=== PATIENT | male | born 1945 | race Caucasian/White ===

== ENCOUNTER 2018-01-17 18:22 | Inpatient (IN) ==
[2018-01-17] MEDS ORDERED: DEXTROSE 50%-WATER ABBOJECT IVP STA (18:57)
--- NOTE | 2018-01-17 19:19 | CT ---
EXAM: CT brain without contrast HISTORY: Mental status change TECHNIQUE: Multi-slice sequential. Coronal and sagittal reformations were performed. COMPARISON: 10/04/2014 FINDINGS: There is no acute intracranial hemorrhage, extraxial fluid collection, mass affect, or midlineshift. There is moderate diffuse sulcal prominence. Ventricular prominence is consistent with the degree of parenchymal volume loss. Periventricular white matter hypodensity is seen. Intracranial atheroscle rosis is present. The basal cisterns are patent. No large vascular territory area of hypodensity is seen within the brain. The calvarium is unremarkable. Visualized paranasal sinuses are clear. Mast oid air cells are clear. IMPRESSION: 1. No acute intracranial findings. 2. Unchanged atrophy and small vessel ischemic disease.
--- NOTE | 2018-01-17 21:11 | ED.PDOC ---
General ED Provider: Dr. KAMINI COPELAND-ER Chief Complaint: Altered Mental Status Stated Complaint: hes not acting right Time Seen by Physician: 21:09 Mode of Arrival: Ambulance Information Source: Patient Exam Limitations: No limitations Primary Care Provider: THOR EASTON Nursing and Triage Documentation Reviewed and Agree: Yes Does patient meet sepsis criteria?: No System Inflammatory Response Syndrome: Not Applicable Sepsis Protocol: For patient's 13 years and over: Temp is 96.8 and below OR 101 and greater Pulse >90 BPM Resp >20/minute Acutely Altered Mental Status Are patient's symptoms suggestive of a new infection, such as: -Pneumonia -Skin, Soft Tissue -Endocarditis -UTI -Bone, Joint Infection -Implantable Device -Acute Abdominal Infection -Wound Infection -Meningitis -Blood Stream Catheter Infection -Unknown Neurological Complaint Exam - Altered Mental Status Complaint/Exam Current Mental Status: Confusion, Agitation Last Known Well: one week Onset: Gradual Symptoms Are: Still present Timing: Constant Initial Severity: Mild Current Severity: Moderate Eye Deviation Present: No Character: Reports: Confusion Aggravating: Reports: None Alleviating: Reports: None Associated Signs and Symptoms: Denies: Dizziness, Weakness, Headache, Fever, Illness, Nuchal rigidity, Seizure, Nausea, Vomiting, Recently depressed, Trauma Cardiac Risk Factors: Reports: None CVA Risk Factors: Reports: None Related Surgical History: Reports: None Carotid Bruit Present: No Nystagmus Present: No Gag Reflex Present: Yes Meningeal Signs Positive: No Focal Weakness: Present: None Focal Sensory Loss: Present: None Gait: Abnormal [id number]: Normal Findings Romberg Test Positive: No Babinski Sign: Negative Right, Negative Left Heel to Toe Normal: Yes Signs of Injury: Present: Normal findings Thrombolytics Considered: No Differential Diagnoses: Metabolic Disorder Review of Systems - Review Of Systems Constitutional: Reports: No symptoms Eyes: Reports: No symptoms Ears, Nose, Mouth, Throat: Reports: No symptoms Respiratory: Reports: No symptoms Cardiac: Reports: No symptoms GI: Reports: No symptoms : Reports: No symptoms Musculoskeletal: Reports: No symptoms Skin: Reports: No symptoms Neurological: Reports: Cognitive dysfunction Endocrine: Reports: No symptoms Hematologic/Lymphatic: Reports: No symptoms All Other Systems: Reviewed and Negative Past Medical History - Past Medical History Previously Healthy: No Endocrine: Reports: Unknown Cardiovascular: Reports: Unknown Respiratory: Reports: Unknown Hematological: Reports: Unknown Gastrointestinal: Reports: Unknown Genitourinary: Reports: Unknown Neuro/Psych: Reports: Dementia Musculoskeletal: Reports: Unknown Cancer: Reports: Unknown - Surgical History General Surgical History: Reports: Unknown - Family History Family History: Reports: Unknown - Social History Smoking Status: Former smoker Hx Substance Use: No Alcohol Screening: None Physical Exam - Physical Exam Appearance: Well-appearing Eyes: INES, EOMI, Conjunctiva clear ENT: Ears normal, Nose normal, Oropharynx normal Neck: Supple Respiratory: Airway patent Cardiovascular: RRR GI/: Soft, Nontender, No masses, Bowel sounds normal, No Organomegaly Musculoskeletal: Normal strength, ROM intact, No edema, No calf tenderness Skin: Warm, Dry, Normal color Neurological: Sensation intact, Motor intact, Reflexes intact, Cranial nerves intact, Alert, Disoriented Psychiatric: Affect appropriate, Mood appropriate Interpretation - Radiology Interpretation Radiology Interpretation By: Radiologist Radiology Results: Negative Exam Interpreted: CT Scan - EKG Interpretation Time of EKG #1: 21:11 Rate: Normal Rhythm: Sinus Ectopy: None [place]: NL ST Segment: Normal Physician Notification - Case Discussed Physician Notified: dr easton Time of Notification: 21:12 Critical Care Note - Critical Care Note Total Time (mins): 0 Course - Course Hematology/Chemistry: 01/17/18 18:40 01/17/18 18:40 Orders, Labs, Meds: Lab Review 01/17/18 01/17/18 01/17/18 18:24 18:40 18:40 WBC 18.49 H RBC 5.32 Hgb 17.3 Hct 51.4 MCV 96.6 H MCH 32.5 H MCHC 33.7 RDW Coeff of Yamilet 13.1 Plt Count 236 Immature Gran % (Auto) 0.4 Neut % (Auto) 81.8 Lymph % (Auto) 11.1 [place] % (Auto) 6.3 Eos % (Auto) 0.2 Baso % (Auto) 0.2 Immature Gran # (Auto) 0.1 Neut # (Auto) 15.1 H Lymph # (Auto) 2.1 [place] # (Auto) 1.2 Eos # (Auto) 0.0 Baso # (Auto) 0.0 Puncture Site Rrad O2 Saturation 98.0 ABG pH 7.529 H* ABG pCO2 31.5 L ABG pO2 90.0 ABG HCO3 26.3 H ABG Total CO2 27 ABG Base Excess 4 H Jimbo Test + FiO2 % 21.0 Sodium 147 H Potassium 3.6 Chloride 111 H Carbon Dioxide 26 Anion Gap 13.6 BUN 17 Creatinine 0.90 Estimated GFR (MDRD) 82.00 BUN/Creatinine Ratio 18.88 Glucose 59 L Calcium 8.9 Total Bilirubin 1.0 AST 33 ALT 41 Alkaline Phosphatase 79 Total Creatine Kinase Troponin I Total Protein 6.8 Albumin 3.2 L Globulin 3.6 Albumin/Globulin Ratio 0.89 Vitamin B12 TSH Urine Color Urine Clarity Urine pH Ur Specific [place] Urine Protein Urine Glucose (UA) Urine Ketones Urine Blood Urine Nitrite Urine Bilirubin Urine Urobilinogen Ur Leukocyte Esterase Urine Microscopic WBC Ur Squamous Epith Cells Amorphous Sediment Urine Bacteria Urine Mucus 01/17/18 01/17/18 01/17/18 18:40 18:40 20:31 WBC RBC Hgb Hct MCV MCH MCHC RDW Coeff of Yamilet Plt Count Immature Gran % (Auto) Neut % (Auto) Lymph % (Auto) [place] % (Auto) Eos % (Auto) Baso % (Auto) Immature Gran # (Auto) Neut # (Auto) Lymph # (Auto) [place] # (Auto) Eos # (Auto) Baso # (Auto) Puncture Site O2 Saturation ABG pH ABG pCO2 ABG pO2 ABG HCO3 ABG Total CO2 ABG Base Excess Jimbo Test FiO2 % Sodium Potassium Chloride Carbon Dioxide Anion Gap BUN Creatinine Estimated GFR (MDRD) BUN/Creatinine Ratio Glucose Calcium Total Bilirubin AST ALT Alkaline Phosphatase Total Creatine Kinase 78 Troponin I < 0.0100 Total Protein Albumin Globulin Albumin/Globulin Ratio Vitamin B12 704 TSH 2.100 Urine Color Yellow Urine Clarity Clear Urine pH 7.0 Ur Specific [place] 1.020 Urine Protein 1+ Urine Glucose (UA) Negative Urine Ketones Negative Urine Blood Negative Urine Nitrite Negative Urine Bilirubin Negative Urine Urobilinogen 1.0 Ur Leukocyte Esterase Negative Urine Microscopic WBC 20-30 Ur Squamous Epith Cells 2-5 Amorphous Sediment 1+ Urine Bacteria Trace Urine Mucus 1+ Orders Category Date Time Status ABG DRAW REQUEST Stat CARDIO 01/17/18 18:24 Completed EKG-(ED ONLY) Stat CARDIO 01/17/18 18:24 Completed REGULAR DIET DIETARY 01/18/18 Breakfast Ordered ACCUCHECK (ED) [ED ACCUCHECK ASSESSMENT] .ONCE EMERGENCY 01/17/18 18:26 Active Hardware Engineering Manager [ED BUILDING MAINTENANCE REPAIRER APPLIED] .ONCE EMERGENCY 01/17/18 18:43 Active ABG Stat LAB 01/17/18 18:24 Completed CBC W/ AUTO DIFF Stat LAB 01/17/18 18:40 Completed COMPREHENSIVE METABOLIC PANEL Stat LAB 01/17/18 18:40 Completed CREATINE KINASE Stat LAB 01/17/18 18:40 Completed RPR [RAPID PLASMA REAGIN] Stat LAB 01/17/18 18:40 Received THYROID STIMULATING HORMONE Stat LAB 01/17/18 18:40 Completed TROPONIN I Stat LAB 01/17/18 18:40 Completed URINALYSIS C & S IF INDICATED Stat LAB 01/17/18 20:31 Completed URINE CULTURE Stat LAB 01/17/18 20:31 Received VITAMIN B12 Stat LAB 01/17/18 18:40 Completed Dextrose 50 % in Water [Dextrose 50%-Water Abboject] MEDS 01/17/18 18:57 Discontinued 50 ml IVP ONCE STA CT HEAD W/O CONTRAST Stat RADS 01/17/18 18:26 Completed Medications Discontinued Medications Generic Name Dose Route Start Last Admin Trade Name Freq PRN Reason Stop Dose Admin Dextrose 50 ml 01/17/18 18:57 01/17/18 19:02 Dextrose 50%-Water Abboject IVP 01/17/18 18:58 50 ml ONCE STA Administration Vital Signs: Temp Pulse Resp BP Pulse Ox 01/17/18 18:24 97.7 F 58 L 20 169/106 H 100 Departure - Departure Time of Disposition: 21:12 Disposition: ADMITTED INPATIENT Discharge Problem: Altered mental status Instructions: Altered Mental Status (ED) Condition: Fair Pt referred to PMD for follow-up: Yes IPMP verified?: No Allergies/Adverse Reactions: Allergies codeine Adverse Reaction (Verified 01/17/18 18:29) Home Medications: Ambulatory Orders Alprazolam [Xanax] 0.5 mg PO BEDTIME 07/16/14 Citalopram Hydrobromide [Celexa] 40 mg PO DAILY 07/16/14 Donepezil HCl [Aricept] 20 mg PO DAILY 07/16/14 Pravastatin Sodium 80 mg PO BEDTIME 07/16/14 Trazodone HCl 100 mg PO BEDTIME 07/16/14 Memantine HCl [Namenda] 10 mg PO BID #60 tablet 10/06/14 Aspirin 81 mg PO DAILY 01/17/18 Ibuprofen 1 - 2 tab PO PRN PRN 08/17/18 Lisinopril/Hydrochlorothiazide [Zestoretic 20-12.5 mg Tablet] 1 each PO DAILY Potassium Chloride [K-Tab ER] 20 meq PO BID 01/17/18 Disposition Discussed With: Patient, Family
[2018-01-17] MEDS ORDERED: IBUPROFEN PO PRN (21:14)
[2018-01-17] MEDS ORDERED: CATAPRES PO PRN (21:15)
[2018-01-18 00:19] VITALS: BMI 20.1
[2018-01-18] MEDS: SODIUM CHLORIDE 1,000 ML IV SCH ×2 (00:48→12:38)
[2018-01-18] MEDS ORDERED: MOTRIN PO PRN (08:07)
[2018-01-18] MEDS ORDERED: POTASSIUM CHLORIDE 20 MEQ PO SCH (09:00)
[2018-01-18] MEDS ORDERED: NON-FORMULARY MEDICATION (Citalopram Hydrobromide [Celexa] 40 MG) PO SCH (09:00)
[2018-01-18] MEDS: ZESTORETIC 20-12.5 MG TAB PO SCH (09:15)
[2018-01-18] MEDS: ROCEPHIN 1 GM in SODIUM CHLORIDE 50 ML IV SCH (09:15)
[2018-01-18] MEDS: K-DUR PO SCH ×2 (09:16→17:20)
[2018-01-18] MEDS: NAMENDA PO SCH ×2 (09:16→21:02)
[2018-01-18] MEDS: ARICEPT PO SCH (09:16)
[2018-01-18] MEDS: CELEXA PO SCH (09:16)
[2018-01-18] MEDS ORDERED: MESALAMINE 1.2 GM PO SCH (21:00)
[2018-01-18] MEDS ORDERED: NON-FORMULARY MEDICATION (Pravastatin Sodium [Pravastatin Sodium] 80 MG) PO SCH (21:00)
[2018-01-18] MEDS ORDERED: NON-FORMULARY MEDICATION (Trazodone Hcl [Trazodone Hcl] 100 MG) PO SCH (21:00)
[2018-01-18] MEDS: DESYREL PO SCH (21:02)
[2018-01-18] MEDS: PRAVACHOL PO SCH (21:02)
[2018-01-18] MEDS: BETAPACE PO SCH (22:29)
[2018-01-18] MEDS: XANAX PO SCH (22:30)
[2018-01-19] MEDS: MESALAMINE 1.2 GM PO SCH ×2 (02:35→08:39)
[2018-01-19] MEDS: SODIUM CHLORIDE 1,000 ML IV SCH ×2 (03:39→16:57)
[2018-01-19] MEDS: ZESTORETIC 20-12.5 MG TAB PO SCH (08:37)
[2018-01-19] MEDS: K-DUR PO SCH ×2 (08:38→16:55)
[2018-01-19] MEDS: BETAPACE PO SCH ×2 (08:38→20:53)
[2018-01-19] MEDS: CELEXA PO SCH (08:38)
[2018-01-19] MEDS: ASPIRIN CHEWABLE PO SCH (08:38)
[2018-01-19] MEDS: NAMENDA PO SCH ×2 (08:38→20:54)
[2018-01-19] MEDS: ARICEPT PO SCH (08:38)
[2018-01-19] MEDS: ROCEPHIN 1 GM in SODIUM CHLORIDE 50 ML IV SCH (08:39)
[2018-01-19] MEDS: DESYREL PO SCH (20:53)
[2018-01-19] MEDS: PRAVACHOL PO SCH (20:53)
[2018-01-19] MEDS: XANAX PO SCH (20:54)
[2018-01-20] MEDS: SODIUM CHLORIDE 1,000 ML IV SCH ×2 (06:28→10:50)
--- NOTE | 2018-01-20 08:11 | PN ---
DATE OF SERVICE: 01/18/18 Admitting Note SUBJECTIVE: The patient was seen and examined after hospitalization. The patient has mental status change no particular complaint. The brought him to the emergency room and the patient was seen and examined and was noted to have low glucose level except for that mild dehydration was noted. The patient was put on Rocephin for possibility of infection, UTI versus infection. The patient's condition is stable. His mental status was confused on admission. TIME SPENT: More than 30 minutes. Plan and coordination of the patient's care discussed in the presence of nurse. VLADISLAV
[2018-01-20] MEDS: MESALAMINE 1.2 GM PO SCH ×2 (08:40→20:27)
[2018-01-20] MEDS: CELEXA PO SCH (08:44)
[2018-01-20] MEDS: NAMENDA PO SCH ×2 (08:44→20:26)
[2018-01-20] MEDS: BETAPACE PO SCH ×2 (08:44→20:26)
[2018-01-20] MEDS: ASPIRIN CHEWABLE PO SCH (08:44)
[2018-01-20] MEDS: ZESTORETIC 20-12.5 MG TAB PO SCH (08:44)
[2018-01-20] MEDS: K-DUR PO SCH ×2 (08:45→17:06)
[2018-01-20] MEDS: ARICEPT PO SCH (08:45)
[2018-01-20] MEDS: ROCEPHIN 1 GM in SODIUM CHLORIDE 50 ML IV SCH (08:47)
--- NOTE | 2018-01-20 10:39 | PCM.PROG ---
Attending Provider: ATTENDING PROVIDER: Dr. THOR STEIN This patient is seen with Renetta Lopez, Nurse Practitioner. DATE OF SERVICE: 01/20/18 SUBJECTIVE: This 73 year old WHITE/ M was hospitalized 01/17/18. The patient is lying in bed, alert and oriented, resting comfortably. Blood pressure has been somewhat elevated. He is eating well. REVIEW OF SYSTEMS: CONSTITUTIONAL: Weakness. No night sweats. No malaise, lethargy. No fever or chills. HEENT: Eyes: No visual changes. No eye pain. No eye discharge. ENT: No runny nose. No epistaxis. No sinus pain. No odynophagia. No congestion. RESPIRATORY: No cough, no congestion. No hemoptysis. No shortness of breath. CARDIOVASCULAR: No angina symptoms. No CHF symptoms. No atypical chest pain for CAD. No palpitations. No orthopnea.. GASTROINTESTINAL: No abdominal pain. No nausea or vomiting. No diarrhea or constipation. No hematemesis. No hematochezia. GENITOURINARY: No urgency. No frequency. No dysuria. No hematuria. No obstructive symptoms. No discharge. No pain. No significant abnormal bleeding. MUSCULOSKELETAL: No musculoskeletal pain; no joint swelling. NEUROLOGICAL: Confusion. No headache. No neck pain. No syncope. No seizures. No dizziness. PSYCHIATRIC: Not anxious. No depression. No suicidal thoughts. No homicidal thoughts. SKIN: No rash. No lesions. No wounds. ENDOCRINE: No unexplained weight loss. No weight gain. HEMATOLOGIC/LYMPHATIC: No anemia. No purpura. No petechiae. No prolonged or excessive bleeding. No palpable lymph nodes. PHYSICAL EXAMINATION: GENERAL: The patient is awake, alert, oriented to person only lying in bed in no distress. VITAL SIGNS: Temperature 97.8 F, Pulse 52, Respiratory Rate 16, BP 159/82, Pulse Ox 100% HEENT: Head normocephalic, atraumatic. Eyes: Extraocular muscles are intact. Pupils are equal, round and reactive to light and accommodation. Ears: No lesions. Nose appeared normal. Throat: No exudate or erythema. NECK: Supple. No JVD, no carotid bruit. No lymphadenopathy or thyromegaly. LUNGS: Diminished breath sounds. Clear to auscultation. Percussion note normal. Chest symmetrical. HEART: S1, S2, no S3. No murmurs. No cyanosis or clubbing. No ascites. Pulses: Dorsalis pedis and posterior tibial pulses +1 to +2 both sides. ABDOMEN: Soft. Non-tender. Bowel sounds active. No CVA tenderness. No mass felt. EXTREMITIES: No edema. Full range of motion of all extremities, equal. NEUROLOGIC: No focal deficit. Cranial nerves II through XII are grossly intact. No headache, no double vision or headache. SKIN: Not dry. Intact. Turgor-normal. LYMPHATIC: No palpable lymph nodes/no lymphedema. MUSCULOSKELETAL: Normal joints with no swelling. Muscle tone is normal. LAB REVIEW: 01/19/18 04:30 01/19/18 04:30 ASSESSMENT: 1. Acute mental status change 2. Dementia 3. Hypertension PLAN: 1. Lisinopril 40 mg 2. D/C IV fluids to 50 cc/hr 3. Chest x-ray Plan and coordination of the patient's care discussed in the presence of Bead Builder and nurse. CONDITION: Stable SCRIBED BY: Melania TRAN scribed while in presence of service performed by Dr. Stein/Renetta Lopez APRN on 01/20/18 ([id number])
[2018-01-20] MEDS: HYDROCHLOROTHIAZIDE PO SCH (10:50)
[2018-01-20] MEDS: ZESTRIL PO SCH (10:50)
--- NOTE | 2018-01-20 11:22 | DI ---
EXAM: Two views of the chest. History: Cough. Comparison: Chest radiograph 10/04/2014, chest CT 06/13/2015 Findings: Heart size is within normal limits. No focal consolidation. No appreciable pleural fluid and no pneumothorax. Tortuous thoracic aorta. No acute osseous abnormalities. Impression: No acute cardiopulmonary process. Tortuous thoracic aorta
--- NOTE | 2018-01-20 14:42 | RS.PTINEVL ---
Subjective - Patient information Date of Evaluation: 01/20/18 Date of Arrival on Unit: 01/17/18 Admitted From:: Home Diagnosis: altered mental status, h/o falls at home Usual Living Arrangement: With Spouse Living Arrangement Comments: lives with spouse, daughter and adopting four great -grandchildren ages 6-13 Home Environment: House, Stairs (many) (pt's bedroom is upstairs.) Medical History: Hypertension, Dementia Surgical History: Cervical Spine, Cholecystectomy Surgical History Comments:: hernia repair, r hand sx, appey Medications: see chart Subjective Information/ Patient Comments:: pt's states pt has been hateful with her for the past 2 days. appears overwhelmed and emotional. pt states he would like to walk. - Level of function Prior to this admission, the patient could do the following:: Independent Ambulation Current Level of Function: Partially Dependent Current Equipment Used at Home: none Interventions - Objective Patient Orientation: Person Current Interventions: IV's, Telemetry Range of Motion - ROM Right Upper Extremity AROM: WFL's Left Upper Extremity AROM: WFL's Right Lower Extremity AROM: WFL's Left Lower Extremity AROM: WFL's Muscle Strength - Muscle Strength Right Upper Extremity Strength: Mild Weakness (grossly 4-/5) Left Upper Extremity Strength: Mild Weakness (grossly 4-/5) Right Lower Extremity Strength: Mild Weakness (hip flex 4-/5, knee flex/ext 4/5 , ankle Df/PF 4/5) Left Lower Extremity Strength: Mild Weakness (hip flex 4-/5, knee flex/ext 4/5, ankle Df/PF 4/5) Sensation - Sensation Right Upper Extremity Sensation: Intact/Normal Left Upper Extremity Sensation: Intact/Normal Right Lower Extremity Sensation: Intact/Normal Left Lower Extremity Sensation: Intact/Normal Palpation Palpation Findings: None/Normal Balance - Sitting Balance and Reactions Static Sitting Balance: Fair Dynamic Sitting Balance: Fair - Standing Balance and Reactions Static Standing Balance: Poor Dynamic Standing Balance: Poor Standing Equilibrium Reactions: Delayed Left, Delayed Right Standing Protective Reactions: Delayed Left, Delayed Right - Comments Balance Assessment Comments: While amb pt leans backward, and requires min assist to maintain balance. Functional Mobility - Bed Mobility Rolling R/L: CGA Scooting: CGA Supine to Sit: Min Assist Sit to Supine: Min Assist - Transfers Sit to Stand: Min Assist Stand to Sit: Min Assist - Safety Awareness Safety Awareness: Poor DON INDEX SCORE: n/a Ambulation - Ambulation Orthotic/Prosthetic Device: No Distance: 150ft Assistance needed with Ambulation: Min Assist, 1 person assist Quality of Ambulation: pt amb 130ft with SOLE CEMENTER with gait belt for min x 1, pt then amb 20ft with rwx with improved posture and balance. Feel pt would benefit from rwx at home to improve safety and balance. Gait Deviations: Forward posture, Short stride Factors Affecting Ambulation: Decreased Balance, Weakness, Decreased Safety, Cognitive Status, Limited Endurance Treatment time - Time with patient Length of Evaluation: 26 Total treatment time: 26 Patient Education - Education Patient Education: Activity Modification, Education of Plan of Care Teaching Recipient: Patient, Family Teaching Methods: Discussion Comments: discussion regarding safety with transfers, gait as well as safety in the home. Assessment - Assessment Problem List:: Decreased level of function, Requires training/education, Decreased safety/Risk of falls, Weakness, Cognitive status limits abilities Rehab Potential: Fair Further Therapy Indicated?: Yes Candidate for Swing Bed for Therapy Services?: Feel pt may not be a candidate for swing bed due to cognitive issues limiting ability to retain instruction. Evaluation Complexity: HISTORY: Medium (htn, falls at home, dementia, ), EXAM OF BODY SYSTEMS: Medium (balance, gait, transfers, strength), CLINICAL PRESENTATION: Medium (evolving), CLINICAL DECISION MAKING: Medium Short Term Goals GOAL #1: pt demonstrate independence with rolling and scooting up in bed Goal to be met by: 01/23/18 GOAL #2: pt transfer sup to/from sit to/from stand CGA Goal to be met by: 01/23/18 GOAL #3: pt amb with rwx 150ft with CGA with improved posture, no LOB Goal to be met by: 01/23/18 Long-Term Goals GOAL #1: pt transfer sup to/from sit to/from stand SBA Goal to be met by: 01/25/18 GOAL #2: pt amb with rwx functional household distances with SBA Goal to be met by: 01/25/18 GOAL #3: pt with improved dyn stand balance with no LOB with gait Goal to be met by: 01/25/18 Plan Plan of Care: Therapeutic EX, Therapeutic Activity Other:: gait training Frequency of Treatment: 1-2 X day, as tolerated Duration of Treatment: 5 days Anticipated Discharge Destination: Home Treatment Diagnosis (ICD 10 Codes): R29.6 falls. M62.81 general weakness. R 26.2 difficulty walking Has the Physician been added for Co-signature?: Yes
--- NOTE | 2018-01-20 14:51 | RS.OTINEVL ---
Subjective - Patient information Date of Evaluation: 01/20/18 Date of Arrival on Unit: 01/17/18 Admitted From:: Home Usual Living Arrangement: With Spouse Living Arrangement Comments: lives with spouse, daughter and adopting four great -grandchildren ages 6-13 Home Environment: House, Stairs (many) (pt's bedroom is upstairs.) Medical History: Hypertension, Dementia Medical History Comments:: Pt has dementia, TLINGIT & HAIDA, disoriented, confused, high fall risk, HTN, Hypercholesterolemia, mental status change, unsteady gait, hernia repair, colonoscopy, R hand tendon surgery., neck fusion, cholecystectomy , glasses Surgical History: Cervical Spine, Cholecystectomy Surgical History Comments:: hernia repair, r hand sx, appey Medications: see chart Subjective Information/ Patient Comments:: pt not very talkative at this time. - Level of function Prior to this admission, the patient could do the following:: Independent Ambulation Abilities prior to this admission: Pt sat EOB independently. Pt requires a RW at this time due to unsteady gait. Pt's is telling OT that her is not bathing. She reports that he does not take a shower or a bath, or a sponge bath. Current Level of Function: Partially Dependent Current Equipment Used at Home: none Pain Assessment - Pain Pain Score: 0 Interventions - Objective Patient Orientation: Person Current Interventions: IV's, Oxygen Observation: Pt is confused. Pt did participate in the OT evaluation. Pt sat EOB independently. Pt stood with RW CGA. Interventions - ROM Right Upper Extremity AROM: WFL's Left Upper Extremity AROM: WFL's - Strength Right Upper Extremity Strength: Mild Weakness Left Upper Extremity Strength: Mild Weakness - Sensation Right Upper Extremity Sensation: Intact/Normal Left Upper Extremity Sensation: Intact/Normal Balance - Sitting Balance Static Sitting Balance: Fair Dynamic Sitting Balance: Fair - Standing Balance Static Standing Balance: Fair Dynamic Standing Balance: Fair ADL Skills - Self Feeding Self Feeding: Independent - Grooming Grooming: Min Assist - Bathing Bathing UE: Min Assist Bathing LE: Min Assist - Dressing Dressing UE: Min Assist Dressing LE: Min Assist - Toilet Management Toileting Management: Min Assist Functional Mobility DON INDEX SCORE: . Additional Treatment Performed - Time with patient Length of Evaluation: 25 Total treatment time: 25 Activities Patient Interests:: Watching Television, Visiting/Socializing Patient Education Patient Education: Education of diagnosis, Home Exercise Program, Home Safety, Education of Plan of Care Teaching Recipient: Patient, Significant Other Teaching Methods: Discussion Short Term Goals - Goals GOAL 1: Pt to complete sink level ADLs with RW CGA. Goal to be met by: 01/24/18 GOAL 2: Pt to complete BUE strengthening to have 4+/5 in MMT. Goal to be met by: 01/24/18 GOAL 3: Pt to tolerate activity tolerance to 15 minutes with RW. Goal to be met by: 01/24/18 Goal to be met by: 01/24/18 Mcfp Goals GOAL 1: Pt to complete sink level ADLs with RW Mod-I. Goal to be met by: 01/31/18 GOAL 2: Pt to complete BUE strengthening to have 5/5 in MMT. Goal to be met by: 01/31/18 GOAL 3: Pt to tolerate activity tolerance to 20 minutes with RW. Goal to be met by: 01/31/18 Plan Plan of Care: Therapeutic EX, Neuromuscular Re-Educ, Therapeutic Activity, Self- Care/Home Management Frequency of Treatment: 1-2 X day, as tolerated Duration of Treatment: 2 Weeks Anticipated Discharge Destination: Home Treatment Diagnosis (ICD 10 Codes): M62.81 Muscle weakness, Z74.0 Reduced mobility. Has the Physician been added for Co-signature?: Yes
[2018-01-20] MEDS: PRAVACHOL PO SCH (20:25)
[2018-01-20] MEDS: XANAX PO SCH (20:26)
[2018-01-20] MEDS: DESYREL PO SCH (20:26)
[2018-01-21] MEDS: SODIUM CHLORIDE 1,000 ML IV SCH (02:04)
[2018-01-21 05:54] VITALS: BP 117/79; TEMP 97.4
[2018-01-21] MEDS ORDERED: K-DUR PO STA (07:59)
[2018-01-21] MEDS: ROCEPHIN 1 GM in SODIUM CHLORIDE 50 ML IV SCH (08:40)
--- NOTE | 2018-01-21 08:41 | PCM.PROG ---
Attending Provider: ATTENDING PROVIDER: Dr. THOR STEIN DATE OF SERVICE: 01/21/18 SUBJECTIVE: This 73 year old WHITE/ M was hospitalized 01/17/18 with change in mental status. The patient was treated for UTI. Condition has improved but and family decided against alf. The patient is almost total care. REVIEW OF SYSTEMS: CONSTITUTIONAL: No night sweats. No fatigue, malaise, lethargy. No fever or chills. HEENT: Eyes: No visual changes. No eye pain. No eye discharge. ENT: No runny nose. No epistaxis. No sinus pain. No odynophagia. No congestion. RESPIRATORY: No cough, no congestion. No hemoptysis. No shortness of breath. CARDIOVASCULAR: No angina symptoms. No CHF symptoms. No atypical chest pain for CAD. No palpitations. No orthopnea.. GASTROINTESTINAL: No abdominal pain. No nausea or vomiting. No diarrhea or constipation. No hematemesis. No hematochezia. GENITOURINARY: No urgency. No frequency. No dysuria. No hematuria. No obstructive symptoms. No discharge. No pain. No significant abnormal bleeding. MUSCULOSKELETAL: No musculoskeletal pain; no joint swelling. NEUROLOGICAL: Confused mental status at times. No headache. No neck pain. No syncope. No seizures. No dizziness. PSYCHIATRIC: Not anxious. No depression. No suicidal thoughts. No homicidal thoughts. SKIN: No rash. No lesions. No wounds. ENDOCRINE: No unexplained weight loss. No weight gain. HEMATOLOGIC/LYMPHATIC: No anemia. No purpura. No petechiae. No prolonged or excessive bleeding. No palpable lymph nodes. PHYSICAL EXAMINATION: GENERAL: The patient is awake, alert lying in bed in no distress. VITAL SIGNS: Temperature 97.4 F, Pulse 54, Respiratory Rate 16, BP 117/79, Pulse Ox 98% HEENT: Head normocephalic, atraumatic. Eyes: Extraocular muscles are intact. Pupils are equal, round and reactive to light and accommodation. Ears: No lesions. Nose appeared normal. Throat: No exudate or erythema. NECK: Supple. No JVD, no carotid bruit. No lymphadenopathy or thyromegaly. LUNGS: Clear to auscultation. Percussion note normal. Chest symmetrical. HEART: S1, S2, no S3. No murmurs. No cyanosis or clubbing. No ascites. Pulses: Dorsalis pedis and posterior tibial pulses +1 to +2 both sides. ABDOMEN: Soft. Non-tender. Bowel sounds active. No CVA tenderness. No mass felt. EXTREMITIES: No edema. Full range of motion of all extremities, equal. NEUROLOGIC: No focal deficit. Cranial nerves II through XII are grossly intact. No headache, no double vision or headache. SKIN: Warm and dry. Intact. Turgor-normal. LYMPHATIC: No palpable lymph nodes/no lymphedema. MUSCULOSKELETAL: Normal joints with no swelling. Muscle tone is normal. LAB REVIEW: 01/21/18 05:15 01/21/18 05:15 01/21/18 05:15: Sodium 142, Potassium 3.0 L, Chloride 111 H, Carbon Dioxide 24, Anion Gap 10.0, BUN 21 H, Creatinine 0.84, Estimated GFR (MDRD) 89.00, BUN/ Creatinine Ratio 25.00, Glucose 115, Calcium 8.2, Total Bilirubin 0.3, AST 27, ALT 28, Alkaline Phosphatase 58, Total Protein 5.0 L, Albumin 2.3 L, Globulin 2.7, Albumin/Globulin Ratio 0.85 01/21/18 05:15: WBC 8.98, RBC 4.19 L, Hgb 13.5 L, Hct 40.6 L, MCV 96.9 H, MCH 32.2 H, MCHC 33.3, RDW Coeff of Yamilet 13.0, Plt Count 167, Immature Gran % (Auto) 0.4, Neut % (Auto) 45.4, Lymph % (Auto) 43.4, [place] % (Auto) 8.1, Eos % (Auto) 2.3, Baso % (Auto) 0.4, Immature Gran # (Auto) 0.0, Neut # (Auto) 4.1, Lymph # ( Auto) 3.9 H, [place] # (Auto) 0.7, Eos # (Auto) 0.2, Baso # (Auto) 0.0 ASSESSMENT: 1. Mental status, Alzheimer's dementia 2. Hypertension 3. Dyslipidemia 4. Depression PLAN: 1. Keflex 500 mg b.i.d. times five days 2. Continue all medications 3. Potassium supplements 4. Will see in three to four days in followup 5, Discharge home Plan and coordination of the patient's care discussed in the presence of Second Grade Teacher and nurse. CONDITION: Stable SCRIBED BY: CLARITZA HUGGINS Performance Consultant scribed while in presence of service performed by Dr. THOR STEIN on 01/21/18 ([id number])
[2018-01-21] MEDS: ASPIRIN CHEWABLE PO SCH (08:43)
[2018-01-21] MEDS: HYDROCHLOROTHIAZIDE PO SCH (08:43)
[2018-01-21] MEDS: BETAPACE PO SCH (08:44)
[2018-01-21] MEDS: K-DUR PO SCH (08:45)
[2018-01-21] MEDS: CELEXA PO SCH (08:46)
[2018-01-21] MEDS: NAMENDA PO SCH (08:46)
[2018-01-21] MEDS: ZESTRIL PO SCH (08:46)
[2018-01-21] MEDS: ARICEPT PO SCH (08:46)
[2018-01-21] MEDS: MESALAMINE 1.2 GM PO SCH (08:47)
--- NOTE | 2018-01-21 14:14 | CM.DICTOOL ---
ADMISSION: 01/17/18 21:21 DISCHARGE: 01/21/18 DATE OF SERVICE: 01/21/18 FINAL DIAGNOSIS MENTAL STATUS CHANGES ALZHEIMER'S TYPE DEMENTIA HYPOKALEMIA, TREATED HYPERTENSION ULCERATIVE COLITIS BY HISTORY ELECTROCUTION, APPROX 12 YEARS AGO SLEEP APNEA (C-PAP, NONCOMPLIANT) HERNIA REPAIR CHOLECYSTECTOMY APPENDECTOMY CERVICAL SURGERY TONSILLECTOMY FORMER SMOKER LAST VITALS Temp Pulse Resp BP Pulse Ox 97.4 F L 54 L 16 117/79 98 01/21/18 05:53 01/21/18 05:53 01/21/18 05:53 01/21/18 05:53 01/21/18 05:53 TAKE THESE MEDICATIONS AT HOME Alprazolam (Xanax) 0.5 mg PO BEDTIME [facility] Last Admin: 01/20/18 20:26 Dose: 0.5 mg Aspirin (Aspirin Chewable) 81 mg PO DAILYWM [facility] Last Admin: 01/21/18 08:43 Dose: 81 mg Citalopram Hydrobromide (Celexa) 40 mg PO DAILY [facility] Last Admin: 01/21/18 08:46 Dose: 40 mg Donepezil HCl (Aricept) 20 mg PO DAILY [facility] Last Admin: 01/21/18 08:46 Dose: 20 mg Hydrochlorothiazide (Hydrochlorothiazide) 12.5 mg PO DAILY [facility] (WITH LISINOPRIL ) Last Admin: 01/21/18 08:43 Dose: 12.5 mg Ibuprofen (Motrin) 200 - 400 mg PO Q4-6H PRN PRN Reason: Pain Keflex 500 mg PO BID X5 DAYS Lisinopril (Zestril) 40 mg PO DAILY [facility] (WITH HCTZ) Last Admin: 01/21/18 08:46 Dose: 40 mg Memantine (Namenda) 10 mg PO BID [facility] Last Admin: 01/21/18 08:46 Dose: 10 mg Non-Formulary Medication (Mesalamine [Mesalamine]) 1.2 gm PO BID [facility] Last Admin: 01/21/18 08:47 Dose: Not Given Potassium Chloride (K-Dur) 40 meq PO BIDWM [facility] Last Admin: 01/21/18 08:45 Dose: 20 meq Pravastatin Sodium (Pravachol) 80 mg PO BEDTIME [facility] Last Admin: 01/20/18 20:25 Dose: 80 mg Sotalol HCl (Betapace) 40 mg PO BID [facility] Last Admin: 01/21/18 08:44 Dose: 40 mg Trazodone HCl (Desyrel) 100 mg PO BEDTIME [facility] Last Admin: 01/20/18 20:26 Dose: 100 mg ALLERGIES codeine Adverse Reaction (Verified 01/17/18 18:29) NEW PRESCRIPTIONS: NEW PRESCRIPTIONS Cephalexin [Keflex] 500 mg PO BID #10 capsule 01/21/18 Hydrochlorothiazide 12.5 mg PO DAILY #30 tablet 01/21/18 Lisinopril [Zestril] 40 mg PO DAILY #30 tablet 01/21/18 SMOKING: FORMER SMOKER NONE NOW DISEASE SPECIFIC EDUCATION: DEMENTIA HYPOKALEMIA HYPERTENSION HOME MEDICATIONS AND CHANGES NEW PRESCRIPTIONS FOLLOW UP SKILLED NURSING PLACEMENT ASSISTED LIVING HOME HEALTH LAB REVIEW: 01/21/18 05:15 01/21/18 05:15 01/21/18 05:15: Sodium 142, Potassium 3.0 L, Chloride 111 H, Carbon Dioxide 24, Anion Gap 10.0, BUN 21 H, Creatinine 0.84, Estimated GFR (MDRD) 89.00, BUN/ Creatinine Ratio 25.00, Glucose 115, Calcium 8.2, Total Bilirubin 0.3, AST 27, ALT 28, Alkaline Phosphatase 58, Total Protein 5.0 L, Albumin 2.3 L, Globulin 2.7, Albumin/Globulin Ratio 0.85 01/21/18 05:15: WBC 8.98, RBC 4.19 L, Hgb 13.5 L, Hct 40.6 L, MCV 96.9 H, MCH 32.2 H, MCHC 33.3, RDW Coeff of [place]ile[place] 13.0, Plt Count 167, Immature Gran % (Auto) 0.4, Neut % (Auto) 45.4, Lymph % (Auto) 43.4, [place] % (Auto) 8.1, Eos % (Auto) 2.3, Baso % (Auto) 0.4, Immature Gran # (Auto) 0.0, Neut # (Auto) 4.1, Lymph # ( Auto) 3.9 H, [place] # (Auto) 0.7, Eos # (Auto) 0.2, Baso # (Auto) 0.0 PLAN: DISCHARGE HOME TODAY, 01/21/[address] STEIN IN HIS OFFICE ON 01/24/18 AT 10:15 A.M. RESUME YOUR HOME MEDICATIONS PER LIST PROVIDED BY THE NURSING STAFF DO NOT TAKE YOUR ZESTORETIC (LISINOPRIL/HYDROCHLOROTHIAZIDE) NEW PRESCRIPTIONS KEFLEX 500 MG, TAKE ONE CAPSULE BY MOUTH TWICE DAILY FOR 5 DAYS ONLY LISINOPRIL (ZESTRIL) 40 MG, TAKE ONE TABLET BY MOUTH WITH YOUR HCTZ DAILY HYDROCHLOROTHIAZIDE (HCTZ) 12.5 MG, TAKE ONE TABLET BY MOUTH WITH YOUR LISINOPRIL DAILY ACTIVITY GET PLENTY OF REST AT HOME. GRADUALLY INCREASE YOUR ACTIVITY LEVEL ACCORDING TO YOUR TOLERATION DIET TOLERATED SUMMARY THE PATIENT IS ALERT AND ORIENTED X3 DURING THE DAY AND HAS EPISODES OF CONFUSION DURING THE NIGHT. HE CURRENTLY RESIDES AT HOME WITH HIS SPOUSE AND DESIRES TO RETURN THERE AT DISCHARGE. OFFER HAS BEEN MADE TO ASSIST WITH ALTERNATIVE DISCHARGE PLANS SUCH SKILLED NURSING PLACEMENT, ASSISTED LIVING, HOME HEALTH AND MENTAL HEALTH REFERRAL. THE HAS HELD DISCUSSION WITH THEIR CHILDREN. THEY HAVE OPTED FOR THE PATIENT TO RETURN HOME. MR. DUDLEY HAS A C-PAP AT HOME BUT DOES NOT USE IT AT THIS TIME. THE SKIN TURGOR REMAINS INTACT AND WITHOUT DECUBITUS ULCERS. HYDRATION AND NUTRITIONAL STATUS ARE EXCELLENT. THE PATIENT IS AWARE AND AGREEABLE FOR TODAY' S DISCHARGE HOME. WE WILL FOLLOW HIM THROUGH THE OFFICE IN 3-4 DAYS. CURRENT CODE STATUS FULL CODE THOR STEIN M.D.
--- NOTE | 2018-01-22 09:08 | RS.OTQKDC ---
OT Discharge Date of Discharge: 01/21/18 Reason for Discharge: Pt discharged from hospital.
--- NOTE | 2018-01-22 10:17 | PN ---
DATE OF SERVICE: 01/19/18 SUBJECTIVE: The is in the room. He was hospitalized with change in mental status. The patient's mental status is stable, oriented to time, place and person. He at times is obnoxious with his according to the . REVIEW OF SYSTEMS: CONSTITUTIONAL: No night sweats. No fatigue, malaise, lethargy. No fever or chills. HEENT: Eyes: No visual changes. No eye pain. No eye discharge. ENT: No runny nose. No epistaxis. No sinus pain. No sore throat. No odynophagia. No congestion. RESPIRATORY: No cough, no congestion. No hemoptysis. No shortness of breath. CARDIOVASCULAR: No angina symptoms. No CHF symptoms. No atypical chest pain for CAD. No palpitations. No orthopnea. GASTROINTESTINAL: No abdominal pain. No nausea or vomiting. No diarrhea or constipation. No hematemesis. No hematochezia. GENITOURINARY: No urgency. No frequency. No dysuria. No hematuria. No obstructive symptoms. No discharge. No pain. No significant abnormal bleeding. MUSCULOSKELETAL: No musculoskeletal pain; no joint swelling. NEUROLOGICAL: No headache. No neck pain. No syncope. No seizures. No dizziness. PSYCHIATRIC: Not anxious. No depression. No suicidal thoughts. No homicidal thoughts. SKIN: No rash. No lesions. No wounds. ENDOCRINE: No unexplained weight loss. No weight gain. HEMATOLOGIC/LYMPHATIC: No anemia. No purpura. No petechiae. No prolonged or excessive bleeding. No palpable lymph nodes. PHYSICAL EXAMINATION: GENERAL: The patient is oriented to time, place and person at the present time. VITAL SIGNS: Temperature 97.5, pulse 50, respiratory rate 18, BP 130/80, pulse ox 100%. HEENT: Head normocephalic, atraumatic. Eyes: Extraocular muscles are intact. Pupils are equal, round and reactive to light and accommodation. Ears: No lesions. Nose appeared normal. Throat: No exudate or erythema. NECK: Supple. No JVD, no carotid bruit. No lymphadenopathy or thyromegaly. LUNGS: Decreased breath sounds. Clear to auscultation. Percussion note normal. Chest symmetrical. HEART: S1, S2, no S3. No murmurs. No cyanosis or clubbing. No ascites. Pulses: Dorsalis pedis and posterior tibial pulses +1 to +2 both sides. ABDOMEN: Soft. Nontender. Bowel sounds active. No CVA tenderness. No mass felt. EXTREMITIES: No edema. Full range of motion of all extremities, equal. NEUROLOGIC: No focal deficit. Cranial nerves II through XII are grossly intact. No headache, no double vision or headache. SKIN: Not dry. Intact. Turgor - normal. LYMPHATIC: No palpable lymph nodes/no lymphedema. MUSCULOSKELETAL: Normal joints with no swelling. Muscle tone is normal. ASSESSMENT: 1. DEMENTIA SEEMS TO BE WORSENING 2. CHRONIC LUNG DISEASE PLAN: 1. Continue all of the medications, IV antibiotics. 2. The patient's overall mental status had deteriorated because of UTI. TIME SPENT: More than 30 minutes. Plan and coordination of the patient's care discussed in the presence of nurse. VLADISLAV
--- NOTE | 2018-01-22 10:21 | PN ---
DATE OF SERVICE: 01/20/18 SUBJECTIVE: The patient was seen and examined with the nurse practitioner. He is a 73-year- old white male hospitalized with mental status change. The patient's electrolytes are stable. Creatinine and BUN shows mild dehydration. Increased the Lisinopril to 40. IV fluids to be decreased to 50 cc. Chest x-ray to be done. is in the room. She is fed up with taking care of him. He is uncooperative. She has been taking care of him for many years. She is thinking about putting him in the [facility]. TIME SPENT: More than 30 minutes. Plan and coordination of the patient's care discussed in the presence of nurse. VLADISLAV
--- NOTE | 2018-01-22 10:59 | DS ---
DATE OF SERVICE: 01/21/18 FINAL DIAGNOSIS: 1. MENTAL STATUS CHANGES 2. ALZHEIMER'S DEMENTIA 3. HYPOKALEMIA, TREATED 4. HYPERTENSION 5. ULCERATIVE COLITIS BY HISTORY 6. ELECTROCUTION, APPROXIMATELY 12 YEARS AGO 7. SLEEP APNEA (CPAP, NONCOMPLIANT) 8. HERNIA REPAIR 9. CHOLECYSTECTOMY 10. APPENDECTOMY 11. CERVICAL SURGERY 12. TONSILLECTOMY 13. FORMER SMOKER DISCHARGE INSTRUCTIONS: Followup appointment: Return to see Dr. Ledesma in his office on 01/24/18 at 10: 15 a.m. Do not take your Zestoretic (Lisinopril/Hydrochlorothiazide) MEDICATIONS AT DISCHARGE: Xanax 0.5 mg p.o. bedtime [facility] Aspirin 81 mg p.o. daily with meal [facility] Celexa 40 mg p.o. daily [facility] Aricept 20 mg p.o. daily [facility] Hydrochlorothiazide 12.5 mg p.o. daily [facility] (with Lisinopril) Ibuprofen 200-400 mg p.o. q.4-6h p.r.n. Keflex 500 mg p.o. b.i.d. times 5 days Lisinopril (Zestril) 40 mg p.o daily [facility] (with HCTZ) Namenda 10 mg p.o. b.i.d. [facility] Mesalamine 1.2 gm p.o. b.i.d. [facility] K-Dur 40 mEq p.o. b.i.d. with meal [facility] Pravachol 80 mg p.o. bedtime [facility] Betapace 40 mg p.o. b.i.d. [facility] Desyrel 100 mg p.o. bedtme [facility] NEW PRESCRIPTIONS: Keflex 500 mg take one capsule by mouth twice daily for 5 days only Lisinopril (Zestril) 40 mg take one tablet by mouth with your HCTZ daily Hydrochlorothiazide (HCTZ) 12.5 mg take one tablet by mouth with your Lisinopril daily DIET INSTRUCTIONS: As tolerated. ACTIVITY: Get plenty of rest at home. Gradually increase your activity level according to your toleration. SMOKING: Former smoker - none now DISEASE SPECIFIC EDUCATION: Dementia Hypokalemia Hypertension Home medication and changes New prescriptions Followup Long Term placement Assisted living Home Health HOSPITAL COURSE: 73-year-old white male hospitalized with dehydration, change in mental status with possibility of urinary tract infection. The patient was treated with IV fluids. Also was given Rocephin for possibility of UTI. Mental status improved. The patient's main problem seems to be his Alzheimer's which seems to be advancing. The patient also has family problems at home and conflicts. In further discussion, the family including decided not to send this patient to the detention. The patient's condition at time of discharge is stable. He will be discharged on Keflex to be taken 500 mg b.i.d. for 5 days, potassium supplements given before discharge, total of 80 mg on day of discharge and he will be taking 40 mEq of potassium on a daily basis. CONDITION AT TIME OF DISCHARGE: Stable. TIME SPENT: More than 60 minutes. MTDD
--- NOTE | 2018-01-22 11:01 | PN ---
BILLING 01/17/18 LEVEL 5 01/18/18 INTERMEDIATE 01/19/18 INTERMEDIATE 01/20/18 INTERMEDIATE 01/21/18 DISCHARGE MTDD
== END 2018-01-21 10:10 | disposition home or self-care (01) | DRG 641 ==
LOC: ED 18:22 → MEDSURG B 21:21
PROVIDERS: ADMIT Internal Medicine; ATTEND Internal Medicine
DX: E86.0 Dehydration (principal); N39.0 Urinary tract infection, site not specified; F02.81 Dementia in other diseases classified elsewhere, unspecified severity, with behavioral disturbance; E78.5 Hyperlipidemia, unspecified; E87.6 Hypokalemia; G30.9 Alzheimer's disease, unspecified; G47.30 Sleep apnea, unspecified; I10 Essential (primary) hypertension
CPT/HCPCS: 36415; 80053; 81001; 82550; 82607; 82803; 82962; 84443; 84484; 85025; 86592; 87086; 93005; 93010; 96374; 99284

== ENCOUNTER 2018-02-09 11:39 | Emergency (ER) | payer OTHER ==
[2018-02-09 11:43] VITALS: BP 162/110; TEMP 97.9; BMI 22.4
--- NOTE | 2018-02-09 12:25 | CT ---
EXAM: CT head without contrast HISTORY: Confusion COMPARISON: CT head 01/17/2018 and multiple priors TECHNIQUE: Serial axial images of the brain were obtained from the skull base to the vertex without IV contrast. FINDINGS: The ventricles, cisterns and sulci demonstrate moderate generalized volume loss. The lim -white matter junction is maintained. There is scattered low attenuation throughout the periventricu lar white matter.No midline shift or mass is identified. There is no abnormal intra or extra-axial f luid collection. The paranasal sinuses demonstrate mucosal thickening. The mastoid air cells are cl ear. The osseous calvarium is intact. IMPRESSION: 1. No acute intracranial abnormality or hemorrhage. 2. Moderate generalized volume loss and scattered microangiopathy. 3. Mild paranasal sinus mucosal thickening.
--- NOTE | 2018-02-09 13:08 | ED.PDOC ---
General ED Provider: Dr. KAMINI COPELAND-ER Chief Complaint: Hypoglycemia Stated Complaint: his bs is low--found to be just over 30 with decreased responsiveness Time Seen by Physician: 11:45 Mode of Arrival: Ambulance Information Source: Patient, EMT Exam Limitations: No limitations Primary Care Provider: THOR EASTON Nursing and Triage Documentation Reviewed and Agree: Yes Does patient meet sepsis criteria?: No System Inflammatory Response Syndrome: Not Applicable Sepsis Protocol: For patient's 13 years and over: Temp is 96.8 and below OR 101 and greater Pulse >90 BPM Resp >20/minute Acutely Altered Mental Status Are patient's symptoms suggestive of a new infection, such as: -Pneumonia -Skin, Soft Tissue -Endocarditis -UTI -Bone, Joint Infection -Implantable Device -Acute Abdominal Infection -Wound Infection -Meningitis -Blood Stream Catheter Infection -Unknown Endocrine Complaint Exam - Diabetic Complication Complaint/Exam Onset/Duration: this am Symptoms Are: Still present Timing: Constant Initial Severity: Mild Current Severity: Mild Character: Confused, Lethargic, Unresponsive Alleviating: Reports: None Associated Signs and Symptoms: Reports: Decreased LOC Related History: Reports: DM 2 Cardiac Risk Factors: Reports: DM CVA Risk Factors: Reports: DM Serious Bacterial Infection Risk Factors: Reports: None Related Surgical History: Reports: None Acetone on Breath: No Dry Mucous Membranes: No Kussmaul Respirations: No Meningeal Signs: No Focal Weakness: None Focal Sensory Loss: None Gait: Normal Nystagmus Present: No Gag Reflex Present: Yes Finger to Nose: Normal Babinski Sign: Positive Right, Positive Left Heel to Toe Normal: Yes Differential Diagnoses: Hypoglycemia Quality Indicator For Non-Traumatic Chest Pain/Syncope: EKG Performed Review of Systems - Review Of Systems Constitutional: Reports: No symptoms Eyes: Reports: No symptoms Ears, Nose, Mouth, Throat: Reports: No symptoms Respiratory: Reports: No symptoms Cardiac: Reports: No symptoms GI: Reports: No symptoms : Reports: No symptoms Musculoskeletal: Reports: No symptoms Skin: Reports: No symptoms Neurological: Reports: Cognitive dysfunction Endocrine: Reports: No symptoms Hematologic/Lymphatic: Reports: No symptoms All Other Systems: Reviewed and Negative Past Medical History - Past Medical History Previously Healthy: No Endocrine: Reports: Unknown Cardiovascular: Reports: Unknown Respiratory: Reports: Unknown Hematological: Reports: Unknown Gastrointestinal: Reports: Unknown Genitourinary: Reports: Unknown Neuro/Psych: Reports: Dementia Musculoskeletal: Reports: Unknown Cancer: Reports: Unknown - Surgical History General Surgical History: Reports: Unknown - Family History Family History: Reports: Unknown - Social History Smoking Status: Former smoker Hx Substance Use: No Alcohol Screening: None Physical Exam - Physical Exam Appearance: Well-appearing, No pain distress, Well-nourished Eyes: INES, EOMI, Conjunctiva clear ENT: Ears normal, Nose normal, Oropharynx normal Neck: Supple Respiratory: Airway patent, Breath sounds clear, Breath sounds equal, Respirations nonlabored Cardiovascular: RRR, Pulses normal, No rub, No murmur GI/: Soft, Nontender, No masses, Bowel sounds normal, No Organomegaly Musculoskeletal: Normal strength, ROM intact, No edema, No calf tenderness Skin: Warm, Dry, Normal color Neurological: Sensation intact, Motor intact, Reflexes intact, Cranial nerves intact, Alert Psychiatric: Affect appropriate, Mood appropriate Interpretation - Radiology Interpretation Radiology Interpretation By: Radiologist Radiology Results: Negative Exam Interpreted: CT Scan - EKG Interpretation Time of EKG #1: 13:09 Rate: Song Rhythm: Sinus Ectopy: None [place]: NL ST Segment: Normal Interpretation: sinus song Re-Evaluation - Re-Evaluation Time of Re-Evaluation: 13:09 Status: Improved (alert and eating a meal-- here) Vital Signs Stable: Yes Pain Level: 0 Appearance: NAD Lungs: Clear Skin: Warm and Dry Neuro: Alert and Oriented X3 CV: RRR Critical Care Note - Critical Care Note Total Time (mins): 0 Course - Course Hematology/Chemistry: 02/09/18 12:05 02/09/18 12:05 Orders, Labs, Meds: Lab Review 02/09/18 02/09/18 02/09/18 11:45 12:05 12:05 WBC 13.63 H RBC 4.69 L Hgb 15.2 Hct 45.3 MCV 96.6 H MCH 32.4 H MCHC 33.6 RDW Coeff of Yamilet 13.4 Plt Count 239 Immature Gran % (Auto) 0.4 Neut % (Auto) 71.2 Lymph % (Auto) 20.2 [place] % (Auto) 7.0 Eos % (Auto) 1.0 Baso % (Auto) 0.2 Immature Gran # (Auto) 0.1 Neut # (Auto) 9.7 H Lymph # (Auto) 2.8 [place] # (Auto) 1.0 Eos # (Auto) 0.1 Baso # (Auto) 0.0 Puncture Site Rr O2 Saturation 99.0 ABG pH 7.456 H ABG pCO2 32.7 L ABG pO2 121.0 H ABG HCO3 23.0 ABG Total CO2 24 ABG Base Excess -1 Jimbo Test + FiO2 % 21.0 Sodium 142 Potassium 3.6 Chloride 112 H Carbon Dioxide 24 Anion Gap 9.6 BUN 24 H Creatinine 0.86 Estimated GFR (MDRD) 87.00 BUN/Creatinine Ratio 27.90 Glucose 104 Calcium 8.6 Total Bilirubin 0.8 AST 37 ALT 27 Alkaline Phosphatase 67 Total Creatine Kinase 41 L Troponin I < 0.012 Total Protein 6.6 Albumin 3.4 L Globulin 3.2 Albumin/Globulin Ratio 1.06 Urine Color Urine Clarity Urine pH Ur Specific [place] Urine Protein Urine Glucose (UA) Urine Ketones Urine Blood Urine Nitrite Urine Bilirubin Urine Urobilinogen Ur Leukocyte Esterase Urine Microscopic RBC Urine Microscopic WBC Ur Squamous Epith Cells Urine Bacteria Hyaline Casts 02/09/18 12:20 WBC RBC Hgb Hct MCV MCH MCHC RDW Coeff of Yamilet Plt Count Immature Gran % (Auto) Neut % (Auto) Lymph % (Auto) [place] % (Auto) Eos % (Auto) Baso % (Auto) Immature Gran # (Auto) Neut # (Auto) Lymph # (Auto) [place] # (Auto) Eos # (Auto) Baso # (Auto) Puncture Site O2 Saturation ABG pH ABG pCO2 ABG pO2 ABG HCO3 ABG Total CO2 ABG Base Excess Jimbo Test FiO2 % Sodium Potassium Chloride Carbon Dioxide Anion Gap BUN Creatinine Estimated GFR (MDRD) BUN/Creatinine Ratio Glucose Calcium Total Bilirubin AST ALT Alkaline Phosphatase Total Creatine Kinase Troponin I Total Protein Albumin Globulin Albumin/Globulin Ratio Urine Color Yellow Urine Clarity Clear Urine pH 7.0 Ur Specific [place] 1.020 Urine Protein Negative Urine Glucose (UA) Trace Urine Ketones Negative Urine Blood Trace-intact Urine Nitrite Negative Urine Bilirubin Negative Urine Urobilinogen 0.2 Ur Leukocyte Esterase Negative Urine Microscopic RBC 10-20 Urine Microscopic WBC 2-5 Ur Squamous Epith Cells 0-2 Urine Bacteria Trace Hyaline Casts 0-2 Orders Category Date Time Status ABG DRAW REQUEST Stat CARDIO 02/09/18 11:45 Completed EKG-(ED ONLY) Stat CARDIO 02/09/18 11:45 Completed ABG Stat LAB 02/09/18 11:45 Completed CBC W/ AUTO DIFF Stat LAB 02/09/18 12:05 Completed COMPREHENSIVE METABOLIC PANEL Stat LAB 02/09/18 12:05 Completed CREATINE KINASE Stat LAB 02/09/18 12:05 Completed TROPONIN I Stat LAB 02/09/18 12:05 Completed URINALYSIS C & S IF INDICATED Stat LAB 02/09/18 12:[address] HEAD W/O CONTRAST Stat RADS 02/09/18 11:46 Completed Vital Signs: Temp Pulse Resp BP Pulse Ox 02/09/18 11:39 97.9 F 63 18 162/110 H 97 Departure - Departure Time of Disposition: 13:10 Disposition: HOME SELF-CARE Discharge Problem: Hypoglycemia Instructions: Non-diabetic Hypoglycemia (ED) Condition: Good Pt referred to PMD for follow-up: Yes IPMP verified?: No Additional Instructions: eat 4-5 days per days-=f/u with dr easton about the blood in the urine Allergies/Adverse Reactions: Allergies codeine Adverse Reaction (Verified 02/09/18 11:44) Home Medications: Ambulatory Orders Alprazolam [Xanax] 0.5 mg PO BID PRN 07/16/14 Citalopram Hydrobromide [Celexa] 40 mg PO DAILY 07/16/14 Donepezil HCl [Aricept] 20 mg PO DAILY 07/16/14 Pravastatin Sodium 80 mg PO BEDTIME 07/16/14 Trazodone HCl 100 mg PO BEDTIME 07/16/14 Memantine HCl [Namenda] 10 mg PO BID #60 tablet 10/06/14 Aspirin 81 mg PO DAILY 01/17/18 Ibuprofen 1 - 2 tab PO PRN PRN 01/17/18 Potassium Chloride [K-Tab ER] 40 meq PO BID 01/17/18 Mesalamine 2.4 gm PO DAILY 01/18/18 Sotalol HCl [Sotalol] 40 mg PO BID 01/18/18 Hydrochlorothiazide 12.5 mg PO DAILY #30 tablet 01/21/18 Lisinopril [Zestril] 40 mg PO DAILY #30 tablet 01/21/18 Disposition Discussed With: Patient, Family
== END 2018-02-09 13:13 | disposition home or self-care (01) ==
LOC: ED 11:39
DX: E16.2 Hypoglycemia, unspecified (principal); Z79.899 Other long term (current) drug therapy
CPT/HCPCS: 36415; 80053; 81001; 82550; 82803; 84484; 85025; 93005; 93010; 99283

== ENCOUNTER 2018-02-12 16:44 | Inpatient (IN) ==
[2018-02-12] MEDS ORDERED: ATROPINE SULFATE PFS IVP PRN (17:42)
[2018-02-12] MEDS ORDERED: VISTARIL INJ IM PRN (17:42)
[2018-02-12] MEDS ORDERED: MORPHINE 4 MG/ML VIAL IVP PRN (17:42)
[2018-02-12] MEDS ORDERED: TYLENOL PO PRN (17:42)
[2018-02-12] MEDS ORDERED: NITROSTAT SL PRN (17:42)
[2018-02-12 17:47] VITALS: BMI 24.4
[2018-02-12] MEDS ORDERED: DECADRON 4 MG/ML SDV IM STA (17:47)
[2018-02-12] MEDS ORDERED: ROCEPHIN 1 GM in SODIUM CHLORIDE 50 ML IV SCH (18:00)
[2018-02-12] MEDS ORDERED: NORCO 7.5-325 PO PRN (18:12)
[2018-02-12] MEDS ORDERED: K-DUR ONE (20:22)
[2018-02-12] MEDS ORDERED: PRAVACHOL ONE (20:22)
[2018-02-12] MEDS ORDERED: DESYREL ONE (20:23)
[2018-02-12] MEDS ORDERED: ROCEPHIN ONE (20:50)
[2018-02-12] MEDS: DEXTROSE 5%-1/2NS IV SOLUTION 1,000 ML IV SCH (20:56)
[2018-02-12] MEDS ORDERED: NON-FORMULARY MEDICATION (Pravastatin Sodium [Pravastatin Sodium] 80 MG) PO SCH (21:00)
[2018-02-12] MEDS ORDERED: NON-FORMULARY MEDICATION (Trazodone Hcl [Trazodone Hcl] 100 MG) PO SCH (21:00)
[2018-02-12] MEDS ORDERED: POTASSIUM CHLORIDE 40 MEQ PO SCH (21:00)
[2018-02-12] MEDS: BETAPACE PO SCH (21:15)
[2018-02-12] MEDS: CLEOCIN PO SCH (21:15)
[2018-02-12] MEDS: NAMENDA PO SCH (21:15)
[2018-02-12] MEDS: XANAX PO PRN (21:15)
[2018-02-13] MEDS: CLEOCIN PO SCH (04:51)
--- NOTE | 2018-02-13 07:42 | DI ---
EXAM: CHEST FRONTAL AND LATERAL VIEWS HISTORY: Cough. COMPARISON: 01/20/2018 FINDINGS: Heart size remains within normal limits. There is ectasia of the aorta. No acute infiltra rosa are seen. No vascular congestion. There is no consolidation, visible pleural fluid or pneumotho rax. Bones reveal no acute fracture. IMPRESSION: No acute cardiopulmonary process.
[2018-02-13] MEDS ORDERED: MOTRIN PO PRN (08:30)
[2018-02-13] MEDS ORDERED: NON-FORMULARY MEDICATION (Citalopram Hydrobromide [Celexa] 40 MG) PO SCH (09:00)
[2018-02-13] MEDS ORDERED: NON-FORMULARY MEDICATION (Hydrochlorothiazide [Hydrochlorothiazide] 12.5 MG) PO SCH (09:00)
[2018-02-13] MEDS ORDERED: ZESTRIL PO SCH (09:00)
[2018-02-13] MEDS: CELEXA PO SCH (09:34)
[2018-02-13] MEDS: COZAAR PO SCH (09:34)
[2018-02-13] MEDS: HYDROCHLOROTHIAZIDE PO SCH (09:35)
[2018-02-13] MEDS: K-DUR PO SCH ×2 (09:35→18:21)
[2018-02-13] MEDS: ASPIRIN EC PO SCH (09:36)
[2018-02-13] MEDS: ARICEPT PO SCH (09:36)
[2018-02-13] MEDS: NAMENDA PO SCH ×2 (09:36→20:57)
[2018-02-13] MEDS: BETAPACE PO SCH ×2 (09:36→20:56)
[2018-02-13] MEDS: MESALAMINE 2.4 GM PO SCH (09:37)
--- NOTE | 2018-02-13 10:31 | PCM.PROG ---
Attending Provider: ATTENDING PROVIDER: Dr. THOR STEIN This patient is seen with Renetta Lopez, Nurse Practitioner. DATE OF SERVICE: 02/13/18 SUBJECTIVE: This 73 year old WHITE/ M was hospitalized 02/12/18. The patient is lying in bed, resting comfortably. No fever this a.m. Normal behavior through the night. REVIEW OF SYSTEMS: CONSTITUTIONAL: No night sweats. No fatigue, malaise, lethargy. No fever or chills. HEENT: Eyes: No visual changes. No eye pain. No eye discharge. ENT: No runny nose. No epistaxis. No sinus pain. No odynophagia. No congestion. RESPIRATORY: No cough, no congestion. No hemoptysis. No shortness of breath. CARDIOVASCULAR: No angina symptoms. No CHF symptoms. No atypical chest pain for CAD. No palpitations. No orthopnea.. GASTROINTESTINAL: No abdominal pain. No nausea or vomiting. No diarrhea or constipation. No hematemesis. No hematochezia. GENITOURINARY: No urgency. No frequency. No dysuria. No hematuria. No obstructive symptoms. No discharge. No pain. No significant abnormal bleeding. MUSCULOSKELETAL: Right arm swelling and redness. NEUROLOGICAL: Awake, confusion. No headache. No neck pain. No syncope. No seizures. No dizziness. PSYCHIATRIC: Not anxious. No depression. No suicidal thoughts. No homicidal thoughts. SKIN: No rash. No lesions. No wounds. ENDOCRINE: No unexplained weight loss. No weight gain. HEMATOLOGIC/LYMPHATIC: No anemia. No purpura. No petechiae. No prolonged or excessive bleeding. No palpable lymph nodes. PHYSICAL EXAMINATION: GENERAL: The patient is awake, alert and oriented to person only, lying in bed in no distress. VITAL SIGNS: Temperature 98.1 F, Pulse 65, Respiratory Rate 16, BP 141/91, Pulse Ox 97% HEENT: Head normocephalic, atraumatic. Eyes: Extraocular muscles are intact. Pupils are equal, round and reactive to light and accommodation. Ears: No lesions. Nose appeared normal. Throat: No exudate or erythema. NECK: Supple. No JVD, no carotid bruit. No lymphadenopathy or thyromegaly. LUNGS: Clear to auscultation. Percussion note normal. Chest symmetrical. HEART: S1, S2, no S3. No murmurs. No cyanosis or clubbing. No ascites. Pulses: Dorsalis pedis and posterior tibial pulses +1 to +2 both sides. ABDOMEN: Soft. Non-tender. Bowel sounds active. No CVA tenderness. No mass felt. EXTREMITIES: Right arm with generalized edema and erythema extending from wrist to bicep, mild tenderness. No edema. Full range of motion of all extremities, equal. NEUROLOGIC: No focal deficit. Cranial nerves II through XII are grossly intact. No headache, no double vision or headache. SKIN: Not dry. Intact. Turgor-normal. LYMPHATIC: No palpable lymph nodes/no lymphedema. MUSCULOSKELETAL: Normal joints with no swelling. Muscle tone is normal. LAB REVIEW: 02/13/18 04:10 02/13/18 04:10 02/13/18 04:10: Sodium 136.8 L, Potassium 4.30, Chloride 106.6, Carbon Dioxide 27.7, Anion Gap 6.80, BUN 35.6 H, Creatinine 1.11 H, Estimated GFR (MDRD) 65.00 , BUN/Creatinine Ratio 32.07, Glucose 150.1 H, Calcium 8.28 L, Total Bilirubin 0.62, AST 36.0, ALT 20.2, Alkaline Phosphatase 59.4, Total Protein 5.88 L, Albumin 2.99 L, Globulin 2.89, Albumin/Globulin Ratio 1.03 02/13/18 04:10: WBC 8.11, RBC 3.97 L, Hgb 12.8 L, Hct 38.5 L, MCV 97.0 H, MCH 32.2 H, MCHC 33.2, RDW Coeff of Yamilet 13.1, Plt Count 169, Immature Gran % (Auto) 0.5, Neut % (Auto) 78.4, Lymph % (Auto) 18.2, [place] % (Auto) 2.7, Eos % (Auto) 0.1, Baso % (Auto) 0.1, Immature Gran # (Auto) 0.0, Neut # (Auto) 6.4, Lymph # ( Auto) 1.5, [place] # (Auto) 0.2 L, Eos # (Auto) 0.0, Baso # (Auto) 0.0 02/13/18 03:23: Urine Color Yellow, Urine Clarity Clear, Urine pH 7.0, Ur Specific [place] 1.015, Urine Protein Negative, Urine Glucose (UA) Negative, Urine Ketones Negative, Urine Blood Trace-intact, Urine Nitrite Negative, Urine Bilirubin Negative, Urine Urobilinogen 0.2, Ur Leukocyte Esterase 1+, Urine Microscopic RBC 2-5, Urine Microscopic WBC 10-20, Ur Squamous Epith Cells 2-5 02/12/18 19:56: Hemoglobin A1c 4.79 02/12/18 19:56: Sodium 136.9 L, Potassium 4.34, Chloride 103.9, Carbon Dioxide 29.1, Anion Gap 8.24, BUN 35.5 H, Creatinine 1.58 H, Estimated GFR (MDRD) 43.00 , BUN/Creatinine Ratio 22.46, Glucose 171.3 H, Calcium 8.03 L, Total Bilirubin 0.51, AST 22.2, ALT 19.6, Alkaline Phosphatase 52.8 L, Total Protein 5.88 L, Albumin 3.06 L, Globulin 2.82, Albumin/Globulin Ratio 1.08 02/12/18 19:56: WBC 10.29 H, RBC 3.96 L, Hgb 13.1 L, Hct 39.4 L, MCV 99.5 H, MCH 33.1 H, MCHC 33.2, RDW Coeff of Yamilet 13.2, Plt Count 174, Immature Gran % ( Auto) 0.6, Neut % (Auto) 53.3, Lymph % (Auto) 33.5, [place] % (Auto) 10.1 H, Eos % (Auto) 2.1, Baso % (Auto) 0.4, Immature Gran # (Auto) 0.1, Neut # (Auto) 5.5, Lymph # (Auto) 3.5 H, [place] # (Auto) 1.0, Eos # (Auto) 0.2, Baso # (Auto) 0.0 ASSESSMENT: 1. Right arm cellulitis 2. Episodes of hypoglycemia controlled while on D5 1/2 NS 3. Dementia with behavioral disturbances 4. Hypertension PLAN: 1. Elevate right arm 2. No blood pressure or sticks in the right arm 3. D/C p.o. Clindamycin 4. Start Clindamycin 300 mg IV q.8hr 5. Continue IV fluids 6. D/C Lisinopril 7. Losartan 100 mg daily 8. Discussed with pickling tank operator small frequent meals. 9. At this time blood sugar controlled due to IV fluids however tomorrow if kidney function improved will d/c fluids. 10. Continue Accu-cheks/ 11. Monitor blood sugar with diet Plan and coordination of the patient's care discussed in the presence of Pcb Designer and nurse. CONDITION: Stable SCRIBED BY: CLARITZA HUGGINS Remarketing Rep scribed while in presence of service performed by Dr. Stein/Renetta Lopez APRN on 02/13/18 ([id number])
--- NOTE | 2018-02-13 13:22 | PN ---
DATE OF SERVICE: 02/13/18 SUBJECTIVE: The patient was hospitalized with right sided cellulitis of right upper extremity and treated with IV antibiotics. Condition has improved. The patient was seen and examined with Nurse Practitioner. TIME SPENT: More than 30 minutes. Plan and coordination of the patient's care discussed in the presence of nurse. VLADISLAV
[2018-02-13] MEDS: CLEOCIN 300 MG in SODIUM CHLORIDE 50 ML IV SCH ×2 (14:56→21:51)
[2018-02-13] MEDS: ROCEPHIN 1 GM in SODIUM CHLORIDE 50 ML IV SCH (20:56)
[2018-02-13] MEDS: PRAVACHOL PO SCH (20:57)
[2018-02-13] MEDS: DESYREL PO SCH (20:58)
[2018-02-13] MEDS: XANAX PO PRN (21:00)
[2018-02-13] MEDS: DEXTROSE 5%-1/2NS IV SOLUTION 1,000 ML IV SCH (21:42)
[2018-02-14] MEDS: DEXTROSE 5%-1/2NS IV SOLUTION 1,000 ML IV SCH (02:33)
[2018-02-14] MEDS: CLEOCIN 300 MG in SODIUM CHLORIDE 50 ML IV SCH ×2 (05:46→13:27)
[2018-02-14] MEDS: ARICEPT PO SCH (10:10)
[2018-02-14] MEDS: BETAPACE PO SCH ×2 (10:11→21:35)
[2018-02-14] MEDS: ASPIRIN EC PO SCH (10:11)
[2018-02-14] MEDS: COZAAR PO SCH (10:12)
[2018-02-14] MEDS: CELEXA PO SCH (10:12)
[2018-02-14] MEDS: HYDROCHLOROTHIAZIDE PO SCH (10:13)
[2018-02-14] MEDS: K-DUR PO SCH ×2 (10:14→16:51)
[2018-02-14] MEDS: NAMENDA PO SCH ×2 (10:15→21:35)
[2018-02-14] MEDS: MESALAMINE 2.4 GM PO SCH (10:15)
--- NOTE | 2018-02-14 10:46 | HP ---
DATE OF SERVICE: 02/12/18 REASON FOR HOSPITALIZATION/HISTORY OF PRESENT ILLNESS: ER followup. Gained 9 pounds. Last Saturday would not wake up. Urinary incontinence and clammy. Wouldn't walk or hold up his head. Glucose 34 at home by EMT. Right arm swollen red- same arm had IV fever. PAST MEDICAL HISTORY: Atrial fibrillation Ataxia Hypertension Depression Sleep apnea Ulcerative colitis DJD spine Forgetfulness Dementia PAST SURGICAL HISTORY: C-Spine Colonoscopy 10- REVIEW OF SYSTEMS: CONSTITUTIONAL: Fever, Fatigue. HEENT: No sinus drainage, no sore throat. RESPIRATORY: Cough, no congestion. CARDIOVASCULAR: No atypical chest pain for coronary artery disease. No angina , CHF symptoms, palpitations or shortness of breath. GASTROINTESTINAL: No melena or abdominal pain. No GERD. GENITOURINARY: No hematuria, no prostatism, no polyuria. ACTOR UNDERSTUDY: No blackout, no dizziness, no headache, no double vision. GAIT: Shuffling MUSCULOSKELETAL: Osteoarthritis pain, no joint swelling. ENDOCRINE: No weight loss, Weight gain 9 pounds. SKIN: Not dry, no rash. PSYCHIATRIC: Not anxious, no depression, no suicidal thoughts, no homicidal thoughts. SOCIAL HISTORY: Marital Status: . Alcohol Usage: No. Tobacco Usage: No. FAMILY HISTORY: Father Mother Brother 5 Sister 5 MEDICATIONS: Sotalol 80mg tablet tablet daily Aricept 10mg take two tablets one times per day Celexa 40mg PO daily Namenda 10mg PO two times per day Pravachol 80mg PO daily Xanax 0.5mg one tablet two times per day PRN Hydrocodone-acetaminophen 7.5-325 one tablet two times per day PRN Lisinopril-Hydrochlorothiazide 20-12.5 take one tablet PO daily Potassium Chloride 20meq two tablet PO two times per day Trazodone 100mg one tablet PO one time per day after meals PRN Ibuprofen 200mg Q 8 hours. PRN ALLERGIES: Codeine Demerol Aspirin NSAIDS Nalbuphine PHYSICAL EXAMINATION: V/S: Pulse 52, blood pressure 118/76, temperature 99, Oxygen saturation 96%, height 5'8, BMI 24 and weight 159.4. GENERAL APPEARANCE: Oriented times three. HEENT: Normal. NECK: No JVP, no bruits. RESPIRATORY: Decreased breath sounds. CARDIOVASCULAR: S1, S2, no S3, no murmurs. No cyanosis, clubbing. No ascites. GI/ABDOMEN: No tenderness. Bowel sounds are active. EXTREMITIES: edema, pulses +1, equal. Right arm red, swollen and tender extending wrist to elbow. ACTOR UNDERSTUDY: Deep tendon reflexes, sensory, motor and gait all normal. RECTAL: 10-15 Dr. Sunshine/PROSTATE: 3-18 (0.4). ASSESSMENT: 1. Right arm cellulitis/Thrombophlebitis 2. Hypoglycemia 3. Dementia 4. Atrial fibrillation paroxysmal 5. Ataxia 6. Hypertension 7. Depression 8. Sleep apnea O2 @ HS 9. C-Spine surgery 10. Diverticulosis 11. 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 Admit 2. ER records reviewed and discussed 3. Routine telemetry- No cardiac markers 4. CBC and CMP now and daily 5. A1c today 6. Start D5 1/2 normal saline at 75cc an hour 7. 3 meals with snack-regular diet 8. Chest x-ray 9. 1cc Decadron today 10.Rocephin 1 gram IV daily 11.Clindamycin 150mg PO three times a day 12.No sticks right arm 13.Continue home medications. TIME SPENT: More than 70 minutes. MTDD
--- NOTE | 2018-02-14 10:57 | PCM.PROG ---
Attending Provider: ATTENDING PROVIDER: Dr. THOR STEIN This patient is seen with Renetta Lopez, Nurse Practitioner. DATE OF SERVICE: 02/14/18 SUBJECTIVE: This 73 year old WHITE/ M was hospitalized 02/12/18. The patient is sitting in the chair, alert. Right arm swelling has improved. No fever. Kidney function is improved. REVIEW OF SYSTEMS: CONSTITUTIONAL: No night sweats. No fatigue, malaise, lethargy. No fever or chills. HEENT: Eyes: No visual changes. No eye pain. No eye discharge. ENT: No runny nose. No epistaxis. No sinus pain. No odynophagia. No congestion. RESPIRATORY: No cough, no congestion. No hemoptysis. No shortness of breath. CARDIOVASCULAR: No angina symptoms. No CHF symptoms. No atypical chest pain for CAD. No palpitations. No orthopnea.. GASTROINTESTINAL: No abdominal pain. No nausea or vomiting. No diarrhea or constipation. No hematemesis. No hematochezia. GENITOURINARY: No urgency. No frequency. No dysuria. No hematuria. No obstructive symptoms. No discharge. No pain. No significant abnormal bleeding. MUSCULOSKELETAL: No musculoskeletal pain; no joint swelling. NEUROLOGICAL: Positive for confusion. No headache. No neck pain. No syncope. No seizures. No dizziness. PSYCHIATRIC: Not anxious. No depression. No suicidal thoughts. No homicidal thoughts. SKIN: Improving right arm redness and swelling. ENDOCRINE: No unexplained weight loss. No weight gain. HEMATOLOGIC/LYMPHATIC: No anemia. No purpura. No petechiae. No prolonged or excessive bleeding. No palpable lymph nodes. PHYSICAL EXAMINATION: GENERAL: The patient is awake, confused, oriented to person only sitting in chair in no distress. VITAL SIGNS: Temperature 97.6 F, Pulse 51, Respiratory Rate 16, BP 144/82, Pulse Ox 95% HEENT: Head normocephalic, atraumatic. Eyes: Extraocular muscles are intact. Pupils are equal, round and reactive to light and accommodation. Ears: No lesions. Nose appeared normal. Throat: No exudate or erythema. NECK: Supple. No JVD, no carotid bruit. No lymphadenopathy or thyromegaly. LUNGS: Clear to auscultation. Percussion note normal. Chest symmetrical. HEART: S1, S2, no S3. No murmurs. No cyanosis or clubbing. No ascites. Pulses: Dorsalis pedis and posterior tibial pulses +1 to +2 both sides. ABDOMEN: Soft. Non-tender. Bowel sounds active. No CVA tenderness. No mass felt. EXTREMITIES: No edema. Full range of motion of all extremities, equal. NEUROLOGIC: No focal deficit. Cranial nerves II through XII are grossly intact. No headache, no double vision or headache. SKIN: Not dry. Intact. Turgor-normal. LYMPHATIC: No palpable lymph nodes/no lymphedema. MUSCULOSKELETAL: Normal joints with no swelling. Muscle tone is normal. LAB REVIEW: 02/14/18 04:10 02/14/18 04:10 02/14/18 04:10: Sodium 138.7, Potassium 3.71, Chloride 108.4 H, Carbon Dioxide 26.3, Anion Gap 7.71, BUN 32.6 H, Creatinine 1.06, Estimated GFR (MDRD) 68.00, BUN/Creatinine Ratio 30.75, Glucose 94.1 D, Calcium 8.02 L, Total Bilirubin 0.36, AST 35.3, ALT 23.0, Alkaline Phosphatase 49.7 L, Total Protein 5.29 L, Albumin 2.61 L, Globulin 2.68, Albumin/Globulin Ratio 0.97 02/14/18 04:10: WBC 11.83 H, RBC 3.84 L, Hgb 12.2 L, Hct 37.2 L, MCV 96.9 H, MCH 31.8 H, MCHC 32.8, RDW Coeff of Yamilet 13.2, Plt Count 172, Immature Gran % ( Auto) 0.8, Neut % (Auto) 51.7, Lymph % (Auto) 35.3, [place] % (Auto) 9.8, Eos % ( Auto) 2.1, Baso % (Auto) 0.3, Immature Gran # (Auto) 0.1, Neut # (Auto) 6.1, Lymph # (Auto) 4.2 H, [place] # (Auto) 1.2, Eos # (Auto) 0.3, Baso # (Auto) 0.0 ASSESSMENT: 1. Right arm cellulitis 2. Episodes of hypoglycemia controlled while on D5 1/2 NS 3. Dementia with behavioral disturbances 4. Hypertension PLAN: 1. D/C telemetry 2. D/C IV fluids 3. Three meals with three snacks 4. Monitor blood sugar Plan and coordination of the patient's care discussed in the presence of Seamer Operator and nurse. CONDITION: Stable SCRIBED BY: Sheila TRANist scribed while in presence of service performed by Dr. Stein/Renetta Lopez APRN on 02/14/18 ([id number])
[2018-02-14] MEDS: DESYREL PO SCH (21:35)
[2018-02-14] MEDS: PRAVACHOL PO SCH (21:35)
[2018-02-14] MEDS: ROCEPHIN 1 GM in SODIUM CHLORIDE 50 ML IV SCH (21:35)
[2018-02-15] MEDS: CLEOCIN 300 MG in SODIUM CHLORIDE 50 ML IV SCH ×4 (01:05→22:17)
[2018-02-15] MEDS: ARICEPT PO SCH (08:06)
[2018-02-15] MEDS: NAMENDA PO SCH ×2 (08:06→20:13)
[2018-02-15] MEDS: ASPIRIN EC PO SCH (08:06)
[2018-02-15] MEDS: CELEXA PO SCH (08:06)
[2018-02-15] MEDS: K-DUR PO SCH ×2 (08:06→16:32)
[2018-02-15] MEDS: COZAAR PO SCH (08:07)
[2018-02-15] MEDS: BETAPACE PO SCH ×2 (08:07→20:12)
[2018-02-15] MEDS: HYDROCHLOROTHIAZIDE PO SCH (08:07)
[2018-02-15] MEDS: MESALAMINE 2.4 GM PO SCH (08:08)
[2018-02-15] MEDS: ROCEPHIN 1 GM in SODIUM CHLORIDE 50 ML IV SCH (20:12)
[2018-02-15] MEDS: PRAVACHOL PO SCH (20:13)
[2018-02-15] MEDS: DESYREL PO SCH (20:13)
[2018-02-15] MEDS: XANAX PO PRN (20:13)
[2018-02-16] MEDS: CLEOCIN 300 MG in SODIUM CHLORIDE 50 ML IV SCH ×3 (04:59→20:57)
[2018-02-16] MEDS: NAMENDA PO SCH ×2 (08:20→20:58)
[2018-02-16] MEDS: HYDROCHLOROTHIAZIDE PO SCH (08:20)
[2018-02-16] MEDS: CELEXA PO SCH (08:20)
[2018-02-16] MEDS: ASPIRIN EC PO SCH (08:21)
[2018-02-16] MEDS: ARICEPT PO SCH (08:21)
[2018-02-16] MEDS: K-DUR PO SCH ×2 (08:21→17:46)
[2018-02-16] MEDS: COZAAR PO SCH (08:21)
[2018-02-16] MEDS: MESALAMINE 2.4 GM PO SCH (08:22)
[2018-02-16] MEDS: BETAPACE PO SCH ×2 (08:22→20:58)
[2018-02-16] MEDS: DESYREL PO SCH (20:58)
[2018-02-16] MEDS: XANAX PO PRN (20:58)
[2018-02-16] MEDS: PRAVACHOL PO SCH (20:59)
[2018-02-17] MEDS: CLEOCIN 300 MG in SODIUM CHLORIDE 50 ML IV SCH ×2 (04:49→05:05)
[2018-02-17] MEDS: KEFLEX PO SCH ×2 (04:49→12:49)
[2018-02-17] MEDS: ASPIRIN EC PO SCH (09:47)
[2018-02-17] MEDS: CELEXA PO SCH (09:47)
[2018-02-17] MEDS: HYDROCHLOROTHIAZIDE PO SCH (09:47)
[2018-02-17] MEDS: K-DUR PO SCH (09:47)
[2018-02-17] MEDS: CLEOCIN PO SCH ×2 (09:48→12:48)
[2018-02-17] MEDS: COZAAR PO SCH (09:48)
[2018-02-17] MEDS: ARICEPT PO SCH (09:48)
[2018-02-17] MEDS: BETAPACE PO SCH (09:49)
[2018-02-17] MEDS: NAMENDA PO SCH (09:49)
[2018-02-17] MEDS: MESALAMINE 2.4 GM PO SCH (09:58)
[2018-02-17 10:36] VITALS: BP 132/87; TEMP 97.1
--- NOTE | 2018-02-17 11:40 | US ---
EXAM: Right upper extremity venous Doppler History: Right upper extremity pain and swelling. Technique: Multiple sonographic images through the right upper extremity were obtained. Color duple x Doppler was used to interrogate vascular flow. Findings: No flow with no compression involving the right ulnar vein. Partial flow with no compress ion involving the right basilic vein. The rest of the visualized veins within the right upper extrem ity demonstrate spontaneous flow with normal compression and normal augmentation. Impression: 1. Deep venous thrombosis involving the right ulnar vein. 2. Superficial thrombophlebitis of the right basilic vein. Results communicated to the floor by the technologist.
--- NOTE | 2018-02-17 11:40 | PN ---
DATE OF SERVICE: 02/14/18 SUBJECTIVE: 73-year-old white male hospitalized with right arm cellulitis doing much better. The patient was seen and examined with the nurse practitioner. PLAN: 1. Will continue antibiotics. TIME SPENT: More than 30 minutes. Plan and coordination of the patient's care discussed in the presence of nurse. VLADISLAV
[2018-02-17] MEDS ORDERED: K-DUR PO ONE (12:00)
[2018-02-17] MEDS ORDERED: XARELTO PO SCH (12:30)
--- NOTE | 2018-02-17 14:13 | PN ---
DATE OF SERVICE: 02/15/18 SUBJECTIVE: 73-year-old white male hospitalized with acute cellulitis of the right arm. The patient's condition has improved. He is still confused. Oriented to person and place. The is in the room. REVIEW OF SYSTEMS: CONSTITUTIONAL: No night sweats. No fatigue, malaise, lethargy. No fever or chills. HEENT: Eyes: No visual changes. No eye pain. No eye discharge. ENT: No runny nose. No epistaxis. No sinus pain. No sore throat. No odynophagia. No congestion. RESPIRATORY: No cough, no congestion. No hemoptysis. No shortness of breath. CARDIOVASCULAR: No angina symptoms. No CHF symptoms. No atypical chest pain for CAD. No palpitations. No orthopnea. GASTROINTESTINAL: No abdominal pain. No nausea or vomiting. No diarrhea or constipation. No hematemesis. No hematochezia. GENITOURINARY: No urgency. No frequency. No dysuria. No hematuria. No obstructive symptoms. No discharge. No pain. No significant abnormal bleeding. MUSCULOSKELETAL: No musculoskeletal pain; no joint swelling. NEUROLOGICAL: No headache. No neck pain. No syncope. No seizures. No dizziness. PSYCHIATRIC: Not anxious. No depression. No suicidal thoughts. No homicidal thoughts. SKIN: No rash. No lesions. No wounds. ENDOCRINE: No unexplained weight loss. No weight gain. HEMATOLOGIC/LYMPHATIC: No anemia. No purpura. No petechiae. No prolonged or excessive bleeding. No palpable lymph nodes. PHYSICAL EXAMINATION: VITAL SIGNS: Temperature 97.6, pulse 92, respiratory rate 16, BP 140/90, pulse ox 96%. HEENT: Head normocephalic, atraumatic. Eyes: Extraocular muscles are intact. Pupils are equal, round and reactive to light and accommodation. Ears: No lesions. Nose appeared normal. Throat: No exudate or erythema. NECK: Supple. No JVD, no carotid bruit. No lymphadenopathy or thyromegaly. LUNGS: Decreased breath sounds but clear to auscultation. Percussion note normal. Chest symmetrical. HEART: S1, S2, no S3. No murmurs. No cyanosis or clubbing. No ascites. Pulses: Dorsalis pedis and posterior tibial pulses +1 to +2 both sides. ABDOMEN: Soft. Nontender. Bowel sounds active. No CVA tenderness. No mass felt. EXTREMITIES: Right upper extremity seems to be mildly faint redness, much improved. The edema is less than before. Full range of motion of all extremities , equal. NEUROLOGIC: No focal deficit. Cranial nerves II through XII are grossly intact. No headache, no double vision or headache. SKIN: Not dry. Intact. Turgor - normal. LYMPHATIC: No palpable lymph nodes/no lymphedema. MUSCULOSKELETAL: Normal joints with no swelling. Muscle tone is normal. ASSESSMENT: 1. CELLULITIS, RIGHT UPPER EXTREMITY RESOLVING 2. DEMENTIA PLAN: 1. Continue Clindamycin and Rocephin TIME SPENT: More than 30 minutes. Plan and coordination of the patient's care discussed in the presence of nurse. VLADISLAV
--- NOTE | 2018-02-17 14:23 | PN ---
DATE OF SERVICE: 02/16/18 SUBJECTIVE: The patient was hospitalized with right arm cellulitis. It has improved remarkably. He is doing better, he is afebrile. The patient is on IV antibiotics. REVIEW OF SYSTEMS: CONSTITUTIONAL: No night sweats. No fatigue, malaise, lethargy. No fever or chills. HEENT: Eyes: No visual changes. No eye pain. No eye discharge. ENT: No runny nose. No epistaxis. No sinus pain. No sore throat. No odynophagia. No congestion. RESPIRATORY: No cough, no congestion. No hemoptysis. No shortness of breath. CARDIOVASCULAR: No angina symptoms. No CHF symptoms. No atypical chest pain for CAD. No palpitations. No orthopnea. GASTROINTESTINAL: No abdominal pain. No nausea or vomiting. No diarrhea or constipation. No hematemesis. No hematochezia. GENITOURINARY: No urgency. No frequency. No dysuria. No hematuria. No obstructive symptoms. No discharge. No pain. No significant abnormal bleeding. MUSCULOSKELETAL: No musculoskeletal pain; no joint swelling. NEUROLOGICAL: Confusion of mental status but is alert, oriented to person. No headache. No neck pain. No syncope. No seizures. No dizziness. PSYCHIATRIC: Not anxious. No depression. No suicidal thoughts. No homicidal thoughts. SKIN: No rash. No lesions. No wounds. ENDOCRINE: No unexplained weight loss. No weight gain. HEMATOLOGIC/LYMPHATIC: No anemia. No purpura. No petechiae. No prolonged or excessive bleeding. No palpable lymph nodes. PHYSICAL EXAMINATION: HEENT: Head normocephalic, atraumatic. Eyes: Extraocular muscles are intact. Pupils are equal, round and reactive to light and accommodation. Ears: No lesions. Nose appeared normal. Throat: No exudate or erythema. NECK: Supple. No JVD, no carotid bruit. No lymphadenopathy or thyromegaly. LUNGS: Clear to auscultation. Percussion note normal. Chest symmetrical. HEART: S1, S2, no S3. No murmurs. No cyanosis or clubbing. No ascites. Pulses: Dorsalis pedis and posterior tibial pulses +1 to +2 both sides. ABDOMEN: Soft. Nontender. Bowel sounds active. No CVA tenderness. No mass felt. EXTREMITIES: Right arm cellulitis, resolving. Right forearm is a lot better. Right arm still has some redness left. No edema. Full range of motion of all extremities, equal. NEUROLOGIC: No focal deficit. Cranial nerves II through XII are grossly intact. No headache, no double vision or headache. SKIN: Not dry. Intact. Turgor - normal. LYMPHATIC: No palpable lymph nodes/no lymphedema. MUSCULOSKELETAL: Normal joints with no swelling. Muscle tone is normal. ASSESSMENT: 1. CELLULITIS OF THE RIGHT ARM SEEMS TO BE RESOLVING. PLAN: 1. Continue antibiotics with Clindamycin and Rocephin. TIME SPENT: More than 30 minutes. Plan and coordination of the patient's care discussed in the presence of nurse. VLADISLAV
--- NOTE | 2018-02-17 14:29 | PN ---
DATE OF SERVICE: 02/17/18 SUBJECTIVE: The patient is doing well. The redness has practically subsided but the swelling and edema is still there. The is in the room. REVIEW OF SYSTEMS: CONSTITUTIONAL: No night sweats. No fatigue, malaise, lethargy. No fever or chills. HEENT: Eyes: No visual changes. No eye pain. No eye discharge. ENT: No runny nose. No epistaxis. No sinus pain. No sore throat. No odynophagia. No congestion. RESPIRATORY: No cough, no congestion. No hemoptysis. No shortness of breath. CARDIOVASCULAR: No angina symptoms. No CHF symptoms. No atypical chest pain for CAD. No palpitations. No orthopnea. GASTROINTESTINAL: No abdominal pain. No nausea or vomiting. No diarrhea or constipation. No hematemesis. No hematochezia. GENITOURINARY: No urgency. No frequency. No dysuria. No hematuria. No obstructive symptoms. No discharge. No pain. No significant abnormal bleeding. MUSCULOSKELETAL: No musculoskeletal pain; no joint swelling. NEUROLOGICAL: Confusion. No headache. No neck pain. No syncope. No seizures. No dizziness. PSYCHIATRIC: Not anxious. No depression. No suicidal thoughts. No homicidal thoughts. SKIN: No rash. No lesions. No wounds. ENDOCRINE: No unexplained weight loss. No weight gain. HEMATOLOGIC/LYMPHATIC: No anemia. No purpura. No petechiae. No prolonged or excessive bleeding. No palpable lymph nodes. PHYSICAL EXAMINATION: HEENT: Head normocephalic, atraumatic. Eyes: Extraocular muscles are intact. Pupils are equal, round and reactive to light and accommodation. Ears: No lesions. Nose appeared normal. Throat: No exudate or erythema. NECK: Supple. No JVD, no carotid bruit. No lymphadenopathy or thyromegaly. LUNGS: Clear to auscultation. Percussion note normal. Chest symmetrical. HEART: S1, S2, no S3. No murmurs. No cyanosis or clubbing. No ascites. Pulses: Dorsalis pedis and posterior tibial pulses +1 to +2 both sides. ABDOMEN: Soft. Nontender. Bowel sounds active. No CVA tenderness. No mass felt. EXTREMITIES: No edema. Full range of motion of all extremities, equal. NEUROLOGIC: No focal deficit. Cranial nerves II through XII are grossly intact. No headache, no double vision or headache. SKIN: Not dry. Intact. Turgor - normal. LYMPHATIC: No palpable lymph nodes/no lymphedema. MUSCULOSKELETAL: Normal joints with no swelling. Muscle tone is normal. PLAN: 1. Continue antibiotics. 2. Will do venous scan of the right upper extremity. CONDITION: Stable TIME SPENT: More than 30 minutes. Plan and coordination of the patient's care discussed in the presence of nurse. VLADISLAV
--- NOTE | 2018-02-17 14:30 | ED.PDOC ---
Procedures - IV/Art Line Insertion Location: lt wrist Type of Line: Peripheral IV Invasive Line/IV Catheter Gauge: 22 Number of Attempts: 1 Blood Return Positive: Yes Invasive Line/IV Flushes Without Difficulty: Yes Conscious Sedation - Pre-op Assessment Weight: 160 lb 7 oz Surgical History: HERNIA, GALLBLADDER, APPENDIX, NECK VERTEBRAE, TONSILS - Medical History Past Medical History: Hypertension, Other Other History: ALZHEIMERS, ULCERATIVE COLITIS,HYPOGLYCEMIA
--- NOTE | 2018-02-23 11:16 | DS ---
DATE OF SERVICE (ACUTE CARE): 02/16/18 FINAL DIAGNOSIS: 1. DVT RIGHT UPPER EXTREMITY, ULNAR VEIN 2. SUPERFICIAL THROMBOPHLEBITIS RIGHT BASILIC VEIN 3. CELLULITIS RIGHT UPPER EXTREMITY 4. HYPOKALEMIA 5. HYPERTENSION 6. DYSLIPIDEMIA 7. SLEEP APNEA 8. DEMENTIA 9. ATAXIA 10 DEGENERATIVE JOINT DISEASE 11.ANXIETY 12.DEPRESSION DISCHARGE INSTRUCTIONS: Admit to swing bed. HOSPITAL COURSE: This is a 73 year old white male who initially presented to our office for an ER follow up. He had been in the emergency room approximately five days before after a hypoglycemic episode with a blood sugar into the 30's. He is not diabetic. He takes no medication that would cause him to become hypoglycemic. His found him sweaty, decreased responsiveness. She called the ambulance and the EMT's found him and did a glucose and it was 34, I believe. He was brought to the emergency room and further work up was normal. By the time he was in the ER his glucose was up to 105. He did, however, receive an IV stick in the right arm and she mentioned during their visit for this that the right arm was swollen. It was found to be, in fact, very swollen and red and very tender swollen from the wrist extending to the elbow with red streaks and he had a low grade fever of 99.5 in our office. So he was subsequently admitted for cellulitis of the right upper extremity likely due to previous IV stick through the EMT. He was started on Rocephin 1 gram IV daily along with Clindamycin 300 mg PO Q 8 hours. He was placed on, due to the hypoglycemic episodes, D5W at 70 cc/hr and then a dietary consult was given. Of course, while he was on IV fluids his glucose remained within normal limits. However, after two days his kidney function improved as he had been slightly dehydrated with an elevated BUN. Once this became normal, we D/C'd the IV fluids and placed him on accu cheks before meals. He had a dietary consult with three meals a day with three snacks a day with his last snack being before bedtime. Some education was done with the and his blood sugar remained within normal limits with no hypoglycemic episodes here in the hospital. Over the course of the first 24 hours, there wasn't really significant improvement in the redness and swelling of the arm, so I changed the Clindamycin from PO to IV and he started receiving Clindamycin 300 mg IV Q 8 hours. The redness started to improve after this and the swelling began to improve somewhat. Then the improvement seemed to stop. The tenderness had improved but the area of swelling was still present with no erythema but remained very firm. A venous scan was done on the right upper extremity which revealed a DVT of the right upper ulnar vein as well as superficial thrombophlebitis of the right basilic vein. Due to this, we think he is a candidate to be placed in swing bed where he will continue IV antibiotics and then be placed on Xarelto for DVT. This way we can carefully monitor his blood levels and make sure he has no complications such as bleeding. TIME SPENT: More than 60 minutes. MTDD
== END 2018-02-17 14:30 | disposition swing bed (61) | DRG 300 ==
LOC: MEDSURG B 16:44
PROVIDERS: ADMIT Internal Medicine; ATTEND Internal Medicine
DX: I80.9 Phlebitis and thrombophlebitis of unspecified site (principal); L03.113 Cellulitis of right upper limb; E87.6 Hypokalemia; E16.2 Hypoglycemia, unspecified; E78.5 Hyperlipidemia, unspecified; I48.0 Paroxysmal atrial fibrillation; I10 Essential (primary) hypertension; R27.0 Ataxia, unspecified; G47.30 Sleep apnea, unspecified; K57.90 Diverticulosis of intestine, part unspecified, without perforation or abscess without bleeding; M19.90 Unspecified osteoarthritis, unspecified site; F03.90 Unspecified dementia, unspecified severity, without behavioral disturbance, psychotic disturbance, mood disturbance, and anxiety; F41.8 Other specified anxiety disorders
CPT/HCPCS: 36415; 80053; 81001; 82962; 83036; 85025; 87081; 87086; 93005; 93010; 97802

== ENCOUNTER 2018-02-17 14:30 | Inpatient (IN) ==
[2018-02-17] MEDS ORDERED: NORCO 7.5-325 PO PRN (15:22)
[2018-02-17] MEDS: K-DUR PO SCH (17:06)
[2018-02-17] MEDS ORDERED: POTASSIUM CHLORIDE 40 MEQ PO SCH (21:00)
[2018-02-17] MEDS ORDERED: NON-FORMULARY MEDICATION (Trazodone Hcl [Trazodone Hcl] 100 MG) PO SCH (21:00)
[2018-02-17] MEDS ORDERED: NON-FORMULARY MEDICATION (Pravastatin Sodium [Pravastatin Sodium] 80 MG) PO SCH (21:00)
[2018-02-17] MEDS: XANAX PO PRN (21:04)
[2018-02-17] MEDS: PRAVACHOL PO SCH (21:05)
[2018-02-17] MEDS: XARELTO PO SCH (21:06)
[2018-02-17] MEDS: CLEOCIN 300 MG in SODIUM CHLORIDE 50 ML IV SCH (21:07)
[2018-02-17] MEDS: BETAPACE PO SCH (21:07)
[2018-02-17] MEDS: DESYREL PO SCH (21:08)
[2018-02-17] MEDS: NAMENDA PO SCH (21:14)
[2018-02-18] MEDS: CLEOCIN 300 MG in SODIUM CHLORIDE 50 ML IV SCH ×3 (05:32→21:09)
[2018-02-18] MEDS ORDERED: NON-FORMULARY MEDICATION (Hydrochlorothiazide [Hydrochlorothiazide] 12.5 MG) PO SCH (09:00)
[2018-02-18] MEDS ORDERED: NON-FORMULARY MEDICATION (Citalopram Hydrobromide [Celexa] 40 MG) PO SCH (09:00)
[2018-02-18] MEDS: COZAAR PO SCH (09:45)
[2018-02-18] MEDS: ARICEPT PO SCH (09:45)
[2018-02-18] MEDS: K-DUR PO SCH ×2 (09:45→16:58)
[2018-02-18] MEDS: HYDROCHLOROTHIAZIDE PO SCH (09:45)
[2018-02-18] MEDS: BETAPACE PO SCH ×2 (09:46→21:09)
[2018-02-18] MEDS: CELEXA PO SCH (09:46)
[2018-02-18] MEDS: NAMENDA PO SCH ×2 (09:46→21:09)
[2018-02-18] MEDS: ROCEPHIN 1 GM in SODIUM CHLORIDE 50 ML IV SCH (09:47)
[2018-02-18] MEDS: XARELTO PO SCH ×2 (09:47→16:59)
[2018-02-18] MEDS: MESALAMINE 2.4 GM PO SCH (09:52)
--- NOTE | 2018-02-18 14:19 | RS.PTINEVL ---
Subjective - Patient information Date of Evaluation: 02/18/18 Date of Arrival on Unit: 02/17/18 Admitted From:: Home Diagnosis: RUE DVT with cellulitis, hypoglycemia Usual Living Arrangement: With Spouse Living Arrangement Comments: lives with spouse, daughter and adopting four great -grandchildren ages 6-13 Home Environment: House, Stairs (few), Rail Medical History: Hypertension, Dementia Medical History Comments:: ataxia, afib, ataxia, depresion , DJD spine LATEX ALLERGY?: No Surgical History: Cholecystectomy Surgical History Comments:: R hand sx, Medications: see chart Subjective Information/ Patient Comments:: pt states "I am at home" - Level of function Prior to this admission, the patient could do the following:: Independent Ambulation Current Level of Function: Partially Dependent Interventions - Objective Patient Orientation: Person Current Interventions: IV's, Oxygen, Telemetry Range of Motion - ROM Right Upper Extremity AROM: WFL's Left Upper Extremity AROM: WFL's Right Lower Extremity AROM: WFL's Left Lower Extremity AROM: WFL's Muscle Strength - Muscle Strength Right Upper Extremity Strength: Mild Weakness (not tested due to DVT) Left Upper Extremity Strength: Mild Weakness (shld flex 4-/5, elbow flex/ext 4/5 ,) Right Lower Extremity Strength: Mild Weakness (hip flex 4-/5, knee flex/ext 4/5 , ankle Df/PF 4/5) Left Lower Extremity Strength: Mild Weakness (hip flex 4-/5, knee flex/ext 4/5, ankle Df/PF 4/5) Sensation - Sensation Right Upper Extremity Sensation: Intact/Normal Left Upper Extremity Sensation: Intact/Normal Right Lower Extremity Sensation: Intact/Normal Left Lower Extremity Sensation: Intact/Normal Palpation Palpation Findings: Tenderness Comments:: RUE Balance - Sitting Balance and Reactions Static Sitting Balance: Good Dynamic Sitting Balance: Good - Standing Balance and Reactions Static Standing Balance: Fair Dynamic Standing Balance: Fair Standing Equilibrium Reactions: Delayed Left, Delayed Right Standing Protective Reactions: Delayed Left, Delayed Right Functional Mobility - Transfers Sit to Stand: Supervision Stand to Sit: Supervision - Safety Awareness Safety Awareness: Fair DON INDEX SCORE: 53 Ambulation - Ambulation Assistive Device Used: Gait belt Orthotic/Prosthetic Device: No Distance: 280ft Assistance needed with Ambulation: Supervision Gait Deviations: Narrow Based gait, Forward posture, Short stride Ambulation Comments: pt amb with decreased step length, flexed posture, Treatment time - Time with patient Length of Evaluation: 24 Total treatment time: 28 Patient Education - Education Patient Education: Activity Modification Teaching Recipient: Patient Teaching Methods: Discussion Comments: discussioin with patient regarding no need for skilled PT due to pt cognitive issues limit ability to recall instructions. Assessment - Assessment Problem List:: Decreased level of function, Decreased safety/Risk of falls, Cognitive status limits abilities Rehab Potential: Fair Further Therapy Indicated?: No Candidate for Swing Bed for Therapy Services?: pt not a candidate for swing bed for therapy services due to cognitive status. Comments: Feel pt does not require skilled PT at this time due to pt cognitive status.Feel pt would benefit from amb with nursing staff 2x a day. Evaluation Complexity: HISTORY: Low, EXAM OF BODY SYSTEMS: Medium, CLINICAL PRESENTATION: Low, CLINICAL DECISION MAKING: Low Plan Frequency of Treatment: One time treatment Duration of Treatment: One Time Treatment Anticipated Discharge Destination: Home Treatment Diagnosis (ICD 10 Codes): R26.2 Has the Physician been added for Co-signature?: Yes
[2018-02-18] MEDS: DESYREL PO SCH (21:09)
[2018-02-18] MEDS: PRAVACHOL PO SCH (21:09)
[2018-02-19] MEDS: CLEOCIN 300 MG in SODIUM CHLORIDE 50 ML IV SCH ×3 (05:51→20:29)
--- NOTE | 2018-02-19 08:59 | PCM.PROG ---
Attending Provider: ATTENDING PROVIDER: Dr. THOR STEIN This patient is seen with Renetta Lopez, Nurse Practitioner. DATE OF SERVICE: 02/19/18 SUBJECTIVE: This 73 year old WHITE/ M was hospitalized 02/17/18. The patient is resting comfortably, oriented to person only. As usual right arm is swollen and red consistent with DVT in right ulnar vein. No hemoglobin has been stable despite the addition of Xarelto. Potassium is low today. REVIEW OF SYSTEMS: CONSTITUTIONAL: No night sweats. No fatigue, malaise, lethargy. No fever or chills. HEENT: Eyes: No visual changes. No eye pain. No eye discharge. ENT: No runny nose. No epistaxis. No sinus pain. No odynophagia. No congestion. RESPIRATORY: No cough, no congestion. No hemoptysis. No shortness of breath. CARDIOVASCULAR: No angina symptoms. No CHF symptoms. No atypical chest pain for CAD. No palpitations. No orthopnea.. GASTROINTESTINAL: No abdominal pain. No nausea or vomiting. No diarrhea or constipation. No hematemesis. No hematochezia. GENITOURINARY: No urgency. No frequency. No dysuria. No hematuria. No obstructive symptoms. No discharge. No pain. No significant abnormal bleeding. MUSCULOSKELETAL: No musculoskeletal pain; no joint swelling. NEUROLOGICAL: Confusion. No headache. No neck pain. No syncope. No seizures. No dizziness. PSYCHIATRIC: Not anxious. No depression. No suicidal thoughts. No homicidal thoughts. SKIN: No rash. No lesions. No wounds. Right arm swelling and redness. ENDOCRINE: No unexplained weight loss. No weight gain. HEMATOLOGIC/LYMPHATIC: No anemia. No purpura. No petechiae. No prolonged or excessive bleeding. No palpable lymph nodes. PHYSICAL EXAMINATION: GENERAL: The patient is awake, alert and oriented to person only, lying in bed in no distress. VITAL SIGNS: Temperature 98.2 F, Pulse 57, Respiratory Rate 14, BP 139/89, Pulse Ox 97% HEENT: Head normocephalic, atraumatic. Eyes: Extraocular muscles are intact. Pupils are equal, round and reactive to light and accommodation. Ears: No lesions. Nose appeared normal. Throat: No exudate or erythema. NECK: Supple. No JVD, no carotid bruit. No lymphadenopathy or thyromegaly. LUNGS: Clear to auscultation. Percussion note normal. Chest symmetrical. HEART: S1, S2, no S3. No murmurs. No cyanosis or clubbing. No ascites. Pulses: Dorsalis pedis and posterior tibial pulses +1 to +2 both sides. ABDOMEN: Soft. Non-tender. Bowel sounds active. No CVA tenderness. No mass felt. EXTREMITIES: Right arm edematous, firm, warm and red, no drainage. Full range of motion of all extremities, equal. NEUROLOGIC: No focal deficit. Cranial nerves II through XII are grossly intact. No headache, no double vision or headache. SKIN: Warm and dry. Intact. Turgor-normal. LYMPHATIC: No palpable lymph nodes/no lymphedema. MUSCULOSKELETAL: Normal joints with no swelling. Muscle tone is normal. LAB REVIEW: 02/19/18 04:15 02/19/18 04:15 02/19/18 04:15: Sodium 139.6, Potassium 3.29 L, Chloride 110.7 H, Carbon Dioxide 26.8, Anion Gap 5.39, BUN 25.4 H, Creatinine 0.98, Estimated GFR (MDRD) 75.00, BUN/Creatinine Ratio 25.91, Glucose 88.0, Calcium 8.10 L, Total Bilirubin 0.43, AST 28.8, ALT 23.1, Alkaline Phosphatase 57.4, Total Protein 5.56 L, Albumin 2.72 L, Globulin 2.84, Albumin/Globulin Ratio 0.95 02/19/18 04:15: WBC 9.58, RBC 3.87 L, Hgb 12.5 L, Hct 37.8 L, MCV 97.7 H, MCH 32.3 H, MCHC 33.1, RDW Coeff of Yamilet 13.4, Plt Count 215, Immature Gran % (Auto) 0.8, Neut % (Auto) 51.8, Lymph % (Auto) 36.5, [place] % (Auto) 7.8, Eos % (Auto) 2.6, Baso % (Auto) 0.5, Immature Gran # (Auto) 0.1, Neut # (Auto) 5.0, Lymph # ( Auto) 3.5 H, [place] # (Auto) 0.8, Eos # (Auto) 0.3, Baso # (Auto) 0.1 ASSESSMENT: 1. Right arm cellulitis 2. DVT right ulnar vein 3. Hypokalemia 4. Dementia with behavioral disturbances 5. Hypertension PLAN: 1. Potassium 40 mEq t.i.d times two days Plan and coordination of the patient's care discussed in the presence of Turf Sales Person and nurse. CONDITION: Stable SCRIBED BY: CLARITZA HUGGINS Inspector Glass Or Mirror scribed while in presence of service performed by Dr. Stein/Renetta Lopez APRN on 02/19/18 ([id number])
[2018-02-19] MEDS: K-DUR PO SCH ×4 (09:37→17:26)
[2018-02-19] MEDS: ARICEPT PO SCH (09:38)
[2018-02-19] MEDS: CELEXA PO SCH (09:38)
[2018-02-19] MEDS: HYDROCHLOROTHIAZIDE PO SCH (09:39)
[2018-02-19] MEDS: COZAAR PO SCH (09:40)
[2018-02-19] MEDS: NAMENDA PO SCH ×2 (09:40→20:30)
[2018-02-19] MEDS: XARELTO PO SCH ×2 (09:40→17:28)
[2018-02-19] MEDS: BETAPACE PO SCH ×2 (09:40→20:29)
[2018-02-19] MEDS: MESALAMINE 2.4 GM PO SCH (11:20)
[2018-02-19] MEDS: ROCEPHIN 1 GM in SODIUM CHLORIDE 50 ML IV SCH (13:21)
[2018-02-19] MEDS: PRAVACHOL PO SCH (20:29)
[2018-02-19] MEDS: XANAX PO PRN (20:30)
[2018-02-19] MEDS: DESYREL PO SCH (20:30)
[2018-02-20] MEDS: CLEOCIN 300 MG in SODIUM CHLORIDE 50 ML IV SCH ×3 (05:28→20:17)
[2018-02-20] MEDS: K-DUR PO SCH ×3 (09:02→17:14)
[2018-02-20] MEDS: ROCEPHIN 1 GM in SODIUM CHLORIDE 50 ML IV SCH (09:02)
[2018-02-20] MEDS: BETAPACE PO SCH ×2 (09:02→20:18)
[2018-02-20] MEDS: NAMENDA PO SCH ×2 (09:03→20:17)
[2018-02-20] MEDS: XARELTO PO SCH ×2 (09:03→17:14)
[2018-02-20] MEDS: CELEXA PO SCH (09:03)
[2018-02-20] MEDS: HYDROCHLOROTHIAZIDE PO SCH (09:04)
[2018-02-20] MEDS: COZAAR PO SCH (09:04)
[2018-02-20] MEDS: ARICEPT PO SCH (09:04)
[2018-02-20] MEDS: MESALAMINE 2.4 GM PO SCH (09:09)
--- NOTE | 2018-02-20 09:59 | PN ---
DATE OF SERVICE: 02/17/18 Jeremy Ortiz had positive skin for ulnar vein thrombosis with superficial basilic vein thrombophlebitis. The patient has been put on Xarelto. There is no evidence of GI bleed. He has no evidence of any bleeding problems. Side effects of Xarelto discussed with the patient and the that is intracranial bleed and GI bleed. The need for Xarelto was discussed and they agreed. The patient would be started on Xarelto starter pack for DVT. The patient's condition is stable. The patient was seen with the Nurse Practitioner. Time spent greater than 30 minutes. XOCHILTD
--- NOTE | 2018-02-20 10:05 | PN ---
DATE OF SERVICE: 02/19/18 SUBJECTIVE: Jeremy Ortiz was seen and examined with the Nurse Practitioner. The patient is being treated with Xarelto for DVT of the right upper extremity. Side effects of Xarelto were discussed with the and the patient, which is GI bleed and intracranial bleed. No NSAIDS with it discussed. TIME SPENT: More than 30 minutes. Plan and coordination of the patient's care discussed in the presence of nurse. VLADISLAV
[2018-02-20] MEDS: PRAVACHOL PO SCH (20:17)
[2018-02-20] MEDS: DESYREL PO SCH (20:17)
[2018-02-21] MEDS: CLEOCIN 300 MG in SODIUM CHLORIDE 50 ML IV SCH (05:16)
[2018-02-21 06:02] VITALS: BP 111/76; TEMP 98
[2018-02-21] MEDS ORDERED: K-DUR PO SCH (08:00)
[2018-02-21] MEDS: ROCEPHIN 1 GM in SODIUM CHLORIDE 50 ML IV SCH (08:16)
[2018-02-21] MEDS: BETAPACE PO SCH (08:18)
[2018-02-21] MEDS: NAMENDA PO SCH (08:19)
[2018-02-21] MEDS: ARICEPT PO SCH (08:19)
[2018-02-21] MEDS: HYDROCHLOROTHIAZIDE PO SCH (08:19)
[2018-02-21] MEDS: CELEXA PO SCH (08:19)
[2018-02-21] MEDS: COZAAR PO SCH (08:20)
[2018-02-21] MEDS: XARELTO PO SCH (08:20)
[2018-02-21] MEDS: MESALAMINE 2.4 GM PO SCH (08:22)
--- NOTE | 2018-02-21 10:09 | PCM.PROG ---
Attending Provider: ATTENDING PROVIDER: Dr. THOR STEIN This patient is seen with Renetta Lopez, Nurse Practitioner. DATE OF SERVICE: 02/21/18 SUBJECTIVE: This 73 year old WHITE/ M was hospitalized 02/17/18. The patient is resting comfortably. Right arm with improved swelling, no erythema. He has tolerated new addition of Xarelto. REVIEW OF SYSTEMS: CONSTITUTIONAL: No night sweats. No fatigue, malaise, lethargy. No fever or chills. HEENT: Eyes: No visual changes. No eye pain. No eye discharge. ENT: No runny nose. No epistaxis. No sinus pain. No odynophagia. No congestion. RESPIRATORY: No cough, no congestion. No hemoptysis. No shortness of breath. CARDIOVASCULAR: No angina symptoms. No CHF symptoms. No atypical chest pain for CAD. No palpitations. No orthopnea.. GASTROINTESTINAL: No abdominal pain. No nausea or vomiting. No diarrhea or constipation. No hematemesis. No hematochezia. GENITOURINARY: No urgency. No frequency. No dysuria. No hematuria. No obstructive symptoms. No discharge. No pain. No significant abnormal bleeding. MUSCULOSKELETAL: No musculoskeletal pain; no joint swelling. NEUROLOGICAL: Awake, confusion. No headache. No neck pain. No syncope. No seizures. No dizziness. PSYCHIATRIC: Not anxious. No depression. No suicidal thoughts. No homicidal thoughts. SKIN: Improved right arm swelling and redness. ENDOCRINE: No unexplained weight loss. No weight gain. HEMATOLOGIC/LYMPHATIC: No anemia. No purpura. No petechiae. No prolonged or excessive bleeding. No palpable lymph nodes. PHYSICAL EXAMINATION: GENERAL: The patient is awake, alert and oriented to person only lying in bed in no distress. VITAL SIGNS: Temperature 98.0 F, Pulse 53, Respiratory Rate 20, BP 111/76, Pulse Ox 96% HEENT: Head normocephalic, atraumatic. Eyes: Extraocular muscles are intact. Pupils are equal, round and reactive to light and accommodation. Ears: No lesions. Nose appeared normal. Throat: No exudate or erythema. NECK: Supple. No JVD, no carotid bruit. No lymphadenopathy or thyromegaly. LUNGS: Clear to auscultation. Percussion note normal. Chest symmetrical. HEART: S1, S2, no S3. No murmurs. No cyanosis or clubbing. No ascites. Pulses: Dorsalis pedis and posterior tibial pulses +1 to +2 both sides. ABDOMEN: Soft. Non-tender. Bowel sounds active. No CVA tenderness. No mass felt. EXTREMITIES: Improved swelling of right arm, no redness. Slight firmness. No edema. Full range of motion of all extremities, equal. NEUROLOGIC: No focal deficit. Cranial nerves II through XII are grossly intact. No headache, no double vision or headache. SKIN: Not dry. Intact. Turgor-normal. LYMPHATIC: No palpable lymph nodes/no lymphedema. MUSCULOSKELETAL: Normal joints with no swelling. Muscle tone is normal. LAB REVIEW: 02/21/18 05:30 02/21/18 05:30 02/21/18 05:30: Sodium 139.2, Potassium 3.50, Chloride 109.5 H, Carbon Dioxide 27.4, Anion Gap 5.80, BUN 18.9, Creatinine 0.99, Estimated GFR (MDRD) 74.00, BUN /Creatinine Ratio 19.09, Glucose 78.7, Calcium 8.17 L, Total Bilirubin 0.27, AST 25.8, ALT 22.5, Alkaline Phosphatase 55.9 L, Total Protein 5.49 L, Albumin 2.69 L, Globulin 2.80, Albumin/Globulin Ratio 0.96 02/21/18 05:30: WBC 9.23, RBC 3.75 L, Hgb 12.1 L, Hct 36.6 L D, MCV 97.6 H D, MCH 32.3 H, MCHC 33.1, RDW Coeff of [place]ilet 13.2, Plt Count 216, Immature Gran % ( Auto) 0.8, Neut % (Auto) 54.3, Lymph % (Auto) 33.8, [place] % (Auto) 7.2, Eos % ( Auto) 3.5, Baso % (Auto) 0.4, Immature Gran # (Auto) 0.1, Neut # (Auto) 5.0, Lymph # (Auto) 3.1, [place] # (Auto) 0.7, Eos # (Auto) 0.3, Baso # (Auto) 0.0 ASSESSMENT: 1. Right arm cellulitis, resolved 2. DVT right ulnar vein, improving 3. Hypokalemia, resolved 4. Dementia with behavioral disturbances 5. Hypertension PLAN: 1. Anticipate possible d/c today; will discuss with Dr. Stein. 2. Will go home on Clindamycin for 5 days and Xarelto for which he will stay on for at least 3 to 6 months due to DVT. He has shown no signs of bleeding. 3. Risk of bleeding discussed with he and his family. Plan and coordination of the patient's care discussed in the presence of Technical Support Technician and nurse. CONDITION: Stable SCRIBED BY: CLARITZA HUGGINS Scientific Associate scribed while in presence of service performed by Dr. Stein/Renetta Lopez APRN on 02/21/18 ([id number])
--- NOTE | 2018-02-21 10:47 | CM.DICTOOL ---
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 DEMENTIA ATAXIA DJD SPINE ANXIETY/DEPRESSION RIGHT EYE SURGERY TO REMOVE METAL POLYPECTOMY RIGHT HAND TENDON SURGERY CERVICAL FUSION HERNIA REPAIR CHOLECYSTECTOMY APPENDECTOMY TONSILLECTOMY FORMER SMOKER LAST VITALS Temp Pulse Resp BP Pulse Ox 98.0 F 53 L 20 111/76 96 02/21/18 05:00 02/21/18 05:00 02/21/18 05:00 02/21/18 05:00 02/21/18 05:00 TAKE THESE MEDICATIONS AT HOME Alprazolam (Xanax) 0.5 mg PO BID PRN PRN Reason: Anxiety Last Admin: 02/19/18 20:30 Dose: 0.5 mg Citalopram Hydrobromide (Celexa) 40 mg PO DAILY [facility] Last Admin: 02/21/18 08:19 Dose: 40 mg Donepezil HCl (Aricept) 20 mg PO DAILY [facility] Last Admin: 02/21/18 08:19 Dose: 20 mg Hydrochlorothiazide (Hydrochlorothiazide) 12.5 mg PO DAILY [facility] Last Admin: 02/21/18 08:19 Dose: 12.5 mg Hydrocodone Bitart/Acetaminophen ([place] 7.5-325) 1 tab PO BID PRN PRN Reason: Pain Clindamycin Phosphate 300 mg PO TID x 5 DAYS [facility] Last Admin: 02/21/18 05:16 Dose: 50 mls/hr Losartan Potassium (Cozaar) 100 mg PO DAILY [facility] Last Admin: 02/21/18 08:20 Dose: 100 mg Memantine (Namenda) 10 mg PO BID [facility] Last Admin: 02/21/18 08:19 Dose: 10 mg Mesalamine [Mesalamine] 2.4 gm PO DAILY [facility] Last Admin: 02/21/18 08:22 Dose: Not Given Potassium Chloride (K-Dur) 40 meq PO BIDWM [facility] Last Admin: 02/21/18 08:18 Dose: 40 meq Pravastatin Sodium (Pravachol) 80 mg PO BEDTIME [facility] Last Admin: 02/20/18 20:17 Dose: 80 mg Rivaroxaban (Xarelto) 15 mg PO BIDWM [facility] Stop: 03/10/18 20:59 Last Admin: 02/21/18 08:20 Dose: 15 mg Sotalol HCl (Betapace) 40 mg PO BID [facility] Last Admin: 02/21/18 08:18 Dose: 40 mg Trazodone HCl (Desyrel) 100 mg PO BEDTIME [facility] Last Admin: 02/20/18 20:17 Dose: 100 mg ALLERGIES codeine Adverse Reaction (Verified 02/09/18 11:44) meperidine [From Demerol] Adverse Reaction (Verified 02/12/18 17:50) nalbuphine [From Nubain] Adverse Reaction (Verified 02/12/18 17:50) NEW PRESCRIPTIONS: Clindamycin HCl [Cleocin HCl] 300 mg PO TID #15 capsule 02/21/18 Losartan Potassium 100 mg PO DAILY #30 tablet 02/21/18 Rivaroxaban [Xarelto] 15 mg PO BID #30 tablet 02/21/18 SMOKING: FORMER SMOKER DISEASE SPECIFIC EDUCATION: THROMBOPHLEBITIS DVT ELIQUIS BENEFITS AND RISKS HOME MEDICATIONS NEW MEDICATIONS FOLLOW UP LAB REVIEW: 02/21/18 05:30 02/21/18 05:30 02/21/18 05:30: Sodium 139.2, Potassium 3.50, Chloride 109.5 H, Carbon Dioxide 27.4, Anion Gap 5.80, BUN 18.9, Creatinine 0.99, Estimated GFR (MDRD) 74.00, BUN /Creatinine Ratio 19.09, Glucose 78.7, Calcium 8.17 L, Total Bilirubin 0.27, AST 25.8, ALT 22.5, Alkaline Phosphatase 55.9 L, Total Protein 5.49 L, Albumin 2.69 L, Globulin 2.80, Albumin/Globulin Ratio 0.96 02/21/18 05:30: WBC 9.23, RBC 3.75 L, Hgb 12.1 L, Hct 36.6 L D, MCV 97.6 H D, MCH 32.3 H, MCHC 33.1, RDW Coeff of Yamilet 13.2, Plt Count 216, Immature Gran % ( Auto) 0.8, Neut % (Auto) 54.3, Lymph % (Auto) 33.8, [place] % (Auto) 7.2, Eos % ( Auto) 3.5, Baso % (Auto) 0.4, Immature Gran # (Auto) 0.1, Neut # (Auto) 5.0, Lymph # (Auto) 3.1, [place] # (Auto) 0.7, Eos # (Auto) 0.3, Baso # (Auto) 0.0 PLAN: DISCHARGE HOME TODAY, 02/21/[address] STEIN ON 02/26/18 AT 11 A.M. RESUME YOUR HOME MEDICATIONS PER LIST PROVIDED BY THE NURSING STAFF DO NOT TAKE THE ASPIRIN DO NOT TAKE THE IBUPROFEN DO NOT TAKE THE LISINOPRIL (ZESTRIL) NEW PRESCRIPTIONS LOSARTAN POTASSIUM (COZAAR) 100 MG, TAKE ONE TABLET BY MOUTH DAILY XARELTO 15 MG, TAKE ONE TABLET BY MOUTH TWICE DAILY (OFFICE SUPPLY PROVIDED) CLINDAMYCIN 300 MG, TAKE ONE CAPSULE BY MOUTH THREE TIMES DAILY FOR 5 DAYS ONLY ACTIVITY GET PLENTY OF REST AT HOME. GRADUALLY INCREASE YOUR ACTIVITY LEVEL ACCORDING TO YOUR TOLERATION DIET HEALTHY HEART SUMMARY THE PATIENT IS ALERT AND ORIENTED TO PERSON. HE IS CALM AND COOPERATIVE FOR CARE. CURRENTLY HE RESIDES AT HOME WITH HIS SPOUSE. HIS ADULT CHILDREN ARE SUPPORTIVE OF HIS NEEDS WHEN NECESSARY. RECENTLY DUE TO THE ADVANCING OF HIS DEMENTIA, THE PATIENT HAS BECOME MORE DEPENDENT ON OTHERS FOR ADL'S. AT HOME HE HAS NO HOME HEALTH, HOMEMAKING SERVICES OR DME. HE DESIRES TO RETURN HOME AT DISCHARGE. THE RIGHT FOREARM SWELLING AND REDNESS HAS RESOLVED LEAVING ONLY A SLIGHT FIRMNESS. THERE IS NO EXCESSIVE HEAT. HE TELLS US THE PAIN HAS RESOLVED COMPLETELY. HE HAS GOOD RANGE OF MOTION AT THE SHOULDER, ELBOW WRIST AND FINGERS OF THE RIGHT UPPER EXTREMITY. RADIAL PULSES ARE STRONG AND EQUAL. CURRENT CODE STATUS FULL CODE SUZY DE JESUS, ISSAC THOR STEIN M.D.
--- NOTE | 2018-02-23 10:15 | DS ---
DATE OF SERVICE: 02/21/18 FINAL DIAGNOSIS: 1. DVT, RIGHT UPPER EXTREMITY (ULNAR VEIN) 2. SUPERFICIAL THROMBOPHLEBITIS, RIGHT BASILIC VEIN 3. CELLULITIS, RIGHT UPPER EXTREMITY 4. HYPOKALEMIA, TREATED 5. HYPERTENSION, IMPROVED 6. ATRIAL FIBRILLATION 7. SLEEP APNEA, HAS C-PAP 8. IRRITABLE BOWEL SYNDROME, PER SPOUSE 9. DEMENTIA 10. ATAXIA 11. DEGENERATIVE JOINT DISEASE, SPINE 12. ANXIETY/DEPRESSION 13. RIGHT EYE SURGERY TO REMOVE METAL 14. POLYPECTOMY 15. RIGHT HAND TENDON SURGERY 16. CERVICAL FUSION 17. HERNIA REPAIR 18. CHOLECYSTECTOMY 19. APPENDECTOMY 20. TONSILLECTOMY 21. FORMER SMOKER DISCHARGE INSTRUCTIONS: 1. Followup appointment to see Dr. Ledesma 02/26/18 at 11:00 a.m. 2. Resume home medications as per list provided by nursing staff 3. Do not take Aspirin, Ibuprofen, Zestril 4. New prescriptions - Cozaar 100 mg one tablet daily, Xarelto 15 mg one table twice daily and Clindamycin 300 mg one table three times a day for five days 5. Get plenty of rest at home 6. Gradually increase activity level according to toleration MEDICATIONS AT DISCHARGE: Xanax 0.5 mg PO BID PRN Celexa 40 mg PO daily Aricept 20 mg PO daily Hydrochlorothiazide 12.5 mg PO daily [place] 7.5/325 one tablet PO BID PRN Clindamycin 300 mg PO TID x5 days Cozaar 100 mg PO daily Namenda 10 mg PO BID Mesalamine 2.4 mg PO daily K-Dur 40 meq PO BID Pravachol 80 mg PO bedtime Xarelto 15 mg PO BID Betapace 40 mg PO BID Desyrel 100mg PO bedtime *Do not take Aspirin, Ibuprofen, Zestril DIET INSTRUCTIONS: Healthy Heart SMOKING: Former smoker DISEASE SPECIFIC EDUCATION: Thrombophlebitis DVT Eliquis benefits and risks Home medications New medications Follow up HOSPITAL COURSE: This is a 73 year old white male with moderate dementia who was initially admitted from our office with cellulitis of the right upper extremity. He was placed on Rocephin 1 gram IV daily initially along with Clindamycin PO. He did not have significant enough improvement, so we changed his Clindamycin to IV which showed some improvement in the erythema of his right upper extremity, however, it still remained pretty swollen. After not significantly improving with the edema, we did a venous scan of the right upper extremity which showed a DVT in the ulnar vein and superficial thrombophlebitis in the right basilic vein so he was placed in swing bed. Due to his dementia and the need to be on blood thinner for the next three to six months we wanted to make sure that he would tolerate this well and continue IV antibiotics. We started him on Xarelto for DVT treatment, initially the treatment was 15 mg PO BID for the first 21 days and then he will go to 20 mg PO daily. We continued Rocephin IV as well as Clindamycin IV 300 mg Q eight hours and with continuing IV antibiotics elevation of his upper extremity and the Xarelto, the redness has completely resolved. There is still some mild swelling and firmness in the right upper extremity but it is no longer tender. He did temporarily have some hypokalemia which was initially thought to be due to dilution from IV fluids as he was initially dehydrated on admission as well. So we will send him home in stable condition. He is to continue on the Xarelto, the risks of bleeding, intracranial and GI have been discussed in detail with his as she is of sound mind and demonstrates understanding of the risks of bleeding versus the complications of the DVT and not taking Xarelto. He will continue on Clindamycin 300 mg PO TID for the next five days. He is to continue to keep his arm elevated. We will see him in the office next week. TIME SPENT: More than 60 minutes. MTDD
--- NOTE | 2018-02-23 10:56 | HP ---
DATE OF SERVICE (SWING BED): 02/17/18 REASON FOR HOSPITALIZATION: This is a 73 year old white male who was initially admitted from our office for cellulitis of the right upper extremity. He had a previous ER visit with hypoglycemia and had an IV stick in the right arm which we believe is the source of the cellulitis. He was placed on IV antibiotics and the cellulitis redness was improving, however, the area remained pretty swollen and firm. Venous scan revealed a DVT in the right upper extremity ulnar vein so he needed to be continued on IV antibiotics as well as placed on a blood thinner. We wanted to make sure that he could tolerate this and monitor his blood levels with no significant anemia or blood loss of starting Xarelto so he is being admitted to swing bed for continuing IV antibiotics and the beginning of Xarelto. PAST MEDICAL HISTORY: Atrial fibrillation Dyslipidemia Ataxia Hypertension, improved Depression Sleep apnea Ulcerative colitis DJD spine Forgetfulness Dementia Anxiety Cellulitis right upper extremity with previous IV stick two weeks before Superficial thrombophlebitis right basilic vein DVT right upper extremity ulnar vein Hypokalemia, treated PAST SURGICAL HISTORY: C-spine Colonoscopy 03/17 REVIEW OF SYSTEMS: CONSTITUTIONAL: No fever, no fatigue. HEENT: No sinus drainage, no sore throat. RESPIRATORY: No cough, no congestion. CARDIOVASCULAR: No atypical chest pain for coronary artery disease. No angina , CHF symptoms, palpitations or shortness of breath. GASTROINTESTINAL: No melena or abdominal pain. No GERD. GENITOURINARY: No hematuria, no polyuria. CONTROLS PROJECT ENGINEER: No blackout, no dizziness, no headache, no double vision. MUSCULOSKELETAL: No osteoarthritis pain, no joint swelling. ENDOCRINE: No weight loss, no weight gain. SKIN: Right upper extremity swelling and redness. PSYCHIATRIC: Confusion. SOCIAL HISTORY: Marital Status: , lives with his and grandchildren which they care for. Alcohol Usage: No. Tobacco Usage: No. ALLERGIES: Codeine Demerol Aspirin NSAIDS Nalbuphine PHYSICAL EXAMINATION: GENERAL APPEARANCE: He is alert and oriented to person only. HEENT: Normal. NECK: No JVP, no bruits. RESPIRATORY: Lungs are clear. CARDIOVASCULAR: Regular heart rate. GI/ABDOMEN: No tenderness. Bowel sounds are active. EXTREMITIES: Mild swelling right upper extremity with improving erythema, mild tenderness. CONTROLS PROJECT ENGINEER: Deep tendon reflexes, sensory, motor and gait all normal. ASSESSMENT: 1. DVT RIGHT UPPER EXTREMITY ULNAR VEIN 2. SUPERFICIAL THROMBOPHLEBITIS RIGHT BASILIC VEIN 3. CELLULITIS RIGHT UPPER EXTREMITY 4. HYPERTENSION PLAN: 1. Will admit to swing bed 2. Continue IV Rocephin daily 1 gram 3. Continue Clindamycin IV 300 mg Q eight hours 4. Begin Xarelto for DVT treatment which is 15 mg PO BID for first 21 days and then will transition to 20 mg daily He will need to be on this treatment for the next 3-6 months. 5. Discussed with the family the need for treatment with anticoagulants and they demonstrated understanding 6. He will continue with daily CBC, CMP to monitor his hemoglobin and kidney function 7. Will follow closely 8. Can DC telemetry TIME SPENT: More than 70 minutes. VLADISLAV
--- NOTE | 2018-02-23 12:13 | PN ---
DATE OF SERVICE: 02/21/18 SUBJECTIVE: The patient was seen and examined with the nurse practitioner. The patient's right upper extremity cellulitis has resolved with DVT. No more complications. TIME SPENT: More than 30 minutes. Plan and coordination of the patient's care discussed in the presence of nurse. VLADISLAV
== END 2018-02-21 12:50 | disposition home or self-care (01) | DRG 300 ==
LOC: MEDSURG B 14:30
PROVIDERS: ADMIT Internal Medicine; ATTEND Internal Medicine
DX: I80.9 Phlebitis and thrombophlebitis of unspecified site (principal); L03.113 Cellulitis of right upper limb; E87.6 Hypokalemia; E16.2 Hypoglycemia, unspecified; E78.5 Hyperlipidemia, unspecified; I48.0 Paroxysmal atrial fibrillation; I10 Essential (primary) hypertension; R27.0 Ataxia, unspecified; G47.30 Sleep apnea, unspecified; K57.90 Diverticulosis of intestine, part unspecified, without perforation or abscess without bleeding; M19.90 Unspecified osteoarthritis, unspecified site; F03.90 Unspecified dementia, unspecified severity, without behavioral disturbance, psychotic disturbance, mood disturbance, and anxiety; F41.8 Other specified anxiety disorders
CPT/HCPCS: 36415; 80053; 82962; 85025; 97802

== ENCOUNTER 2018-02-25 12:05 | Inpatient (IN) | payer OTHER ==
[2018-02-25] MEDS ORDERED: DEXTROSE 50%-WATER ABBOJECT IVP STA ×2 (12:20→15:10)
[2018-02-25 12:30] VITALS: BMI 24.3
--- NOTE | 2018-02-25 12:47 | ED.PDOC ---
General ED Provider: Dr. KAMINI MATHUR Chief Complaint: Hypoglycemia Stated Complaint: Reduced LOC/Trouble breathing. Glucose level 50 at home. stated attempted to give him sugar at home but jaws clenched so headed to ER/ Stated had to give him Amelia juice earlier today, Time Seen by Physician: 12:10 Mode of Arrival: Wheelchair Information Source: Patient Exam Limitations: Clinical condition, Altered mental status Primary Care Provider: THOR STEIN Nursing and Triage Documentation Reviewed and Agree: Yes System Inflammatory Response Syndrome: Not Applicable Sepsis Protocol: For patient's 13 years and over: Temp is 96.8 and below OR 101 and greater Pulse >90 BPM Resp >20/minute Acutely Altered Mental Status Are patient's symptoms suggestive of a new infection, such as: -Pneumonia -Skin, Soft Tissue -Endocarditis -UTI -Bone, Joint Infection -Implantable Device -Acute Abdominal Infection -Wound Infection -Meningitis -Blood Stream Catheter Infection -Unknown Respiratory Complaint Exam - Shortness of Air Complaint/Exam Symptoms Are: Still present (with reduced LOC) Initial Severity: Moderate Current Severity: Severe Character: Reports: Dyspnea at rest Aggravating: Reports: None Alleviating: Reports: None Associated Signs and Symptoms: Reports: Diaphoresis Related History: Reports: Similar episode History of Healthcare-Acquired Pneumonia: No Pulmonary Embolism Risk Factors: Reports: DVT (had blood clot RtUE due to IV) Cardiac Risk Factors: Reports: None Pseudomonas Risk Factors: Reports: None Tuberculosis Risk Factors: Reports: None Home Oxygen Use: Yes Recent Stress Test: No Recent Echo/LV Function: No Respiratory Distress: None Stridor Present: No Tracheal Deviation: No Subcutaneous Emphysema: No Accessory Muscle Use: No Retractions: Not Present Diminished Breath Sounds: Yes Unable to Speak Full Sentences: Yes Fatigue: Yes Leg Swelling: No Dejan's Sign Present: No Grunting Respirations: No Kussmaul Respirations: No Differential Diagnoses: Other (COPD, Hypoglycemia) Review of Systems - Review Of Systems Constitutional: Reports: No symptoms Eyes: Reports: No symptoms Ears, Nose, Mouth, Throat: Reports: No symptoms Respiratory: Reports: No symptoms Cardiac: Reports: No symptoms GI: Reports: No symptoms : Reports: No symptoms Musculoskeletal: Reports: No symptoms Skin: Reports: Other (diaphoresis/pale) Neurological: Reports: No symptoms Endocrine: Reports: No symptoms Hematologic/Lymphatic: Reports: No symptoms All Other Systems: Reviewed and Negative Past Medical History - Past Medical History Previously Healthy: No Endocrine: Reports: Unknown Cardiovascular: Reports: Unknown Respiratory: Reports: Unknown Hematological: Reports: Unknown Gastrointestinal: Reports: Unknown Genitourinary: Reports: Unknown Neuro/Psych: Reports: Dementia Musculoskeletal: Reports: Unknown Cancer: Reports: Unknown - Surgical History General Surgical History: Reports: Unknown - Family History Family History: Reports: Unknown - Social History Smoking Status: Former smoker Hx Substance Use: No Alcohol Screening: None Physical Exam - Physical Exam Appearance: Ill-appearing Ill-appearing: Severe Eyes: INES, EOMI, Conjunctiva clear ENT: Ears normal, Nose normal, Oropharynx normal Neck: Supple Respiratory: Airway patent, Breath sounds diminished Cardiovascular: RRR, Pulses normal, No rub, No murmur GI/: Soft, Nontender, No masses, Bowel sounds normal, No Organomegaly Musculoskeletal: Normal strength, ROM intact, No edema, No calf tenderness Skin: Warm, Dry, Normal color Neurological: Sensation intact, Motor intact, Reflexes intact, Cranial nerves intact, Alert, Oriented Psychiatric: Anxious Course - Course Orders, Labs, Meds: Orders Category Date Time Status Dextrose 50 % in Water [Dextrose 50%-Water Abboject] MEDS 02/25/18 12:20 Discontinued 50 ml IVP ONCE STA Medications Discontinued Medications Generic Name Dose Route Start Last Admin Trade Name Freq PRN Reason Stop Dose Admin Dextrose 50 ml 02/25/18 12:20 02/25/18 12:20 Dextrose 50%-Water Abboject IVP 02/25/18 12:21 50 ml ONCE STA Administration Vital Signs: Temp Pulse Resp BP Pulse Ox 02/25/18 12:05 96.0 F L 50 L 20 175/85 H 99 Departure - Departure Allergies/Adverse Reactions: Allergies codeine Adverse Reaction (Verified 02/25/18 12:31) meperidine [From Demerol] Adverse Reaction (Verified 02/25/18 12:31) nalbuphine [From Nubain] Adverse Reaction (Verified 02/25/18 12:31) Home Medications: Ambulatory Orders Alprazolam [Xanax] 0.5 mg PO BID PRN 07/16/14 Citalopram Hydrobromide [Celexa] 40 mg PO DAILY 07/16/14 Donepezil HCl [Aricept] 20 mg PO DAILY 07/16/14 Pravastatin Sodium 80 mg PO BEDTIME 07/16/14 Trazodone HCl 100 mg PO BEDTIME 07/16/14 Memantine HCl [Namenda] 10 mg PO BID #60 tablet 10/06/14 Potassium Chloride [K-Tab ER] 40 meq PO BID 01/17/18 Mesalamine 2.4 gm PO DAILY 01/18/18 Sotalol HCl [Sotalol] 40 mg PO BID 01/18/18 Hydrochlorothiazide 12.5 mg PO DAILY #30 tablet 01/21/18 Hydrocodone Bit/Acetaminophen [[place] 7.5-325] 1 each PO BID PRN 02/12/18 Clindamycin HCl [Cleocin HCl] 300 mg PO TID #15 capsule 02/21/18 Losartan Potassium 100 mg PO DAILY #30 tablet 02/21/18 Rivaroxaban [Xarelto] 15 mg PO BID #30 tablet 02/21/18
[2018-02-25] MEDS ORDERED: SODIUM CHLORIDE 1,000 ML IV STA (12:56)
--- NOTE | 2018-02-25 13:59 | DI ---
EXAM: Single AP view of the chest HISTORY: Congestion. COMPARISON: Chest x-ray 02/12/2018 and priors FINDINGS: Cardiomediastinal silhouette is normal. There is no pneumothorax or pleural effusion. The re is no consolidation, nodule or mass. The osseous structures are unremarkable. IMPRESSION: No acute cardiopulmonary process.
[2018-02-25] MEDS ORDERED: CATAPRES PO STA (14:47)
[2018-02-25] MEDS: DEXTROSE 5%-WATER IV SOLN 500 ML IV SCH (16:55)
--- NOTE | 2018-02-25 17:17 | CT ---
EXAM: CT scan of the abdomen and pelvis without contrast HISTORY: Recurrent hypoglycemia TECHNIQUE: Helical imaging of the abdomen pelvis was performed without contrast. 3 mm thin axial im ages and coronal and sagittal reconstructions were provided for interpretation. Comparison 03/08/2015 CT scan of the abdomen pelvis. FINDINGS: The patient has had previous cholecystectomy. The pancreas, adrenal glands and kidneys ap pear normal. The proximal ureters are normal size. The small and large bowel loops are normal calib er. There is no free air. The helical images obtained through the pelvis demonstrate a normal appearance of the rectum, urinary bladder. There is no free fluid seen within the pelvis. There is diverticular disease of the desce nding colon and sigmoid colon without acute inflammation. Lung bases are clear. No lytic or blastic lesions are seen within the osseous structures. IMPRESSION: There is no bowel obstruction or acute inflammatory change seen within the abdomen and p ottoniel. There is no ureteral obstruction. Previous cholecystectomy. 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
[2018-02-25] MEDS ORDERED: NORCO 7.5-325 PO PRN (18:14)
[2018-02-25] MEDS ORDERED: XANAX PO PRN (18:14)
[2018-02-25] MEDS ORDERED: CLINDAMYCIN HCL 300 MG PO SCH (21:00)
[2018-02-25] MEDS ORDERED: NON-FORMULARY MEDICATION (Pravastatin Sodium [Pravastatin Sodium] 80 MG) PO SCH (21:00)
[2018-02-25] MEDS ORDERED: NON-FORMULARY MEDICATION (Rivaroxaban [Xarelto] 15 MG) PO SCH (21:00)
[2018-02-25] MEDS ORDERED: NON-FORMULARY MEDICATION (Trazodone Hcl [Trazodone Hcl] 100 MG) PO SCH (21:00)
[2018-02-25] MEDS ORDERED: POTASSIUM CHLORIDE 40 MEQ PO SCH (21:00)
[2018-02-25] MEDS ORDERED: CLEOCIN ONE (21:37)
[2018-02-25] MEDS ORDERED: K-DUR ONE (21:37)
[2018-02-25] MEDS ORDERED: XARELTO ONE (21:38)
[2018-02-25] MEDS ORDERED: PRAVACHOL ONE (21:38)
[2018-02-25] MEDS ORDERED: DESYREL ONE (21:38)
[2018-02-25] MEDS: BETAPACE PO SCH (21:54)
[2018-02-25] MEDS: NAMENDA PO SCH (21:56)
[2018-02-25] MEDS: TYLENOL PO PRN (22:31)
[2018-02-26] MEDS: DEXTROSE 5%-WATER IV SOLN 1,000 ML IV SCH ×3 (03:49→15:59)
[2018-02-26] MEDS: DEXTROSE 5%-WATER IV SOLN 500 ML IV SCH (06:00)
[2018-02-26] MEDS ORDERED: K-DUR PO STA (08:01)
[2018-02-26] MEDS: BETAPACE PO SCH ×2 (08:35→20:08)
[2018-02-26] MEDS: CELEXA PO SCH (08:39)
[2018-02-26] MEDS: COZAAR PO SCH (08:39)
[2018-02-26] MEDS: ARICEPT PO SCH (08:40)
[2018-02-26] MEDS: NAMENDA PO SCH ×2 (08:41→20:12)
[2018-02-26] MEDS: HYDROCHLOROTHIAZIDE PO SCH (08:42)
[2018-02-26] MEDS: CLEOCIN PO SCH ×3 (08:43→20:11)
[2018-02-26] MEDS: XARELTO PO SCH ×2 (08:44→20:08)
[2018-02-26] MEDS: MESALAMINE 2.4 GM PO SCH (08:47)
[2018-02-26] MEDS ORDERED: NON-FORMULARY MEDICATION (Citalopram Hydrobromide [Celexa] 40 MG) PO SCH (09:00)
[2018-02-26] MEDS ORDERED: NON-FORMULARY MEDICATION (Hydrochlorothiazide [Hydrochlorothiazide] 12.5 MG) PO SCH (09:00)
[2018-02-26] MEDS: K-DUR PO SCH ×2 (11:02→20:12)
--- NOTE | 2018-02-26 11:09 | PCM.PROG ---
Attending Provider: ATTENDING PROVIDER: Dr. THOR STEIN This patient is seen with Renetta Lopez, Nurse Practitioner. DATE OF SERVICE: 02/26/18 SUBJECTIVE: This 73 year old WHITE/ M was hospitalized 02/25/18. The patient is lying in bed resting comfortably. Sugars ranged from 80 to 100 last night with IV fluids, eating frequently. REVIEW OF SYSTEMS: CONSTITUTIONAL: No night sweats. No fatigue, malaise, lethargy. No fever or chills. HEENT: Eyes: No visual changes. No eye pain. No eye discharge. ENT: No runny nose. No epistaxis. No sinus pain. No odynophagia. No congestion. RESPIRATORY: No cough, no congestion. No hemoptysis. No shortness of breath. CARDIOVASCULAR: No angina symptoms. No CHF symptoms. No atypical chest pain for CAD. No palpitations. No orthopnea.. GASTROINTESTINAL: No abdominal pain. No nausea or vomiting. No diarrhea or constipation. No hematemesis. No hematochezia. GENITOURINARY: No urgency. No frequency. No dysuria. No hematuria. No obstructive symptoms. No discharge. No pain. No significant abnormal bleeding. MUSCULOSKELETAL: No musculoskeletal pain; no joint swelling. NEUROLOGICAL: Awake, confused. No headache. No neck pain. No syncope. No seizures. No dizziness. PSYCHIATRIC: Not anxious. No depression. No suicidal thoughts. No homicidal thoughts. SKIN: No rash. No lesions. No wounds. ENDOCRINE: No unexplained weight loss. No weight gain. HEMATOLOGIC/LYMPHATIC: No anemia. No purpura. No petechiae. No prolonged or excessive bleeding. No palpable lymph nodes. PHYSICAL EXAMINATION: GENERAL: The patient is awake, oriented to person only, lying in bed in no distress. VITAL SIGNS: Temperature 98.5 F, Pulse 52, Respiratory Rate 15, BP 130/73, Pulse Ox 97% HEENT: Head normocephalic, atraumatic. Eyes: Extraocular muscles are intact. Pupils are equal, round and reactive to light and accommodation. Ears: No lesions. Nose appeared normal. Throat: No exudate or erythema. NECK: Supple. No JVD, no carotid bruit. No lymphadenopathy or thyromegaly. LUNGS: Clear to auscultation. Percussion note normal. Chest symmetrical. HEART: S1, S2, no S3. No murmurs. No cyanosis or clubbing. No ascites. Pulses: Dorsalis pedis and posterior tibial pulses +1 to +2 both sides. ABDOMEN: Soft. Non-tender. Bowel sounds active. No CVA tenderness. No mass felt. EXTREMITIES: No edema. Full range of motion of all extremities, equal. NEUROLOGIC: No focal deficit. Cranial nerves II through XII are grossly intact. No headache, no double vision or headache. SKIN: Not dry. Intact. Turgor-normal. LYMPHATIC: No palpable lymph nodes/no lymphedema. MUSCULOSKELETAL: Normal joints with no swelling. Muscle tone is normal. LAB REVIEW: 02/25/18 13:40 02/25/18 13:40 02/25/18 20:30: Urine Color Yellow, Urine Clarity Clear, Urine pH 5.5, Ur Specific Moffat >=1.030, Urine Protein Negative, Urine Glucose (UA) Trace, Urine Ketones Negative, Urine Blood Negative, Urine Nitrite Negative, Urine Bilirubin Negative, Urine Urobilinogen 0.2, Ur Leukocyte Esterase Negative 02/25/18 13:40: Lactic Acid 1.00 02/25/18 13:40: Procalcitonin < 0.05 02/25/18 13:40: Sodium 143.0, Potassium 3.37 L, Chloride 108.6 H, Carbon Dioxide 31.8 H, Anion Gap 5.97, BUN 17.4, Creatinine 0.95, Estimated GFR (MDRD) 77.00, BUN/Creatinine Ratio 18.31, Glucose 68.4 L, Calcium 8.68, Total Bilirubin 0.45, AST 34.0, ALT 22.1, Alkaline Phosphatase 73.2, Troponin I < 0.012, Total Protein 6.75, Albumin 3.63, Globulin 3.12, Albumin/Globulin Ratio 1.16 02/25/18 13:40: WBC 11.61 H, RBC 4.36 L, Hgb 14.4, Hct 43.4, MCV 99.5 H, MCH 33.0 H, MCHC 33.2, RDW Coeff of Yamilet 13.8, Plt Count 247, Immature Gran % (Auto) 0.6, Neut % (Auto) 75.3, Lymph % (Auto) 16.1, Smith % (Auto) 5.9, Eos % (Auto) 1.8, Baso % (Auto) 0.3, Immature Gran # (Auto) 0.1, Neut # (Auto) 8.7 H, Lymph # (Auto) 1.9, Smith # (Auto) 0.7, Eos # (Auto) 0.2, Baso # (Auto) 0.0 02/25/18 13:00: Puncture Site L rad, O2 Saturation 97.0, ABG pH 7.396, ABG pCO2 40.3, ABG pO2 88.0, ABG HCO3 24.7, ABG Total CO2 26, ABG Base Excess 0, Jimbo Test +, FiO2 % 21.0 ASSESSMENT: 1. Hypoglycemia 2. Dementia 3. Recent DVT in right upper extremity on Xarelto 4. Hypokalemia PLAN: 1. Continue IV fluids 2. TSH 3. T4 4. Extra potassoium 40 mEq today Plan and coordination of the patient's care discussed in the presence of Truck Mechanic Apprentice and nurse. CONDITION: Stable SCRIBED BY: CLARITZA HUGGINS Short Order Fry Cook scribed while in presence of service performed by Dr. Stein/Renetta Lopez APRN on 02/26/18 ([id number])
[2018-02-26] MEDS: TYLENOL PO PRN (20:15)
[2018-02-26] MEDS ORDERED: PRAVACHOL PO SCH (21:00)
[2018-02-26] MEDS ORDERED: DESYREL PO SCH (21:00)
[2018-02-27 06:05] VITALS: BP 153/83; TEMP 97.7
[2018-02-27] MEDS: DEXTROSE 5%-WATER IV SOLN 1,000 ML IV SCH (07:52)
[2018-02-27] MEDS: ARICEPT PO SCH (08:23)
[2018-02-27] MEDS: COZAAR PO SCH (08:24)
[2018-02-27] MEDS: CELEXA PO SCH (08:24)
[2018-02-27] MEDS: K-DUR PO SCH (08:24)
[2018-02-27] MEDS: NAMENDA PO SCH (08:24)
[2018-02-27] MEDS: BETAPACE PO SCH (08:24)
[2018-02-27] MEDS: CLEOCIN PO SCH (08:25)
[2018-02-27] MEDS: MESALAMINE 2.4 GM PO SCH (08:25)
[2018-02-27] MEDS: HYDROCHLOROTHIAZIDE PO SCH (08:25)
[2018-02-27] MEDS: XARELTO PO SCH (08:27)
--- NOTE | 2018-02-27 09:55 | CM.DICTOOL ---
ADMISSION: 02/25/18 16:08 DISCHARGE: 02/27/18 DATE OF SERVICE: 02/27/18 FINAL DIAGNOSIS HYPOGLYCEMIA, REACTIVE (BLOOD SUGARS IN THE 30'S) CONFUSION DVT, RIGHT UPPER EXTREMITY (ULNAR VEIN) (XARELTO) SUPERFICIAL THROMBOPHLEBITIS, RIGHT BASILIC VEIN CELLULITIS, RIGHT UPPER EXTREMITY HYPERTENSION HYPERLIPIDEMIA ATRIAL FIBRILLATION ULCERATIVE COLITIS DEMENTIA, PROGRESSIVE DJD SPINE DEPRESSION LAST VITALS Temp Pulse Resp BP Pulse Ox 97.7 F 52 L 18 153/83 H 100 02/27/18 06:00 02/27/18 06:00 02/27/18 06:00 02/27/18 06:00 02/27/18 06:00 TAKE THESE MEDICATIONS AT HOME Acetaminophen (Tylenol) 650 mg PO Q6H PRN PRN Reason: Pain Last Admin: 02/26/18 20:15 Dose: 650 mg Alprazolam (Xanax) 0.5 mg PO BID PRN PRN Reason: Anxiety Last Admin: 02/26/18 20:12 Dose: 0.5 mg Citalopram Hydrobromide (Celexa) 40 mg PO DAILY [facility] Last Admin: 02/27/18 08:24 Dose: 40 mg Donepezil HCl (Aricept) 20 mg PO DAILY [facility] Last Admin: 02/27/18 08:23 Dose: 20 mg Hydrochlorothiazide (Hydrochlorothiazide) 12.5 mg PO DAILY [facility] Last Admin: 02/27/18 08:25 Dose: 12.5 mg Hydrocodone Bitart/Acetaminophen ([place] 7.5-325) 1 tab PO BID PRN PRN Reason: Pain Losartan Potassium (Cozaar) 100 mg PO DAILY [facility] Last Admin: 02/27/18 08:24 Dose: 100 mg Memantine (Namenda) 10 mg PO BID [facility] Last Admin: 02/27/18 08:24 Dose: 10 mg Mesalamine [Mesalamine] 2.4 gm PO DAILY [facility] Last Admin: 02/27/18 08:25 Dose: Not Given Potassium Chloride (K-Dur) 40 meq PO BID [facility] Last Admin: 02/27/18 08:24 Dose: 40 meq Pravastatin Sodium (Pravachol) 80 mg PO BEDTIME [facility] Last Admin: 02/26/18 20:10 Dose: 80 mg Rivaroxaban (Xarelto) 15 mg PO BID [facility] Last Admin: 02/27/18 08:27 Dose: 15 mg Sotalol HCl (Betapace) 40 mg PO BID [facility] Last Admin: 02/27/18 08:24 Dose: 40 mg Trazodone HCl (Desyrel) 100 mg PO BEDTIME [facility] Last Admin: 02/26/18 20:11 Dose: 100 mg ALLERGIES codeine Adverse Reaction (Verified 02/25/18 12:31) meperidine [From Demerol] Adverse Reaction (Verified 02/25/18 12:31) nalbuphine [From Nubain] Adverse Reaction (Verified 02/25/18 12:31) NEW PRESCRIPTIONS: NO NEW PRESCRIPTIONS SMOKING: FORMER SMOKER DISEASE SPECIFIC EDUCATION: HYPOGLYCEMIA DIET FOLLOW UP HOME MEDICATIONS LAB REVIEW: 02/27/18 04:30 02/27/18 04:30 02/27/18 04:30: Sodium 138.0, Potassium 3.52, Chloride 107.1 H, Carbon Dioxide 30.0, Anion Gap 4.42, BUN 20.1 H, Creatinine 1.03, Estimated GFR (MDRD) 71.00, BUN/Creatinine Ratio 19.51, Glucose 101.4, Calcium 8.07 L, Total Bilirubin 0.44 , AST 25.6, ALT 16.8, Alkaline Phosphatase 55.5 L, Total Protein 5.33 L, Albumin 2.76 L, Globulin 2.57, Albumin/Globulin Ratio 1.07 02/27/18 04:30: WBC 8.92, RBC 3.91 L, Hgb 12.7 L, Hct 38.3 L, MCV 98.0 H, MCH 32.5 H, MCHC 33.2, RDW Coeff of Yamilet 14.0, Plt Count 210, Immature Gran % (Auto) 0.6, Neut % (Auto) 46.7, Lymph % (Auto) 37.4, [place] % (Auto) 9.0, Eos % (Auto) 5.6, Baso % (Auto) 0.7, Immature Gran # (Auto) 0.1, Neut # (Auto) 4.2, Lymph # ( Auto) 3.3, [place] # (Auto) 0.8, Eos # (Auto) 0.5, Baso # (Auto) 0.1 02/26/18 08:15: Potassium 3.82 02/26/18 08:15: TSH 3.160 02/26/18 08:15: Free T4 1.01 PLAN: DISCHARGE HOME TODAY, 02/27/[address] STEIN IN HIS OFFICE ON 03/05/18 AT 10:30 A.M. RESUME YOUR HOME MEDICATIONS PER LIST PROVIDED BY THE NURSING STAFF DO NOT TAKE THE CLINDAMYCIN HCL (CLEOCIN). YOU HAVE COMPLETED THIS ANTIBIOTIC COURSE NO NEW MEDICATIONS ACTIVITY TOLERATED MONITOR YOUR BLOOD SUGARS TWICE DAILY, IN THE MORNING FASTING AND AT BEDTIME KEEP A LOG OF THE VALUES AND BRING THIS IN TO YOUR FOLLOW UP VISIT FOR REVIEW DIET CONSISTENT CARBS AND HIGH PROTEIN SUMMARY THE PATIENT IS ALERT AND ORIENTED TO PERSON. HE CURRENTLY RESIDES AT HOME WITH HIS SPOUSE AND GREAT-GRANDCHILDREN. HE REQUIRES ASSISTANCE FOR ALL ADL'S DUE TO THE EXTENT OF HIS DEMENTIA. THE SPOUSE DESIRES DISCHARGE HOME. SHE HAS DECLINED REFERRAL FOR [employer] OR HOMEMAKING SERVICES. THE SKIN IS WARM AND DRY. THERE IS A SMALL AMOUNT OF SWELLING RESIDUAL FROM THE RECENT DVT OF THE RIGHT ULNAR VEIN AND THROMBOPHLEBITIS OF THE BASILIC VEINS. MR. DUDLEY HAS MULTIPLE AREAS OF BRUISING TO BOTH ARMS IN VARIOUS STAGES OF HEALING. HE HAS NO DECUBITUS ULCERS AT DISCHARGE. MS. DUDLEY HAS RECEIVED EXTENSIVE TEACHING REGARDING HYPOGLYCEMIA SIGNS AND SYMPTOMS, APPROPRIATE DIET AND TREATMENT FOR HYPOGLYCEMIA. SHE ALSO HAS RECEIVED TEACHING REGARDING BLOOD SUGAR MONITORING. SHE IS AWARE AND AGREEABLE FOR DISCHARGE HOME TODAY. CURRENT CODE STATUS FULL CODE THOR STEIN M.D.
--- NOTE | 2018-02-27 11:38 | HP ---
DATE OF SERVICE: 02/26/18 (ADMIT 02/25/18) HISTORY OF PRESENT ILLNESS: This is a 73-year-old white male with significant dementia. He was hospitalized within the past week for right upper extremity cellulitis and DVT. He is currently on a new regimen of Xarelto 15 mg b.i.d. Yesterday his stated he had an episode of hypoglycemia with sugar in the 30s. He was unresponsive and then she called the ambulance. She stated this had happened previously however when he was in the hospital last week, dietary was consulted and he was given three meals a day with three snacks, the last being at bedtime. His sugar remained normal, with normal limits his entire hospital stay. PAST MEDICAL HISTORY: Recent DVT right upper extremity Recent cellulitis right upper extremity Alzheimer's dementia Hypertension History of hypoglycemia Atrial fibrillation Dyslipidemia Ataxia Depression Sleep apnea Ulcerative colitis DJD spine Dementia Anxiety Forgetfulness Hypokalemia PAST SURGICAL HISTORY: C-spine Colonoscopy 03/17 REVIEW OF SYSTEMS: CONSTITUTIONAL: No night sweats. No fatigue, malaise, lethargy. No fever or chills. HEENT: Eyes: No visual changes. No eye pain. No eye discharge. ENT: No runny nose. No epistaxis. No sinus pain. No sore throat. No odynophagia. No ear pain. No congestion. RESPIRATORY: No cough, no congestion. No hemoptysis. No shortness of breath. CARDIOVASCULAR: No angina symptoms. No CHF symptoms. No atypical chest pain for CAD. No palpitations. No PND. No orthopnea. GASTROINTESTINAL: No abdominal pain. No nausea or vomiting. No diarrhea or constipation. No hematemesis. No hematochezia. GENITOURINARY: No urgency. No frequency. No dysuria. No hematuria. No obstructive symptoms. No discharge. No pain. No significant abnormal bleeding. MUSCULOSKELETAL: No musculoskeletal pain. No joint swelling. No arthritis. NEUROLOGICAL: Confusion. No distress. No headache. No neck pain. No syncope. No seizures. No dizziness. PSYCHIATRIC: Not anxious. No depression. No suicidal thoughts. No homicidal thoughts. SKIN: No rash. No lesions. No wounds. ENDOCRINE: No unexplained weight loss. No weight gain. HEMATOLOGIC/LYMPHATIC: No anemia. No purpura. No petechiae. No prolonged or excessive bleeding. No palpable lymph nodes. PERSONAL/FAMILY/SOCIAL HISTORY: He lives at home with his , four great grandchildren that she fosters. He quit smoking approximately 20 years ago. No alcohol or ilicit drug use. MEDICATIONS: (HOME) Celexa 40 mg p.o. daily Pravastatin 80 mg p.o. bedtime Donepezil 20 mg p.o. daily Trazodone 100 mg p.o. bedtime Xanax 0.5 mg p.o. b.i.d. p.r.n. Namenda 10 mg p.o. b.i.d. K-Tab ER 40 mEq p.o. b.i.d. Mesalamine 1.2 gm 2.4 gm p.o. daily Sotalol 40 mg p.o. b.i.d. Hydrochlorothiazide 2.5 mg p.o. daily Hydrocodone/Acetaminophen one each p.o. b.i.d. p.r.n. Clindamycin 300 mg p.o. t.i.d. Losartan Potassium 100 mg p.o. daily Xarelto 15 mg p.o. b.i.d. ALLERGIES: CODEINE, MEPERIDINE, NALBUPHINE PHYSICAL EXAMINATION: VITAL SIGNS: 02/26/18 temperature 97.7, pulse 52, BP 153/83, respiratory rate 18 , 02 sat 100 on room air. HEENT: Head normocephalic, atraumatic. Eyes: Extraocular muscles are intact. Pupils are equal, round and reactive to light and accommodation. Ears: No lesions. Nose appeared normal. Throat: No exudate or erythema. NECK: Supple. No JVD, no carotid bruit. No lymphadenopathy or thyromegaly. LUNGS: Diminished breath sounds bilaterally. Clear to auscultation. Percussion note normal. Chest symmetrical. HEART: S1, S2, no S3. No murmurs. No cyanosis or clubbing. No ascites. Pulses: Dorsalis pedis and posterior tibial pulses +1 to +2 bilaterally. ABDOMEN: Soft. Nontender. Bowel sounds active. No CVA tenderness. No mass felt. EXTREMITIES: No edema. Full range of motion of all extremities, equal. NEUROLOGIC: Alert, oriented to person only. No focal deficit. Cranial nerves II through XII are grossly intact. No headache, no double vision or headache. SKIN: Not dry. Intact. Turgor - normal. LYMPHATIC: No palpable lymph nodes/no lymphedema. MUSCULOSKELETAL: Normal joints with no swelling. Muscle tone is normal. Chest x-ray shows no acute cardiopulmonary process. Labs in the Emergency Room: Sodium 143, potassium 3.3, BUN 17, creatinine 0.94, glucose 68, lactic acid 1. White count 11.6, hemoglobin 14.4, hematocrit 43.4, platelets 247. ABGS on room air pH 7.3, pc02 40.3, p02 88, base excess of 0, bicarb 24.7, TC02 26, 02 sat 97. ASSESSMENT: 1. HYPOGLYCEMIA 2. DEMENTIA 3. IMPROVING RIGHT UPPER EXTREMITY DVT AND CELLULITIS PLAN: 1. We will admit. 2. Place on D5 1/2 NS at 100 cc/hr. 3. Accu-Cheks before meals. Will put him on three carb consistent meals a day with three snacks. He eats well. 4. CBC, CMP daily. 5. He will get an extra 40 mEq of potassium already to the 40 that he takes twice daily. 6. T4, TSH. 7. He will be on telemetry. 8. Sadly enough, I believe this may be more of a social situation, which he is not eating like he should at home. He is having episodes of hypoglycemia, sleeping too long due to the gradual worsening of dementia. There are a lot of social issues going on at home, stress with his , who is taking care of four foster children. She denies that there is any possibility that he could get into her medication as she is diabetic so we will monitor his sugar, continue his IV fluids, check his hormones and follow closely. TIME SPENT: More than 70 minutes. VLADISLAV
--- NOTE | 2018-02-27 13:40 | PCM.PROG ---
Attending Provider: ATTENDING PROVIDER: Dr. THOR STEIN DATE OF SERVICE: 02/27/18 SUBJECTIVE: This 73 year old WHITE/ M was hospitalized 02/25/18 with hypoglycemia. The patient's hypoglycemia has resolved. He is up and about. His appetite is good. The likely cause of hypoglycemia after thorough investigation is he may be taking his 's Glipizide. He is forgetful and has dementia. The patient's CT scan of the abdomen was unremarkable for pancreas. REVIEW OF SYSTEMS: CONSTITUTIONAL: No night sweats. No fatigue, malaise, lethargy. No fever or chills. HEENT: Eyes: No visual changes. No eye pain. No eye discharge. ENT: No runny nose. No epistaxis. No sinus pain. No odynophagia. No congestion. RESPIRATORY: No cough, no congestion. No hemoptysis. No shortness of breath. CARDIOVASCULAR: No angina symptoms. No CHF symptoms. No atypical chest pain for CAD. No palpitations. No orthopnea.. GASTROINTESTINAL: No abdominal pain. No nausea or vomiting. No diarrhea or constipation. No hematemesis. No hematochezia. GENITOURINARY: No urgency. No frequency. No dysuria. No hematuria. No obstructive symptoms. No discharge. No pain. No significant abnormal bleeding. MUSCULOSKELETAL: No musculoskeletal pain; no joint swelling. NEUROLOGICAL: Confused but alert. No headache. No neck pain. No syncope. No seizures. No dizziness. PSYCHIATRIC: Not anxious. No depression. No suicidal thoughts. No homicidal thoughts. SKIN: No rash. No lesions. No wounds. ENDOCRINE: No unexplained weight loss. No weight gain. HEMATOLOGIC/LYMPHATIC: No anemia. No purpura. No petechiae. No prolonged or excessive bleeding. No palpable lymph nodes. PHYSICAL EXAMINATION: GENERAL: The patient is awake, alert and oriented to person and place sitting in chair in no distress. VITAL SIGNS: Temperature 97.7 F, Pulse 52, Respiratory Rate 18, BP 153/83, Pulse Ox 100% HEENT: Head normocephalic, atraumatic. Eyes: Extraocular muscles are intact. Pupils are equal, round and reactive to light and accommodation. Ears: No lesions. Nose appeared normal. Throat: No exudate or erythema. NECK: Supple. No JVD, no carotid bruit. No lymphadenopathy or thyromegaly. LUNGS: Clear to auscultation. Percussion note normal. Chest symmetrical. HEART: S1, S2, no S3. No murmurs. No cyanosis or clubbing. No ascites. Pulses: Dorsalis pedis and posterior tibial pulses +1 to +2 both sides. ABDOMEN: Soft. Non-tender. Bowel sounds active. No CVA tenderness. No mass felt. EXTREMITIES: No edema. Full range of motion of all extremities, equal. NEUROLOGIC: No focal deficit. Cranial nerves II through XII are grossly intact. No headache, no double vision or headache. SKIN: Warm and dry. Intact. Turgor-normal. LYMPHATIC: No palpable lymph nodes/no lymphedema. MUSCULOSKELETAL: Normal joints with no swelling. Muscle tone is normal. LAB REVIEW: 02/27/18 04:30 02/27/18 04:30 02/27/18 04:30: Sodium 138.0, Potassium 3.52, Chloride 107.1 H, Carbon Dioxide 30.0, Anion Gap 4.42, BUN 20.1 H, Creatinine 1.03, Estimated GFR (MDRD) 71.00, BUN/Creatinine Ratio 19.51, Glucose 101.4, Calcium 8.07 L, Total Bilirubin 0.44 , AST 25.6, ALT 16.8, Alkaline Phosphatase 55.5 L, Total Protein 5.33 L, Albumin 2.76 L, Globulin 2.57, Albumin/Globulin Ratio 1.07 02/27/18 04:30: WBC 8.92, RBC 3.91 L, Hgb 12.7 L, Hct 38.3 L, MCV 98.0 H, MCH 32.5 H, MCHC 33.2, RDW Coeff of Yamilet 14.0, Plt Count 210, Immature Gran % (Auto) 0.6, Neut % (Auto) 46.7, Lymph % (Auto) 37.4, [place] % (Auto) 9.0, Eos % (Auto) 5.6, Baso % (Auto) 0.7, Immature Gran # (Auto) 0.1, Neut # (Auto) 4.2, Lymph # ( Auto) 3.3, [place] # (Auto) 0.8, Eos # (Auto) 0.5, Baso # (Auto) 0.1 02/26/18 08:15: Potassium 3.82 02/26/18 08:15: TSH 3.160 02/26/18 08:15: Free T4 1.01 ASSESSMENT: 1. Hypoglycemia could be reactive but blood sugar of 30 on admission suggests that it is very likely from taking his 's medication. The patient is instructed not to take any medication at all but has dementia, living conditions are fair and has family problems on a continuous basis. PLAN: 1. D/C home 2. The patient will be given Accu-Check and glucometer and is to keep checking blood sugar at least twice a day. 3. To have 6 small meals a day, high protein. Plan and coordination of the patient's care discussed in the presence of Dice Spotter and nurse. CONDITION: Stable at discharge. SCRIBED BY: CLARITZA HUGGINS Continuous Towel Roller scribed while in presence of service performed by Dr. THOR STEIN on 02/27/18 ([id number])
--- NOTE | 2018-02-27 14:06 | DS ---
DATE OF SERVICE: 02/27/18 FINAL DIAGNOSIS: 1. HYPOGLYCEMIA, REACTIVE (BLOOD SUGARS IN THE 30'S) 2. CONFUSION 3. DVT, RIGHT UPPER EXTREMITY (ULNAR VEIN) (XARELTO) 4. SUPERFICIAL THROMBOPHLEBITIS, RIGHT BASILIC VEIN 5. CELLULITIS, RIGHT UPPER EXTREMITY 6. HYPERTENSION 7. HYPERLIPIDEMIA 8. ATRIAL FIBRILLATION 9. ULCERATIVE COLITIS 10. DEMENTIA, PROGRESSIVE 11. DJD SPINE 12. DEPRESSION DISCHARGE INSTRUCTIONS: RETURN TO SEE DR. STEIN IN HIS OFFICE ON 03/05/18 AT 10:30 A.M. MONITOR BLOOD SUGARS TWICE DAILY, IN THE MORNING FASTING AND AT BEDTIME. KEEP A LOG OF THE VALUES AND BRING THIS IN TO YOUR FOLLOWUP VISIT FOR REVIEW. MEDICATIONS AT DISCHARGE: Acetaminophen (Tylenol) 650 mg PO Q6H PRN PRN Reason: Pain Last Admin: 02/26/18 20:15 Dose: 650 mg Alprazolam (Xanax) 0.5 mg PO BID PRN PRN Reason: Anxiety Last Admin: 02/26/18 20:12 Dose: 0.5 mg Citalopram Hydrobromide (Celexa) 40 mg PO DAILY [facility] Last Admin: 02/27/18 08:24 Dose: 40 mg Donepezil HCl (Aricept) 20 mg PO DAILY [facility] Last Admin: 02/27/18 08:23 Dose: 20 mg Hydrochlorothiazide (Hydrochlorothiazide) 12.5 mg PO DAILY [facility] Last Admin: 02/27/18 08:25 Dose: 12.5 mg Hydrocodone Bitart/Acetaminophen ([place] 7.5-325) 1 tab PO BID PRN PRN Reason: Pain Losartan Potassium (Cozaar) 100 mg PO DAILY [facility] Last Admin: 02/27/18 08:24 Dose: 100 mg Memantine (Namenda) 10 mg PO BID [facility] Last Admin: 02/27/18 08:24 Dose: 10 mg Mesalamine 2.4 gm PO DAILY [facility] Last Admin: 02/27/18 08:25 Dose: Not Given Potassium Chloride (K-Dur) 40 meq PO BID [facility] Last Admin: 02/27/18 08:24 Dose: 40 meq Pravastatin Sodium (Pravachol) 80 mg PO BEDTIME [facility] Last Admin: 02/26/18 20:10 Dose: 80 mg Rivaroxaban (Xarelto) 15 mg PO BID [facility] Last Admin: 02/27/18 08:27 Dose: 15 mg Sotalol HCl (Betapace) 40 mg PO BID [facility] Last Admin: 02/27/18 08:24 Dose: 40 mg Trazodone HCl (Desyrel) 100 mg PO BEDTIME [facility] Last Admin: 02/26/18 20:11 Dose: 100 mg NEW PRESCRIPTIONS: NONE DIET INSTRUCTIONS: Consistent carbs and high protein. ACTIVITY: TOLERATED. SMOKING: N/A DISEASE SPECIFIC EDUCATION: HYPOGLYCEMIA DIET FOLLOW UP HOME MEDICATIONS HOSPITAL COURSE: This is a 73-year-old White/ male who had episode of unconsciousness. The patient had hypoglycemia with blood sugar of 30, had mild seizure type activity noted from hypoglycemia. He had no real confusion noted. The patient came around as soon as IV glucose was given. He did not have any seizure activity during hospitalization. Neurochecks were normal. He is oriented to person. Hypoglycemia in the past is likely from taking 's medication. Hypoglycemia in the 30's is reactive. The patient and family advised diet with multiple meals (6) with high protein diet. Glucometer is given. The patient is on Clindamycin for right arm cellulitis and right arm thrombophlebitis and is also on Xarelto for recent DVT right upper extremity. The side effects of of Xarelto discussed to include intracranial bleed or gastrointestinal bleed. TIME SPENT: More than 60 minutes. MTDD
--- NOTE | 2018-02-27 14:07 | PN ---
CODING FOR BILLING 02/25/18 LEVEL 5 02/26/18 INTERMEDIATE 02/27/18 DISCHARGE MTDD
== END 2018-02-27 11:08 | disposition home or self-care (01) | DRG 204 ==
LOC: ED 12:20 → MEDSURG B 16:08
PROVIDERS: ADMIT Internal Medicine; ATTEND Internal Medicine
DX: R06.00 Dyspnea, unspecified (principal); L03.113 Cellulitis of right upper limb; K51.90 Ulcerative colitis, unspecified, without complications; I82.621 Acute embolism and thrombosis of deep veins of right upper extremity; I80.9 Phlebitis and thrombophlebitis of unspecified site; I10 Essential (primary) hypertension; I48.91 Unspecified atrial fibrillation; E87.6 Hypokalemia; E78.5 Hyperlipidemia, unspecified; M47.9 Spondylosis, unspecified; F03.90 Unspecified dementia, unspecified severity, without behavioral disturbance, psychotic disturbance, mood disturbance, and anxiety; F32.9 Major depressive disorder, single episode, unspecified; Z79.01 Long term (current) use of anticoagulants
CPT/HCPCS: 36415; 80053; 81001; 82803; 82962; 83605; 84132; 84145; 84439; 84443; 84484; 85025; 87040; 87081; 93005; 93010; 96374; 96376; 99285

== ENCOUNTER 2020-01-07 12:24 | Observation (INO) ==
[2020-01-07 13:19] VITALS: BMI 23.8
[2020-01-07] MEDS ORDERED: ATROPINE SULFATE PFS IVP PRN (13:41)
[2020-01-07] MEDS ORDERED: TYLENOL PO PRN (13:41)
[2020-01-07] MEDS ORDERED: VISTARIL INJ IM PRN (13:41)
[2020-01-07] MEDS ORDERED: NITROSTAT SL PRN (13:41)
[2020-01-07] MEDS ORDERED: LASIX IVP STA (13:47)
[2020-01-07] MEDS ORDERED: ARICEPT PO SCH (14:00)
[2020-01-07] MEDS ORDERED: MICRO-K CAP PO SCH (14:00)
[2020-01-07] MEDS ORDERED: XARELTO PO SCH (14:00)
[2020-01-07 14:25] LABS: BASOPHILS % (AUTO) 0.3 % (0.0-3.0); EOSINOPHILS # (AUTO) 0.2 K/ul (0.0-0.7); HEMATOCRIT 43.7 % (42.0-52.0); IMMATURE GRANULOCYTE % (AUTO) 0.4 % (0.0-5.0); LYMPHOCYTES # (AUTO) 3.5 K/uL (0.60-3.4); LYMPHOCYTES % (AUTO) 33.4 (10.0-50.0); MEAN CORPUSCULAR HEMOGLOBIN 32.1 pg (27.0-31.0); MEAN CORPUSCULAR VOLUME 100.2 fl (80.0-94.0); MONOCYTES # (AUTO) 0.9 K/uL (0.4-2.0); MONOCYTES % (AUTO) 8.7 (0-10); NEUTROPHILS # (AUTO) 5.8 K/ul (2.0-6.9); NEUTROPHILS % (AUTO) 55.2 % (42.2-75.2); PLATELET COUNT 283 10^3/uL (140-440); RED BLOOD COUNT 4.36 10^6/ul (4.70-6.10); WHITE BLOOD COUNT 10.46 K/ul (4.2-10.2)
[2020-01-07 14:40] LABS: ALANINE AMINOTRANSFERASE 9.7 U/L (0-50); ALBUMIN 3.37 g/dL (3.5-5.0); ALKALINE PHOSPHATASE 138.9 U/L (56-119); ASPARTATE AMINO TRANSFERASE 27.4 U/L (17-59); BILIRUBIN,TOTAL 0.48 mg/dL (0.2-1.3); BLOOD UREA NITROGEN 20.8 mg/dL (9-20); CALCIUM 8.9 mg/dL (8.4-10.2); CARBON DIOXIDE 27.9 mmol/L (22-30.0); CHLORIDE 111.4 mmol/L (98-107); CREATININE 1.03 mg/dL (0.60-1.10); GLUCOSE 102.9 mg/dL (74-106); POTASSIUM 3.76 mmol/L (3.5-5.1); SODIUM 143.2 mmol/L (134.5-145); TOTAL PROTEIN 6.74 g/dL (6.3-8.2)
[2020-01-07 15:00] LABS: BILIRUBIN,URINE Negative (NEGATIVE); CLARITY,URINE Clear (CLEAR); COLOR,URINE Yellow (YELLOW); GLUCOSE, URINE (UA) Negative (NEGATIVE); KETONES,URINE Negative (NEGATIVE); LEUKOCYTE ESTERASE ,URINE Negative (NEGATIVE); NITRITE,URINE Negative (NEGATIVE); PH,URINE 5.5 (5-9); PROTEIN,URINE Negative (NEGATIVE); URINE, BLOOD Negative (NEGATIVE); UROBILINOGEN,URINE 0.2 (0.2)
[2020-01-07] MEDS: COZAAR PO SCH (15:00)
[2020-01-07] MEDS: BETAPACE PO SCH ×2 (15:00→21:12)
[2020-01-07 15:10] LABS: THYROID STIMULATING HORMONE 2.58 uIU/L (0.465-4.68)
[2020-01-07] MEDS: CELEXA PO SCH (15:29)
--- NOTE | 2020-01-07 16:54 | DI ---
EXAM: Single portable AP view of the chest 01/07/2020 HISTORY: Shortness of breath. COMPARISON: 01/25/2018. FINDINGS: The trachea is midline. The cardiomediastinal silhouette is within the normal limits. The lungs are clear. The osseous structures are degenerative. IMPRESSIONS: No focal consolidation, large pleural effusion, or discernible pneumothorax.
[2020-01-07] MEDS: K-DUR PO SCH (17:40)
[2020-01-07] MEDS: XARELTO PO SCH (17:40)
[2020-01-07] MEDS: NAMENDA PO SCH (21:13)
[2020-01-07] MEDS: ARICEPT PO SCH (21:15)
[2020-01-07] MEDS: DESYREL PO SCH (21:16)
[2020-01-07] MEDS: PRAVACHOL PO SCH (21:16)
[2020-01-07] MEDS ORDERED: VASOTEC IV IVP PRN (21:46)
[2020-01-07] MEDS ORDERED: CATAPRES PO STA (21:47)
[2020-01-07] MEDS ORDERED: CATAPRES PO PRN (21:50)
[2020-01-08 05:41] LABS: BASOPHILS % (AUTO) 0.4 % (0.0-3.0); EOSINOPHILS # (AUTO) 0.2 K/ul (0.0-0.7); EOSINOPHILS % (AUTO) 1.9 % (0.0-7.0); HEMATOCRIT 40.3 % (42.0-52.0); HEMOGLOBIN 13.1 g/dl (14.0-18.0); IMMATURE GRANULOCYTE % (AUTO) 0.2 % (0.0-5.0); LYMPHOCYTES # (AUTO) 3.9 K/uL (0.60-3.4); LYMPHOCYTES % (AUTO) 45.3 (10.0-50.0); MEAN CORPUSCULAR HEMOGLOBIN 31.8 pg (27.0-31.0); MEAN CORPUSCULAR HGB CONC 32.5 (31.8-35.4); MEAN CORPUSCULAR VOLUME 97.8 fl (80.0-94.0); MONOCYTES # (AUTO) 0.7 K/uL (0.4-2.0); MONOCYTES % (AUTO) 7.7 (0-10); NEUTROPHILS # (AUTO) 3.8 K/ul (2.0-6.9); NEUTROPHILS % (AUTO) 44.5 % (42.2-75.2); PLATELET COUNT 278 10^3/uL (140-440); RDW COEFFICIENT OF VARIATION 13.1 % (11.6-14.8); RED BLOOD COUNT 4.12 10^6/ul (4.70-6.10); WHITE BLOOD COUNT 8.57 K/ul (4.2-10.2)
[2020-01-08 05:54] LABS: ALANINE AMINOTRANSFERASE 13.4 U/L (0-50); ALBUMIN 2.88 g/dL (3.5-5.0); ALKALINE PHOSPHATASE 128.2 U/L (56-119); ASPARTATE AMINO TRANSFERASE 33.2 U/L (17-59); BILIRUBIN,TOTAL 0.54 mg/dL (0.2-1.3); BLOOD UREA NITROGEN 20.2 mg/dL (9-20); CALCIUM 8.52 mg/dL (8.4-10.2); CARBON DIOXIDE 27.2 mmol/L (22-30.0); CHLORIDE 111.5 mmol/L (98-107); CREATININE 1.12 mg/dL (0.60-1.10); GLUCOSE 102.4 mg/dL (74-106); POTASSIUM 3.61 mmol/L (3.5-5.1); SODIUM 140.9 mmol/L (134.5-145); TOTAL PROTEIN 5.84 g/dL (6.3-8.2)
[2020-01-08] MEDS: K-DUR PO SCH ×2 (09:42→17:22)
[2020-01-08] MEDS: CELEXA PO SCH (09:42)
[2020-01-08] MEDS: COZAAR PO SCH (09:42)
[2020-01-08] MEDS: NAMENDA PO SCH ×2 (09:42→20:35)
[2020-01-08] MEDS: ASPIRIN EC PO SCH (09:42)
[2020-01-08] MEDS: BETAPACE PO SCH ×2 (09:42→20:34)
--- NOTE | 2020-01-08 10:31 | CT ---
EXAM: CT Head HISTORY: Weakness COMPARISON: 02/09/2018, MRI dated 10/05/2014 and 03/16/2013 TECHNIQUE: CT head performed Without and with IV contrast FINDINGS: There is no mass effect, midline shift, or intracranial hemmorhage. No enhancing mass or abnormal cranial enhancement. Schultz white differentiation is preserved. There is no extra-axial lila ection. Stable chronic small vessel ischemic changes. Increased moderate generalized atrophy since 02/09/2018 exam The ventricles and sulci are otherwise unremarkable. The basal cisterns are patent. There is no depressed calvarial fracture. The mastoid air cells are clear. The visualized paranasal sinuses are clear. Partially visualized, partially calcified rim for mass at the anterior margin of the right parotid gl and (axial image 1) which measures 1.7 x 1.2 cm.. IMPRESSION: 1. No acute intracranial abnormality or abnormal intracranial enhancement. 2. Chronic small vessel ischemic changes with mildly increased generalized atrophy. 3. Partially visualized, partially calcified right periparotid mass is indeterminate but appears st able in size since 2012 MRI. Findings suggest a benign process; although other etiologies are diffic ult to entirely exclude. Recommend ENT follow-up.
--- NOTE | 2020-01-08 10:53 | PCM.PROG ---
Attending Provider: ATTENDING PROVIDER: Dr. THOR STEIN DATE OF SERVICE: 01/08/20 SUBJECTIVE: This 75 year old /WHITE M was hospitalized 01/07/20 with change in mental status, weakness and leg edema. The patient has long history of Alzheimer's disease with dementia. His mental status has deteriorated. Yesterday in addendum I mentioned the patient had large pleural effusion and pneumothorax possibility was because of the way the chest x-ray report was given to us but on further review no pleural effusion and pneumothorax. REVIEW OF SYSTEMS: CONSTITUTIONAL: No night sweats. Sleepy. No fever or chills. No distress. HEENT: Eyes: No visual changes. No eye pain. No eye discharge. ENT: No runny nose. No epistaxis. No sinus pain. No odynophagia. No congestion. RESPIRATORY: No cough, no congestion. No hemoptysis. No shortness of breath. CARDIOVASCULAR: No angina symptoms. No CHF symptoms. No atypical chest pain for CAD. No palpitations. No orthopnea.. GASTROINTESTINAL: No abdominal pain. No nausea or vomiting. No diarrhea or constipation. No hematemesis. No hematochezia. GENITOURINARY: No urgency. No frequency. No dysuria. No hematuria. No obstructive symptoms. No discharge. No pain. No significant abnormal bleeding. MUSCULOSKELETAL: No musculoskeletal pain; no joint swelling. NEUROLOGICAL: Awake, alert, oriented to time, place and person. No headache. No neck pain. No syncope. No seizures. No dizziness. PSYCHIATRIC: Not anxious. No depression. No suicidal thoughts. No homicidal thoughts. SKIN: No rash. No lesions. No wounds. ENDOCRINE: No unexplained weight loss. No weight gain. HEMATOLOGIC/LYMPHATIC: No anemia. No purpura. No petechiae. No prolonged or excessive bleeding. No palpable lymph nodes. PHYSICAL EXAMINATION: GENERAL: The patient is awake, alert and oriented, lying in bed in no distress. VITAL SIGNS: Temperature 97.8 F, Pulse 90, Respiratory Rate 16, BP 102/69, Pulse Ox 96% HEENT: Head normocephalic, atraumatic. Eyes: Extraocular muscles are intact. Pupils are equal, round and reactive to light and accommodation. Ears: No lesions. Nose appeared normal. Throat: No exudate or erythema. NECK: Supple. No JVD, no carotid bruit. No lymphadenopathy or thyromegaly. LUNGS: Decreased breath sounds on right side but good air entry both lungs. Oxygen saturation more than 90%. Clear to auscultation. Percussion note normal. Chest symmetrical. HEART: S1, S2, no S3. No murmurs. No cyanosis or clubbing. No ascites. Pulses: Dorsalis pedis and posterior tibial pulses +1 to +2 both sides. ABDOMEN: Soft. Non-tender. Bowel sounds active. No CVA tenderness. No mass felt. EXTREMITIES: Trace edema. Full range of motion of all extremities, equal. NEUROLOGIC: No focal deficit. Cranial nerves II through XII are grossly intact. No headache, no double vision or headache. SKIN: Warm and dry. Intact. Turgor-normal. LYMPHATIC: No palpable lymph nodes/no lymphedema. MUSCULOSKELETAL: Normal joints with no swelling. Muscle tone is normal. LAB REVIEW: 01/08/20 05:27 01/08/20 05:27 01/08/20 05:27: Sodium 140.9, Potassium 3.61, Chloride 111.5 H, Carbon Dioxide 27.2, Anion Gap 5.81, BUN 20.2 H, Creatinine 1.12 H, Estimated GFR (MDRD) 64.00, BUN/Creatinine Ratio 18.03, Glucose 102.4, Calcium 8.52, Total Bilirubin 0.54, AST 33.2, ALT 13.4, Alkaline Phosphatase 128.2 H, Total Protein 5.84 L, Albumin 2.88 L, Globulin 2.96, Albumin/Globulin Ratio 0.97 01/08/20 05:27: WBC 8.57, RBC 4.12 L, Hgb 13.1 L, Hct 40.3 L, MCV 97.8 H, MCH 31.8 H, MCHC 32.5, RDW Coeff of [place]ilet 13.1, Plt Count 278, Immature Gran % (Auto) 0.2, Neut % (Auto) 44.5, Lymph % (Auto) 45.3, [place] % (Auto) 7.7, Eos % (Auto) 1.9, Baso % (Auto) 0.4, Neut # (Auto) 3.8, Lymph # (Auto) 3.9 H, [place] # (Auto) 0.7, Eos # (Auto) 0.2, Baso # (Auto) 0.0, Immature Gran # (Auto) 0.0 01/07/20 14:20: Sodium 143.2, Potassium 3.76, Chloride 111.4 H, Carbon Dioxide 27.9, Anion Gap 7.66, BUN 20.8 H, Creatinine 1.03, Estimated GFR (MDRD) 70.00, BUN/Creatinine Ratio 20.19, Glucose 102.9, Calcium 8.90, Total Bilirubin 0.48, AST 27.4, ALT 9.7, Alkaline Phosphatase 138.9 H, Total Protein 6.74, Albumin 3.37 L, Globulin 3.37, Albumin/Globulin Ratio 1.00, TSH 2.580 01/07/20 14:20: WBC 10.46 H, RBC 4.36 L, Hgb 14.0, Hct 43.7, MCV 100.2 H, MCH 32.1 H, MCHC 32.0, RDW Coeff of [place] 13.0, Plt Count 283, Immature Gran % (Auto) 0.4, Neut % (Auto) 55.2, Lymph % (Auto) 33.4, [place] % (Auto) 8.7, Eos % (Auto) 2.0, Baso % (Auto) 0.3, Neut # (Auto) 5.8, Lymph # (Auto) 3.5 H, [place] # (Auto) 0.9, Eos # (Auto) 0.2, Baso # (Auto) 0.0, Immature Gran # (Auto) 0.0 01/07/20 14:20: Free T4 1.32 01/07/20 14:20: Hemoglobin A1c 5.45 01/07/20 14:05: Urine Color Yellow, Urine Clarity Clear, Urine pH 5.5, Ur Specific [place] >=1.030, Urine Protein Negative, Urine Glucose (UA) Negative, Urine Ketones Negative, Urine Blood Negative, Urine Nitrite Negative, Urine Bilirubin Negative, Urine Urobilinogen 0.2, Ur Leukocyte Esterase Negative ASSESSMENT: Please see below. 1. Dementia with deterioration of mental status 2. Generalized weakness likely from same 3. Leg edema from hypoproteinemia 4. Hypertension probably last nighth which was controlled with Clonidine 0.1mg t wice a day as needed for blood pressure over 150 also on Vasotec 1.25mg IV Q 6 hours PLAN: 1. The patient is to under go CT scan of the head with contrast. 2. We may end up doing echo if not done in last 6 months 3. B12 level Plan and coordination of the patient's care discussed in the presence of Tank Builder and nurse. SCRIBED BY: Melania HENDRIX scribed while in presence of service performed by Dr. THOR STEIN on 01/08/20 ([id number])
--- NOTE | 2020-01-08 13:26 | HP ---
DATE OF SERVICE: 01/07/2020 REASON FOR HOSPITALIZATION/HISTORY OF PRESENT ILLNESS: concerned dementia is worsening-Move confused and move agitated. Has been out of Xarelto per for approximately one week due to pharmacy. Falling more recently. Unable to assess weight. No signs or symptoms of CHF/CAD. 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 HEENT: No sinus drainage, no sore throat. RESPIRATORY: No cough, no congestion. CARDIOVASCULAR: No atypical chest pain for coronary artery disease. No angina, CHF symptoms, palpitations or shortness of breath. GASTROINTESTINAL: No melena or abdominal pain. No GERD. GENITOURINARY: No hematuria, no prostatism, no polyuria. ROLL CHANGER: No blackout, no dizziness, no headache, no double vision. MUSCULOSKELETAL: Osteoarthritis pain, no joint swelling. ENDOCRINE: No weight loss, no weight gain. SKIN: Not dry, no rash. PSYCHIATRIC: Not anxious, no depression, no suicidal thoughts, no homicidal thoughts. SOCIAL HISTORY: Marital Status: . Alcohol Usage: No. Tobacco Usage: No. MEDICATIONS: Celexa 40mg PO daily Aricept 10mg two at HS Losartan 100mg daily Namenda 10mg BID Potassium 20meq PO daily Pravastatin 80mg PO daily Sotalol 80mg half BID Xarelto 20mg PO daily Trazodone 100mg PO QHS Xanax 0.5mg PO BID PRN ALLERGIES: Demerol Codeine PHYSICAL EXAMINATION: V/S: Pulse 54, blood pressure 142/820, temperature 98%, Oxygen saturation 97%, Height 5'8. GENERAL APPEARANCE: Oriented to person only HEENT: Normal. NECK: No JVP, no bruits. RESPIRATORY: Decreased breath sounds CARDIOVASCULAR: S1, S2, no S3, no murmur, Regular. No cyanosis, clubbing. No ascites. GI/ABDOMEN: No tenderness. Bowel sounds are active. EXTREMITIES: Trace edema, pulses +1, equal. ROLL CHANGER: Deep tendon reflexes, sensory, motor and gait all normal. RECTAL: 03/17 Dr. Sunshine/PROSTATE: 04/21 (0.5) . LABS: Hemoglobin A1C 5.45, sodium 143, potassium 3.76, BUN 20.8, creatinine 1.03, total bili 0.48, AST 27, ALT 9.7, total protein 6.7, albumin 3.37, alkaline phosphatase 138, white count 10.46, hemoglobin 14, hematocrit 43.7, MCV 100, MCH 32.1, platelets 283. ASSESSMENT: 1. Leg Edema 2. Change in mental status 3. Falls 4. Generalized weakness 5. Worsening dementia 6. A1c 5.3 04/22/19 7. Bronchitis 8. Dementia with behavioral disturbances 9. CKD 2/3 10.Right arm DVT- thrombophlebitis 11.Episode of Hypoglycemia 12.Paroxysmal atrial fibrillation-Xarelto 13.Ataxia 14.Hypertension 15.Depression-controlled 16.Cervical radiculopathy 17.DJD L-Spine 18.Ulcerative colitis 19.Sleep apnea O2 @ HS 20.C-spine surgery 21.Diverticulosis 22. Noncompliant with medications, diet and lifestyle and followup. caregiver is noncompliant as well. PLAN: 1. Admit 2. Routine telemetry orders-no cardiac markers 3. CBC , CMP now and daily 4. Continue home medications- restart Xarelto 5. Fall precautions 6. U/A now 7. Elevate the legs 8. Chest x-ray now 9. Lasix 20mg IV times one 10.Measure output 11.T4 TSH, HGb A1c now 12.O2 at 1-2 liters per NC PRN 13.Regular diet 14.CT of the brain with and without Case discussed. TIME SPENT: More than 70 minutes. [facility]
[2020-01-08] MEDS: XARELTO PO SCH (17:22)
[2020-01-08] MEDS: ARICEPT PO SCH (20:34)
[2020-01-08] MEDS: PRAVACHOL PO SCH (20:34)
[2020-01-08] MEDS: DESYREL PO SCH (20:34)
[2020-01-09 04:44] LABS: BASOPHILS % (AUTO) 0.3 % (0.0-3.0); EOSINOPHILS # (AUTO) 0.2 K/ul (0.0-0.7); HEMATOCRIT 38.7 % (42.0-52.0); HEMOGLOBIN 12.3 g/dl (14.0-18.0); IMMATURE GRANULOCYTE % (AUTO) 0.3 % (0.0-5.0); LYMPHOCYTES # (AUTO) 4.8 K/uL (0.60-3.4); LYMPHOCYTES % (AUTO) 46.3 (10.0-50.0); MEAN CORPUSCULAR HEMOGLOBIN 31.9 pg (27.0-31.0); MEAN CORPUSCULAR HGB CONC 31.8 (31.8-35.4); MEAN CORPUSCULAR VOLUME 100.3 fl (80.0-94.0); MONOCYTES # (AUTO) 0.8 K/uL (0.4-2.0); MONOCYTES % (AUTO) 7.9 (0-10); NEUTROPHILS # (AUTO) 4.5 K/ul (2.0-6.9); NEUTROPHILS % (AUTO) 43.2 % (42.2-75.2); PLATELET COUNT 286 10^3/uL (140-440); RDW COEFFICIENT OF VARIATION 13.5 % (11.6-14.8); RED BLOOD COUNT 3.86 10^6/ul (4.70-6.10); WHITE BLOOD COUNT 10.45 K/ul (4.2-10.2)
[2020-01-09 05:02] LABS: ALANINE AMINOTRANSFERASE 11.3 U/L (0-50); ALBUMIN 2.73 g/dL (3.5-5.0); ASPARTATE AMINO TRANSFERASE 29.2 U/L (17-59); BILIRUBIN,TOTAL 0.28 mg/dL (0.2-1.3); BLOOD UREA NITROGEN 33.7 mg/dL (9-20); CALCIUM 8.61 mg/dL (8.4-10.2); CARBON DIOXIDE 28.2 mmol/L (22-30.0); CHLORIDE 112.9 mmol/L (98-107); CREATININE 1.46 mg/dL (0.60-1.10); GLUCOSE 109.8 mg/dL (74-106); POTASSIUM 4.21 mmol/L (3.5-5.1); SODIUM 143.1 mmol/L (134.5-145); TOTAL PROTEIN 5.69 g/dL (6.3-8.2)
[2020-01-09] MEDS: K-DUR PO SCH ×2 (09:07→17:15)
[2020-01-09] MEDS: ASPIRIN EC PO SCH (09:07)
[2020-01-09] MEDS: CELEXA PO SCH (09:08)
[2020-01-09] MEDS: COZAAR PO SCH (09:08)
[2020-01-09] MEDS: BETAPACE PO SCH ×2 (09:08→20:31)
[2020-01-09] MEDS: NAMENDA PO SCH ×2 (09:08→20:30)
[2020-01-09] MEDS: XARELTO PO SCH (17:15)
[2020-01-09] MEDS: PRAVACHOL PO SCH (20:30)
[2020-01-09] MEDS: DESYREL PO SCH (20:31)
[2020-01-09] MEDS: ARICEPT PO SCH (20:31)
[2020-01-10] MEDS: XANAX PO PRN ×2 (01:20→20:11)
[2020-01-10 04:33] LABS: BASOPHILS % (AUTO) 0.4 % (0.0-3.0); EOSINOPHILS # (AUTO) 0.3 K/ul (0.0-0.7); EOSINOPHILS % (AUTO) 3.1 % (0.0-7.0); HEMATOCRIT 38.9 % (42.0-52.0); HEMOGLOBIN 12.6 g/dl (14.0-18.0); IMMATURE GRANULOCYTE % (AUTO) 0.3 % (0.0-5.0); LYMPHOCYTES # (AUTO) 4.1 K/uL (0.60-3.4); LYMPHOCYTES % (AUTO) 38.1 (10.0-50.0); MEAN CORPUSCULAR HEMOGLOBIN 32.1 pg (27.0-31.0); MEAN CORPUSCULAR HGB CONC 32.4 (31.8-35.4); MONOCYTES # (AUTO) 0.7 K/uL (0.4-2.0); MONOCYTES % (AUTO) 6.6 (0-10); NEUTROPHILS # (AUTO) 5.6 K/ul (2.0-6.9); NEUTROPHILS % (AUTO) 51.5 % (42.2-75.2); PLATELET COUNT 277 10^3/uL (140-440); RDW COEFFICIENT OF VARIATION 13.2 % (11.6-14.8); RED BLOOD COUNT 3.93 10^6/ul (4.70-6.10); WHITE BLOOD COUNT 10.76 K/ul (4.2-10.2)
[2020-01-10 04:45] LABS: ALANINE AMINOTRANSFERASE 10.4 U/L (0-50); ALBUMIN 2.85 g/dL (3.5-5.0); ALKALINE PHOSPHATASE 111.6 U/L (56-119); ASPARTATE AMINO TRANSFERASE 30.9 U/L (17-59); BILIRUBIN,TOTAL 0.55 mg/dL (0.2-1.3); BLOOD UREA NITROGEN 31.5 mg/dL (9-20); CALCIUM 8.37 mg/dL (8.4-10.2); CHLORIDE 113.6 mmol/L (98-107); CREATININE 1.18 mg/dL (0.60-1.10); GLUCOSE 93.6 mg/dL (74-106); POTASSIUM 3.69 mmol/L (3.5-5.1); SODIUM 141.5 mmol/L (134.5-145); TOTAL PROTEIN 5.88 g/dL (6.3-8.2)
[2020-01-10] MEDS: CELEXA PO SCH (09:01)
[2020-01-10] MEDS: COZAAR PO SCH ×2 (09:01→20:12)
[2020-01-10] MEDS: K-DUR PO SCH ×2 (09:01→17:48)
[2020-01-10] MEDS: BETAPACE PO SCH ×2 (09:01→20:12)
[2020-01-10] MEDS: ASPIRIN EC PO SCH (09:02)
[2020-01-10] MEDS: NAMENDA PO SCH ×2 (09:02→20:11)
[2020-01-10] MEDS: XARELTO PO SCH (17:48)
[2020-01-10] MEDS: DESYREL PO SCH (20:11)
[2020-01-10] MEDS: ARICEPT PO SCH (20:12)
[2020-01-10] MEDS: PRAVACHOL PO SCH (20:12)
[2020-01-11 05:11] LABS: BASOPHILS % (AUTO) 0.3 % (0.0-3.0); EOSINOPHILS # (AUTO) 0.3 K/ul (0.0-0.7); EOSINOPHILS % (AUTO) 2.8 % (0.0-7.0); HEMATOCRIT 42.4 % (42.0-52.0); HEMOGLOBIN 13.6 g/dl (14.0-18.0); IMMATURE GRANULOCYTE % (AUTO) 0.3 % (0.0-5.0); LYMPHOCYTES # (AUTO) 4.4 K/uL (0.60-3.4); LYMPHOCYTES % (AUTO) 36.9 (10.0-50.0); MEAN CORPUSCULAR HEMOGLOBIN 31.8 pg (27.0-31.0); MEAN CORPUSCULAR HGB CONC 32.1 (31.8-35.4); MEAN CORPUSCULAR VOLUME 99.1 fl (80.0-94.0); MONOCYTES # (AUTO) 0.8 K/uL (0.4-2.0); MONOCYTES % (AUTO) 6.7 (0-10); NEUTROPHILS # (AUTO) 6.3 K/ul (2.0-6.9); PLATELET COUNT 297 10^3/uL (140-440); RDW COEFFICIENT OF VARIATION 13.1 % (11.6-14.8); RED BLOOD COUNT 4.28 10^6/ul (4.70-6.10); WHITE BLOOD COUNT 11.86 K/ul (4.2-10.2)
[2020-01-11 05:21] LABS: ALANINE AMINOTRANSFERASE 11.9 U/L (0-50); ALBUMIN 3.29 g/dL (3.5-5.0); ALKALINE PHOSPHATASE 130.1 U/L (56-119); ASPARTATE AMINO TRANSFERASE 26.7 U/L (17-59); BILIRUBIN,TOTAL 0.63 mg/dL (0.2-1.3); BLOOD UREA NITROGEN 22.6 mg/dL (9-20); CALCIUM 8.55 mg/dL (8.4-10.2); CARBON DIOXIDE 27.7 mmol/L (22-30.0); CHLORIDE 106.2 mmol/L (98-107); CREATININE 1.07 mg/dL (0.60-1.10); GLUCOSE 85.3 mg/dL (74-106); POTASSIUM 3.62 mmol/L (3.5-5.1); SODIUM 137.3 mmol/L (134.5-145); TOTAL PROTEIN 6.79 g/dL (6.3-8.2)
--- NOTE | 2020-01-11 07:51 | PN ---
DATE OF SERVICE: 01/07/20 SUBJECTIVE: The patient was seen and examined in the office along with nurse practitioner. The patient was hospitalized with worsening of dementia, dehydration, leg edema. The patient is going to be seen by psychiatrist for behavioral disorder. Addendum: The patient his hospitalized with dementia which seems to be worsening with interval, in-between lucid. He has some leg edema. The patient's chest x-ray was reported as pleural effusion, right-sided, or discernible pneumothorax cannot be ruled out. PHYSICAL EXAMINATION: The patient on physical exam is not at all in distress. His oxygen saturation is more than 90%. Respiratory rate is 15/min with pulse of 80/min. Blood pressure systolic elevated reported as 170 with diastolic of 100. HEENT: Head normocephalic, atraumatic. Eyes: Extraocular muscles are intact. Pupils are equal, round and reactive to light and accommodation. Ears: No lesions. Nose appeared normal. Throat: No exudate or erythema. NECK: Supple. No JVD, no carotid bruit. No lymphadenopathy or thyromegaly. LUNGS: Clear to auscultation. Percussion note normal. Chest symmetrical. HEART: S1, S2, no S3. No murmurs. No cyanosis or clubbing. No ascites. Pulses: Dorsalis pedis and posterior tibial pulses +1 to +2 bilaterally. ABDOMEN: Soft. Nontender. Bowel sounds active. No CVA tenderness. No mass felt. EXTREMITIES: No edema. Full range of motion of all extremities, equal. NEUROLOGIC: No focal deficit. Cranial nerves II through XII are grossly intact. No headache, no double vision or headache. SKIN: Not dry. Intact. Turgor - normal. LYMPHATIC: No palpable lymph nodes/no lymphedema. MUSCULOSKELETAL: Normal joints with no swelling. Muscle tone is normal. PLAN: 1. Give the patient Vasotec 1.25 mg IV q.6 for BP of 150. Also Clonidine 0.1 mg b.i.d. for blood pressure of 150. The patient is not in any distress. 2. Will treat the patient conservatively and will get CT scan of the lung done in the morning with contrast. 3. Will hydrate him. His kidney functions are acceptable with creatinine of 1, BUN of 18. TIME SPENT: More than 30 minutes. Plan and coordination of the patient's care discussed in the presence of nurse. VLADISLAV
[2020-01-11] MEDS: ASPIRIN EC PO SCH (08:41)
[2020-01-11] MEDS: CELEXA PO SCH (08:41)
[2020-01-11] MEDS: BETAPACE PO SCH ×2 (08:41→20:29)
[2020-01-11] MEDS: COZAAR PO SCH ×2 (08:41→20:28)
[2020-01-11] MEDS: K-DUR PO SCH ×2 (08:41→17:33)
[2020-01-11] MEDS: NAMENDA PO SCH ×2 (08:41→20:28)
--- NOTE | 2020-01-11 09:02 | PCM.PROG ---
Attending Provider: ATTENDING PROVIDER: Dr. THOR STEIN This patient is seen with Mecca Harris, Nurse Practitioner. DATE OF SERVICE: 01/11/20 SUBJECTIVE: This 75 year old /WHITE M was hospitalized 01/07/20. The patient is resting comfortably in chair. He has had very busy night, barely slept. Has been irritable at times. Family is still discussing care home placement versus patient returning home. They are having a meeting this morning. REVIEW OF SYSTEMS: CONSTITUTIONAL: No night sweats. No fatigue, malaise, lethargy. No fever or chills. Weakness. HEENT: Eyes: No visual changes. No eye pain. No eye discharge. ENT: No runny nose. No epistaxis. No sinus pain. No odynophagia. No congestion. RESPIRATORY: No cough, no congestion. No hemoptysis. No shortness of breath. CARDIOVASCULAR: No angina symptoms. No CHF symptoms. No atypical chest pain for CAD. No palpitations. No orthopnea.. GASTROINTESTINAL: No abdominal pain. No nausea or vomiting. No diarrhea or constipation. No hematemesis. No hematochezia. GENITOURINARY: No urgency. No frequency. No dysuria. No hematuria. No obstructive symptoms. No discharge. No pain. No significant abnormal bleeding. MUSCULOSKELETAL: No musculoskeletal pain; no joint swelling. NEUROLOGICAL: Awake, alert, oriented to time, place and person. No headache. No neck pain. No syncope. No seizures. No dizziness. PSYCHIATRIC: Not anxious. No depression. No suicidal thoughts. No homicidal thoughts. SKIN: No rash. No lesions. No wounds. ENDOCRINE: No unexplained weight loss. No weight gain. HEMATOLOGIC/LYMPHATIC: No anemia. No purpura. No petechiae. No prolonged or excessive bleeding. No palpable lymph nodes. PHYSICAL EXAMINATION: GENERAL: The patient is awake, alert and confused as usual, sitting in the chair in no distress. VITAL SIGNS: Temperature 97.8 F, Pulse 49, Respiratory Rate 16, BP 156/94, Pulse Ox 97% HEENT: Head normocephalic, atraumatic. Eyes: Extraocular muscles are intact. Pupils are equal, round and reactive to light and accommodation. Ears: No lesions. Nose appeared normal. Throat: No exudate or erythema. NECK: Supple. No JVD, no carotid bruit. No lymphadenopathy or thyromegaly. LUNGS: Diminished breath sounds. Clear to auscultation. Percussion note normal. Chest symmetrical. HEART: S1, S2, no S3. No murmurs. No cyanosis or clubbing. No ascites. Pulses: Dorsalis pedis and posterior tibial pulses +1 to +2 both sides. ABDOMEN: Soft. Non-tender. Bowel sounds active. No CVA tenderness. No mass felt. EXTREMITIES: No edema. Full range of motion of all extremities, equal. NEUROLOGIC: No focal deficit. Cranial nerves II through XII are grossly intact. No headache, no double vision or headache. SKIN: Not dry. Intact. Turgor-normal. LYMPHATIC: No palpable lymph nodes/no lymphedema. MUSCULOSKELETAL: Normal joints with no swelling. Muscle tone is normal. LAB REVIEW: 01/11/20 05:03 01/11/20 05:03 01/11/20 05:03: Sodium 137.3, Potassium 3.62, Chloride 106.2, Carbon Dioxide 27.7, Anion Gap 7.02, BUN 22.6 H, Creatinine 1.07, Estimated GFR (MDRD) 67.00, BUN/Creatinine Ratio 21.12, Glucose 85.3, Calcium 8.55, Total Bilirubin 0.63, AST 26.7, ALT 11.9, Alkaline Phosphatase 130.1 H, Total Protein 6.79, Albumin 3.29 L, Globulin 3.50, Albumin/Globulin Ratio 0.94 01/11/20 05:03: WBC 11.86 H, RBC 4.28 L, Hgb 13.6 L, Hct 42.4, MCV 99.1 H, MCH 31.8 H, MCHC 32.1, RDW Coeff of Yamilet 13.1, Plt Count 297, Immature Gran % (Auto) 0.3, Neut % (Auto) 53.0, Lymph % (Auto) 36.9, [place] % (Auto) 6.7, Eos % (Auto) 2.8, Baso % (Auto) 0.3, Neut # (Auto) 6.3, Lymph # (Auto) 4.4 H, [place] # (Auto) 0.8, Eos # (Auto) 0.3, Baso # (Auto) 0.0, Immature Gran # (Auto) 0.0 ASSESSMENT: Please see below. 1. Dementia with deterioration of mental status 2. Generalized weakness likely from same 3. Leg edema from hypoproteinemia 4. Hypertension probably last night which was controlled with Clonidine 0.1mg twice a day as needed for blood pressure over 150 also on Vasotec 1.25mg IV Q 6 hours 5. Bradycardia PLAN: 1. Encourage family to continue to come up with plan 2. Fall precautions Plan and coordination of the patient's care discussed in the presence of Manufacturers Service Representative and nurse. SCRIBED BY: Melania HENDRIX scribed while in presence of service performed by Dr. Stein/Mecca Harris APRN on 01/11/20 ([id number])
--- NOTE | 2020-01-11 10:34 | PN ---
DATE OF SERVICE: 01/10/2020 SUBJECTIVE: 75 year old white male hospitalized with leg edema and change in the mental status and frequent falls. The patient's condition is stable. He is mostly sleepy but his appetite is improving. REVIEW OF SYSTEMS: CONSTITUTIONAL: No night sweats. No fatigue, malaise, lethargy. No fever or chills. Confusion but doesn't seem to have chest pain. HEENT: Eyes: No visual changes. No eye pain. No eye discharge. ENT: No runny nose. No epistaxis. No sinus pain. No sore throat. No odynophagia. No congestion. RESPIRATORY: No cough, no congestion. No hemoptysis. No shortness of breath. CARDIOVASCULAR: No angina symptoms. No CHF symptoms. No atypical chest pain for CAD. No palpitations. No PND. No orthopnea. GASTROINTESTINAL: No abdominal pain. No nausea or vomiting. No diarrhea or constipation. No hematemesis. No hematochezia. GENITOURINARY: No urgency. No frequency. No dysuria. No hematuria. No obstructive symptoms. No discharge. No pain. No significant abnormal bleeding. MUSCULOSKELETAL: No musculoskeletal pain; no joint swelling. NEUROLOGICAL: No headache. No neck pain. No syncope. No seizures. No dizziness. PSYCHIATRIC: Not anxious. No depression. No suicidal thoughts. No homicidal thoughts. SKIN: No rash. No lesions. No wounds. ENDOCRINE: No unexplained weight loss. No weight gain. HEMATOLOGIC/LYMPHATIC: No anemia. No purpura. No petechiae. No prolonged or excessive bleeding. No palpable lymph nodes. PHYSICAL EXAMINATION: VITAL SIGNS: Temperature 98.1, pulse 50, respiratory rate 16, blood pressure 137/88 and pulse ox 98%. HEENT: Head normocephalic, atraumatic. Eyes: Extraocular muscles are intact. Pupils are equal, round and reactive to light and accommodation. Ears: No lesions. Nose appeared normal. Throat: No exudate or erythema. NECK: Supple. No JVD, no carotid bruit. No lymphadenopathy or thyromegaly. LUNGS: Decreased breath sounds but clear to auscultation. Percussion note normal. Chest symmetrical. HEART: S1, S2, no S3. No murmurs. No cyanosis or clubbing. No ascites. Pulses: Dorsalis pedis and posterior tibial pulses +1 to +2 bilaterally. ABDOMEN: Soft. Nontender. Bowel sounds active. No CVA tenderness. No mass felt. EXTREMITIES: No edema. Full range of motion of all extremities, equal. NEUROLOGIC: No focal deficit. Cranial nerves II through XII are grossly intact. No headache, no double vision or headache. SKIN: Not dry. Intact. Turgor - normal. LYMPHATIC: No palpable lymph nodes/no lymphedema. MUSCULOSKELETAL: Normal joints with no swelling. Muscle tone is normal. LABS: Hgb 12.3, hct 38, WBC 10,000 normal differential, creatinine 1.4, BUN 33, potassium 4.2. TSH normal ASSESSMENT: 1. Dementia seems to be worsening with behavioral disorder 2. Leg edema 3. Hypoproteinemia 4. Hypoalbuminemia 5. Frequent falls likely from weakness and dementia. ADDENDUM: The patient has atrial fibrillation on one EKG. The second EKG is sinus rhythm cuco arrhythmias with PVC. We do Holter Monitors. Explained to the that the patient is already on Xarelto and we will continue that but doesn't want to the patient to be referred to sales engineer account manager or obstetrics and gynecology professor. The patient's condition is stable. The patient's chronic kidney disease which is stable. 4 external large hematoma. TIME SPENT: More than 30 minutes. Plan and coordination of the patient's care discussed in the presence of nurse. VLADISLAV
--- NOTE | 2020-01-11 11:42 | RS.PTINEVL ---
Subjective - Patient information Date of Evaluation: 01/11/20 Date of Arrival on Unit: 01/07/20 Admitted From:: Home Diagnosis: Alzheimer's dementia w deterioration fo mental status, balance impaired. Usual Living Arrangement: With Spouse Home Environment: House, Stairs (few), Rail Medical History: Hypertension, Dementia, Arthritis Medical History Comments:: DJD of spine, depression, ulcerative colitis, AFib, DVT, h/o multiple falls. 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 reports he has had multiple falls at home getting up by himself. Son reports pt stood and took a few steps around the gabino m this am. - Level of function Prior to this admission, the patient could do the following:: Partially Dependent Ambulation Current Level of Function: Dependent Current Equipment Used at Home: rollator, oxygen, but needs sent back Interventions - Objective Current Interventions: Telemetry Observation: pt looks at PT when his name is called, however will not answer questions or follow commands. Only when PT attempted to help patient stand did he say "I don't want to" Range of Motion - ROM Right Upper Extremity AROM: WFL's Left Upper Extremity AROM: WFL's Right Lower Extremity AROM: WFL's Left Lower Extremity AROM: WFL's Muscle Strength - Muscle Strength Comments:: unable to MMT due to patient unable to follow commands. Atleast 3/5 as noted by activity Sensation - Sensation Comments: Difficult to assess due to pt not responding, only looking at PT. Palpation Palpation Findings: None/Normal Balance - Sitting Balance and Reactions Static Sitting Balance: Fair Dynamic Sitting Balance: Poor Sitting Equilibrium Reactions: Delayed Left, Delayed Right Sitting Protective Reactions: Delayed Left, Delayed Right - Standing Balance and Reactions Static Standing Balance: Poor Dynamic Standing Balance: Poor Standing Equilibrium Reactions: Absent Left, Absent Right Standing Protective Reactions: Absent Left, Absent Right Functional Mobility - Bed Mobility Comments:: pt seen sitting in recliner. - Transfers Sit to Stand: Mod Assist, 2 person assist Stand to Sit: Min Assist, 2 person assist Comments:: pt stood x 2 with mod x 2 however pt sat back down each time and states "I don't want to" - Safety Awareness Safety Awareness: Poor DON INDEX SCORE: n/a Treatment time - Time with patient Length of Evaluation: 22 Total treatment time: 24 Patient Education - Education Patient Education: Education of Plan of Care Teaching Recipient: Family Teaching Methods: Discussion Comments: discussion with family regarding POC as well as risk of falls. Assessment - Assessment Problem List:: Decreased level of function, Requires training/education, Decreased safety/Risk of falls, Weakness, Cognitive status limits abilities Rehab Potential: Poor Candidate for Swing Bed for Therapy Services?: Feel pt is not a candidate for swing bed due to cognitive deficits, feel pt will require LTC. Comments: Feel pt may benefit from skilled PT at LT to focus on transfers in new setting. Feel pt is not appropriate for PT in [facility] due to cognitive deficits unable to follow commands. Feel pt would benefit from SN transferring to chair to promote improved pulmonary status. Evaluation Complexity: HISTORY: Medium, EXAM OF BODY SYSTEMS: Medium, CLINICAL PRESENTATION: Medium, CLINICAL DECISION MAKING: Medium Patient's Goal(s): pt unable to express. Short Term Goals GOAL #1: . GOAL #2: . GOAL #3: . Dispatch Officer Goals GOAL #1: . GOAL #2: . GOAL #3: . Plan Plan of Care: Therapeutic EX, Therapeutic Activity Frequency of Treatment: One time treatment Duration of Treatment: One Time Treatment Anticipated Discharge Destination: Dispatch [facility] Facility Treatment Diagnosis (ICD 10 Codes): impaired balance R 26.81. difficulty walking R 26,2. alzheimer's dementia Has the Physician been added for Co-signature?: Yes
--- NOTE | 2020-01-11 13:53 | PCM.CONS ---
History of Present Illness: Patient is a 75 y/o CM with PMHX of dementia that was admitted on 01/06/20 for Allergies Allergy/AdvReac Type Severity Reaction Status Date / Time codeine AdvReac Verified 02/25/18 12:31 meperidine [From Demerol] AdvReac Verified 02/25/18 12:31 nalbuphine [From Nubain] AdvReac Verified 02/25/18 12:31 Medications: Medications Generic Name Dose Route Start Last Admin Trade Name Freq PRN Reason Stop Dose Admin Acetaminophen 650 mg 01/07/20 13:41 Tylenol PO Q4H PRN Headache Alprazolam 0.5 mg 01/07/20 13:52 Xanax PO BID PRN Agitation Aspirin 81 mg 01/08/20 08:30 Aspirin Ec PO DAILYWM [facility] Atropine Sulfate 0.5 mg 01/07/20 13:41 Atropine Sulfate Pfs IVP ONCE PRN Symptomatic Bradycardia Citalopram Hydrobromide 40 mg 01/07/20 14:00 Celexa PO DAILY [facility] Donepezil HCl 20 mg 01/07/20 21:00 Aricept PO BEDTIME [facility] Hydroxyzine HCl 25 mg 01/07/20 13:41 Vistaril Inj IM Q4H PRN Nausea/Vomiting/Restlessness Losartan Potassium 50 mg 01/07/20 14:00 Cozaar PO DAILY [facility] Memantine 10 mg 01/07/20 21:00 Namenda PO BID [facility] Nitroglycerin 0.4 mg 01/07/20 13:41 Nitrostat SL Q5MIN X 3 DOSES PRN Chest Pain Potassium Chloride 40 meq 01/07/20 17:00 K-Dur PO BIDWM [facility] Pravastatin Sodium 80 mg 01/07/20 21:00 Pravachol PO BEDTIME [facility] Rivaroxaban 20 mg 01/07/20 17:00 Xarelto PO 1700 [facility] Sodium Chloride 1 syr 01/07/20 21:00 Saline Flush IVF Q8HR [facility] Sotalol HCl 40 mg 01/07/20 14:00 Betapace PO BID [facility] Trazodone HCl 100 mg 01/07/20 21:00 Desyrel PO BEDTIME [facility] Physical Examination: Vitals: Temperature 98.2 F, Pulse 54, Respirations 18, Blood Pressure , SPO2 98 Body Measurements: Height 5 ft 8 in, Weight 156 lb 15.506 oz, BMI 23.8-Normal ASSESSMENT: Please see below.
[2020-01-11] MEDS: XARELTO PO SCH (17:34)
[2020-01-11] MEDS: PRAVACHOL PO SCH (20:28)
[2020-01-11] MEDS: ARICEPT PO SCH (20:28)
[2020-01-11] MEDS: DESYREL PO SCH (20:28)
[2020-01-11] MEDS: XANAX PO PRN (23:14)
[2020-01-12 05:36] LABS: BASOPHILS % (AUTO) 0.5 % (0.0-3.0); EOSINOPHILS # (AUTO) 0.1 K/ul (0.0-0.7); EOSINOPHILS % (AUTO) 1.5 % (0.0-7.0); HEMATOCRIT 41.7 % (42.0-52.0); HEMOGLOBIN 13.9 g/dl (14.0-18.0); IMMATURE GRANULOCYTE % (AUTO) 0.5 % (0.0-5.0); LYMPHOCYTES # (AUTO) 1.5 K/uL (0.60-3.4); MEAN CORPUSCULAR HGB CONC 33.3 (31.8-35.4); MEAN CORPUSCULAR VOLUME 96.1 fl (80.0-94.0); MONOCYTES # (AUTO) 0.4 K/uL (0.4-2.0); MONOCYTES % (AUTO) 7.1 (0-10); NEUTROPHILS % (AUTO) 65.4 % (42.2-75.2); PLATELET COUNT 247 10^3/uL (140-440); RDW COEFFICIENT OF VARIATION 12.7 % (11.6-14.8); RED BLOOD COUNT 4.34 10^6/ul (4.70-6.10); WHITE BLOOD COUNT 6.05 K/ul (4.2-10.2)
[2020-01-12 05:48] VITALS: TEMP 98.6
[2020-01-12 05:49] LABS: ALANINE AMINOTRANSFERASE 11.4 U/L (0-50); ALBUMIN 3.03 g/dL (3.5-5.0); ALKALINE PHOSPHATASE 125.5 U/L (56-119); BILIRUBIN,TOTAL 0.83 mg/dL (0.2-1.3); CALCIUM 8.52 mg/dL (8.4-10.2); CARBON DIOXIDE 25.9 mmol/L (22-30.0); CHLORIDE 106.2 mmol/L (98-107); CREATININE 0.95 mg/dL (0.60-1.10); GLUCOSE 79.8 mg/dL (74-106); POTASSIUM 3.49 mmol/L (3.5-5.1); SODIUM 135.5 mmol/L (134.5-145); TOTAL PROTEIN 6.23 g/dL (6.3-8.2)
[2020-01-12] MEDS ORDERED: K-DUR PO STA (08:29)
[2020-01-12 08:47] VITALS: BP 144/98
[2020-01-12] MEDS: BETAPACE PO SCH (08:59)
[2020-01-12] MEDS: K-DUR PO SCH (09:00)
[2020-01-12] MEDS: COZAAR PO SCH (09:00)
[2020-01-12] MEDS: CELEXA PO SCH (09:00)
[2020-01-12] MEDS: NAMENDA PO SCH (09:01)
[2020-01-12] MEDS: ASPIRIN EC PO SCH (09:01)
--- NOTE | 2020-01-12 09:14 | PCM.PROG ---
Attending Provider: ATTENDING PROVIDER: Dr. THOR STEIN This patient is seen with Mecca Harris, Nurse Practitioner. DATE OF SERVICE: 01/12/20 SUBJECTIVE: This 75 year old /WHITE M was hospitalized 01/07/20. The patient is in the bed resting comfortably. He is confused as usual. Was up and down throughout the night. Leg edema has improved. Family has decided on long term placement at [facility]. we will work to discharge. REVIEW OF SYSTEMS: CONSTITUTIONAL: No night sweats. No fatigue, malaise, lethargy. No fever or chills. Weakness. HEENT: Eyes: No visual changes. No eye pain. No eye discharge. ENT: No runny nose. No epistaxis. No sinus pain. No odynophagia. No congestion. RESPIRATORY: No cough, no congestion. No hemoptysis. No shortness of breath. CARDIOVASCULAR: No angina symptoms. No CHF symptoms. No atypical chest pain for CAD. No palpitations. No orthopnea.. GASTROINTESTINAL: No abdominal pain. No nausea or vomiting. No diarrhea or constipation. No hematemesis. No hematochezia. GENITOURINARY: No urgency. No frequency. No dysuria. No hematuria. No obstructive symptoms. No discharge. No pain. No significant abnormal bleeding. MUSCULOSKELETAL: No musculoskeletal pain; no joint swelling. NEUROLOGICAL: Awake, alert, oriented to time, place and person. No headache. No neck pain. No syncope. No seizures. No dizziness. PSYCHIATRIC: Not anxious. No depression. No suicidal thoughts. No homicidal thoughts. SKIN: No rash. No lesions. No wounds. ENDOCRINE: No unexplained weight loss. No weight gain. HEMATOLOGIC/LYMPHATIC: No anemia. No purpura. No petechiae. No prolonged or excessive bleeding. No palpable lymph nodes. PHYSICAL EXAMINATION: GENERAL: The patient is awake, alert and oriented to person only, lying in bed in no distress. VITAL SIGNS: Temperature 98.6 F, Pulse 53, Respiratory Rate 16, BP 175/96, Pulse Ox 95% HEENT: Head normocephalic, atraumatic. Eyes: Extraocular muscles are intact. Pupils are equal, round and reactive to light and accommodation. Ears: No lesions. Nose appeared normal. Throat: No exudate or erythema. NECK: Supple. No JVD, no carotid bruit. No lymphadenopathy or thyromegaly. LUNGS: Diminished breath sounds. Clear to auscultation. Percussion note normal. Chest symmetrical. HEART: S1, S2, no S3. No murmurs. No cyanosis or clubbing. No ascites. Pulses: Dorsalis pedis and posterior tibial pulses +1 to +2 both sides. ABDOMEN: Soft. Non-tender. Bowel sounds active. No CVA tenderness. No mass felt. EXTREMITIES:Leg edema, improved. Full range of motion of all extremities, equal. NEUROLOGIC: No focal deficit. Cranial nerves II through XII are grossly intact. No headache, no double vision or headache. SKIN: Not dry. Intact. Turgor-normal. LYMPHATIC: No palpable lymph nodes/no lymphedema. MUSCULOSKELETAL: Normal joints with no swelling. Muscle tone is normal. LAB REVIEW: 01/12/20 05:15 01/12/20 05:15 01/12/20 05:15: Sodium 135.5, Potassium 3.49 L, Chloride 106.2, Carbon Dioxide 25.9, Anion Gap 6.89, BUN 17.0, Creatinine 0.95, Estimated GFR (MDRD) 77.00, BUN/Creatinine Ratio 17.89, Glucose 79.8, Calcium 8.52, Total Bilirubin 0.83, AST 25.0, ALT 11.4, Alkaline Phosphatase 125.5 H, Total Protein 6.23 L, Albumin 3.03 L, Globulin 3.20, Albumin/Globulin Ratio 0.94 01/12/20 05:15: WBC 6.05 D, RBC 4.34 L, Hgb 13.9 L, Hct 41.7 L, MCV 96.1 H, MCH 32.0 H, MCHC 33.3, RDW Coeff of Yamilet 12.7, Plt Count 247, Immature Gran % (Auto) 0.5, Neut % (Auto) 65.4, Lymph % (Auto) 25.0, [place] % (Auto) 7.1, Eos % (Auto) 1.5, Baso % (Auto) 0.5, Neut # (Auto) 4.0, Lymph # (Auto) 1.5, [place] # (Auto) 0.4, Eos # (Auto) 0.1, Baso # (Auto) 0.0, Immature Gran # (Auto) 0.0 ASSESSMENT: Please see below. 1. Dementia with deterioration of mental status 2. Generalized weakness likely from same 3. Leg edema from hypoproteinemia 4. Hypertension probably last night which was controlled with Clonidine 0.1mg twice a day as needed for blood pressure over 150 also on Vasotec 1.25mg IV Q 6 hours 5. Bradycardia PLAN: 1. 20meq Potassium before discharge 2. The patient is stable to go to long term 3. Fall precautions 4. Continue Clonidine PRN 5. Will follow at the long term. Plan and coordination of the patient's care discussed in the presence of Industrial Truck Driver and nurse. SCRIBED BY: LISA LOCO Veterinary Virus Serum Inspector scribed while in presence of service performed by Dr. Stein/Mecca Harris APRN on 01/12/20 ([id number])
--- NOTE | 2020-01-12 10:51 | CM.DICTOOL ---
ADMISSION: 01/07/20 12:24 DISCHARGE: JANUARY 12, 2020 DATE OF SERVICE: 01/12/20 FINAL DIAGNOSIS DEMENTIA WITH DETERIORATION OF MENTAL STATUS GENERALIZED WEAKNESS LIKELY FROM SAME LEG EDEMA FROM HYPOPROTEINEMIA HYPERTENSION- IMPROVED WITH CLONIDINE PRN BRADYCARDIA- ASYMPTOMATIC HX: DVT, RIGHT UPPER EXTREMITY (ULNAR VEIN) (XARELTO) SUPERFICIAL THROMBOPHLEBITIS, RIGHT BASILIC VEIN CELLULITIS, RIGHT UPPER EXTREMITY HYPERTENSION HYPERLIPIDEMIA ATRIAL FIBRILLATION- ON XARELTO ULCERATIVE COLITIS DEMENTIA, PROGRESSIVE DJD SPINE DEPRESSION LAST VITALS Temp Pulse Resp BP Pulse Ox 98.6 F 53 L 16 144/98 H 95 01/12/20 05:45 01/12/20 05:45 01/12/20 05:45 01/12/20 06:30 01/12/20 05:45 TAKE THESE MEDICATIONS AT HOME Alprazolam (Xanax) 0.5 mg PO BID PRN PRN Reason: Agitation Last Admin: 01/11/20 23:14 Dose: 0.5 mg Documented by: Citalopram Hydrobromide (Celexa) 40 mg PO DAILY [facility] Last Admin: 01/12/20 09:00 Dose: 40 mg Documented by: Clonidine (Catapres) 0.1 mg PO BID PRN -- -- ( NEW ) PRN Reason: Hypertensive Emergency Last Admin: 01/12/20 05:51 Dose: 0.1 mg Documented by: Donepezil HCl (Aricept) 20 mg PO BEDTIME [facility] Last Admin: 01/11/20 20:28 Dose: 20 mg Documented by: Losartan Potassium (Cozaar) 50 mg PO BID [facility] ---- ( CHANGED ) Last Admin: 01/12/20 09:00 Dose: 50 mg Documented by: Memantine (Namenda) 10 mg PO BID [facility] Last Admin: 01/12/20 09:01 Dose: 10 mg Documented by: Potassium Chloride (K-Dur) 40 meq PO BIDWM [facility] Last Admin: 01/12/20 09:00 Dose: 40 meq Documented by: Pravastatin Sodium (Pravachol) 80 mg PO BEDTIME [facility] Last Admin: 01/11/20 20:28 Dose: 80 mg Documented by: Rivaroxaban (Xarelto) 20 mg PO 1700 [facility] Last Admin: 01/11/20 17:34 Dose: 20 mg Documented by: Sotalol HCl (Betapace) 40 mg PO BID [facility] Last Admin: 01/12/20 08:59 Dose: 40 mg Documented by: Trazodone HCl (Desyrel) 100 mg PO BEDTIME [facility] Last Admin: 01/11/20 20:28 Dose: 100 mg Documented by: ALLERGIES codeine Adverse Reaction (Verified 02/25/18 12:31) meperidine [From Demerol] Adverse Reaction (Verified 02/25/18 12:31) nalbuphine [From Nubain] Adverse Reaction (Verified 02/25/18 12:31) DISCONTINUED MEDICATIONS NONE NEW PRESCRIPTIONS: 1). Clonidine (Catapres) 0.1 mg PO BID PRN 2). COZAAR ( INCREASED ) 50 MG PO BID SMOKING: NON- APPLICABLE DISEASE SPECIFIC EDUCATION: DEMENTIA FALL PRECAUTIONS LOW PROTEIN HYPERTENSION WEAKNESS BRADYCARDIA COVID LAB REVIEW: 01/12/20 05:15 01/12/20 05:15 01/12/20 05:15: Sodium 135.5, Potassium 3.49 L, Chloride 106.2, Carbon Dioxide 25.9, Anion Gap 6.89, BUN 17.0, Creatinine 0.95, Estimated GFR (MDRD) 77.00, B UN/Creatinine Ratio 17.89, Glucose 79.8, Calcium 8.52, Total Bilirubin 0.83, AST 25.0, ALT 11.4, Alkaline Phosphatase 125.5 H, Total Protein 6.23 L, Albumin 3.03 L, Globulin 3.20, Albumin/Globulin Ratio 0.94 01/12/20 05:15: WBC 6.05 D, RBC 4.34 L, Hgb 13.9 L, Hct 41.7 L, MCV 96.1 H, MCH 32.0 H, MCHC 33.3, RDW Coeff of Yamilet 12.7, Plt Count 247, Immature Gran % (Auto) 0.5, Neut % (Auto) 65.4, Lymph % (Auto) 25.0, [place] % (Auto) 7.1, Eos % (Auto) 1.5, Baso % (Auto) 0.5, Neut # (Auto) 4.0, Lymph # (Auto) 1.5, [place] # (Auto) 0.4, Eos # (Auto) 0.1, Baso # (Auto) 0.0, Immature Gran # (Auto) 0.0 PLAN: DISCHARGE: TO [facility] TODAY, JANUARY 12, 2020 ACTIVITY: UP WITH ASSIST. UNABLE TO UTILIZE ASSISTIVE DEVICE DUE TO CONFUSION WALK DAILY AND PRN. FALL RISK PRECAUTIONS DIET: REGULAR WITH SUPPLEMENTS PER ASSAYER CONSULT MISC : CBC AND CMP Saturday01/18/2020 THEN EVERY 3 MONTHS LIPIDS, A1C, TSH, FREE T4 EVERY 6 MONTHS ALL LABS TO BE TAKEN TO [facility]. LAB V/S EVERY 8 HOURS FOR 3 DAYS, THEN DAILY FOR A WEEK , THEN PULSE AND B/P 2 TIMES WEEKLY, RANDOM, ALL OTHER V/S PER [facility] PROTOCOL PLEASE USE CLONIDINE 0.1 MG PO BID PRN FOR SYSTOLIC >150 FOLLOW UP: DR. STEIN / SUZY DE JESUS APRN / ZANDRA SERRANO APRN WILL SEE ON ROUNDS CODE STATUS: DO NOT RESUSCITATE MR. DUDLEY IS NOT ALWAYS ALERT. IS CONFUSED TO ALL ASPECTS EXCEPT SELF AND AT TIMES OTHER DETAILS. DOES STAND AT TIMES ON HIS OWN AND CAN WALK, HOWEVER UNSTEADY AND HX OF FREQUENT FALLS. IS DEPENDENT OF ADLS AND IADLS. SKIN WARM, DRY AND INTACT WITH SCATTERED CRUSTED AREAS FROM FALLS. NO RESPIRATORY CHANGES. EVEN AND UNLABORED RESPIRATIONS. DOES REST WITH NOTABLE SHALLOW RESPIRATIONS AT TIMES. FEEDS SELF WITH SET UP AND ENCOURAGEMENT, HOWEVER, POOR TO FAIR NUTRI TIONAL AND FLUID INTAKE. HAS BEEN UNCOOPERATIVE WITH SPOUSE AT TIMES AT HOME. HE TENDS TO RESPOND TO EVERYONE ELSE WELL. INCONTINENT OF BOWEL AND BLADDER AT TIMES AND WILL ATTEMPT TO TAKE SELF TO BATHROOM AT TIMES. WEARS AN INCONTINENT BRIEF AT ALL TIMES. LAST BM 01/10/2020. SPOUSE AND SON AGREEABLE AND DESIRES TO HAVE PLACED AT [facility]. [facility] HAS ACCEPTED HIM AND 01/12/2020 DISCHARGE. MD SUZY VO APRN ALYCE HANNAN, APRN
--- NOTE | 2020-01-12 14:29 | PN ---
DATE OF SERVICE: 01/11/2020 SUBJECTIVE: The patient was seen and examined with Nurse Practitioner. The patient's condition is stable. He is less restless and alert but still confused at time. Hydration status seems to have improved. CARDIOVASCULAR STATUS: Stable. TIME SPENT: More than 30 minutes. Plan and coordination of the patient's care discussed in the presence of nurse. VLADISLAV
--- NOTE | 2020-01-13 10:04 | DS ---
DATE OF SERVICE: 01/12/20 FINAL DIAGNOSIS: 1. DEMENTIA WITH DETERIORATION OF MENTAL STATUS 2. GENERALIZED WEAKNESS LIKELY FROM SAME 3. LEG EDEMA FROM HYPOPROTEINEMIA 4. HYPERTENSION- IMPROVED WITH CLONIDINE PRN 5. BRADYCARDIA- ASYMPTOMATIC HX: 6. DVT, RIGHT UPPER EXTREMITY (ULNAR VEIN) (XARELTO) 7. SUPERFICIAL THROMBOPHLEBITIS, RIGHT BASILIC VEIN 8. CELLULITIS, RIGHT UPPER EXTREMITY 9. HYPERTENSION 10. HYPERLIPIDEMIA 11. ATRIAL FIBRILLATION- ON XARELTO 12. ULCERATIVE COLITIS 13. DEMENTIA, PROGRESSIVE 14. DJD SPINE 15. DEPRESSION LAST VITALS Temp Pulse Resp BP Pulse Ox 98.6 F 53 L 16 144/98 H 95 01/12/20 05:45 01/12/20 05:45 01/12/20 05:45 01/12/20 06:30 01/12/20 05:45 DISCHARGE INSTRUCTIONS: 1. DISCHARGE TO [facility] TODAY, JANUARY 12, 2020 2. MISC: CBC AND CMP Saturday01/18/2020 THEN EVERY 3 MONTHS LIPIDS, A1C, TSH, FREE T4 EVERY 6 MONTHS ALL LABS TO BE TAKEN TO [facility]. LAB V/S EVERY 8 HOURS FOR 3 DAYS, THEN DAILY FOR A WEEK , THEN PULSE AND B/P 2 TIMES WEEKLY, RANDOM, ALL OTHER V/S PER [facility] PROTOCOL PLEASE USE CLONIDINE 0.1 MG PO BID PRN FOR SYSTOLIC >150 3. MD FOLLOW UP: DR. STEIN/SUZY DE JESUS APRN / ZANDRA SERRANO APRN WILL SEE ON ROUNDS. 4. CODE STATUS: DO NOT RESUSCITATE MEDICATIONS AT DISCHARGE: Alprazolam (Xanax) 0.5 mg PO BID PRN PRN Reason: Agitation Last Admin: 01/11/20 23:14 Dose: 0.5 mg Documented by: Citalopram Hydrobromide (Celexa) 40 mg PO DAILY [facility] Last Admin: 01/12/20 09:00 Dose: 40 mg Documented by: Clonidine (Catapres) 0.1 mg PO BID PRN -- -- ( NEW ) PRN Reason: Hypertensive Emergency Last Admin: 01/12/20 05:51 Dose: 0.1 mg Documented by: Donepezil HCl (Aricept) 20 mg PO BEDTIME [facility] Last Admin: 01/11/20 20:28 Dose: 20 mg Documented by: Losartan Potassium (Cozaar) 50 mg PO BID [facility] ---- ( CHANGED ) Last Admin: 01/12/20 09:00 Dose: 50 mg Documented by: Memantine (Namenda) 10 mg PO BID [facility] Last Admin: 01/12/20 09:01 Dose: 10 mg Documented by: Potassium Chloride (K-Dur) 40 meq PO BIDWM [facility] Last Admin: 01/12/20 09:00 Dose: 40 meq Documented by: Pravastatin Sodium (Pravachol) 80 mg PO BEDTIME [facility] Last Admin: 01/11/20 20:28 Dose: 80 mg Documented by: Rivaroxaban (Xarelto) 20 mg PO 1700 [facility] Last Admin: 01/11/20 17:34 Dose: 20 mg Documented by: Sotalol HCl (Betapace) 40 mg PO BID [facility] Last Admin: 01/12/20 08:59 Dose: 40 mg Documented by: Trazodone HCl (Desyrel) 100 mg PO BEDTIME [facility] Last Admin: 01/11/20 20:28 Dose: 100 mg Documented by: NEW PRESCRIPTIONS: Clonidine (Catapres) 0.1 mg PO BID PRN COZAAR (INCREASED) 50 MG PO BID DISCONTINUED MEDICATIONS: NONE DIET INSTRUCTIONS: REGULAR WITH SUPPLEMENTS PER CUSTOMER PRICING MANAGER CONSULT ACTIVITY: UP WITH ASSIST. UNABLE TO UTILIZE ASSISTIVE DEVICE DUE TO CONFUSION. WALK DAILY AND PRN. FALL RISK PRECAUTIONS SMOKING: NON- APPLICABLE DISEASE SPECIFIC EDUCATION: DEMENTIA FALL PRECAUTIONS LOW PROTEIN HYPERTENSION WEAKNESS BRADYCARDIA COVID HOSPITAL COURSE: After being seen in the office with leg edema, change in mental status, more recurrent falls, he was given Lasix initially, has lost several pounds since being in the hospital. had reported he lost 4 lbs since being in the hospital. had reported that he had been having some aggressive and combative episodes. When he was admitted blood pressure was initially elevated. We did make some medication changes. We added Clonidine 0.1 mg b.i.d. p.r.n. for systolic greater than 150 as well as Vasotec IV for systolic greater than 160. I do not think he had been taking his medications regularly at home. After being here for the past couple of days, his behavior has settled down. He has gotten Clonidine a couple of times p.r.n. however he has not required any Vasotec. His behavior has settled down initially. He did have some hypokalemia which has improved. Potassium 3.49 today. He was having some significant bradycardia into the 40s at night. Dr. Stein placed a holter monitor which showed no significant pauses. He was asymptomatic and was recurring while he was at rest. At this time, the family is unable to care for him any longer at home so we are going to place him in [facility]. He will go there today. All of his medications will remain the same. He is on fall precautions. We will follow him at the halfway. Chest x-ray was normal. UA was normal. Again, other than potassium and bradycardia once being regularly administered his medications, he has been okay. Will continue the p.r.n. Clonidine as I do believe his hypertension is labile. He will be discharged in stable condition and will followup with him at the halfway. LAB REVIEW: 01/12/20 05:15: Sodium 135.5, Potassium 3.49 L, Chloride 106.2, Carbon Dioxide 25.9, Anion Gap 6.89, BUN 17.0, Creatinine 0.95, Estimated GFR (MDRD) 77.00, BUN/Creatinine Ratio 17.89, Glucose 79.8, Calcium 8.52, Total Bilirubin 0.83, AST 25.0, ALT 11.4, Alkaline Phosphatase 125.5 H, Total Protein 6.23 L, Albumin 3.03 L, Globulin 3.20, Albumin/Globulin Ratio 0.94 01/12/20 05:15: WBC 6.05 D, RBC 4.34 L, Hgb 13.9 L, Hct 41.7 L, MCV 96.1 H, MCH 32.0 H, MCHC 33.3, RDW Coeff of Yamilet 12.7, Plt Count 247, Immature Gran % (Auto) 0.5, Neut % (Auto) 65.4, Lymph % (Auto) 25.0, [place] % (Auto) 7.1, Eos % (Auto) 1.5, Baso % (Auto) 0.5, Neut # (Auto) 4.0, Lymph # (Auto) 1.5, [place] # (Auto) 0.4, Eos # (Auto) 0.1, Baso # (Auto) 0.0, Immature Gran # (Auto) 0.0 TIME SPENT: More than 60 minutes. MTDD
--- NOTE | 2020-01-13 13:51 | HOLTER ---
PATIENT INFORMATION AND COMMENTS Attending Physician: DR. THOR STEIN Indications: IRREGULAR HEART BEAT __ Patient Medications: XANAX, ASA, ATROPINE, CELEXA, CATAPRES, ARICEPT, VASOTEC, COZAAR, NAMENDA, NITROSTAT, K-DUR, PRAVACHOL, XARELTO, TRAZODONE __ Pre-procedure Summary: Protocol: Standard Heart Rate Started: 01/10/2020 1403 Minimum: 37 BPM Weight: 147 LBS Ended: 01/11/2020 1258 Maximum: 79 BPM Height: 68" Duration: 22 HR 54 MIN Average: 47 BPM _ INTERPRETATIONS/OBSERVATIONS: 1. BASIC RHYTHM: SINUS, RATE 38 BPM TO 80 BPM, AVERAGE 47 BPM 2. INFREQUENT, ISOLATED PVC'S/ RARE PAC'S 3. NO ST- T WAVE CHANGES FROM BASELINE 4. ACTIVITY LOG NOT MAINTAINED MTDD
--- NOTE | 2020-01-13 13:56 | ECHO2D ---
Date of Exam: 01/12/2020 Ordering Physician: DR. THOR STEIN Room #: [id number] Reason for Echo: HYPERTENSION, SYNCOPE M-Mode Normal Adult Results LV Dimensions Normal Adult Results AoV Opening excursions >1.6 >1.6 LVEDD-base- 3.5-5.8 4.7 Ao root dimensions 2.0-3.7 3.5 LVESD-base- 3.1-4.6 L. Atrium dimensions 1.9-3.8 3.9 Post. Wall thickness 0.8-1.1 1.2 IV septum (thickness) 0.7-1.2 1.2 Post. Wall excursion 0.72-1.3 NORMAL Septal motion NORMAL Systolic motion R. Ventricular cavity 1.5-2.0 NORMAL LVEF 60% 74% Paradoxical septal wall motion NORMAL 2-D : 2-D M Mode Echocardiogram was performed using apical four chamber and left parasternal long and short axis views. Mitral, tricuspid and aortic valves appear to be normal. Contractility of the left ventricle seems to be normal, so is the cavity size. Left atrial cavity size and aortic root appear to be normal. There is no pericardial effusion. There is no thrombus noted in the left ventricle or left atrial cavity. No mitral valve prolapse noted. M-MODE: MV: NORMAL AV: NORMAL TV: NORMAL PV: CHAMBER SIZE: NORMAL WALL MOTION: NORMAL PERICARDIUM: NORMAL INTERPRETATION: 1. BORDERLINE LEFT VENTRICULAR HYPERTROPHY AND BORDERLINE LEFT ATRIAL CAVITY 2. NORMAL LEFT VENTRICLE CAVITY MTDD
--- NOTE | 2020-01-14 13:16 | PN ---
DATE OF SERVICE: 01/12/20 SUBJECTIVE: The patient was seen and examined with the nurse practitioner. The patient's condition is stable. His dementia is stable. The [facility]. The family, especially , is unable to take care of him at home. The patient will undergo echocardiogram before discharge to the prison. Prognosis is poor considering his multiple medical problems and ability to ambulate. Deterioration of mental status with dementia. TIME SPENT: More than 30 minutes. Plan and coordination of the patient's care discussed in the presence of nurse. VLADISLAV
--- NOTE | 2020-01-14 13:23 | PN ---
BILLING 01/07/20 ADMISSION DAY LEVEL 5 01/08/20 INTERMEDIATE 01/09/20 INTERMEDIATE 01/10/20 INTERMEDIATE 01/11/20 INTERMEDIATE 01/12/20 DISCHARGE MTDD
--- NOTE | 2020-01-15 12:45 | PN ---
DATE OF SERVICE: 01/12/20 SUBJECTIVE: The patient is seen and examined with the nurse practitioner. The patient's condition is stable. He has dementia which seems to be stable. He is less restless. His appetite is poor. His prognosis is poor. The patient has been discharged to the [facility] [facility]. The is unable to take care of him at home. That has been the problem for the past several years. Eventually the has gave in. The patient is DNR. TIME SPENT: More than 30 minutes. Plan and coordination of the patient's care discussed in the presence of nurse. VLADISLAV
--- NOTE | 2020-01-15 12:49 | PN ---
BILLING 01/07/20 ADMISSION DAY LEVEL 5 01/08/20 INTERMEDIATE 01/09/20 INTERMEDIATE 01/10/20 INTERMEDIATE 01/11/20 INTERMEDIATE 01/12/20 DISCHARGE MTDD
--- NOTE | 2020-01-28 13:11 | PN ---
DATE OF SERVICE: 01/09/2020 SUBJECTIVE: The patient's condition is stabilizing. Still confused. No neurological deficit noted. REVIEW OF SYSTEMS: CONSTITUTIONAL: No night sweats. No fatigue, malaise, lethargy. No fever or chills. HEENT: Eyes: No visual changes. No eye pain. No eye discharge. ENT: No runny nose. No epistaxis. No sinus pain. No sore throat. No odynophagia. No congestion. RESPIRATORY: No cough, no congestion. No hemoptysis. No shortness of breath. CARDIOVASCULAR: No angina symptoms. No CHF symptoms. No atypical chest pain for CAD. No palpitations. No PND. No orthopnea. GASTROINTESTINAL: No abdominal pain. No nausea or vomiting. No diarrhea or constipation. No hematemesis. No hematochezia. GENITOURINARY: No urgency. No frequency. No dysuria. No hematuria. No obstructive symptoms. No discharge. No pain. No significant abnormal bleeding. MUSCULOSKELETAL: No musculoskeletal pain; no joint swelling. NEUROLOGICAL: No headache. No neck pain. No syncope. No seizures. No dizziness. PSYCHIATRIC: Not anxious. No depression. No suicidal thoughts. No homicidal thoughts. SKIN: No rash. No lesions. No wounds. ENDOCRINE: No unexplained weight loss. No weight gain. HEMATOLOGIC/LYMPHATIC: No anemia. No purpura. No petechiae. No prolonged or excessive bleeding. No palpable lymph nodes. PHYSICAL EXAMINATION: GENERAL: The patient is confused but alert. HEENT: Head normocephalic, atraumatic. Eyes: Extraocular muscles are intact. Pupils are equal, round and reactive to light and accommodation. Ears: No lesions. Nose appeared normal. Throat: No exudate or erythema. NECK: Supple. No JVD, no carotid bruit. No lymphadenopathy or thyromegaly. LUNGS: Decreased breath sounds but clear to auscultation. Percussion note normal. Chest symmetrical. HEART: S1, S2, no S3. No murmurs. No cyanosis or clubbing. No ascites. Pulses: Dorsalis pedis and posterior tibial pulses +1 to +2 bilaterally. ABDOMEN: Soft. Nontender. Bowel sounds active. No CVA tenderness. No mass felt. EXTREMITIES: No edema. Full range of motion of all extremities, equal. NEUROLOGIC: No focal deficit. Cranial nerves II through XII are grossly intact. No headache, no double vision or headache. SKIN: Not dry. Intact. Turgor - normal. LYMPHATIC: No palpable lymph nodes/no lymphedema. MUSCULOSKELETAL: Normal joints with no swelling. Muscle tone is normal. The called and explained about the findings and the patient Alzheimer's disease which seems to be deteriorating. She says that she is not able to take care of him at home. She would like to move him to the jail. PROGNOSIS: Poor ASSESSMENT: 1. Confusion, deterioration of dementia with unchanged neurological status otherwise. PLAN: 1. Decubitus prevention care discussed. 2. Patient for placement CONDITION: Stable TIME SPENT: More than 30 minutes. Plan and coordination of the patient's care discussed in the presence of nurse. VLADISLAV
== END 2020-01-12 11:45 ==
LOC: MEDSURG B 12:24 → INTOOBSV 12:24
PROVIDERS: ADMIT Internal Medicine; ATTEND Internal Medicine

== ENCOUNTER 2020-01-28 15:41 | Observation (INO) ==
[2020-01-28 16:34] LABS: BASOPHILS % (AUTO) 0.4 % (0.0-3.0); EOSINOPHILS # (AUTO) 0.5 K/ul (0.0-0.7); EOSINOPHILS % (AUTO) 6.4 % (0.0-7.0); HEMATOCRIT 38.3 % (42.0-52.0); HEMOGLOBIN 12.3 g/dl (14.0-18.0); IMMATURE GRANULOCYTE % (AUTO) 0.2 % (0.0-5.0); MEAN CORPUSCULAR HGB CONC 32.1 (31.8-35.4); MEAN CORPUSCULAR VOLUME 99.7 fl (80.0-94.0); MONOCYTES # (AUTO) 0.7 K/uL (0.4-2.0); MONOCYTES % (AUTO) 8.2 (0-10); NEUTROPHILS # (AUTO) 3.1 K/ul (2.0-6.9); NEUTROPHILS % (AUTO) 36.8 % (42.2-75.2); PLATELET COUNT 177 10^3/uL (140-440); RDW COEFFICIENT OF VARIATION 14.6 % (11.6-14.8); RED BLOOD COUNT 3.84 10^6/ul (4.70-6.10); WHITE BLOOD COUNT 8.32 K/ul (4.2-10.2)
[2020-01-28] MEDS ORDERED: LASIX IVP STA (16:41)
--- NOTE | 2020-01-28 16:44 | US ---
EXAM: Bilateral lower extremity venous doppler. HISTORY: Bilateral lower extremity swelling. COMPARISON: None. TECHNIQUE: A duplex Doppler study was performed consisting of integrated two dimensional (2D) real-t lul imaging color flow Doppler and Doppler spectral analysis utilizing linear array probes. FINDINGS: There is normal flow, venous waveforms, compressibility and augmentation of flow within th e left common femoral, greater saphenous, profunda, femoral, popliteal, posterior tibial, anterior ti bial and peroneal veins. There is partial compressibility and color flow in the right popliteal vein. There is lack of color flow and compressibility in the right peroneal vein. There is color flow and compressibility in the r ight common femoral, greater saphenous, profunda, superficial femoral, and posterior tibial vein. Th e right anterior tibial vein was not identified. Avascular complex fluid collection in the posterior soft tissues at the level of the knee on the righ t measures approximately 9 x 2 x 4 cm. Subcutaneous edema present in the right calf. IMPRESSION: 1. Right lower extremity deep vein thrombosis involving the popliteal and peroneal veins. 2. No evidence for left lower extremity deep vein thrombosis at the levels examined. 3. 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
[2020-01-28 16:48] LABS: ALANINE AMINOTRANSFERASE 18.8 U/L (0-50); ALBUMIN 2.72 g/dL (3.5-5.0); ASPARTATE AMINO TRANSFERASE 30.3 U/L (17-59); BILIRUBIN,TOTAL 0.43 mg/dL (0.2-1.3); CARBON DIOXIDE 29.9 mmol/L (22-30.0); CHLORIDE 112.7 mmol/L (98-107); CREATININE 1.12 mg/dL (0.60-1.10); GLUCOSE 79.7 mg/dL (74-106); POTASSIUM 3.95 mmol/L (3.5-5.1); SODIUM 143.8 mmol/L (134.5-145); TOTAL PROTEIN 5.55 g/dL (6.3-8.2)
--- NOTE | 2020-01-28 16:59 | DI ---
EXAM: CHEST FRONTAL VIEW HISTORY: Leg swelling. Clinical concern for congestive heart failure. COMPARISON: 01/07/2020 FINDINGS: Upper limit normal heart size is stable. There is ectasia of the aorta. No acute infiltr ates are seen. No vascular congestion. There is no consolidation, visible pleural fluid or pneumoth orax. Bones reveal no acute fracture. IMPRESSION: No evidence of active congestive heart failure or fluid overload. No vascular congesti on. Lungs are clear.
[2020-01-28 17:03] LABS: TROPONIN I < 0.012 ng/ml (0.0000-0.120)
--- NOTE | 2020-01-28 17:42 | ED.PDOC ---
General ED Provider: Dr. CECI AGUILAR MD Chief Complaint: Extremity Pain/Injury Stated Complaint: leg swelling x today Time Seen by Physician: 15:47 Mode of Arrival: Ambulance Information Source: Patient Exam Limitations: Dementia Primary Care Provider: THOR STEIN Nursing and Triage Documentation Reviewed and Agree: Yes Does patient meet sepsis criteria?: No System Inflammatory Response Syndrome: Not Applicable Sepsis Protocol: For patient's 13 years and over: Temp is 96.8 and below OR 101 and greater Pulse >90 BPM Resp >20/minute Acutely Altered Mental Status Are patient's symptoms suggestive of a new infection, such as: -Pneumonia -Skin, Soft Tissue -Endocarditis -UTI -Bone, Joint Infection -Implantable Device -Acute Abdominal Infection -Wound Infection -Meningitis -Blood Stream Catheter Infection -Unknown Cardiovascular Complaint Exam Palpitations Complaint/Exam Onset/Duration: leg swelling Symptoms Are: Still present Timing: Constant Initial Severity: Mild Current Severity: Mild Character: Reports Irregular Aggravating: Reports None Alleviating: Reports None Associated Signs and Symptoms: Denies Lightheadedness, Dizziness, Syncope, Chest pain, Shortness of breath, Diaphoresis, Nausea and Vomiting Cardiac Risk Factors: Reports None (known atrial fibrillation) Pulmonary Embolism Risk Factors: Reports DVT Review of Systems Review Of Systems Constitutional: Reports No symptoms All Other Systems: Other (Pt has the dementia and was unable to answer the ROS questions.) [facility] Medical History Ataxia Bronchitis CKD (chronic kidney disease) Deep vein thrombosis of right upper extremity Dementia Depression Diverticulosis DJD (degenerative joint disease) Falls HTN (hypertension) Hypoglycemia Non-compliant behavior Paroxysmal A-fib Sleep apnea Ulcerative colitis Family History (Updated 01/07/20 @ 13:40 by FAVIOLA BARCENAS RN) Other No known health problems Social History History of recent travel: No Physical Exam Physical Exam Appearance: Reports Well-appearing Pain Distress: None Eyes: Reports INES, EOMI and Conjunctiva clear ENT: Reports Ears normal, Nose normal and Oropharynx normal Neck: Supple Respiratory: Reports Airway patent, Breath sounds clear, Respirations nonlabored and Other (minimal posterior crackles. no acute rhonchi or wheezes.) Cardiovascular: Reports Pulses normal and Irregular rhythm GI/: Reports Soft, Nontender, No masses and Bowel sounds normal Musculoskeletal: Reports Normal strength, ROM intact, No calf tenderness and Other (minimal edema bilateral feet) Skin: Reports Warm, Dry and Normal color Neurological: Reports Sensation intact, Motor intact, Reflexes intact, Cranial nerves intact, Alert and Other (pt has the dementia.) Psychiatric: Reports Depressed Interpretation Radiology Interpretation Radiology Interpretation By: Radiologist Radiology Results: Positive (DVT of left leg. CXR: no acute abnormality) Re-Evaluation Re-Evaluation Time of Re-Evaluation: 17:25 Status: Unchanged Vital Signs Stable: Yes Appearance: NAD Lungs: Other (minimal posterior crackles.) Skin: Warm and Dry Neuro: Other (pt has the dementia.) CV: Other (irregularly irregular pulse.) Critical Care Note Critical Care Note Total Time (mins): 12 Course Course Hematology/Chemistry: 01/28/20 16:30 01/28/20 16:30 Orders, Labs, Meds: Lab Review 01/28/20 01/28/20 01/28/20 16:30 16:30 16:30 WBC 8.32 RBC 3.84 L Hgb 12.3 L Hct 38.3 L MCV 99.7 H MCH 32.0 H MCHC 32.1 RDW Coeff of Yamilet 14.6 Plt Count 177 Immature Gran % (Auto) 0.2 Neut % (Auto) 36.8 L Lymph % (Auto) 48.0 Rich % (Auto) 8.2 Eos % (Auto) 6.4 Baso % (Auto) 0.4 Neut # (Auto) 3.1 Lymph # (Auto) 4.0 H Rich # (Auto) 0.7 Eos # (Auto) 0.5 Baso # (Auto) 0.0 Immature Gran # (Auto) 0.0 Sodium 143.8 Potassium 3.95 Chloride 112.7 H Carbon Dioxide 29.9 Anion Gap 5.15 BUN 25.0 H Creatinine 1.12 H Estimated GFR (MDRD) 64.00 BUN/Creatinine Ratio 22.32 Glucose 79.7 Calcium 8.40 Total Bilirubin 0.43 AST 30.3 ALT 18.8 Alkaline Phosphatase 81.0 Troponin I < 0.012 NT-Pro-B Natriuret Pep 3920.000 H Total Protein 5.55 L Albumin 2.72 L Globulin 2.83 Albumin/Globulin Ratio 0.96 Orders Category Date Time Status EKG-(ED ONLY) Stat CARDIO 01/28/20 15:48 Completed CBC W/ AUTO DIFF Stat LAB 01/28/20 16:30 Completed COMPREHENSIVE METABOLIC PANEL Stat LAB 01/28/20 16:30 Completed NT-PROBNP Stat LAB 01/28/20 16:30 Completed TROPONIN I Stat LAB 01/28/20 16:30 Completed URINALYSIS C & S IF INDICATED Stat LAB 01/28/20 16:41 Uncollected Furosemide [Lasix] MEDS 01/28/20 16:41 Discontinued 80 mg IVP ONCE STA CHEST, 1V AP ONLY Stat RADS 01/28/20 16:41 Completed U/S VENOUS SCAN MATT LEGS Stat RADS 01/28/20 15:53 Completed Medications Discontinued Medications Generic Name Dose Route Start Last Admin Trade Name Freq PRN Reason Stop Dose Admin Furosemide 80 mg 01/28/20 16:41 01/28/20 16:59 Lasix IVP 01/28/20 16:42 80 mg ONCE STA Administration Vital Signs: Temp Pulse Resp BP Pulse Ox 01/28/20 15:50 97.4 F L 68 20 115/87 100 JASON Risk Score JASON Risk Score: Risk Score Odds of by 30D 0 0.1 (0.1-0.2) 1 0.3 (0.2-0.3) 2 0.4 (0.3-0.5) 3 0.7 (0.6-0.9) 4 1.2 (1.0-1.5) 5 2.2 (1.9-2.6) 6 3.0 (2.5-3.6) 7 4.8 (3.8-6.1) Discharge Plan Discharge Patient Disposition: ADMITTED INPATIENT Discharge Problem: CHF (congestive heart failure) Qualifiers: Heart failure type: diastolic Heart failure chronicity: chronic Qualified Code(s): I50.32 - Chronic diastolic (congestive) heart failure DVT (deep venous thrombosis) Qualifiers: DVT location: lower extremity Affected thrombotic vein of extremity: popliteal Chronicity: acute Laterality: left Qualified Code(s): I82.432 - Acute embolism and thrombosis of left popliteal vein ED Provider: CECI AGUILAR Condition: Fair
[2020-01-28] MEDS ORDERED: CATAPRES PO PRN (19:09)
--- NOTE | 2020-01-28 19:52 | DI ---
EXAM: Single view of the chest. History: Congestive heart failure. Comparison: Chest radiograph 01/28/2020 Findings: Heart size is upper limits of normal. No focal consolidation. No appreciable pleural flu id and no pneumothorax. No acute osseous abnormalities. Impression: No acute cardiopulmonary process
[2020-01-28 21:55] VITALS: BMI 22.6
[2020-01-28] MEDS: COZAAR PO SCH (22:07)
[2020-01-28] MEDS: TYLENOL PO SCH (22:07)
[2020-01-28] MEDS: PRAVACHOL PO SCH (22:08)
[2020-01-28] MEDS: DESYREL PO SCH (22:08)
[2020-01-28] MEDS: MICRO-K CAP PO SCH (22:08)
[2020-01-28] MEDS: BETAPACE PO SCH (22:08)
[2020-01-28] MEDS: NAMENDA PO SCH (22:09)
[2020-01-28] MEDS: XANAX PO PRN (22:54)
[2020-01-29] MEDS ORDERED: LASIX IVP SCH (05:00)
[2020-01-29 05:17] LABS: BASOPHILS % (AUTO) 0.5 % (0.0-3.0); EOSINOPHILS # (AUTO) 0.5 K/ul (0.0-0.7); EOSINOPHILS % (AUTO) 6.1 % (0.0-7.0); HEMATOCRIT 36.1 % (42.0-52.0); HEMOGLOBIN 11.9 g/dl (14.0-18.0); IMMATURE GRANULOCYTE % (AUTO) 0.2 % (0.0-5.0); LYMPHOCYTES # (AUTO) 4.1 K/uL (0.60-3.4); LYMPHOCYTES % (AUTO) 48.7 (10.0-50.0); MEAN CORPUSCULAR HEMOGLOBIN 32.1 pg (27.0-31.0); MEAN CORPUSCULAR VOLUME 97.3 fl (80.0-94.0); MONOCYTES # (AUTO) 0.7 K/uL (0.4-2.0); MONOCYTES % (AUTO) 7.8 (0-10); NEUTROPHILS # (AUTO) 3.1 K/ul (2.0-6.9); NEUTROPHILS % (AUTO) 36.7 % (42.2-75.2); PLATELET COUNT 172 10^3/uL (140-440); RDW COEFFICIENT OF VARIATION 14.4 % (11.6-14.8); RED BLOOD COUNT 3.71 10^6/ul (4.70-6.10); WHITE BLOOD COUNT 8.46 K/ul (4.2-10.2)
[2020-01-29 05:31] LABS: PARTIAL THROMBOPLASTIN TIME 34.8 SEC (23.9-40.0); PROTHROMBIN TIME 12.1 SEC (9.3-11.0)
[2020-01-29 05:32] LABS: ALANINE AMINOTRANSFERASE 19.4 U/L (0-50); ALBUMIN 2.58 g/dL (3.5-5.0); ALKALINE PHOSPHATASE 89.7 U/L (56-119); ASPARTATE AMINO TRANSFERASE 31.7 U/L (17-59); BILIRUBIN,TOTAL 0.5 mg/dL (0.2-1.3); BLOOD UREA NITROGEN 25.3 mg/dL (9-20); CALCIUM 8.11 mg/dL (8.4-10.2); CARBON DIOXIDE 30.7 mmol/L (22-30.0); CHLORIDE 109.5 mmol/L (98-107); CREATININE 1.16 mg/dL (0.60-1.10); GLUCOSE 81.5 mg/dL (74-106); POTASSIUM 3.64 mmol/L (3.5-5.1); SODIUM 139.8 mmol/L (134.5-145); TOTAL PROTEIN 5.32 g/dL (6.3-8.2)
[2020-01-29] MEDS: TYLENOL PO SCH ×4 (07:37→20:01)
--- NOTE | 2020-01-29 08:29 | PCM.PROG ---
Attending Provider: ATTENDING PROVIDER: Dr. THOR STEIN This patient is seen with Mecca Harris, Nurse Practitioner. DATE OF SERVICE: 01/29/20 SUBJECTIVE: This 75 year old /WHITE M was hospitalized 01/28/20. The patient is resting comfortably in the bed. Alert to person only as usual. He has trace edema noted on bilateral extremities. REVIEW OF SYSTEMS: CONSTITUTIONAL: No night sweats. No fatigue, malaise, lethargy. No fever or chills. Weakness. HEENT: Eyes: No visual changes. No eye pain. No eye discharge. ENT: No runny nose. No epistaxis. No sinus pain. No odynophagia. No congestion. RESPIRATORY: No cough, no congestion. No hemoptysis. No shortness of breath. CARDIOVASCULAR: No angina symptoms. No CHF symptoms. No atypical chest pain for CAD. No palpitations. No orthopnea.. GASTROINTESTINAL: No abdominal pain. No nausea or vomiting. No diarrhea or const ipation. No hematemesis. No hematochezia. GENITOURINARY: No urgency. No frequency. No dysuria. No hematuria. No obstructive symptoms. No discharge. No pain. No significant abnormal bleeding. MUSCULOSKELETAL: No musculoskeletal pain; no joint swelling. NEUROLOGICAL: Awake, alert, confused as usual. No headache. No neck pain. No syncope. No seizures. No dizziness. PSYCHIATRIC: Not anxious. No depression. No suicidal thoughts. No homicidal thoughts. SKIN: No rash. No lesions. No wounds. ENDOCRINE: No unexplained weight loss. No weight gain. HEMATOLOGIC/LYMPHATIC: No anemia. No purpura. No petechiae. No prolonged or excessive bleeding. No palpable lymph nodes. PHYSICAL EXAMINATION: GENERAL: The patient is awake, alert and oriented to person only, lying in bed in no distress. VITAL SIGNS: Temperature 97.3 F, Pulse 51, Respiratory Rate 16, BP 111/78, Pulse Ox 99% HEENT: Head normocephalic, atraumatic. Eyes: Extraocular muscles are intact. Pupils are equal, round and reactive to light and accommodation. Ears: No lesions. Nose appeared normal. Throat: No exudate or erythema. NECK: Supple. No JVD, no carotid bruit. No lymphadenopathy or thyromegaly. LUNGS: Diminished breath sounds. Clear to auscultation. Percussion note normal. Chest symmetrical. HEART: S1, S2, no S3. No murmurs. No cyanosis or clubbing. No ascites. Pulses: Dorsalis pedis and posterior tibial pulses +1 to +2 both sides. ABDOMEN: Soft. Non-tender. Bowel sounds active. No CVA tenderness. No mass felt. EXTREMITIES: Trace edema bilateral lower extremities. Full range of motion of all extremities, equal. NEUROLOGIC: No focal deficit. Cranial nerves II through XII are grossly intact. No headache, no double vision or headache. SKIN: Not dry. Intact. Turgor-normal. LYMPHATIC: No palpable lymph nodes/no lymphedema. MUSCULOSKELETAL: Normal joints with no swelling. Muscle tone is normal. LAB REVIEW: 01/29/20 05:00 01/29/20 05:00 01/29/20 05:00: Sodium 139.8, Potassium 3.64, Chloride 109.5 H, Carbon Dioxide 30.7 H, Anion Gap 3.24, BUN 25.3 H, Creatinine 1.16 H, Estimated GFR (MDRD) 61.00, BUN/Creatinine Ratio 21.81, Glucose 81.5, Calcium 8.11 L, Total Bilirubin 0.50, AST 31.7, ALT 19.4, Alkaline Phosphatase 89.7, Total Protein 5.32 L, Albumin 2.58 L, Globulin 2.74, Albumin/Globulin Ratio 0.94 01/29/20 05:00: PT 12.1 H, INR 1.25, APTT 34.8 01/29/20 05:00: WBC 8.46, RBC 3.71 L, Hgb 11.9 L, Hct 36.1 L, MCV 97.3 H, MCH 32.1 H, MCHC 33.0, RDW Coeff of Yamilet 14.4, Plt Count 172, Immature Gran % (Auto) 0.2, Neut % (Auto) 36.7 L, Lymph % (Auto) 48.7, [place] % (Auto) 7.8, Eos % (Auto) 6.1, Baso % (Auto) 0.5, Neut # (Auto) 3.1, Lymph # (Auto) 4.1 H, [place] # (Auto) 0.7, Eos # (Auto) 0.5, Baso # (Auto) 0.0, Immature Gran # (Auto) 0.0 08/27/20 16:30: NT-Pro-B Natriuret Pep 3920.000 H 01/28/20 16:30: Sodium 143.8, Potassium 3.95, Chloride 112.7 H, Carbon Dioxide 29.9, Anion Gap 5.15, BUN 25.0 H, Creatinine 1.12 H, Estimated GFR (MDRD) 64.00, BUN/Creatinine Ratio 22.32, Glucose 79.7, Calcium 8.40, Total Bilirubin 0.43, AST 30.3, ALT 18.8, Alkaline Phosphatase 81.0, Troponin I < 0.012, Total Protein 5.55 L, Albumin 2.72 L, Globulin 2.83, Albumin/Globulin Ratio 0.96 01/28/20 16:30: WBC 8.32, RBC 3.84 L, Hgb 12.3 L, Hct 38.3 L, MCV 99.7 H, MCH 32.0 H, MCHC 32.1, RDW Coeff of Yamilet 14.6, Plt Count 177, Immature Gran % (Auto) 0.2, Neut % (Auto) 36.8 L, Lymph % (Auto) 48.0, [place] % (Auto) 8.2, Eos % (Auto) 6.4, Baso % (Auto) 0.4, Neut # (Auto) 3.1, Lymph # (Auto) 4.0 H, [place] # (Auto) 0.7, Eos # (Auto) 0.5, Baso # (Auto) 0.0, Immature Gran # (Auto) 0.0 ASSESSMENT: Please see below. 1. DVT, right lower extremity 2. History of DVT on Xarelto 3. Atrial fibrillation 4. Chronic kidney disease 5. Dementia PLAN: 1. Will discuss anticoagulation with Dr. Stein 2. Decrease Lasix 20mg IV daily 3. Fall precaution s 4. Elevate legs. Plan and coordination of the patient's care discussed in the presence of Cooling Tower Technician and nurse. SCRIBED BY: Melania HENDRIX scribed while in presence of service performed by Dr. Stein/Mecca Harris APRN on 01/29/20 ([id number])
[2020-01-29] MEDS: ARICEPT PO SCH (08:34)
[2020-01-29] MEDS: NAMENDA PO SCH ×2 (08:34→20:00)
[2020-01-29] MEDS: CELEXA PO SCH (08:34)
[2020-01-29] MEDS: COZAAR PO SCH ×2 (08:34→20:01)
[2020-01-29] MEDS: BETAPACE PO SCH ×2 (08:34→20:00)
[2020-01-29] MEDS: MICRO-K CAP PO SCH ×2 (08:34→19:59)
[2020-01-29] MEDS: LOVENOX SUBCUT SCH ×2 (08:39→20:01)
[2020-01-29] MEDS: LASIX IVP SCH (08:54)
[2020-01-29] MEDS ORDERED: XARELTO PO SCH (09:00)
--- NOTE | 2020-01-29 11:53 | PN ---
DATE OF SERVICE: 01/28/20 SUBJECTIVE: This 75-year-old male came to the emergency room after the [facility] called our office and was instructed to go because of leg edema. PHYSICAL EXAMINATION: HEENT: Head normocephalic, atraumatic. Eyes: Extraocular muscles are intact. Pupils are equal, round and reactive to light and accommodation. Ears: No lesions. Nose appeared normal. Throat: No exudate or erythema. NECK: Supple. No JVD, no carotid bruit. No lymphadenopathy or thyromegaly. LUNGS: Clear to auscultation. Percussion note normal. Chest symmetrical. HEART: S1, S2, no S3. No murmurs. No cyanosis or clubbing. No ascites. Pulses: Dorsalis pedis and posterior tibial pulses +1 to +2 bilaterally. ABDOMEN: Soft. Nontender. Bowel sounds active. No CVA tenderness. No mass felt. EXTREMITIES: Dependent leg edema. Full range of motion of all extremities, equal. NEUROLOGIC: No focal deficit. Cranial nerves II through XII are grossly intact. No headache, no double vision or headache. SKIN: Not dry. Intact. Turgor - normal. LYMPHATIC: No palpable lymph nodes/no lymphedema. MUSCULOSKELETAL: Normal joints with no swelling. Muscle tone is normal. ASSESSMENT: 1. The patient's leg edema seems to be dependent edema but Pro-BNP is elevated which could be for many reasons. 2. He has no obvious symptoms of congestive heart failure. He had an echocardiogram done. Normal LV contractility. It was done nearly one month ago. 3. The patient is demented, alert. Dementia is fairly advanced. He has a hard time understanding even simple matter. The had taken care of him for a number of years. He is followed by neurologist. PLAN: 1. The patient is going to be treated with Lasix, leg elevation. The patient is otherwise stable. Prognosis is guarded. TIME SPENT: More than 30 minutes. Plan and coordination of the patient's care discussed in the presence of nurse. VLADISLAV
--- NOTE | 2020-01-29 13:41 | PN ---
DATE OF SERVICE: 01/29/20 SUBJECTIVE: The patient was seen and examined this morning. The patient is laying flat in the bed but confused, not answering the questions. He is moving all his extremities. REVIEW OF SYSTEMS: CONSTITUTIONAL: No night sweats. No fatigue, malaise, lethargy. No fever or chills. HEENT: Eyes: No visual changes. No eye pain. No eye discharge. ENT: No runny nose. No epistaxis. No sinus pain. No sore throat. No odynophagia. No congestion. RESPIRATORY: No cough, no congestion. No hemoptysis. No shortness of breath. CARDIOVASCULAR: No angina symptoms. No CHF symptoms. No atypical chest pain for CAD. No palpitations. No PND. No orthopnea. GASTROINTESTINAL: No abdominal pain. No nausea or vomiting. No diarrhea or constipation. No hematemesis. No hematochezia. GENITOURINARY: No urgency. No frequency. No dysuria. No hematuria. No obstructive symptoms. No discharge. No pain. No significant abnormal bleeding. MUSCULOSKELETAL: No musculoskeletal pain; no joint swelling. NEUROLOGICAL: Confusion. No headache. No neck pain. No syncope. No seizures. No dizziness. PSYCHIATRIC: Not anxious. No depression. No suicidal thoughts. No homicidal thoughts. SKIN: No rash. No lesions. No wounds. ENDOCRINE: No unexplained weight loss. No weight gain. HEMATOLOGIC/LYMPHATIC: No anemia. No purpura. No petechiae. No prolonged or excessive bleeding. No palpable lymph nodes. PHYSICAL EXAMINATION: GENERAL: The patient is lying flat in bed in no distress. HEENT: Head normocephalic, atraumatic. Eyes: Extraocular muscles are intact. Pupils are equal, round and reactive to light and accommodation. Ears: No lesions. Nose appeared normal. Throat: No exudate or erythema. NECK: Supple. No JVD, no carotid bruit. No lymphadenopathy or thyromegaly. LUNGS: Clear to auscultation. Percussion note normal. Chest symmetrical. HEART: S1, S2, no S3. No murmurs. No cyanosis or clubbing. No ascites. Pulses: Dorsalis pedis and posterior tibial pulses +1 to +2 bilaterally. ABDOMEN: Soft. Nontender. Bowel sounds active. No CVA tenderness. No mass felt. EXTREMITIES: Trace pedal edema. Full range of motion of all extremities, equal. NEUROLOGIC: No focal deficit. Cranial nerves II through XII are grossly intact. No headache, no double vision or headache. SKIN: Not dry. Intact. Turgor - normal. LYMPHATIC: No palpable lymph nodes/no lymphedema. MUSCULOSKELETAL: Normal joints with no swelling. Muscle tone is normal. ASSESSMENT: 1. Leg edema with high BNP, very unlikely though CHF considering the patient's normal LV contractility on the echo done two weeks ago. PLAN: 1. Elevate the legs which he should be doing at the half-way. 2. Cut down on salt intake. CONDITION: Otherwise stable with no obvious evidence of CHF. He may have a DVT in one of the extremities, that is left. Will start Lovenox. He is on Xarelto. Will stop Xarelto for now. TIME SPENT: More than 30 minutes. Plan and coordination of the patient's care discussed in the presence of nurse. VLADISLAV
[2020-01-29] MEDS: PRAVACHOL PO SCH (19:59)
[2020-01-29] MEDS: DESYREL PO SCH (20:01)
[2020-01-29] MEDS: XANAX PO PRN (22:39)
[2020-01-30] MEDS: TYLENOL PO SCH ×4 (01:50→19:30)
[2020-01-30 04:46] LABS: BASOPHILS % (AUTO) 0.4 % (0.0-3.0); EOSINOPHILS # (AUTO) 0.5 K/ul (0.0-0.7); HEMATOCRIT 36.6 % (42.0-52.0); HEMOGLOBIN 12.1 g/dl (14.0-18.0); IMMATURE GRANULOCYTE % (AUTO) 0.3 % (0.0-5.0); LYMPHOCYTES # (AUTO) 4.1 K/uL (0.60-3.4); LYMPHOCYTES % (AUTO) 53.4 (10.0-50.0); MEAN CORPUSCULAR HEMOGLOBIN 32.2 pg (27.0-31.0); MEAN CORPUSCULAR HGB CONC 33.1 (31.8-35.4); MEAN CORPUSCULAR VOLUME 97.3 fl (80.0-94.0); MONOCYTES # (AUTO) 0.5 K/uL (0.4-2.0); MONOCYTES % (AUTO) 6.9 (0-10); NEUTROPHILS # (AUTO) 2.5 K/ul (2.0-6.9); PLATELET COUNT 167 10^3/uL (140-440); RDW COEFFICIENT OF VARIATION 14.6 % (11.6-14.8); RED BLOOD COUNT 3.76 10^6/ul (4.70-6.10); WHITE BLOOD COUNT 7.64 K/ul (4.2-10.2)
[2020-01-30 04:59] LABS: ALANINE AMINOTRANSFERASE 30.4 U/L (0-50); ALBUMIN 2.92 g/dL (3.5-5.0); ASPARTATE AMINO TRANSFERASE 42.4 U/L (17-59); BILIRUBIN,TOTAL 0.51 mg/dL (0.2-1.3); BLOOD UREA NITROGEN 34.4 mg/dL (9-20); CALCIUM 8.56 mg/dL (8.4-10.2); CARBON DIOXIDE 27.1 mmol/L (22-30.0); CHLORIDE 110.9 mmol/L (98-107); CREATININE 1.27 mg/dL (0.60-1.10); GLUCOSE 82.6 mg/dL (74-106); POTASSIUM 3.81 mmol/L (3.5-5.1); SODIUM 140.8 mmol/L (134.5-145); TOTAL PROTEIN 5.83 g/dL (6.3-8.2)
[2020-01-30 05:14] LABS: PARTIAL THROMBOPLASTIN TIME 33.2 SEC (23.9-40.0); PROTHROMBIN TIME 10.6 SEC (9.3-11.0)
[2020-01-30] MEDS: LASIX IVP SCH (05:31)
[2020-01-30] MEDS: XANAX PO PRN ×2 (08:08→20:43)
[2020-01-30] MEDS: CELEXA PO SCH (08:10)
[2020-01-30] MEDS: ARICEPT PO SCH (08:10)
[2020-01-30] MEDS: BETAPACE PO SCH ×2 (08:10→20:43)
[2020-01-30] MEDS: MICRO-K CAP PO SCH ×2 (08:10→20:42)
[2020-01-30] MEDS: COZAAR PO SCH ×2 (08:10→20:42)
[2020-01-30] MEDS: NAMENDA PO SCH ×2 (08:11→20:42)
[2020-01-30] MEDS: LOVENOX SUBCUT SCH ×2 (08:12→20:40)
[2020-01-30] MEDS: DESYREL PO SCH (20:42)
[2020-01-30] MEDS: PRAVACHOL PO SCH (20:43)
[2020-01-31] MEDS: TYLENOL PO SCH ×4 (02:01→19:31)
[2020-01-31] MEDS: LASIX TAB PO SCH (05:48)
[2020-01-31 06:10] LABS: BASOPHILS % (AUTO) 0.4 % (0.0-3.0); EOSINOPHILS # (AUTO) 0.4 K/ul (0.0-0.7); HEMATOCRIT 35.5 % (42.0-52.0); HEMOGLOBIN 11.7 g/dl (14.0-18.0); IMMATURE GRANULOCYTE % (AUTO) 0.1 % (0.0-5.0); LYMPHOCYTES # (AUTO) 3.7 K/uL (0.60-3.4); LYMPHOCYTES % (AUTO) 53.3 (10.0-50.0); MEAN CORPUSCULAR HEMOGLOBIN 32.4 pg (27.0-31.0); MEAN CORPUSCULAR VOLUME 98.3 fl (80.0-94.0); MONOCYTES # (AUTO) 0.5 K/uL (0.4-2.0); MONOCYTES % (AUTO) 7.1 (0-10); NEUTROPHILS # (AUTO) 2.4 K/ul (2.0-6.9); NEUTROPHILS % (AUTO) 34.1 % (42.2-75.2); PLATELET COUNT 157 10^3/uL (140-440); RDW COEFFICIENT OF VARIATION 14.8 % (11.6-14.8); RED BLOOD COUNT 3.61 10^6/ul (4.70-6.10)
[2020-01-31 06:23] LABS: ALANINE AMINOTRANSFERASE 32.6 U/L (0-50); ALBUMIN 2.78 g/dL (3.5-5.0); ASPARTATE AMINO TRANSFERASE 39.9 U/L (17-59); BILIRUBIN,TOTAL 0.42 mg/dL (0.2-1.3); BLOOD UREA NITROGEN 29.7 mg/dL (9-20); CALCIUM 8.18 mg/dL (8.4-10.2); CARBON DIOXIDE 26.2 mmol/L (22-30.0); CHLORIDE 112.8 mmol/L (98-107); CREATININE 1.14 mg/dL (0.60-1.10); GLUCOSE 82.3 mg/dL (74-106); POTASSIUM 3.94 mmol/L (3.5-5.1); SODIUM 140.9 mmol/L (134.5-145); TOTAL PROTEIN 5.72 g/dL (6.3-8.2)
[2020-01-31] MEDS: NAMENDA PO SCH ×2 (08:20→20:36)
[2020-01-31] MEDS: CELEXA PO SCH (08:20)
[2020-01-31] MEDS: ARICEPT PO SCH (08:20)
[2020-01-31] MEDS: MICRO-K CAP PO SCH ×2 (08:20→20:37)
[2020-01-31] MEDS: BETAPACE PO SCH ×2 (08:21→20:37)
[2020-01-31] MEDS: COZAAR PO SCH ×2 (08:21→20:36)
[2020-01-31] MEDS: LOVENOX SUBCUT SCH ×2 (08:22→20:33)
[2020-01-31] MEDS: XANAX PO PRN (16:48)
[2020-01-31] MEDS: DESYREL PO SCH (20:37)
[2020-01-31] MEDS: PRAVACHOL PO SCH (20:37)
[2020-02-01] MEDS: TYLENOL PO SCH ×4 (02:02→19:35)
[2020-02-01 04:52] LABS: BASOPHILS % (AUTO) 0.4 % (0.0-3.0); EOSINOPHILS # (AUTO) 0.4 K/ul (0.0-0.7); EOSINOPHILS % (AUTO) 5.8 % (0.0-7.0); HEMATOCRIT 34.9 % (42.0-52.0); HEMOGLOBIN 11.4 g/dl (14.0-18.0); IMMATURE GRANULOCYTE % (AUTO) 0.3 % (0.0-5.0); LYMPHOCYTES # (AUTO) 3.5 K/uL (0.60-3.4); LYMPHOCYTES % (AUTO) 51.7 (10.0-50.0); MEAN CORPUSCULAR HEMOGLOBIN 32.1 pg (27.0-31.0); MEAN CORPUSCULAR HGB CONC 32.7 (31.8-35.4); MEAN CORPUSCULAR VOLUME 98.3 fl (80.0-94.0); MONOCYTES # (AUTO) 0.5 K/uL (0.4-2.0); MONOCYTES % (AUTO) 7.3 (0-10); NEUTROPHILS # (AUTO) 2.3 K/ul (2.0-6.9); NEUTROPHILS % (AUTO) 34.5 % (42.2-75.2); PLATELET COUNT 153 10^3/uL (140-440); RDW COEFFICIENT OF VARIATION 14.5 % (11.6-14.8); RED BLOOD COUNT 3.55 10^6/ul (4.70-6.10); WHITE BLOOD COUNT 6.75 K/ul (4.2-10.2)
[2020-02-01 05:05] LABS: ALANINE AMINOTRANSFERASE 49.4 U/L (0-50); ALBUMIN 2.66 g/dL (3.5-5.0); ALKALINE PHOSPHATASE 85.7 U/L (56-119); BILIRUBIN,TOTAL 0.36 mg/dL (0.2-1.3); BLOOD UREA NITROGEN 26.3 mg/dL (9-20); CALCIUM 7.98 mg/dL (8.4-10.2); CHLORIDE 111.1 mmol/L (98-107); CREATININE 0.96 mg/dL (0.60-1.10); GLUCOSE 80.2 mg/dL (74-106); POTASSIUM 3.73 mmol/L (3.5-5.1); SODIUM 138.6 mmol/L (134.5-145); TOTAL PROTEIN 5.52 g/dL (6.3-8.2)
[2020-02-01 05:07] LABS: PROTHROMBIN TIME 10.4 SEC (9.3-11.0)
[2020-02-01] MEDS: LASIX TAB PO SCH (06:03)
[2020-02-01] MEDS: MICRO-K CAP PO SCH ×2 (08:39→20:27)
[2020-02-01] MEDS: ARICEPT PO SCH (08:39)
[2020-02-01] MEDS: COZAAR PO SCH ×2 (08:39→20:28)
[2020-02-01] MEDS: LOVENOX SUBCUT SCH ×2 (08:40→20:29)
[2020-02-01] MEDS: NAMENDA PO SCH ×2 (08:40→20:28)
[2020-02-01] MEDS: BETAPACE PO SCH ×2 (08:40→20:28)
[2020-02-01] MEDS: CELEXA PO SCH (08:40)
--- NOTE | 2020-02-01 08:54 | HP ---
DATE OF SERVICE: 01/28/20 REASON FOR HOSPITALIZATION/HISTORY OF PRESENT ILLNESS: The patient is a current resident of [facility]. It was found at the care home on assessment that there was bilateral leg swelling with lower extremity discoloration. He was brought to the ER for further evaluation and management. 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 No night sweats. No fatigue, malaise, lethargy. No fever or chills. HEENT: Eyes: No visual changes. No eye pain. No eye discharge. ENT: No runny nose. No epistaxis. No sinus pain. No sore throat. No odynophagia. No ear pain. No congestion. RESPIRATORY: No cough, no congestion. No hemoptysis. No shortness of breath. CARDIOVASCULAR: No angina symptoms. No CHF symptoms. No atypical chest pain for CAD. No palpitations. No PND. No orthopnea. GASTROINTESTINAL: No abdominal pain. No nausea or vomiting. No diarrhea or constipation. No hematemesis. No hematochezia. GENITOURINARY: No urgency. No frequency. No dysuria. No hematuria. No obstructive symptoms. No discharge. No pain. No significant abnormal bleeding. MUSCULOSKELETAL: No musculoskeletal pain. No joint swelling. No arthritis. NEUROLOGICAL: No headache. No neck pain. No syncope. No seizures. No dizziness. PSYCHIATRIC: Not anxious. No depression. No suicidal thoughts. No homicidal thoughts. SKIN: No rash. No lesions. No wounds. ENDOCRINE: No unexplained weight loss. No weight gain. HEMATOLOGIC/LYMPHATIC: No anemia. No purpura. No petechiae. No prolonged or excessive bleeding. No palpable lymph nodes. PERSONAL/FAMILY/SOCIAL HISTORY: He is . He is a resident [facility]. He does not smoke. He does not use any alcohol or illegal drugs. MEDICATIONS: (HOME) Citalopram (Celexa) 40 mg p.o. daily Pravastatin 80 mg p.o. bedtime Donepezil 20 mg p.o. daily Trazodone 100 mg p.o. bedtime Alprazolam (Xanax) 0.5 mg p.o. q.8h p.r.n. Memantine (Namenda) 10 mg p.o. b.i.d. Potassium Chloride (K-Tab) 40 mEq p.o. b.i.d. Sotalol 40 mg p.o. b.i.d. Rivaroxaban (Xarelto) 20 mg p.o. daily Losartan (Cozaar) 50 mg p.o. b.i.d. Clonidine 0.1 mg p.o. b.i.d. p.r.n. Acetaminophen 650 mg p.o. q4h p.r.n. ALLERGIES: CODEINE, MEPERIDINE, NALBUPHINE PHYSICAL EXAMINATION: GENERAL: The patient is oriented to person only as usual. VITAL SIGNS: Temperature 97.4, pulse 68, respirations 20, BP 115/87, pulse ox 100%. HEENT: Head normocephalic, atraumatic. Eyes: Extraocular muscles are intact. Pupils are equal, round and reactive to light and accommodation. Ears: No lesions. Nose appeared normal. Throat: No exudate or erythema. NECK: Supple. No JVD, no carotid bruit. No lymphadenopathy or thyromegaly. LUNGS: Diminished breath sounds. Clear to auscultation. Percussion note normal. Chest symmetrical. HEART: S1, S2, no S3. No murmur. No cyanosis or clubbing. No ascites. Pulses: Dorsalis pedis and posterior tibial pulses +1 to +2 bilaterally. ABDOMEN: Soft. Nontender. Bowel sounds active. No CVA tenderness. No mass felt. EXTREMITIES: Trace bilateral lower extremity edema. Full range of motion of all extremities, equal. NEUROLOGIC: No focal deficit. Cranial nerves II through XII are grossly intact. No headache, no double vision or headache. SKIN: Not dry. Intact. Turgor - normal. LYMPHATIC: No palpable lymph nodes/no lymphedema. MUSCULOSKELETAL: Normal joints with no swelling. Muscle tone is normal. LABS: White blood count 8.32, hemoglobin 12.3, hematocrit 38.3, platelets 177. Sodium 143.8, potassium 3.95, BUN 25, creatinine 1.12, AST 30.3, ALT 18.8. Chest x-ray no acute cardiopulmonary process. Frontal chest - no evidence of active congestive heart failure, fluid overload. No vascular congestion. Lungs are clear. Bilateral lower extremity venous doppler, right lower extremity DVT involving the popliteal and peroneal veins. No evidence of left lower extremity DVT at the levels examined. 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 ASSESSMENT: 1. RIGHT LOWER EXTREMITY DVT INVOLVING THE POPLITEAL AND PERONEAL VEINS. 2. HISTORY OF RIGHT ARM DVT. 3. ATRIAL FIBRILLATION ON XARELTO. 4. DEMENTIA WITH BEHAVIORAL DISTURBANCES. 5. CHRONIC KIDNEY DISEASE, STAGE 2 TO 3. PLAN: 1. The patient will be admitted with routine telemetry. 2. CBC, CMP daily. 3. Continue home medications. 4. Low sodium diet. 5. 02 at 1 to 2L/NC p.r.n. 6. Fall precautions. 7. The patient is DNR. The patient was seen and examined with Dr. Ledesma. Plan was discussed. TIME SPENT: More than 70 minutes. MTDD
--- NOTE | 2020-02-01 08:56 | PCM.PROG ---
Attending Provider: ATTENDING PROVIDER: Dr. THOR STEIN This patient is seen with Mecca Harris, Nurse Practitioner. DATE OF SERVICE: 02/01/20 SUBJECTIVE: This 75 year old /WHITE M was hospitalized 01/28/20. The patient is resting comfortably in bed. He still tries to get out of bed. Refuses telemetry Appetite has been good. He has been up to chair with assistance. Scheduled for repeat venous scan today. We will continue Lovenox. REVIEW OF SYSTEMS: CONSTITUTIONAL: No night sweats. No fatigue, malaise, lethargy. No fever or chills. Weakness. HEENT: Eyes: No visual changes. No eye pain. No eye discharge. ENT: No runny nose. No epistaxis. No sinus pain. No odynophagia. No congestion. RESPIRATORY: No cough, no congestion. No hemoptysis. No shortness of breath. CARDIOVASCULAR: No angina symptoms. No CHF symptoms. No atypical chest pain for CAD. No palpitations. No orthopnea.. GASTROINTESTINAL: No abdominal pain. No nausea or vomiting. No diarrhea or constipation. No hematemesis. No hematochezia. GENITOURINARY: No urgency. No frequency. No dysuria. No hematuria. No obstructive symptoms. No discharge. No pain. No significant abnormal bleeding. MUSCULOSKELETAL: No musculoskeletal pain; no joint swelling. NEUROLOGICAL: Awake, alert, oriented to person. No headache. No neck pain. No syncope. No seizures. No dizziness. PSYCHIATRIC: Not anxious. No depression. No suicidal thoughts. No homicidal thoughts. SKIN: No rash. No lesions. No wounds. ENDOCRINE: No unexplained weight loss. No weight gain. HEMATOLOGIC/LYMPHATIC: No anemia. No purpura. No petechiae. No prolonged or excessive bleeding. No palpable lymph nodes. PHYSICAL EXAMINATION: GENERAL: The patient is awake, alert and oriented to person only as usual, lying in bed in no distress. VITAL SIGNS: Temperature 97.1 F, Pulse 48, Respiratory Rate 16, BP 160/98, Pulse Ox 98% HEENT: Head normocephalic, atraumatic. Eyes: Extraocular muscles are intact. Pupils are equal, round and reactive to light and accommodation. Ears: No lesions. Nose appeared normal. Throat: No exudate or erythema. NECK: Supple. No JVD, no carotid bruit. No lymphadenopathy or thyromegaly. LUNGS: Diminished breath sounds. Clear to auscultation. Percussion note normal. Chest symmetrical. HEART: S1, S2, no S3. No murmurs. No cyanosis or clubbing. No ascites. Pulses: Dorsalis pedis and posterior tibial pulses +1 to +2 both sides. ABDOMEN: Soft. Non-tender. Bowel sounds active. No CVA tenderness. No mass felt. EXTREMITIES: Trace bilateral lower extremity edema. Full range of motion of all extremities, equal. NEUROLOGIC: No focal deficit. Cranial nerves II through XII are grossly intact. No headache, no double vision or headache. SKIN: Not dry. Intact. Turgor-normal. LYMPHATIC: No palpable lymph nodes/no lymphedema. MUSCULOSKELETAL: Normal joints with no swelling. Muscle tone is normal. LAB REVIEW: 02/01/20 04:35 02/01/20 04:35 02/01/20 04:35: Sodium 138.6, Potassium 3.73, Chloride 111.1 H, Carbon Dioxide 26.0, Anion Gap 5.23, BUN 26.3 H, Creatinine 0.96, Estimated GFR (MDRD) 76.00, BUN/Creatinine Ratio 27.39, Glucose 80.2, Calcium 7.98 L, Total Bilirubin 0.36, AST 65.0 H D, ALT 49.4, Alkaline Phosphatase 85.7, Total Protein 5.52 L, Albumin 2.66 L, Globulin 2.86, Albumin/Globulin Ratio 0.93 02/01/20 04:35: PT 10.4, INR 1.06 02/01/20 04:35: WBC 6.75, RBC 3.55 L, Hgb 11.4 L, Hct 34.9 L, MCV 98.3 H, MCH 32.1 H, MCHC 32.7, RDW Coeff of Yamilet 14.5, Plt Count 153, Immature Gran % (Auto) 0.3, Neut % (Auto) 34.5 L, Lymph % (Auto) 51.7 H, [place] % (Auto) 7.3, Eos % (Aut o) 5.8, Baso % (Auto) 0.4, Neut # (Auto) 2.3, Lymph # (Auto) 3.5 H, [place] # (Auto) 0.5, Eos # (Auto) 0.4, Baso # (Auto) 0.0, Immature Gran # (Auto) 0.0 ASSESSMENT: Please see below. 1. DVT, right lower extremity 2. History of DVT on Xarelto 3. Atrial fibrillation 4. Chronic kidney disease 5. Dementia PLAN: 1. Continue Lovenox 2. Fall precautions 3. Discontinue Telemetry 4. Repeat venous scan. Plan and coordination of the patient's care discussed in the presence of Ore Charger and nurse. SCRIBED BY: Melania HENDRIX scribed while in presence of service performed by Dr. Stein/Mecca Harris APRN on 02/01/20 ([id number])
--- NOTE | 2020-02-01 13:57 | US ---
Exam: Enciso-scale and color duplex Doppler ultrasonographic evaluation of the right lower extremity v enous structures of spectral waveform analysis. Comparison: 01/28/2020. Reason for exam: Right lower extremity DVT. FINDINGS: There is spontaneous flow with compression and augmentation in the right common femoral, g reater saphenous, profunda, superficial femoral, popliteal, peroneal, posterior tibial, and anterior tibial vein. Cystic structure posterior to the right knee is seen consistent with Gonzalez's cyst. Impression: 1. No ultrasonographic evidence of thrombus in the right lower extremity venous structures. These f indings are significantly improved when compared to imaging performed on 01/28/2020. 2. 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
--- NOTE | 2020-02-01 15:43 | RS.PTINEVL ---
Subjective - Patient information Date of Evaluation: 02/01/20 Date of Arrival on Unit: 01/28/20 Admitted From:: [facility] ([facility]) Diagnosis: DVT R LE, muscle weakness, gait difficulty Usual Living Arrangement: [facility] Home Environment: Level/No stairs Medical History: Hypertension, Dementia, Arthritis Medical History Comments:: chronic kidney disease, depression, AFib, DJD, DVT RUE, bradycardia LATEX ALLERGY?: No Surgical History: Cervical Spine Medications: see chart Subjective Information/ Patient Comments:: pt answers questions with 1 word answers, follows commands approx 50% of the time. - Level of function Prior to this admission, the patient could do the following:: Partially Dependent Ambulation Current Level of Function: Partially Dependent Current Equipment Used at Home: elopment braclet Interventions - Objective Patient Orientation: Person Observation: pt seen lying supine in bed. Range of Motion - ROM Right Upper Extremity AROM: WFL's Left Upper Extremity AROM: WFL's Right Lower Extremity AROM: WFL's Left Lower Extremity AROM: WFL's Muscle Strength - Muscle Strength Right Upper Extremity Strength: Mild Weakness (grossly 4-/5) Left Upper Extremity Strength: Mild Weakness (grossly 4-/5) Right Lower Extremity Strength: Mild Weakness (grossly 4/5 difficult to MMT due to mental status, not following commands consistently) Left Lower Extremity Strength: Mild Weakness (grossly 4/5 difficult to MMT due to mental status, not following commands consistently) Sensation - Sensation Right Upper Extremity Sensation: Intact/Normal Left Upper Extremity Sensation: Intact/Normal Right Lower Extremity Sensation: Intact/Normal Left Lower Extremity Sensation: Intact/Normal Comments: difficult to fully test due to cognitive deficits Palpation Palpation Findings: None/Normal Balance - Sitting Balance and Reactions Static Sitting Balance: Good Dynamic Sitting Balance: Fair Sitting Equilibrium Reactions: Delayed Left, Delayed Right Sitting Protective Reactions: Delayed Left, Delayed Right - Standing Balance and Reactions Static Standing Balance: Poor Dynamic Standing Balance: Poor Standing Equilibrium Reactions: Delayed Left, Delayed Right Standing Protective Reactions: Delayed Left, Delayed Right - Comments Balance Assessment Comments: pt with increased lat sway, decreased step length Functional Mobility - Bed Mobility Rolling R/L: Mod Assist, 1 person assist Scooting: Max Assist, 2 person assist Supine to Sit: Mod Assist, 1 person assist Sit to Supine: Mod Assist, 1 person assist, 2 person assist - Transfers Sit to Stand: Min Assist, 1 person assist, 2 person assist Stand to Sit: Min Assist, 1 person assist - Safety Awareness Safety Awareness: Poor DON INDEX SCORE: n/a Ambulation - Ambulation Assistive Device Used: Gait belt Orthotic/Prosthetic Device: No Distance: 100ft Assistance needed with Ambulation: CGA, 1 person assist, 2 person assist Gait Deviations: Forward posture, Short stride, Deviates from path Ambulation Comments: pt amb with CONFIGURATION MANAGEMENT CONSULTANT of 2 for CGA, pt refuses to use rwx. Factors Affecting Ambulation: Decreased Balance, Weakness, Decreased Safety, Cognitive Status, Limited Endurance Treatment time - Time with patient Length of Evaluation: 21 Total treatment time: 26 Patient Education - Education Patient Education: Education of Plan of Care Teaching Recipient: Patient Teaching Methods: Discussion Comments: attempted to discuss POC with patient, however unsure of how much pt comprehends due to cognitive deficits. Assessment - Assessment Problem List:: Decreased level of function, Requires training/education, Decreased safety/Risk of falls, Weakness, Cognitive status limits abilities Rehab Potential: Fair Further Therapy Indicated?: No Candidate for Swing Bed for Therapy Services?: Do not feel pt would be appropriate for swing bed for therapy due to cognitive deficits as well as pt often not cooperative with care. Comments: Feel pt would benefit from nursing staff amb with patient when pt agreeable with gait belt and CONFIGURATION MANAGEMENT CONSULTANT. Feel pt may benefit from PT at SNF to maintain functional ability. Evaluation Complexity: HISTORY: Medium, EXAM OF BODY SYSTEMS: Medium, CLINICAL PRESENTATION: Low, CLINICAL DECISION MAKING: Low Patient's Goal(s): pt unable to express goal. Short Term Goals GOAL #1: . GOAL #2: . GOAL #3: . GOAL #4: . Prison Goals GOAL #1: . GOAL #2: . GOAL #3: . Plan Other:: gait training Frequency of Treatment: One time treatment Duration of Treatment: One Time Treatment Anticipated Discharge Destination: [facility] Treatment Diagnosis (ICD 10 Codes): gait difficulty R26.2. muscle weakness M62.81 Has the Physician been added for Co-signature?: Yes
[2020-02-01] MEDS: DESYREL PO SCH (20:26)
[2020-02-01] MEDS: PRAVACHOL PO SCH (20:27)
[2020-02-01] MEDS: XANAX PO PRN (20:40)
[2020-02-02] MEDS: TYLENOL PO SCH ×2 (03:52→09:10)
[2020-02-02 05:06] LABS: BASOPHILS % (AUTO) 0.3 % (0.0-3.0); EOSINOPHILS # (AUTO) 0.4 K/ul (0.0-0.7); EOSINOPHILS % (AUTO) 6.6 % (0.0-7.0); HEMATOCRIT 35.2 % (42.0-52.0); HEMOGLOBIN 11.4 g/dl (14.0-18.0); IMMATURE GRANULOCYTE % (AUTO) 0.2 % (0.0-5.0); LYMPHOCYTES # (AUTO) 3.3 K/uL (0.60-3.4); LYMPHOCYTES % (AUTO) 49.9 (10.0-50.0); MEAN CORPUSCULAR HEMOGLOBIN 31.8 pg (27.0-31.0); MEAN CORPUSCULAR HGB CONC 32.4 (31.8-35.4); MEAN CORPUSCULAR VOLUME 98.1 fl (80.0-94.0); MONOCYTES # (AUTO) 0.5 K/uL (0.4-2.0); NEUTROPHILS # (AUTO) 2.3 K/ul (2.0-6.9); PLATELET COUNT 152 10^3/uL (140-440); RDW COEFFICIENT OF VARIATION 14.6 % (11.6-14.8); RED BLOOD COUNT 3.59 10^6/ul (4.70-6.10); WHITE BLOOD COUNT 6.53 K/ul (4.2-10.2)
[2020-02-02 05:19] LABS: ALANINE AMINOTRANSFERASE 79.3 U/L (0-50); ALBUMIN 2.63 g/dL (3.5-5.0); ALKALINE PHOSPHATASE 83.5 U/L (56-119); ASPARTATE AMINO TRANSFERASE 86.7 U/L (17-59); BILIRUBIN,TOTAL 0.28 mg/dL (0.2-1.3); BLOOD UREA NITROGEN 18.6 mg/dL (9-20); CALCIUM 8.01 mg/dL (8.4-10.2); CARBON DIOXIDE 26.5 mmol/L (22-30.0); CHLORIDE 112.3 mmol/L (98-107); CREATININE 0.92 mg/dL (0.60-1.10); GLUCOSE 83.2 mg/dL (74-106); POTASSIUM 3.68 mmol/L (3.5-5.1); SODIUM 139.3 mmol/L (134.5-145); TOTAL PROTEIN 5.46 g/dL (6.3-8.2)
[2020-02-02] MEDS: LASIX TAB PO SCH (06:44)
[2020-02-02] MEDS ORDERED: XARELTO PO SCH (09:00)
[2020-02-02] MEDS: MICRO-K CAP PO SCH (09:06)
[2020-02-02] MEDS: COZAAR PO SCH (09:07)
[2020-02-02] MEDS: BETAPACE PO SCH (09:09)
[2020-02-02] MEDS: CELEXA PO SCH (09:10)
[2020-02-02] MEDS: NAMENDA PO SCH (09:10)
[2020-02-02] MEDS: ARICEPT PO SCH (09:10)
--- NOTE | 2020-02-02 09:12 | PCM.PROG ---
Attending Provider: ATTENDING PROVIDER: Dr. THOR STEIN This patient is seen with Mecca Harris, Nurse Practitioner. DATE OF SERVICE: 02/02/20 SUBJECTIVE: This 75 year old /WHITE M was hospitalized 01/28/20. The patient is resting in the bed comfortably. Repeat venous ultrasound done yesterday was reviewed. We will discontinue Lovenox today. We will Start Xarelto 15mg BID for 21 days. We will then check CBC and CMP on . The patient is stable for discharge. We will send back to [facility]. REVIEW OF SYSTEMS: CONSTITUTIONAL: No night sweats. No fatigue, malaise, lethargy. No fever or chills. Weakness. HEENT: Eyes: No visual changes. No eye pain. No eye discharge. ENT: No runny nose. No epistaxis. No sinus pain. No odynophagia. No congestion. RESPIRATORY: No cough, no congestion. No hemoptysis. No shortness of breath. CARDIOVASCULAR: No angina symptoms. No CHF symptoms. No atypical chest pain for CAD. No palpitations. No orthopnea.. GASTROINTESTINAL: No abdominal pain. No nausea or vomiting. No diarrhea or constipation. No hematemesis. No hematochezia. GENITOURINARY: No urgency. No frequency. No dysuria. No hematuria. No obstructive symptoms. No discharge. No pain. No significant abnormal bleeding. MUSCULOSKELETAL: No musculoskeletal pain; no joint swelling. NEUROLOGICAL: Awake, alert, confusion as usual. No headache. No neck pain. No syncope. No seizures. No dizziness. PSYCHIATRIC: Not anxious. No depression. No suicidal thoughts. No homicidal thoughts. SKIN: No rash. No lesions. No wounds. ENDOCRINE: No unexplained weight loss. No weight gain. HEMATOLOGIC/LYMPHATIC: No anemia. No purpura. No petechiae. No prolonged or excessive bleeding. No palpable lymph nodes. PHYSICAL EXAMINATION: GENERAL: The patient is awake, alert to person only, lying in bed in no distress. VITAL SIGNS: Temperature 97.0 F, Pulse 49, Respiratory Rate 16, BP 148/90, Pulse Ox 96% HEENT: Head normocephalic, atraumatic. Eyes: Extraocular muscles are intact. Pupils are equal, round and reactive to light and accommodation. Ears: No lesions. Nose appeared normal. Throat: No exudate or erythema. NECK: Supple. No JVD, no carotid bruit. No lymphadenopathy or thyromegaly. LUNGS: Diminished breath sounds. Clear to auscultation. Percussion note normal. Chest symmetrical. HEART: S1, S2, no S3. No murmurs. No cyanosis or clubbing. No ascites. Pulses: Dorsalis pedis and posterior tibial pulses +1 to +2 both sides. ABDOMEN: Soft. Non-tender. Bowel sounds active. No CVA tenderness. No mass felt. EXTREMITIES: Trace bilateral lower extremity edema. Full range of motion of all extremities, equal. NEUROLOGIC: No focal deficit. Cranial nerves II through XII are grossly intact. No headache, no double vision or headache. SKIN: Not dry. Intact. Turgor-normal. LYMPHATIC: No palpable lymph nodes/no lymphedema. MUSCULOSKELETAL: Normal joints with no swelling. Muscle tone is normal. LAB REVIEW: 02/02/20 04:40 02/02/20 04:40 02/02/20 04:40: Sodium 139.3, Potassium 3.68, Chloride 112.3 H, Carbon Dioxide 26.5, Anion Gap 4.18, BUN 18.6, Creatinine 0.92, Estimated GFR (MDRD) 80.00, BUN/Creatinine Ratio 20.21, Glucose 83.2, Calcium 8.01 L, Total Bilirubin 0.28, AST 86.7 H, ALT 79.3 H, Alkaline Phosphatase 83.5, Total Protein 5.46 L, Albumin 2.63 L, Globulin 2.83, Albumin/Globulin Ratio 0.92 02/02/20 04:40: WBC 6.53, RBC 3.59 L, Hgb 11.4 L, Hct 35.2 L, MCV 98.1 H, MCH 31.8 H, MCHC 32.4, RDW Coeff of Yamilet 14.6, Plt Count 152, Immature Gran % (Auto) 0.2, Neut % (Auto) 35.0 L, Lymph % (Auto) 49.9, [place] % (Auto) 8.0, Eos % (Auto) 6.6, Baso % (Auto) 0.3, Neut # (Auto) 2.3, Lymph # (Auto) 3.3, [place] # (Auto) 0.5, Eos # (Auto) 0.4, Baso # (Auto) 0.0, Immature Gran # (Auto) 0.0 ASSESSMENT: Please see below. 1. DVT, right lower extremity 2. History of DVT on Xarelto 3. Atrial fibrillation 4. Chronic kidney disease 5. Dementia PLAN: 1. Lasix 40mg 2. Discontinue Lovenox 3. Start Xarelto 15mg BID for 21 days 4. Fall precautions 5. CBC and CMP to be done at [place] 6. Stable for discharge 7. Discharge back to [facility] 8. Hold Pravachol Plan and coordination of the patient's care discussed in the presence of Dynamite Reclaimer and nurse. SCRIBED BY: Sheila HENDRIXist scribed while in presence of service performed by Dr. Stein/Mecca Harris APRN on 02/02/20 ([id number])
--- NOTE | 2020-02-02 09:44 | PN ---
DATE OF SERVICE: 01/30/20 SUBJECTIVE: 75-year-old white male hospitalized with DVT of the right lower extremity along with leg edema. The patient's leg edema has subsided. DVT seems to be clinically a lot better, nontender. Calf muscles noted. The patient is on Lovenox, already was on Xarelto before. REVIEW OF SYSTEMS: CONSTITUTIONAL: No night sweats. No fatigue, malaise, lethargy. No fever or chills. HEENT: Eyes: No visual changes. No eye pain. No eye discharge. ENT: No runny nose. No epistaxis. No sinus pain. No sore throat. No odynophagia. No congestion. RESPIRATORY: No cough, no congestion. No hemoptysis. No shortness of breath. CARDIOVASCULAR: No angina symptoms. No CHF symptoms. No atypical chest pain for CAD. No palpitations. No PND. No orthopnea. GASTROINTESTINAL: No abdominal pain. No nausea or vomiting. No diarrhea or constipation. No hematemesis. No hematochezia. GENITOURINARY: No urgency. No frequency. No dysuria. No hematuria. No obstructive symptoms. No discharge. No pain. No significant abnormal bleeding. MUSCULOSKELETAL: No musculoskeletal pain; no joint swelling. NEUROLOGICAL: Confused. No headache. No neck pain. No syncope. No seizures. No dizziness. PSYCHIATRIC: Not anxious. No depression. No suicidal thoughts. No homicidal thoughts. SKIN: No rash. No lesions. No wounds. ENDOCRINE: No unexplained weight loss. No weight gain. HEMATOLOGIC/LYMPHATIC: No anemia. No purpura. No petechiae. No prolonged or excessive bleeding. No palpable lymph nodes. PHYSICAL EXAMINATION: GENERAL: The patient is confused but is resting well. VITAL SIGNS: Temperature 97.1, pulse 48, respiratory rate 16, BP 147/90, pulse ox 100% on 2L. HEENT: Head normocephalic, atraumatic. Eyes: Extraocular muscles are intact. Pupils are equal, round and reactive to light and accommodation. Ears: No lesions. Nose appeared normal. Throat: No exudate or erythema. NECK: Supple. No JVD, no carotid bruit. No lymphadenopathy or thyromegaly. LUNGS: Decreased breath sounds but clear to auscultation. Percussion note normal. Chest symmetrical. HEART: S1, S2, no S3. No murmurs. No cyanosis or clubbing. No ascites. Pulses: Dorsalis pedis and posterior tibial pulses +1 to +2 bilaterally. ABDOMEN: Soft. Nontender. Bowel sounds active. No CVA tenderness. No mass felt. EXTREMITIES: No edema. Full range of motion of all extremities, equal. NEUROLOGIC: No focal deficit. Cranial nerves II through XII are grossly intact. No headache, no double vision or headache. SKIN: Not dry. Intact. Turgor - normal. LYMPHATIC: No palpable lymph nodes/no lymphedema. MUSCULOSKELETAL: Normal joints with no swelling. Muscle tone is normal. LABS: Hemoglobin 12, hematocrit 36, WBC 7,600, normal differential. Creatinine 1.2, BUN 34, potassium 3.8, BNP 3,920. ASSESSMENT: 1. Bilateral leg edema likely dependent. 2. DVT of the right lower extremity. 3. CHF, I doubt it. I don't think the patient has CHF. LV contractility was normal with echo done 2 weeks ago. Condition is improving. PLAN: 1. Will change the Lasix to p.o. 2. Will add Xanax t.i.d. p.r.n. for restlessness. TIME SPENT: More than 30 minutes. Plan and coordination of the patient's care discussed in the presence of nurse. VLADISLAV
--- NOTE | 2020-02-02 09:53 | PN ---
DATE OF SERVICE: 01/31/20 SUBJECTIVE: 75-year-old white male admitted with DVT on the right lower extremity. He is up and about doing well, no distress at all. REVIEW OF SYSTEMS: CONSTITUTIONAL: No night sweats. No fatigue, malaise, lethargy. No fever or chills. HEENT: Eyes: No visual changes. No eye pain. No eye discharge. ENT: No runny nose. No epistaxis. No sinus pain. No sore throat. No odynophagia. No congestion. RESPIRATORY: No cough, no congestion. No hemoptysis. No shortness of breath. CARDIOVASCULAR: No angina symptoms. No CHF symptoms. No coronary insufficiency. No atypical chest pain for CAD. No palpitations. No PND. No orthopnea. GASTROINTESTINAL: No abdominal pain. No nausea or vomiting. No diarrhea or constipation. No hematemesis. No hematochezia. GENITOURINARY: No urgency. No frequency. No dysuria. No hematuria. No obstructive symptoms. No discharge. No pain. No significant abnormal bleeding. MUSCULOSKELETAL: No pain in the legs. No musculoskeletal pain; no joint swelling. NEUROLOGICAL: No headache. No neck pain. No syncope. No seizures. No dizziness. PSYCHIATRIC: Not anxious. No depression. No suicidal thoughts. No homicidal thoughts. SKIN: No rash. No lesions. No wounds. ENDOCRINE: No unexplained weight loss. No weight gain. HEMATOLOGIC/LYMPHATIC: No anemia. No purpura. No petechiae. No prolonged or excessive bleeding. No palpable lymph nodes. PHYSICAL EXAMINATION: VITAL SIGNS: Temperature 97.7, pulse 50, respiratory rate 19, BP 139/82. Pulse ox 97% on room air. HEENT: Head normocephalic, atraumatic. Eyes: Extraocular muscles are intact. Pupils are equal, round and reactive to light and accommodation. Ears: No lesions. Nose appeared normal. Throat: No exudate or erythema. NECK: Supple. No JVD, no carotid bruit. No lymphadenopathy or thyromegaly. LUNGS: Decreased breath sounds but clear to auscultation. Percussion note normal. Chest symmetrical. HEART: S1, S2, no S3. No murmurs. No cyanosis or clubbing. No ascites. Pulses: Dorsalis pedis and posterior tibial pulses +1 to +2 bilaterally. ABDOMEN: Soft. Nontender. Bowel sounds active. No CVA tenderness. No mass felt. EXTREMITIES: No edema. Full range of motion of all extremities, equal. NEUROLOGIC: Mental status - confused but is alert, up and about on his own. No focal deficit. Cranial nerves II through XII are grossly intact. No headache, no double vision or headache. SKIN: Not dry. Intact. Turgor - normal. LYMPHATIC: No palpable lymph nodes/no lymphedema. MUSCULOSKELETAL: Normal joints with no swelling. Muscle tone is normal. LABS: Hemoglobin 11.7, hematocrit 35, WBC 7,000, normal differential. Creatinine 1.1, BUN 29, potassium 3.9. ASSESSMENT: 1. DVT right leg, feeling much better. Edema practically resolved. 2. The patient does not have any symptoms of CHF or never had symptoms of CHF before. 3. Dementia which seems to be worsening. PLAN: 1. Continue Lovenox for now. 2. Will check venous scan in the morning. CONDITION: Stable. TIME SPENT: More than 30 minutes. Plan and coordination of the patient's care discussed in the presence of nurse. VLADISLAV
[2020-02-02 10:26] VITALS: BP 157/86; TEMP 97.8
--- NOTE | 2020-02-02 11:08 | CM.DICTOOL ---
ADMISSION: 01/28/20 21:15 DISCHARGE: 2019 DATE OF SERVICE: 02/02/20 FINAL DIAGNOSIS DVT RIGHT POPLITEAL AND PERONEAL VEINS, RESOLVED HISTORY: HYPERTENSION BRADYCARDIA PAROXYSMAL ATRIAL FIBRILLATION (XARELTO) DVT, RIGHT UPPER EXTREMITY (ULNAR VEIN) (XARELTO) SUPERFICIAL THROMBOPHLEBITIS, RIGHT BASILIC VEIN DEMENTIA HYPERLIPIDEMIA DEPRESSION, CONTROLLED CHRONIC KIDNEY DISEASE, STAGE 2/3 DEGENERATIVE JOINT DISEASE OF THE LUMBAR SPINE CERVICAL RADICULOPATHY HISTORY OF FALLS ECHOCARDIOGRAM (01/12/2020) BORDERLINE LVH BORDERLINE LEFT ATRIAL CAVITY NORMAL LV CAVITY LVEF 74% LAST VITALS Temp Pulse Resp BP Pulse Ox 97.8 F 51 L 18 157/86 H 98 02/02/20 10:00 02/02/20 10:00 02/02/20 10:00 02/02/20 10:00 02/02/20 10:00 TAKE THESE MEDICATIONS AT HOME Acetaminophen (Tylenol) 650 mg PO Q6H [facility] Last Admin: 02/02/20 09:10 Dose: 650 mg Documented by: Alprazolam (Xanax) 0.5 mg PO Q 8H PRN PRN Reason: Agitation Last Admin: 02/01/20 20:40 Dose: 0.5 mg Documented by: Citalopram Hydrobromide (Celexa) 40 mg PO DAILY [facility] Last Admin: 02/02/20 09:10 Dose: 40 mg Documented by: Clonidine (Catapres) 0.1 mg PO BID PRN PRN Reason: elevated BP Donepezil HCl (Aricept) 20 mg PO DAILY [facility] Last Admin: 02/02/20 09:10 Dose: 20 mg Documented by: Furosemide (Lasix Tab) 40 mg PO QDAC [facility] (NEW) Last Admin: 02/02/20 06:44 Dose: 20 mg Documented by: Losartan Potassium (Cozaar) 50 mg PO BID [facility] Last Admin: 02/02/20 09:07 Dose: 50 mg Documented by: Memantine (Namenda) 10 mg PO BID [facility] Last Admin: 02/02/20 09:10 Dose: 10 mg Documented by: Potassium Chloride (Micro-K Cap) 40 meq PO BID [facility] Last Admin: 02/02/20 09:06 Dose: 40 meq Documented by: Rivaroxaban (Xarelto) 15 mg PO BID [facility] (DOSE CHANGE) Last Admin: 09/01/20 09:07 Dose: 15 mg Documented by: Sotalol HCl (Betapace) 40 mg PO BID [facility] Last Admin: 02/02/20 09:09 Dose: 40 mg Documented by: Trazodone HCl (Desyrel) 100 mg PO BEDTIME [facility] Last Admin: 02/01/20 20:26 Dose: 100 mg Documented by: ALLERGIES codeine Adverse Reaction (Verified 02/25/18 12:31) meperidine [From Demerol] Adverse Reaction (Verified 02/25/18 12:31) nalbuphine [From Nubain] Adverse Reaction (Verified 02/25/18 12:31) DISCONTINUED MEDICATIONS PRAVACHOL (ELEVATED LIVER ENZYMES) NEW PRESCRIPTIONS: NEW PRESCRIPTIONS XARELTO 15 MG BID FOR 21 DAYS (STARTED TODAY WITH MORNING DOSE), THEN 20 MG DAILY ON DAY 22 LASIX 40 MG DAILY SMOKING: NOT APPLICABLE DISEASE SPECIFIC EDUCATION: NOT APPLICABLE DUE TO PATIENT DEMENTIA LAB REVIEW: 02/02/20 04:40 02/02/20 04:40 02/02/20 04:40: Sodium 139.3, Potassium 3.68, Chloride 112.3 H, Carbon Dioxide 26.5, Anion Gap 4.18, BUN 18.6, Creatinine 0.92, Estimated GFR (MDRD) 80.00, BUN/Creatinine Ratio 20.21, Glucose 83.2, Calcium 8.01 L, Total Bilirubin 0.28, AST 86.7 H, ALT 79.3 H, Alkaline Phosphatase 83.5, Total Protein 5.46 L, Albumin 2.63 L, Globulin 2.83, Albumin/Globulin Ratio 0.92 02/02/20 04:40: WBC 6.53, RBC 3.59 L, Hgb 11.4 L, Hct 35.2 L, MCV 98.1 H, MCH 31.8 H, MCHC 32.4, RDW Coeff of Yamilet 14.6, Plt Count 152, Immature Gran % (Auto) 0.2, Neut % (Auto) 35.0 L, Lymph % (Auto) 49.9, Ransom % (Auto) 8.0, Eos % (Auto) 6.6, Baso % (Auto) 0.3, Neut # (Auto) 2.3, Lymph # (Auto) 3.3, Ransom # (Auto) 0.5, Eos # (Auto) 0.4, Baso # (Auto) 0.0, Immature Gran # (Auto) 0.0 PLAN: DISCHARGE TODAY TO [facility] DIET: REGULAR LIQUIDS: REGULAR ACTIVITY: UP TO DINING ROOM FOR MEALS ELEVATE FOOT OF BED AT NIGHT AND WHILE SITTING INCONTINENT CARE PRN DECUBITUS PRECAUTIONS FALL PRECAUTIONS VITAL SIGNS DAILY PULSE OXIMETRY DAILY WEEKLY WEIGHT CBC, CMP ON Feb AT [facility] LAB THEN CBC, CMP MONTHLY LIPIDS, A1C, TSH EVERY 6 MONTHS CODE STATUS: DNR PATIENT TO BE SEEN ON LONG-TERM ROUNDS IN 7-14 DAYS BY SUZY DE JESUS APRN/ZANDRA SERRANO APRN/DR. STEIN MR. DUDLEY IS ALERT TO PERSON. HE OFFERS VERY LITTLE CONVERSATION, BUT WILL FOLLOW MOVEMENTS WITH HIS EYES. AT TIMES, HE WILL OFFER BRIEF COMMENTS OR ANSWER WITH SIMPLE "YES" OR "NO". HE IS ABLE TO FEED HIMSELF AND DISPLAYS A GOOD APPETITE AT 75-100%. HE AMBULATES TO THE BATHROOM WITH ASSIST OF 1 STAFF MEMBER. THE GAIT IS SLOW/SHUFFLING. HE WILL NOT USE THE URINAL. HE WEARS DEPENDS UNDERGARMENTS. MR. DUDLEY REQUIRES ASSISTANCE WITH BATHING AND DRESSIN G. HE TRANSFERS WITH MINIMAL ASSIST OF 1 STAFF MEMBER AND AT TIMES WILL GET UP UNASSISTED. HYDRATION STATUS IS GOOD. SKIN IS INTACT. SSEVERAL SCABBED AREAS ARE NOTED TO THE LEFT LOWER EXTREMITIES. NO REDNESS OR DRAINAGE NOTED TO THESE AREAS. MD SUZY VO APRN/ZANDRA SERRANO APRN
[2020-02-03 06:11] LABS: HBsAgSCREEN Negative (Negative); HEP A AB, IgM Negative (Negative); HEP B CORE Ab, IgM Negative (Negative); HEP C VIRUS AB < 0.1 s/co ratio (0.0-0.9)
--- NOTE | 2020-02-03 10:41 | DS ---
DATE OF SERVICE: 02/02/2020 FINAL DIAGNOSIS: DVT RIGHT POPLITEAL AND PERONEAL VEINS, RESOLVED HISTORY: HYPERTENSION BRADYCARDIA PAROXYSMAL ATRIAL FIBRILLATION (XARELTO) DVT, RIGHT UPPER EXTREMITY (ULNAR VEIN) (XARELTO) SUPERFICIAL THROMBOPHLEBITIS, RIGHT BASILIC VEIN DEMENTIA HYPERLIPIDEMIA DEPRESSION, CONTROLLED CHRONIC KIDNEY DISEASE, STAGE 2/3 DEGENERATIVE JOINT DISEASE OF THE LUMBAR SPINE CERVICAL RADICULOPATHY HISTORY OF FALLS ECHOCARDIOGRAM (01/12/2020) BORDERLINE LVH BORDERLINE LEFT ATRIAL CAVITY NORMAL LV CAVITY LVEF 74% LAST VITALS: Temp Pulse Resp BP Pulse Ox 97.8 F 51 L 18 157/86 H 98 02/02/20 10:00 02/02/20 10:00 02/02/20 10:00 02/02/20 10:00 02/02/20 10:00 DISCHARGE INSTRUCTIONS: DISCHARGE TODAY TO [facility]. INCONTINENT CARE PRN. DECUBITUS PRECAUTIONS. FALL PRECAUTIONS VITAL SIGNS DAILY, PULSE OXIMETRY DAILY, WEEKLY WEIGHT, CBC, CMP ON Feb AT [facility] LAB THEN CBC, CMP MONTHLY. LIPIDS, A1C, TSH EVERY 6 MONTHS. CODE STATUS: DNR. PATIENT TO BE SEEN ON GROUP HOME ROUNDS IN 7-14 DAYS BY SUZY DE JESUS APRN/ZANDRA SERRANO APRN/DR. STEIN. TAKE THESE MEDICATIONS AT HOME: Acetaminophen (Tylenol) 650 mg PO Q6H [facility] Last Admin: 02/02/20 09:10 Dose: 650 mg Documented by: Alprazolam (Xanax) 0.5 mg PO Q 8H PRN PRN Reason: Agitation Last Admin: 02/01/20 20:40 Dose: 0.5 mg Documented by: Citalopram Hydrobromide (Celexa) 40 mg PO DAILY [facility] Last Admin: 02/02/20 09:10 Dose: 40 mg Documented by: Clonidine (Catapres) 0.1 mg PO BID PRN PRN Reason: elevated BP Donepezil HCl (Aricept) 20 mg PO DAILY [facility] Last Admin: 02/02/20 09:10 Dose: 20 mg Documented by: Furosemide (Lasix Tab) 40 mg PO QDAC [facility] (NEW) Last Admin: 02/02/20 06:44 Dose: 20 mg Documented by: Losartan Potassium (Cozaar) 50 mg PO BID [facility] Last Admin: 02/02/20 09:07 Dose: 50 mg Documented by: Memantine (Namenda) 10 mg PO BID [facility] Last Admin: 02/02/20 09:10 Dose: 10 mg Documented by: Potassium Chloride (Micro-K Cap) 40 meq PO BID [facility] Last Admin: 02/02/20 09:06 Dose: 40 meq Documented by: Rivaroxaban (Xarelto) 15 mg PO BID [facility] (DOSE CHANGE) Last Admin: 02/02/20 09:07 Dose: 15 mg Documented by: Sotalol HCl (Betapace) 40 mg PO BID [facility] Last Admin: 02/02/20 09:09 Dose: 40 mg Documented by: Trazodone HCl (Desyrel) 100 mg PO BEDTIME [facility] Last Admin: 02/01/20 20:26 Dose: 100 mg Documented by: ALLERGIES: codeine Adverse Reaction (Verified 02/25/18 12:31) meperidine [From Demerol] Adverse Reaction (Verified 02/25/18 12:31) nalbuphine [From Nubain] Adverse Reaction (Verified 02/25/18 12:31) DISCONTINUED MEDICATIONS: PRAVACHOL (ELEVATED LIVER ENZYMES) NEW PRESCRIPTIONS: XARELTO 15 MG BID FOR 21 DAYS (STARTED TODAY WITH MORNING DOSE), THEN 20 MG DAILY ON DAY 22 LASIX 40 MG DAILY SMOKING: NOT APPLICABLE DISEASE SPECIFIC EDUCATION: NOT APPLICABLE DUE TO PATIENT DEMENTIA LAB REVIEW: 02/02/20 04:40 02/02/20 04:40 02/02/20 04:40: Sodium 139.3, Potassium 3.68, Chloride 112.3 H, Carbon Dioxide 26.5, Anion Gap 4.18, BUN 18.6, Creatinine 0.92, Estimated GFR (MDRD) 80.00, BUN/Creatinine Ratio 20.21, Glucose 83.2, Calcium 8.01 L, Total Bilirubin 0.28, AST 86.7 H, ALT 79.3 H, Alkaline Phosphatase 83.5, Total Protein 5.46 L, Albumin 2.63 L, Globulin 2.83, Albumin/Globulin Ratio 0.92 02/02/20 04:40: WBC 6.53, RBC 3.59 L, Hgb 11.4 L, Hct 35.2 L, MCV 98.1 H, MCH 31.8 H, MCHC 32.4, RDW Coeff of Yamilet 14.6, Plt Count 152, Immature Gran % (Auto) 0.2, Neut % (Auto) 35.0 L, Lymph % (Auto) 49.9, App[place] % (Auto) 8.0, Eos % (Auto) 6.6, Baso % (Auto) 0.3, Neut # (Auto) 2.3, Lymph # (Auto) 3.3, [place]ling # (Auto) 0.5, Eos # (Auto) 0.4, Baso # (Auto) 0.0, Immature Gran # (Auto) 0.0 DIET: REGULAR LIQUIDS: REGULAR ACTIVITY: UP TO DINING ROOM FOR MEALS ELEVATE FOOT OF BED AT NIGHT AND WHILE SITTING HOSPITAL COURSE: 75 year old white male admitted through the ER. He is a resident of [facility]. On assessment at the residential he was found to have bilateral leg swelling with some lower extremity discoloration. He was brought to ER for further evaluation and management. Venous Doppler showed right lower extremity deep vein thrombosis involving to popliteal and peroneal veins. He has a history of DVT in the upper extremity approximately 2017 therefore he was on Xarelto daily prior to admission. The Xarelto was discontinued and he was started on Lovenox 70 SUBCUT every 12 hours. The patient also has a history of dementia with behavioral disturbances. He has a steady decline in activity and increase in weakness. Physical therapy was consulted. Physical therapy documented on assessment that he had decrease level of function requiring training but with cognitive status limited their ability to work with him. Venous Doppler was repeated on 02/01/2020 showed no ultrasonographic evidence of thrombus in the right lower extremity versus venous structures which was improved from the initial ultrasound on 01/28/2020. The patient was then transitioned from Lovenox to Xarelto 15mg twice daily, this will be for 21 days. He will then begin 20mg daily. During his hospital stay his AST and ALT increased. We have since then discontinued his Pravachol. Due to bilateral lower extremity edema he was started on Lasix 40mg daily. He has been up and about with assist. He has had good appetite. He is stable and ready for discharge back to [facility]. We have instructed them to elevate the legs. He is to have a repeat CBC and CMP on February 03 at [facility] lab and then he will have a CBC and CMP monthly. Fall precautions were discussed. The patient's code status remains DNR. We will followup at the residential. The patient was seen and examined with Dr. Stein and plan was discussed. TIME SPENT: More than 60 minutes. VLADISLAV
--- NOTE | 2020-02-03 13:57 | PN ---
DATE OF SERVICE: 02/01/20 SUBJECTIVE: The patient was seen and examined with the nurse practitioner. The patient is up and about. Venous scan is pending. The patient has no symptoms of CHF. The leg edema has resolved. Calf muscles are nontender. TIME SPENT: More than 30 minutes. Plan and coordination of the patient's care discussed in the presence of nurse. VLADISLAV
== END 2020-02-02 13:15 ==
LOC: ED 15:41 → INTOOBSV 21:15 → MEDSURG A 21:15 → MEDSURG B 01-29 19:36
PROVIDERS: ADMIT Internal Medicine; ATTEND Internal Medicine
DX: I48.0 Paroxysmal atrial fibrillation; Z86.718 Personal history of other venous thrombosis and embolism; R60.0 Localized edema; Z79.01 Long term (current) use of anticoagulants; I50.32 Chronic diastolic (congestive) heart failure; Z87.19 Personal history of other diseases of the digestive system; I10 Essential (primary) hypertension; F03.90 Unspecified dementia, unspecified severity, without behavioral disturbance, psychotic disturbance, mood disturbance, and anxiety; M51.36 Other intervertebral disc degeneration, lumbar region; Z79.899 Other long term (current) drug therapy; R53.1 Weakness; I82.432 Acute embolism and thrombosis of left popliteal vein; N18.3 Chronic kidney disease, stage 3 (moderate); M54.12 Radiculopathy, cervical region; E78.5 Hyperlipidemia, unspecified; G47.30 Sleep apnea, unspecified; F32.9 Major depressive disorder, single episode, unspecified; Z51.81 Encounter for therapeutic drug level monitoring; Z91.81 History of falling

== ENCOUNTER 2020-04-07 19:36 | Inpatient (IN) ==
[2020-04-07 19:53] LABS: BASOPHILS % (AUTO) 0.5 % (0.0-3.0); EOSINOPHILS # (AUTO) 0.4 K/ul (0.0-0.7); EOSINOPHILS % (AUTO) 4.6 % (0.0-7.0); HEMATOCRIT 50.6 % (42.0-52.0); HEMOGLOBIN 15.8 g/dl (14.0-18.0); IMMATURE GRANULOCYTE % (AUTO) 0.2 % (0.0-5.0); LYMPHOCYTES # (AUTO) 3.3 K/uL (0.60-3.4); LYMPHOCYTES % (AUTO) 37.8 (10.0-50.0); MEAN CORPUSCULAR HGB CONC 31.2 (31.8-35.4); MEAN CORPUSCULAR VOLUME 102.6 fl (80.0-94.0); MONOCYTES # (AUTO) 1.1 K/uL (0.4-2.0); MONOCYTES % (AUTO) 12.4 (0-10); NEUTROPHILS # (AUTO) 3.9 K/ul (2.0-6.9); NEUTROPHILS % (AUTO) 44.5 % (42.2-75.2); PLATELET COUNT 269 10^3/uL (140-440); RDW COEFFICIENT OF VARIATION 16.3 % (11.6-14.8); RED BLOOD COUNT 4.93 10^6/ul (4.70-6.10); WHITE BLOOD COUNT 8.72 K/ul (4.2-10.2)
[2020-04-07 20:05] LABS: ALANINE AMINOTRANSFERASE 52.9 U/L (0-50); ALBUMIN 3.7 g/dL (3.5-5.0); ALKALINE PHOSPHATASE 137.5 U/L (56-119); BILIRUBIN,TOTAL 0.59 mg/dL (0.2-1.3); CALCIUM 9.1 mg/dL (8.4-10.2); CARBON DIOXIDE 22.1 mmol/L (22-30.0); CREATININE 3.34 mg/dL (0.60-1.10); GLUCOSE 120.7 mg/dL (74-106); POTASSIUM 5.73 mmol/L (3.5-5.1); SODIUM 159.4 mmol/L (134.5-145); TOTAL PROTEIN 7.54 g/dL (6.3-8.2)
[2020-04-07 20:13] LABS: BLOOD UREA NITROGEN 61.1 mg/dL (9-20); CHLORIDE 131.5 mmol/L (98-107)
--- NOTE | 2020-04-07 20:55 | CT ---
EXAM: CT brain without contrast HISTORY: Change in mental status TECHNIQUE: Multi-slice sequential. Coronal and sagittal reformations were performed. COMPARISON: 01/08/2020. FINDINGS: There is no acute intracranial hemorrhage, extraxial fluid collection, mass affect, or midlineshift. There is moderate diffuse sulcal prominence. Ventriculomegaly appears unchanged. Periventricular w tiffany matter hypodensity is seen. Intracranial atherosclerosis is present. The basal cisterns are pa tent. No large vascular territory area of hypodensity is seen within the brain. The calvarium is un remarkable. Visualized paranasal sinuses are clear. Mastoid air cells are clear. IMPRESSION: 1. No acute intracranial hemorrhage. 2. Unchanged chronic findings.
[2020-04-07 21:18] LABS: ABG PH 7.39 (7.35-7.45)
[2020-04-07 21:19] LABS: ABG HCO3 20 (22.0-26.0); ABG OXYGEN SATURATION 97.1 % (95-100); ABG TCO2 21 (22.0-28.0)
[2020-04-07] MEDS ORDERED: SODIUM CHLORIDE 1,000 ML IV STA (21:27)
--- NOTE | 2020-04-07 21:33 | ED.PDOC ---
General ED Provider: Dr. KAMINI SOLORIO Chief Complaint: Abnormal Labs Stated Complaint: sent from pr with abnormal labs Time Seen by Physician: 22:05 Mode of Arrival: Ambulance Information Source: [facility] and EMT Primary Care Provider: [facility] and Triage Documentation Reviewed and Agree: Yes Does patient meet sepsis criteria?: No System Inflammatory Response Syndrome: Not Applicable Sepsis Protocol: For patient's 13 years and over: Temp is 96.8 and below OR 101 and greater Pulse >90 BPM Resp >20/minute Acutely Altered Mental Status Are patient's symptoms suggestive of a new infection, such as: -Pneumonia -Skin, Soft Tissue -Endocarditis -UTI -Bone, Joint Infection -Implantable Device -Acute Abdominal Infection -Wound Infection -Meningitis -Blood Stream Catheter Infection -Unknown Miscellaneous Complaint Exam Complex/Multi-System Complaint/Exam Onset/Duration: unknown Symptoms Are: Still present Initial Severity: Mild Current Severity: Moderate Location of Pain: no pain Associated Signs and Symptoms: Reports Decreased responsiveness, Confusion and Weakness Recent Echo/LV Function: No Respiratory Distress: None JVD Present: No Tachypnea Present: No Stridor Present: No Abdominal Findings: Present Normal findings Meningeal Signs Positive: No Focal Weakness: Present None Focal Sensory Loss: Present None Gait: Unable Gag Reflex Present: Yes Skin Findings: Present Normal findings Joint Swelling Present: No Differential Diagnosis: Metabolic Abnormality Quality Indicators for Cardiac Chest Pain: EKG in 10min. Review of Systems Review Of Systems Constitutional: Reports No symptoms Eyes: Reports No symptoms Ears, Nose, Mouth, Throat: Reports No symptoms Respiratory: Reports No symptoms Cardiac: Reports No symptoms GI: Reports No symptoms : Reports No symptoms Musculoskeletal: Reports No symptoms Skin: Reports No symptoms Neurological: Reports Cognitive dysfunction Endocrine: Reports No symptoms Hematologic/Lymphatic: Reports No symptoms All Other Systems: Reviewed and Negative [facility] Medical History (Updated 04/07/20 @ 22:05 by KAMINI SOLORIO MD) Ataxia Bronchitis CKD (chronic kidney disease) Deep vein thrombosis of right upper extremity Dementia Depression Diverticulosis DJD (degenerative joint disease) Falls HTN (hypertension) Hypoglycemia Non-compliant behavior Paroxysmal A-fib Sleep apnea Ulcerative colitis Family History Other No known health problems Social History History of recent travel: No Surgical History H/O cervical spine surgery Physical Exam Physical Exam Appearance: Reports Ill-appearing Ill-appearing: Mild Pain Distress: None Eyes: Reports INES, EOMI and Conjunctiva clear ENT: Reports Ears normal, Nose normal and Oropharynx normal Neck: Supple Respiratory: Reports Airway patent, Breath sounds clear and Breath sounds equal Cardiovascular: Reports RRR, Pulses normal, No rub and No murmur GI/: Reports Soft, Nontender, No masses and Bowel sounds normal Musculoskeletal: Reports Normal strength, ROM intact, No edema and No calf tenderness Skin: Reports Warm, Dry and Normal color Neurological: Reports Sensation intact, Motor intact, Reflexes intact, Cranial nerves intact, Alert and Disoriented Interpretation Radiology Interpretation Radiology Interpretation By: Radiologist Radiology Results: Negative Exam Interpreted: CT Scan EKG Interpretation Time of EKG #1: 21:38 Rate: Normal Rhythm: Sinus Ectopy: None [place]: NL ST Segment: Normal Interpretation: nsr Physician Notification Case Discussed Physician Notified: dr easton Time of Notification: 22:03 Critical Care Note Critical Care Note Total Critical Care Time (mins): 0 Course Course Hematology/Chemistry: 04/07/20 19:52 04/07/20 19:52 Orders, Labs, Meds: Lab Review 04/07/20 04/07/20 04/07/20 19:38 19:52 19:52 WBC 8.72 RBC 4.93 Hgb 15.8 Hct 50.6 MCV 102.6 H MCH 32.0 H MCHC 31.2 L RDW Coeff of Yamilet 16.3 H Plt Count 269 Immature Gran % (Auto) 0.2 Neut % (Auto) 44.5 Lymph % (Auto) 37.8 [place] % (Auto) 12.4 H Eos % (Auto) 4.6 Baso % (Auto) 0.5 Neut # (Auto) 3.9 Lymph # (Auto) 3.3 [place]oke # (Auto) 1.1 Eos # (Auto) 0.4 Baso # (Auto) 0.0 Immature Gran # (Auto) 0.0 Puncture Site Rrad O2 Saturation 97.1 ABG pH 7.39 ABG pCO2 33.0 L ABG pO2 93.0 ABG HCO3 20 L ABG Total CO2 21 L ABG Base Excess 5.0 H Jimbo Test + FiO2 % 21.0 Sodium 159.4 H Potassium 5.73 H Chloride 131.5 H* Carbon Dioxide 22.1 Anion Gap 11.53 BUN 61.1 H* Creatinine 3.34 H Estimated GFR (MDRD) 18.00 BUN/Creatinine Ratio 18.29 Glucose 120.7 H Calcium 9.10 Total Bilirubin 0.59 AST 46.0 ALT 52.9 H Alkaline Phosphatase 137.5 H Ammonia Total Protein 7.54 Albumin 3.70 Globulin 3.84 Albumin/Globulin Ratio 0.96 04/07/20 19:52 WBC RBC Hgb Hct MCV MCH MCHC RDW Coeff of Yamilet Plt Count Immature Gran % (Auto) Neut % (Auto) Lymph % (Auto) [place]oke % (Auto) Eos % (Auto) Baso % (Auto) Neut # (Auto) Lymph # (Auto) [place] # (Auto) Eos # (Auto) Baso # (Auto) Immature Gran # (Auto) Puncture Site O2 Saturation ABG pH ABG pCO2 ABG pO2 ABG HCO3 ABG Total CO2 ABG Base Excess Jimbo Test FiO2 % Sodium Potassium Chloride Carbon Dioxide Anion Gap BUN Creatinine Estimated GFR (MDRD) BUN/Creatinine Ratio Glucose Calcium Total Bilirubin AST ALT Alkaline Phosphatase Ammonia < 8.7 L Total Protein Albumin Globulin Albumin/Globulin Ratio Orders Category Date Time Status ABG DRAW REQUEST Stat CARDIO 04/07/20 19:38 Completed EKG-(ED ONLY) Stat CARDIO 04/07/20 19:37 Completed CATHETER INSERTION AND CARE Q8HR CARE 04/07/20 21:27 Active REMINDER: Ask MD to d/jesse salgado DAILY CARE 04/07/20 21:27 Active ED LINEMAN SERVICE OR WORK DISPATCHER APPLIED .ONCE EMERGENCY 04/07/20 19:37 Active ED IV/MEDIPORT/POWERPORT .ONCE EMERGENCY 04/07/20 21:27 Active ABG Stat LAB 04/07/20 19:38 Completed AMMONIA Stat LAB 04/07/20 19:52 Completed CBC W/ AUTO DIFF Stat LAB 04/07/20 19:52 Completed COMPREHENSIVE METABOLIC PANEL Stat LAB 04/07/20 19:52 Completed URINALYSIS C & S IF INDICATED Stat LAB 04/07/20 19:38 Uncollected 0.9 % Sodium Chloride [Saline Flush] MEDS 04/07/20 21:27 Active 1 syr IVF PRN PRN Sodium Chloride 0.9% [Sodium Chloride] 1,000 ml MEDS 04/07/20 21:27 Active IV 100 mls/hr CT HEAD W/O CONTRAST Stat RADS 04/07/20 19:38 Completed Medications Generic Name Dose Route Start Last Admin Trade Name Evens PRN Reason Stop Dose Admin Sodium Chloride 1,000 mls @ 100 mls/hr 04/07/20 21:27 04/07/20 21:48 Sodium Chloride IV 04/08/20 07:26 100 mls/hr .Q10H STA Administration Sodium Chloride 1 syr 04/07/20 21:27 04/07/20 21:47 0.9% Sodium Chloride 10 Ml Disp.Syrin IVF 1 syr PRN PRN Administration To flush IV Vital Signs: Temp Pulse Resp BP Pulse Ox 04/07/20 19:37 97.7 F 66 20 126/90 99 Discharge Plan Discharge Patient Disposition: ADMITTED INPATIENT Discharge Problem: DELROY (acute kidney injury), Acute hyperkalemia, Volume depletion Prescriptions: No Action citalopram [Celexa] 40 MG tablet 40 mg PO DAILY RF: 0 donepezil 10 MG tablet 20 mg PO DAILY RF: 0 alprazolam [Xanax] 0.5 MG tablet 0.5 mg PO Q8H PRN (Reason: COMBATIVNESS) RF: 0 trazodone 100 MG tablet 100 mg PO BEDTIME RF: 0 memantine [Namenda] 10 MG tablet 10 mg PO BID Qty: 60 RF: 0 potassium chloride [K-Tab] 10 MEQ tablet extended release 40 meq PO TID RF: 0 sotalol 80 MG tablet 40 mg PO BID RF: 0 clonidine HCl 0.1 mg Tablet 0.1 mg PO BID PRN (Reason: Blood Pressure) Qty: 30 RF: 0 losartan [Cozaar] 50 mg Tablet 50 mg PO BID Qty: 60 RF: 0 acetaminophen [Tylenol] 325 mg Tablet 650 mg PO Q4HR PRN (Reason: Fever Or Pain) RF: 0 Xarelto 10 mg Tablet 15 mg PO BID RF: 0 furosemide [Lasix] 40 mg Tablet 40 mg PO DAILY RF: 0 ED Provider: KAMINI SOLORIO Condition: Stable Physician Progress Note: []
[2020-04-07] MEDS ORDERED: CATAPRES PO PRN (22:10)
[2020-04-07] MEDS ORDERED: ATIVAN PO PRN (22:10)
[2020-04-07] MEDS ORDERED: TYLENOL PO PRN (22:10)
[2020-04-07] MEDS ORDERED: URO-JET MUCOUSMEMB STA (22:19)
[2020-04-07 22:47] LABS: BILIRUBIN,URINE Negative (NEGATIVE); CLARITY,URINE Clear (CLEAR); COLOR,URINE Yellow (YELLOW); GLUCOSE, URINE (UA) Negative (NEGATIVE); KETONES,URINE Trace (NEGATIVE); LEUKOCYTE ESTERASE ,URINE Negative (NEGATIVE); NITRITE,URINE Negative (NEGATIVE); PROTEIN,URINE Negative (NEGATIVE); URINE, BLOOD Negative (NEGATIVE); UROBILINOGEN,URINE 0.2 (0.2)
[2020-04-08 00:14] VITALS: BMI 23.6
[2020-04-08 05:51] LABS: BASOPHILS % (AUTO) 0.4 % (0.0-3.0); EOSINOPHILS # (AUTO) 0.8 K/ul (0.0-0.7); EOSINOPHILS % (AUTO) 8.5 % (0.0-7.0); HEMATOCRIT 50.7 % (42.0-52.0); HEMOGLOBIN 15.6 g/dl (14.0-18.0); IMMATURE GRANULOCYTE % (AUTO) 0.2 % (0.0-5.0); LYMPHOCYTES # (AUTO) 3.2 K/uL (0.60-3.4); LYMPHOCYTES % (AUTO) 35.6 (10.0-50.0); MEAN CORPUSCULAR HGB CONC 30.8 (31.8-35.4); MEAN CORPUSCULAR VOLUME 103.9 fl (80.0-94.0); MONOCYTES % (AUTO) 10.8 (0-10); NEUTROPHILS % (AUTO) 44.5 % (42.2-75.2); PLATELET COUNT 260 10^3/uL (140-440); RDW COEFFICIENT OF VARIATION 16.2 % (11.6-14.8); RED BLOOD COUNT 4.88 10^6/ul (4.70-6.10); WHITE BLOOD COUNT 9.08 K/ul (4.2-10.2)
[2020-04-08 06:09] LABS: ALBUMIN 3.44 g/dL (3.5-5.0); ASPARTATE AMINO TRANSFERASE 39.6 U/L (17-59); BILIRUBIN,TOTAL 0.56 mg/dL (0.2-1.3); CALCIUM 8.65 mg/dL (8.4-10.2); CARBON DIOXIDE 21.8 mmol/L (22-30.0); CREATININE 2.93 mg/dL (0.60-1.10); GLUCOSE 92.4 mg/dL (74-106); POTASSIUM 4.55 mmol/L (3.5-5.1); TOTAL PROTEIN 7.02 g/dL (6.3-8.2)
[2020-04-08 06:18] LABS: CHLORIDE 134.5 mmol/L (98-107); SODIUM 162.4 mmol/L (134.5-145)
[2020-04-08] MEDS: DEXTROSE 5%-WATER IV SOLN 1,000 ML IV SCH ×2 (06:35→17:20)
[2020-04-08] MEDS ORDERED: LOVENOX SUBCUT SCH (09:00)
[2020-04-08] MEDS ORDERED: COZAAR PO SCH (09:00)
[2020-04-08] MEDS: CARDIZEM PO SCH ×2 (10:57→20:48)
[2020-04-08] MEDS: ARICEPT PO SCH (10:59)
[2020-04-08] MEDS: CELEXA PO SCH (10:59)
[2020-04-08] MEDS: BETAPACE PO SCH ×2 (10:59→20:48)
[2020-04-08] MEDS: NAMENDA PO SCH ×2 (10:59→20:47)
--- NOTE | 2020-04-08 11:05 | CT ---
EXAM: CT Abdomen Pelvis HISTORY: Acute kidney injury COMPARISON: 02/25/2018 TECHNIQUE: CT of the Abdomen Pelvis was performed without contrast. Coronal and sagital reformats we re obtained. FINDINGS: Clear lung bases. Streak artifact from wires overlying the abdomen degrade exam. The liver, spleen, pancreas, adrenal glands unremarkable. Cholecystectomy. No hydronephrosis or perinephric fat stranding. Nonobstructi ve 0.3 severe calculus in the left superior pole kidney. No other urolithiasis. hypodense probable cyst in the left superior pole kidney measuring approximately 1.2 cm. Small exophytic hypodensity at the left mid/inferior pole measures 0.5 cm and is too small to characterize. Indeterminate nodular appearance of the medial right inferior pole kidney (axial 36) measuring approximately 1 x 1.5 cm. N ormal bladder. Incidental coarse prostate calcifications. No small or large bowel dilation. Mild colonic diverticulosis without diverticulitis. Rectum is dist ended with fluid. Surgical clips at the cecum. Non-visualized appendix. No adenopathy. Normal diameter aorta. Moderate scattered atherosclerotic calcifications. No abnormal fluid collecti on, free fluid or free air. No acute osseous abnormality. Multilevel thoracolumbar spondylosis. Ch ronic bilateral L5 pars defects with minimal grade 1 anterolisthesis of L5 on S1. IMPRESSION: 1. No hydronephrosis or acute intra-abdominal findings. 2. Nonobstructive left renal calculus. 3. Diverticulosis. 4. Nodular appearance of the posterior medial right inferior pole kidney measuring approximately 1 c m. Recommend correlation with MRI to exclude underlying lesion. 5. Nonspecific fluid distension of the rectum. Correlate for diarrhea.
[2020-04-08] MEDS: XARELTO PO SCH (11:07)
--- NOTE | 2020-04-08 11:32 | PN ---
DATE OF SERVICE: 04/07/20 - ADMIT NOTE SUBJECTIVE: The patient was brought to the emergency room [facility] that the patient had some abnormal labs done, hypernatremia, hyperchloremia with renal failure. In the emergency room the patient was seen by Dr. Chau. Reports confirmed at the time, creatinine 3 with BUN of 60, renal failure with hypernatremia. The patient has a history of congestive heart failure, dementia, chronic lung disease, chronic reflux disease, aspiration pneumonitis. The patient is going to be admitted with slow IV fluids. Lasix will be held for a couple of days. He is going to be observed for any CHF type of symptoms. At the present time he doesn't have any obvious CHF symptoms. Considering the patient's multiple medical problems and having renal failure along with severe hypernatremia, the patient's prognosis is poor. The patient is DNR. TIME SPENT: More than 30 minutes. Plan and coordination of the patient's care discussed in the presence of nurse. VLADISLAV
--- NOTE | 2020-04-08 11:43 | PCM.PROG ---
Attending Provider: ATTENDING PROVIDER: Dr. THOR STEIN DATE OF SERVICE: 04/08/20 SUBJECTIVE: This 75 year old /WHITE M was hospitalized 04/07/20 with hypernatremia and hyperchloremia with renal failure. The patient has dementia and is a poor historian. He is from the long-term. REVIEW OF SYSTEMS: CONSTITUTIONAL: No night sweats. Sleepy and at times restless. No fever or chills. HEENT: Eyes: No visual changes. No eye pain. No eye discharge. ENT: No runny nose. No epistaxis. No sinus pain. No odynophagia. No congestion. RESPIRATORY: No cough, no congestion. No hemoptysis. No shortness of breath. CARDIOVASCULAR: No angina symptoms. No CHF symptoms. No atypical chest pain for CAD. No palpitations. No orthopnea.. GASTROINTESTINAL: No abdominal pain. No nausea or vomiting. No diarrhea or constipation. No hematemesis. No hematochezia. GENITOURINARY: No urgency. No frequency. No dysuria. No hematuria. No obstructive symptoms. No discharge. No pain. No significant abnormal bleeding. MUSCULOSKELETAL: No musculoskeletal pain; no joint swelling. NEUROLOGICAL: Awake, alert, confused. No headache. No neck pain. No syncope. No seizures. No dizziness. PSYCHIATRIC: Not anxious. No depression. No suicidal thoughts. No homicidal thoughts. SKIN: No rash. No lesions. No wounds. ENDOCRINE: No unexplained weight loss. No weight gain. HEMATOLOGIC/LYMPHATIC: No anemia. No purpura. No petechiae. No prolonged or excessive bleeding. No palpable lymph nodes. PHYSICAL EXAMINATION: GENERAL: The patient is awake, alert and confused, sitting in bed in no distress. VITAL SIGNS: Temperature 97.4 F, Pulse 115, Respiratory Rate 20, BP 133/95, Pulse Ox 97% HEENT: Head normocephalic, atraumatic. Eyes: Extraocular muscles are intact. Pupils are equal, round and reactive to light and accommodation. Ears: No lesions. Nose appeared normal. Throat: No exudate or erythema. NECK: Supple. No JVD, no carotid bruit. No lymphadenopathy or thyromegaly. LUNGS: Diminished breath sounds. Clear to auscultation. Percussion note normal. Chest symmetrical. HEART: S1, S2, no S3. No murmurs. No cyanosis or clubbing. No ascites. Pulses: Dorsalis pedis and posterior tibial pulses +1 to +2 both sides. ABDOMEN: Soft. Non-tender. Bowel sounds active. No CVA tenderness. No mass felt. EXTREMITIES: No edema. Full range of motion of all extremities, equal. NEUROLOGIC: No focal deficit. Cranial nerves II through XII are grossly intact. No headache, no double vision or headache. Sleepy. SKIN: Warm and dry. Intact. Turgor-normal. LYMPHATIC: No palpable lymph nodes/no lymphedema. MUSCULOSKELETAL: Normal joints with no swelling. Muscle tone is normal. LAB REVIEW: 04/08/20 05:45 04/08/20 05:45 04/08/20 05:45: Sodium 162.4 H*, Potassium 4.55, Chloride 134.5 H*, Carbon Dioxide 21.8 L, Anion Gap 10.65, BUN 62.0 H*, Creatinine 2.93 H, Estimated GFR (MDRD) 21.00, BUN/Creatinine Ratio 21.16, Glucose 92.4, Calcium 8.65, Total Bilirubin 0.56, AST 39.6, ALT 46.0, Alkaline Phosphatase 128.0 H, Total Protein 7.02, Albumin 3.44 L, Globulin 3.58, Albumin/Globulin Ratio 0.96 04/08/20 05:45: WBC 9.08, RBC 4.88, Hgb 15.6, Hct 50.7, MCV 103.9 H, MCH 32.0 H, MCHC 30.8 L, RDW Coeff of Yamilet 16.2 H, Plt Count 260, Immature Gran % (Auto) 0.2, Neut % (Auto) 44.5, Lymph % (Auto) 35.6, [place] % (Auto) 10.8 H, Eos % (Auto) 8.5 H, Baso % (Auto) 0.4, Neut # (Auto) 4.0, Lymph # (Auto) 3.2, [place] # (Auto) 1.0, Eos # (Auto) 0.8 H, Baso # (Auto) 0.0, Immature Gran # (Auto) 0.0 04/07/20 22:40: Urine Color Yellow, Urine Clarity Clear, Urine pH 5.0, Ur Specific [place] >=1.030, Urine Protein Negative, Urine Glucose (UA) Negative, Urine Ketones Trace H, Urine Blood Negative, Urine Nitrite Negative, Urine Bilirubin Negative, Urine Urobilinogen 0.2, Ur Leukocyte Esterase Negative 04/07/20 19:52: Ammonia < 8.7 L 04/07/20 19:52: Sodium 159.4 H, Potassium 5.73 H, Chloride 131.5 H*, Carbon Dioxide 22.1, Anion Gap 11.53, BUN 61.1 H*, Creatinine 3.34 H, Estimated GFR (MDRD) 18.00, BUN/Creatinine Ratio 18.29, Glucose 120.7 H, Calcium 9.10, Total Bilirubin 0.59, AST 46.0, ALT 52.9 H, Alkaline Phosphatase 137.5 H, Total Protein 7.54, Albumin 3.70, Globulin 3.84, Albumin/Globulin Ratio 0.96 04/07/20 19:52: WBC 8.72, RBC 4.93, Hgb 15.8, Hct 50.6, MCV 102.6 H, MCH 32.0 H, MCHC 31.2 L, RDW Coeff of [place]ile[place] 16.3 H, Plt Count 269, Immature Gran % (Auto) 0.2, Neut % (Auto) 44.5, Lymph % (Auto) 37.8, [place] % (Auto) 12.4 H, Eos % (Auto) 4.6, Baso % (Auto) 0.5, Neut # (Auto) 3.9, Lymph # (Auto) 3.3, [place] # (Auto) 1.1, Eos # (Auto) 0.4, Baso # (Auto) 0.0, Immature Gran # (Auto) 0.0 04/07/20 19:38: Puncture Site Rrad, O2 Saturation 97.1, ABG pH 7.39, ABG pCO2 33 .0 L, ABG pO2 93.0, ABG HCO3 20 L, ABG Total CO2 21 L, ABG Base Excess 5.0 H, Jimbo Test +, FiO2 % 21.0 ASSESSMENT: Please see below. 1. Electrolyte imbalance with hyperchloremia and hypernatremia 2. Acute on chronic renal failure 3. Dementia, advanced 4. Hypertension 5. Atrial fibrillation 6. Depression PLAN: 1. Change IV fluids D5 W 100cc per hour, watch for fluid overload 2. Monitor kidney function and electrolytes 3. CT scan of abdomen 4. Bladder scan 5. Ativan PRN for restlessness 6. Continue rest of medications 7. Add Cardizem 60mg BID 8. Continue Sotalol, Xarelto, Zyprexa, Trazodone and Citalopram. Plan and coordination of the patient's care discussed in the presence of Service Electrician and nurse. SCRIBED BY: LISA LOCO Boarding Mother scribed while in presence of service performed by Dr. THOR STEIN on 04/08/20 ([id number])
[2020-04-08] MEDS: ATIVAN PO SCH ×2 (12:22→20:48)
--- NOTE | 2020-04-08 13:12 | HP ---
DATE OF SERVICE: 04/07/2020 REASON FOR HOSPITALIZATION/HISTORY OF PRESENT ILLNESS: This 75 year old /WHITE M was hospitalized 04/07/20 with hypernatremia and hyperchloremia with renal failure. The patient has dementia and is a poor historian. He is from the skilled nursing. REVIEW OF SYSTEMS: CONSTITUTIONAL: No night sweats. Sleepy and at times restless. No fever or chills. Confused. HEENT: Eyes: No visual changes. No eye pain. No eye discharge. ENT: No runny nose. No epistaxis. No sinus pain. No sore throat. No odynophagia. No ear pain. No congestion. RESPIRATORY: No cough, no congestion. No hemoptysis. No shortness of breath. CARDIOVASCULAR: No angina symptoms. No CHF symptoms. No atypical chest pain for CAD. No palpitations. No PND. No orthopnea. GASTROINTESTINAL: No abdominal pain. No nausea or vomiting. No diarrhea or constipation. No hematemesis. No hematochezia. GENITOURINARY: No urgency. No frequency. No dysuria. No hematuria. No obstructive symptoms. No discharge. No pain. No significant abnormal bleeding. MUSCULOSKELETAL: No musculoskeletal pain. No joint swelling. No arthritis. NEUROLOGICAL: No headache. No neck pain. No syncope. No seizures. No dizziness. PSYCHIATRIC: Not anxious. No depression. No suicidal thoughts. No homicidal thoughts. SKIN: No rash. No lesions. No wounds. ENDOCRINE: No unexplained weight loss. No weight gain. HEMATOLOGIC/LYMPHATIC: No anemia. No purpura. No petechiae. No prolonged or excessive bleeding. No palpable lymph nodes. PERSONAL/FAMILY/SOCIAL HISTORY: The patient is and lives at the skilled nursing. His had taken care of him for several years but then was not able to handle him and put him in he skilled nursing for Dementia. None smoker. No alcohol abuse. Needs assistance with all activities of daily living. MEDICATIONS: Celexa 40mg PO daily Donepezil 20mg PO daily Trazodone 100mg PO bedtime Namenda 10mg PO BID K-Tab 40 meq PO TID Sotalol 40mg PO BID Clonidine 0.1mg PO BID PRN Tylenol 650mg PO Q 4 hours PRN Lasix 40mg PO daily Ativan 1mg PO Q 8 hours Cozaar 50mg PO BID Xarelto 20mg PO daily Zyprexa 2.5mg PO BEDTIME Milk of Magnesia 30ml PO daily PRN ALLERGIES: Codeine Meperidine Nalbuphine PHYSICAL EXAMINATION: VITAL SIGNS: Temperature 97.7, pulse 66, respiratory rate 20, blood pressure 126/90 and pulse ox 99% HEENT: Head normocephalic, atraumatic. Eyes: Extraocular muscles are intact. Pupils are equal, round and reactive to light and accommodation. Ears: No lesions. Nose appeared normal. Throat: No exudate or erythema. NECK: Supple. No JVD, no carotid bruit. No lymphadenopathy or thyromegaly. LUNGS: Diminished breath sounds. Clear to auscultation. Percussion note normal. Chest symmetrical. HEART: S1, S2, no S3. No murmur. No cyanosis or clubbing. No ascites. Pulses: Dorsalis pedis and posterior tibial pulses +1 to +2 bilaterally. ABDOMEN: Soft. Nontender. Bowel sounds active. No CVA tenderness. No mass felt. EXTREMITIES: No edema. Full range of motion of all extremities, equal. NEUROLOGIC: No focal deficit. Cranial nerves II through XII are grossly intact. No headache, no double vision or headache. SKIN: Not dry. Intact. Turgor - normal. LYMPHATIC: No palpable lymph nodes/no lymphedema. MUSCULOSKELETAL: Normal joints with no swelling. Muscle tone is normal. LABS: WBC 8.72, Hgb 15.8, hct 50.6, MCV 102.6, MCH 32.0, plt count 269, Monocytes 12.4, Sodium 159.4, potassium 5.73, chloride 131.5, BUN 61.1, creatinine 3.34, Glucose 120.7, ALT 52.9, Alkaline phosphatase 137.5. Urine has negative Proteins, glucose, blood, nitrate, bilirubin and leukocytes. Trace Ketones. ABG pCO2 33.0, pO2 93.0, HCO3 20, Total CO2 21, Base excess 5.0 and FiO2 21.0. Head CT showed No acute intracranial hemorrhage and unchanged chronic findings. ASSESSMENT: 1. Electrolyte imbalance with hyperchloremia and hypernatremia 2. Acute on chronic renal failure 3. Dementia, advanced 4. Hypertension 5. Atrial fibrillation 6. Depression PLAN: 1. Change IV fluids D5 W 100cc per hour, watch for fluid overload 2. Monitor kidney function and electrolytes 3. CT scan of abdomen 4. Bladder scan 5. Ativan PRN for restlessness 6. Continue rest of medications 7. Add Cardizem 60mg BID 8. Continue Sotalol, Xarelto, Zyprexa, Trazodone and Citalopram. TIME SPENT: More than 70 minutes. MTDD
[2020-04-08] MEDS: ZYPREXA PO SCH (20:48)
[2020-04-08] MEDS: DESYREL PO SCH (20:49)
[2020-04-09] MEDS: DEXTROSE 5%-WATER IV SOLN 1,000 ML IV SCH ×3 (03:03→22:01)
[2020-04-09 05:32] LABS: BASOPHILS % (AUTO) 0.4 % (0.0-3.0); EOSINOPHILS # (AUTO) 0.9 K/ul (0.0-0.7); EOSINOPHILS % (AUTO) 8.9 % (0.0-7.0); IMMATURE GRANULOCYTE % (AUTO) 0.2 % (0.0-5.0); LYMPHOCYTES # (AUTO) 3.6 K/uL (0.60-3.4); LYMPHOCYTES % (AUTO) 37.4 (10.0-50.0); MEAN CORPUSCULAR HEMOGLOBIN 32.3 pg (27.0-31.0); MEAN CORPUSCULAR HGB CONC 31.3 (31.8-35.4); MEAN CORPUSCULAR VOLUME 103.2 fl (80.0-94.0); MONOCYTES # (AUTO) 0.8 K/uL (0.4-2.0); MONOCYTES % (AUTO) 8.7 (0-10); NEUTROPHILS # (AUTO) 4.3 K/ul (2.0-6.9); NEUTROPHILS % (AUTO) 44.4 % (42.2-75.2); PLATELET COUNT 224 10^3/uL (140-440); RDW COEFFICIENT OF VARIATION 15.9 % (11.6-14.8); RED BLOOD COUNT 4.65 10^6/ul (4.70-6.10); WHITE BLOOD COUNT 9.68 K/ul (4.2-10.2)
[2020-04-09 05:45] LABS: ALANINE AMINOTRANSFERASE 43.3 U/L (0-50); ALKALINE PHOSPHATASE 117.6 U/L (56-119); ASPARTATE AMINO TRANSFERASE 40.1 U/L (17-59); BILIRUBIN,TOTAL 0.8 mg/dL (0.2-1.3); BLOOD UREA NITROGEN 51.2 mg/dL (9-20); CALCIUM 8.28 mg/dL (8.4-10.2); CARBON DIOXIDE 21.4 mmol/L (22-30.0); CREATININE 2.2 mg/dL (0.60-1.10); GLUCOSE 111.6 mg/dL (74-106); POTASSIUM 3.83 mmol/L (3.5-5.1); SODIUM 153.5 mmol/L (134.5-145); TOTAL PROTEIN 6.45 g/dL (6.3-8.2)
[2020-04-09 05:56] LABS: CHLORIDE 126.7 mmol/L (98-107)
[2020-04-09] MEDS: ATIVAN PO SCH ×3 (06:00→20:25)
[2020-04-09] MEDS: NAMENDA PO SCH ×2 (08:45→20:26)
[2020-04-09] MEDS: CELEXA PO SCH (08:45)
[2020-04-09] MEDS: ARICEPT PO SCH (08:45)
[2020-04-09] MEDS: CARDIZEM PO SCH ×2 (08:46→20:25)
[2020-04-09] MEDS: COZAAR PO SCH (08:46)
[2020-04-09] MEDS: BETAPACE PO SCH ×2 (08:55→20:26)
[2020-04-09] MEDS: XARELTO PO SCH (08:56)
[2020-04-09] MEDS: DESYREL PO SCH (20:26)
[2020-04-09] MEDS: ZYPREXA PO SCH (20:26)
[2020-04-10 05:45] LABS: BASOPHILS % (AUTO) 0.3 % (0.0-3.0); EOSINOPHILS # (AUTO) 0.8 K/ul (0.0-0.7); EOSINOPHILS % (AUTO) 9.6 % (0.0-7.0); HEMOGLOBIN 13.4 g/dl (14.0-18.0); IMMATURE GRANULOCYTE % (AUTO) 0.2 % (0.0-5.0); LYMPHOCYTES # (AUTO) 3.3 K/uL (0.60-3.4); LYMPHOCYTES % (AUTO) 38.5 (10.0-50.0); MEAN CORPUSCULAR HEMOGLOBIN 31.6 pg (27.0-31.0); MEAN CORPUSCULAR HGB CONC 31.2 (31.8-35.4); MEAN CORPUSCULAR VOLUME 101.4 fl (80.0-94.0); MONOCYTES # (AUTO) 0.7 K/uL (0.4-2.0); MONOCYTES % (AUTO) 7.7 (0-10); NEUTROPHILS # (AUTO) 3.8 K/ul (2.0-6.9); NEUTROPHILS % (AUTO) 43.7 % (42.2-75.2); PLATELET COUNT 189 10^3/uL (140-440); RDW COEFFICIENT OF VARIATION 15.3 % (11.6-14.8); RED BLOOD COUNT 4.24 10^6/ul (4.70-6.10); WHITE BLOOD COUNT 8.58 K/ul (4.2-10.2)
[2020-04-10 05:59] LABS: ALBUMIN 2.76 g/dL (3.5-5.0); ALKALINE PHOSPHATASE 106.7 U/L (56-119); ASPARTATE AMINO TRANSFERASE 36.4 U/L (17-59); BILIRUBIN,TOTAL 0.76 mg/dL (0.2-1.3); BLOOD UREA NITROGEN 43.3 mg/dL (9-20); CALCIUM 7.97 mg/dL (8.4-10.2); CARBON DIOXIDE 21.1 mmol/L (22-30.0); CREATININE 1.72 mg/dL (0.60-1.10); GLUCOSE 95.9 mg/dL (74-106); POTASSIUM 3.31 mmol/L (3.5-5.1); SODIUM 144.4 mmol/L (134.5-145); TOTAL PROTEIN 5.97 g/dL (6.3-8.2)
[2020-04-10] MEDS: ATIVAN PO SCH ×3 (06:04→22:54)
[2020-04-10] MEDS: DEXTROSE 5%-WATER IV SOLN 1,000 ML IV SCH ×2 (08:19→20:26)
[2020-04-10] MEDS: BETAPACE PO SCH (08:21)
[2020-04-10] MEDS: NAMENDA PO SCH ×2 (08:21→20:30)
[2020-04-10] MEDS: COZAAR PO SCH (08:21)
[2020-04-10] MEDS: CARDIZEM PO SCH ×2 (08:21→22:54)
[2020-04-10] MEDS: CELEXA PO SCH (08:21)
[2020-04-10] MEDS: ARICEPT PO SCH (08:21)
[2020-04-10] MEDS: XARELTO PO SCH (08:22)
[2020-04-10] MEDS: K-DUR PO SCH ×2 (12:14→17:25)
[2020-04-10] MEDS ORDERED: VASOTEC IV IVP STA (14:04)
[2020-04-10] MEDS: DESYREL PO SCH (20:30)
[2020-04-10] MEDS: ZYPREXA PO SCH (20:30)
[2020-04-11 04:46] LABS: ALANINE AMINOTRANSFERASE 43.2 U/L (0-50); ALBUMIN 2.86 g/dL (3.5-5.0); ALKALINE PHOSPHATASE 116.4 U/L (56-119); ASPARTATE AMINO TRANSFERASE 40.1 U/L (17-59); BILIRUBIN,TOTAL 0.75 mg/dL (0.2-1.3); CALCIUM 8.04 mg/dL (8.4-10.2); CARBON DIOXIDE 18.8 mmol/L (22-30.0); CHLORIDE 119.2 mmol/L (98-107); CREATININE 1.58 mg/dL (0.60-1.10); POTASSIUM 3.99 mmol/L (3.5-5.1); TOTAL PROTEIN 5.86 g/dL (6.3-8.2)
[2020-04-11] MEDS: ATIVAN PO SCH (05:08)
[2020-04-11 05:16] LABS: BASOPHILS % (AUTO) 0.3 % (0.0-3.0); EOSINOPHILS # (AUTO) 0.7 K/ul (0.0-0.7); EOSINOPHILS % (AUTO) 7.3 % (0.0-7.0); HEMATOCRIT 41.7 % (42.0-52.0); HEMOGLOBIN 13.4 g/dl (14.0-18.0); IMMATURE GRANULOCYTE % (AUTO) 0.1 % (0.0-5.0); LYMPHOCYTES % (AUTO) 32.2 (10.0-50.0); MEAN CORPUSCULAR HEMOGLOBIN 32.4 pg (27.0-31.0); MEAN CORPUSCULAR HGB CONC 32.1 (31.8-35.4); MONOCYTES # (AUTO) 0.7 K/uL (0.4-2.0); MONOCYTES % (AUTO) 7.7 (0-10); NEUTROPHILS # (AUTO) 4.9 K/ul (2.0-6.9); NEUTROPHILS % (AUTO) 52.4 % (42.2-75.2); PLATELET COUNT 183 10^3/uL (140-440); RED BLOOD COUNT 4.13 10^6/ul (4.70-6.10); WHITE BLOOD COUNT 9.44 K/ul (4.2-10.2)
[2020-04-11] MEDS ORDERED: ATIVAN PO PRN (08:23)
[2020-04-11] MEDS ORDERED: DESYREL PO SCH ×2 (08:30→21:00)
--- NOTE | 2020-04-11 09:47 | PCM.PROG ---
Attending Provider: ATTENDING PROVIDER: Dr. THOR STEIN This patient is seen with Renetta Lopez, Nurse Practitioner. DATE OF SERVICE: 04/11/20 SUBJECTIVE: This 75 year old /WHITE M was hospitalized 04/07/20. The patient is resting comfortably. Labs are improving. Blood pressure and heart rate have been controlled. Speech therapy coming today. The patient is nonverbal and lethargic. We will decrease his medications. REVIEW OF SYSTEMS: CONSTITUTIONAL: No night sweats. No fatigue, malaise, lethargy. No fever or chills. Weakness. HEENT: Eyes: No visual changes. No eye pain. No eye discharge. ENT: No runny nose. No epistaxis. No sinus pain. No odynophagia. No congestion. RESPIRATORY: No cough, no congestion. No hemoptysis. No shortness of breath. CARDIOVASCULAR: No angina symptoms. No CHF symptoms. No atypical chest pain for CAD. No palpitations. No orthopnea.. GASTROINTESTINAL: No abdominal pain. No nausea or vomiting. No diarrhea or constipation. No hematemesis. No hematochezia. GENITOURINARY: No urgency. No frequency. No dysuria. No hematuria. No obstr uctive symptoms. No discharge. No pain. No significant abnormal bleeding. MUSCULOSKELETAL: No musculoskeletal pain; no joint swelling. NEUROLOGICAL: Awake, alert, confused. No headache. No neck pain. No syncope. No seizures. No dizziness. PSYCHIATRIC: Not anxious. No depression. No suicidal thoughts. No homicidal thoughts. SKIN: No rash. No lesions. No wounds. ENDOCRINE: No unexplained weight loss. No weight gain. HEMATOLOGIC/LYMPHATIC: No anemia. No purpura. No petechiae. No prolonged or exc essive bleeding. No palpable lymph nodes. PHYSICAL EXAMINATION: GENERAL: The patient is awake, alert and not oriented, lying in bed in no distress. VITAL SIGNS: Temperature 97.1 F, Pulse 62, Respiratory Rate 14, BP 147/86, Pulse Ox 96% HEENT: Head normocephalic, atraumatic. Eyes: Extraocular muscles are intact. Pupils are equal, round and reactive to light and accommodation. Ears: No lesions. Nose appeared normal. Throat: No exudate or erythema. NECK: Supple. No JVD, no carotid bruit. No lymphadenopathy or thyromegaly. LUNGS: Diminished breath sounds. Clear to auscultation. Percussion note normal. Chest symmetrical. HEART: S1, S2, no S3. No murmurs. No cyanosis or clubbing. No ascites. Pulses: Dorsalis pedis and posterior tibial pulses +1 to +2 both sides. ABDOMEN: Soft. Non-tender. Bowel sounds active. No CVA tenderness. No mass felt. EXTREMITIES: No edema. Full range of motion of all extremities, equal. NEUROLOGIC: No focal deficit. Cranial nerves II through XII are grossly intact. No headache, no double vision or headache. SKIN: Not dry. Intact. Turgor-normal. LYMPHATIC: No palpable lymph nodes/no lymphedema. MUSCULOSKELETAL: Normal joints with no swelling. Muscle tone is normal. LAB REVIEW: 04/11/20 05:10 04/11/20 04:15 04/11/20 05:10: WBC 9.44, RBC 4.13 L, Hgb 13.4 L, Hct 41.7 L, MCV 101.0 H, MCH 32.4 H, MCHC 32.1, RDW Coeff of Yamilet 15.0 H, Plt Count 183, Immature Gran % (Auto) 0.1, Neut % (Auto) 52.4, Lymph % (Auto) 32.2, [place] % (Auto) 7.7, Eos % (Auto) 7.3 H, Baso % (Auto) 0.3, Neut # (Auto) 4.9, Lymph # (Auto) 3.0, [place] # (Auto) 0.7, Eos # (Auto) 0.7, Baso # (Auto) 0.0, Immature Gran # (Auto) 0.0 04/11/20 04:15: Sodium 143.0, Potassium 3.99, Chloride 119.2 H, Carbon Dioxide 18.8 L, Anion Gap 8.99, BUN 36.0 H, Creatinine 1.58 H, Estimated GFR (MDRD) 43.00, BUN/Creatinine Ratio 22.78, Glucose 77.0, Calcium 8.04 L, Total Bilirubin 0.75, AST 40.1, ALT 43.2, Alkaline Phosphatase 116.4, Total Protein 5.86 L, Albumin 2.86 L, Globulin 3.00, Albumin/Globulin Ratio 0.95 ASSESSMENT: Please see below. 1. Acute dehydration, improved 2. Hyperkalemia, resolved 3. Dementia with behavioral disturbances 4. Atrial fibrillation 5. Hypertension. PLAN: 1. Decrease Trazodone 50mg 2. Make Ativan PRN 3. Speech evaluation. Plan and coordination of the patient's care discussed in the presence of Store Promoter and nurse. SCRIBED BY: Melania HENDRIX scribed while in presence of service performed by Dr. Stein/Renetta Lopez APRN on 04/11/20 ([id number])
[2020-04-11] MEDS: ARICEPT PO SCH (10:45)
[2020-04-11] MEDS: CARDIZEM PO SCH ×2 (10:46→20:59)
[2020-04-11] MEDS: CELEXA PO SCH (10:47)
[2020-04-11] MEDS: K-DUR PO SCH ×3 (10:47→18:03)
[2020-04-11] MEDS: NAMENDA PO SCH ×2 (10:47→20:59)
[2020-04-11] MEDS: COZAAR PO SCH (10:48)
[2020-04-11] MEDS: XARELTO PO SCH (10:52)
[2020-04-11] MEDS: DEXTROSE 5%-WATER IV SOLN 1,000 ML IV SCH (14:01)
--- NOTE | 2020-04-11 14:47 | PN ---
DATE OF SERVICE: 04/09/20 SUBJECTIVE: 75-year-old white male hospitalized with acute renal failure and electrolyte imbalance. The patient's condition seems to be improving. He seems to be more alert but still sleepy. REVIEW OF SYSTEMS: CONSTITUTIONAL: No night sweats. No fatigue, malaise, lethargy. No fever or chills. HEENT: Eyes: No visual changes. No eye pain. No eye discharge. ENT: No runny nose. No epistaxis. No sinus pain. No sore throat. No odynophagia. No congestion. RESPIRATORY: No cough, no congestion. No hemoptysis. No shortness of breath. CARDIOVASCULAR: No angina symptoms. No CHF symptoms. No atypical chest pain for CAD. No palpitations. No PND. No orthopnea. GASTROINTESTINAL: No abdominal pain. No nausea or vomiting. No diarrhea or constipation. No hematemesis. No hematochezia. GENITOURINARY: No urgency. No frequency. No dysuria. No hematuria. No obstructive symptoms. No discharge. No pain. No significant abnormal bleeding. MUSCULOSKELETAL: No musculoskeletal pain; no joint swelling. NEUROLOGICAL: The patient is confused at times but more alert. No headache. No neck pain. No syncope. No seizures. No dizziness. PSYCHIATRIC: Not anxious. No depression. No suicidal thoughts. No homicidal thoughts. SKIN: No rash. No lesions. No wounds. ENDOCRINE: No unexplained weight loss. No weight gain. HEMATOLOGIC/LYMPHATIC: No anemia. No purpura. No petechiae. No prolonged or excessive bleeding. No palpable lymph nodes. PHYSICAL EXAMINATION: VITAL SIGNS: Temperature 97.9, pulse 98, respiratory rate 18, BP 120/90, pulse ox 100%. HEENT: Head normocephalic, atraumatic. Eyes: Extraocular muscles are intact. Pupils are equal, round and reactive to light and accommodation. Ears: No lesions. Nose appeared normal. Throat: No exudate or erythema. NECK: Supple. No JVD, no carotid bruit. No lymphadenopathy or thyromegaly. LUNGS: Decreased breath sounds but clear to auscultation. Percussion note normal. Chest symmetrical. HEART: S1, S2, no S3. No murmurs. No cyanosis or clubbing. No ascites. Pulses: Dorsalis pedis and posterior tibial pulses +1 to +2 bilaterally. ABDOMEN: Soft. Nontender. Bowel sounds active. No CVA tenderness. No mass felt. EXTREMITIES: No edema. Full range of motion of all extremities, equal. NEUROLOGIC: No focal deficit. Cranial nerves II through XII are grossly intact. No headache, no double vision or headache. SKIN: Not dry. Intact. Turgor - normal. LYMPHATIC: No palpable lymph nodes/no lymphedema. MUSCULOSKELETAL: Normal joints with no swelling. Muscle tone is normal. LABS: Hemoglobin 15, hematocrit 48, WBC 9,600, normal differential. Creatinine 2.2, BUN 51, potassium 3.8, sodium 153. ASSESSMENT: 1. Electrolyte imbalance with hypernatremia, hyperchloremia seems to be resolving. The patient is on D5W 100cc/hr. 2. Acute renal failure seems to be improving. Creatinine was 3 with BUN of more than 60, now it is 2.2 and 51, seems to be improving. 3. The patient's appetite seems to be improving after adjusting the patient's medications. 4. The patient had atrial fibrillation with rapid ventricular response so Xarelto was added. Continue to monitor with telemetry. TIME SPENT: More than 30 minutes. Plan and coordination of the patient's care discussed in the presence of nurse. VLADISLAV
--- NOTE | 2020-04-11 15:03 | RS.BEDDYS ---
Subjective Date of Evaluation: 04/11/20 Diagnosis: Dementia Current Level of Function: This 75 year old male resides in a half-way. He has a hx of dementia and combative behavior. He demonstrates poor alertness level with minimal verbal responses. Pt was referred for a beside swallow evaluation to determine his safety with PO intake. Current Diet: Puree Current Subjective/complaints:: The patient was asleep when HEALTH CARE ASSISTANT entered room. RN came to assist HEALTH CARE ASSISTANT with positioning and alertness. Pt was easily woke with verbal commands and re-positioning in the bed. He only verbalized simple one-two word responses. Pt was cooperative for HEALTH CARE ASSISTANT and RN to administer medications and complete the BSE. Lung sounds were clear. Patient's Goals: To consume safest and least restrictive diet and liquid consistency. General Information - General Denture Type: Not Applicable Ability to Follow Directions: Poor Is Patient able to Repeat Directions?: No Oral Expression Ability: Moderate Impairment (Pt verbalized simple words. did not initiate conversation.) - Voice Voice Quality: Weak Oral-Facial Assessment - Dental/Labial Lips Comment: Labial seal around straw appeared symmetrical and no loss of liquids. - Lingual Comments: Pt demonstrated lingual ROM and strength by using a lingual sweep in bilateral sulci. - Comments/Additional Info. Comments:: A complete Oral motor examination was not complete due to pt's lack of response to directions. Food Presentation - Solids Food Presented: Pureed (Via spoonfuls by HEALTH CARE ASSISTANT) Behaviors/Comments: Pt consumed three bites. 2/3 bites were WNL. Last bite, pt demonstrated oral holding, and bolus manipulation or mastication with puree. HEALTH CARE ASSISTANT cued him to swallow, which took almost 7 seconds before swallowing puree bolus was complete. Pt has a risk of aspiration with holding food in oral cavity due to his mentation. Food Presented: Mechanical Soft (Via ysdnee presented by HEALTH CARE ASSISTANT.) Behaviors/Comments: HEALTH CARE ASSISTANT presented piece of sydnee to pt. He did not attempt to consume texture. HEALTH CARE ASSISTANT placed piece on pt's lower lip. He did not attempt to consume piece of sydnee. HEALTH CARE ASSISTANT removed piece. - Liquids Liquid Presented: Thin (Via straw, open cup, and spoon by HEALTH CARE ASSISTANT and pt) Behaviors/Comments: HEALTH CARE ASSISTANT initially presented an ice chip. This increased pt's awareness and alertness to consume liquids. HEALTH CARE ASSISTANT presented a straw, pt initially did not suck, even with multiple attempts of stimulation. HEALTH CARE ASSISTANT presented spoonful of liquids. Pt had a delayed swallow initiation, audible swallow and sluggish laryngeal elevation with 1x throat clear. Pt was presented an open cup. He took sips independently and had audible swallow, but delay in swallow decreased. Straw was presented again and pt consumed consecutive straw drinks with slight swallow delay and minimal to no overt s/s of aspiration. He can manage thin liquids with minimal risk for aspiration-IF HE IS ALERT. Liquid Presented: [place] (Via cup) Behaviors/Comments: Pt sipped nectar. No overt s/s of aspiration - Recommendations: Dysphagia Evaluation Dietary Recommendations: Dysphagia Pureed Comments:: PT NEEDS TO BE ALERT AND CONSUMING LIQUIDS VIA STRAW TO REDUCE ASPIRATION RISKS. Dysphagia Swallow Precautions/Strategies: Sitting Upright (90 deg), Liquids from Straw, Small Bites and Sips, Alternate Liquids/Solids Comments:: Pt needs oral care post all meals. Monitor lung sounds post meals. Assistance with meal set-up and feeding. Present liquids to pt with straw, allow him to drink naturally. Take drink away after a long consecutive drink. ALERTNESS LEVEL IS DEPENDENT ON PTS PO INTAKE. Monitor for overt s/s of aspiration. - Summary Dysphagia Evaluation Summary: Pt appears with mild-moderate oropharyngeal dysphagia. He presents with decreased alertness and altered mental status which are his biggest risk factors for aspiration. Pt's mentation impairs his oral phase with mastication and swallow initiation. His pharyngeal phase is affected by sluggish laryngeal elevation increasing risk for liquids or bolus to enter the airway. Pt has a risk for aspiration/penetration. Further Therapy Indicated?: Yes Comments: HEALTH CARE ASSISTANT wants to follow pt to ensure safety with thin liquids, monitor s/s of aspiration, and re-assess for diet upgrade. Rehab Potential: Fair Functional Reporting G Codes: n/a Severity Impairment Rationale: n/a Short Term Goals Problem: Diet upgrade Goal #1: Trial [facility] soft diet texture for diet upgrade Goal to be met by: 04/15/20 Problem: Aspiration risks Goal #2: Train staff with aspiration precautions and risks to decrease aspiration Goal to be met by: 04/15/20 Tie Tape Machine Operator Goals Problem: Dysphagia Goal #1: Pt to consume safest and least restrictive diet texture w/o aspiration Goal to be met by: 04/15/20 Plan Duration of Treatment: 1 Week Frequency of Treatment: 2-3x/wekk Anticipated Discharge Destination: [facility] Comments: HEALTH CARE ASSISTANT to follow pt to ensure safety with PO intake, re-assess diet texture, monitor for s/s of aspiration, train staff. Pt needs oral care co mpleted daily. - Treatment Code (1) Oropharyngeal dysphagia Code(s): R13.12 - Dysphagia, oropharyngeal phase
[2020-04-11] MEDS: ZYPREXA PO SCH (20:59)
[2020-04-12 04:43] LABS: BASOPHILS % (AUTO) 0.3 % (0.0-3.0); EOSINOPHILS # (AUTO) 0.5 K/ul (0.0-0.7); EOSINOPHILS % (AUTO) 5.1 % (0.0-7.0); HEMATOCRIT 42.2 % (42.0-52.0); HEMOGLOBIN 13.7 g/dl (14.0-18.0); IMMATURE GRANULOCYTE % (AUTO) 0.2 % (0.0-5.0); LYMPHOCYTES # (AUTO) 3.4 K/uL (0.60-3.4); LYMPHOCYTES % (AUTO) 36.4 (10.0-50.0); MEAN CORPUSCULAR HEMOGLOBIN 32.2 pg (27.0-31.0); MEAN CORPUSCULAR HGB CONC 32.5 (31.8-35.4); MEAN CORPUSCULAR VOLUME 99.3 fl (80.0-94.0); MONOCYTES # (AUTO) 0.8 K/uL (0.4-2.0); NEUTROPHILS # (AUTO) 4.6 K/ul (2.0-6.9); PLATELET COUNT 184 10^3/uL (140-440); RDW COEFFICIENT OF VARIATION 14.6 % (11.6-14.8); RED BLOOD COUNT 4.25 10^6/ul (4.70-6.10); WHITE BLOOD COUNT 9.36 K/ul (4.2-10.2)
[2020-04-12 05:00] LABS: ALANINE AMINOTRANSFERASE 56.3 U/L (0-50); ALBUMIN 3.05 g/dL (3.5-5.0); ALKALINE PHOSPHATASE 133.4 U/L (56-119); ASPARTATE AMINO TRANSFERASE 51.6 U/L (17-59); BILIRUBIN,TOTAL 0.63 mg/dL (0.2-1.3); BLOOD UREA NITROGEN 24.8 mg/dL (9-20); CALCIUM 8.3 mg/dL (8.4-10.2); CARBON DIOXIDE 21.9 mmol/L (22-30.0); CHLORIDE 117.6 mmol/L (98-107); CREATININE 1.37 mg/dL (0.60-1.10); GLUCOSE 78.6 mg/dL (74-106); POTASSIUM 4.21 mmol/L (3.5-5.1); SODIUM 142.9 mmol/L (134.5-145); TOTAL PROTEIN 6.32 g/dL (6.3-8.2)
[2020-04-12] MEDS: DEXTROSE 5%-WATER IV SOLN 1,000 ML IV SCH ×3 (05:05→13:31)
--- NOTE | 2020-04-12 08:57 | PN ---
DATE OF SERVICE: 04/10/20 SUBJECTIVE: 75-year-old white male hospitalized with acute electrolyte imbalance and acute renal failure. The patient's condition seems to be improving. His mental status has improved some, confused. REVIEW OF SYSTEMS: (Unable to take because of the patient's confusion) CONSTITUTIONAL: No night sweats. No fatigue, malaise, lethargy. No fever or chills. HEENT: Eyes: No visual changes. No eye pain. No eye discharge. ENT: No runny nose. No epistaxis. No sinus pain. No sore throat. No odynophagia. No congestion. RESPIRATORY: No cough, no congestion. No hemoptysis. No shortness of breath. CARDIOVASCULAR: No angina symptoms. No CHF symptoms. No atypical chest pain for CAD. No palpitations. No PND. No orthopnea. GASTROINTESTINAL: No abdominal pain. No nausea or vomiting. No diarrhea or constipation. No hematemesis. No hematochezia. GENITOURINARY: No urgency. No frequency. No dysuria. No hematuria. No obstructive symptoms. No discharge. No pain. No significant abnormal bleeding. MUSCULOSKELETAL: No musculoskeletal pain; no joint swelling. NEUROLOGICAL: No headache. No neck pain. No syncope. No seizures. No dizziness. PSYCHIATRIC: Not anxious. No depression. No suicidal thoughts. No homicidal thoughts. SKIN: No rash. No lesions. No wounds. ENDOCRINE: No unexplained weight loss. No weight gain. HEMATOLOGIC/LYMPHATIC: No anemia. No purpura. No petechiae. No prolonged or excessive bleeding. No palpable lymph nodes. PHYSICAL EXAMINATION: GENERAL: The patient seems to be alert but confused. VITAL SIGNS: Temperature 97.8, pulse 60, respiratory rate 16, blood pressure 150/87, pulse ox 100%. HEENT: Head normocephalic, atraumatic. Eyes: Extraocular muscles are intact. Pupils are equal, round and reactive to light and accommodation. Ears: No lesions. Nose appeared normal. Throat: No exudate or erythema. NECK: Supple. No JVD, no carotid bruit. No lymphadenopathy or thyromegaly. LUNGS: Decreased breath sounds but clear to auscultation. Percussion note normal. Chest symmetrical. HEART: S1, S2, no S3. No murmurs. No cyanosis or clubbing. No ascites. Pulses: Dorsalis pedis and posterior tibial pulses +1 to +2 bilaterally. ABDOMEN: Soft. Nontender. Bowel sounds active. No CVA tenderness. No mass felt. EXTREMITIES: No edema. Full range of motion of all extremities, equal. NEUROLOGIC: No focal deficit. Cranial nerves II through XII are grossly intact. No headache, no double vision or headache. SKIN: Not dry. Intact. Turgor - normal. LYMPHATIC: No palpable lymph nodes/no lymphedema. MUSCULOSKELETAL: Normal joints with no swelling. Muscle tone is normal. LABS: Hemoglobin 13.4, hematocrit 43, WBC 8,500, normal differential. Creatinine 1.7, BUN 43, potassium 3.3 with sodium of 144 and chloride 119. ASSESSMENT: 1. Electrolyte imbalance seems to be improving with sodium of 144, chloride of 119 now. 2. Hypokalemia treated with K-tab 20 mEq t.i.d. daily. 3. Will cut down the IV fluids to 60 cc/hr. 4. Continue to monitor CBC and CMP. 5. Will evaluate swallowing with swallow study. 6. Acute renal failure seems to be improving with creatinine of 1.7, BUN of 43. On admission it was 3 and 60 respectively. Hydration status has improved. Later on it was reported that the patient had bradycardia with hypotension. PLAN: 1. Discontinue Betapace. 2. Continue Cardizem 60 mg twice a day. 3. Hold Losartan if the blood pressure is less than 120. Also hold Clonidine. 4. Continue telemetry. 5. Elevate the legs. 6. Will monitor the rhythm for bradyarrhythmias. CONDITION: Stable. TIME SPENT: More than 30 minutes. Plan and coordination of the patient's care discussed in the presence of nurse. VLADISLAV
--- NOTE | 2020-04-12 09:01 | PN ---
DATE OF SERVICE: 04/11/20 SUBJECTIVE: The patient was seen and examined with the nurse practitioner. The patient's condition is stable. The electrolyte imbalance seems to be resolving. Renal failure has improved alot. His blood pressure is stable. Continue to monitor his rhythm. TIME SPENT: More than 30 minutes. Plan and coordination of the patient's care discussed in the presence of nurse. VLADISLAV
[2020-04-12] MEDS: K-DUR PO SCH ×3 (09:11→17:21)
[2020-04-12] MEDS: CARDIZEM PO SCH ×2 (09:12→20:26)
[2020-04-12] MEDS: NAMENDA PO SCH ×2 (09:12→20:27)
[2020-04-12] MEDS: CELEXA PO SCH (09:12)
[2020-04-12] MEDS: ARICEPT PO SCH (09:12)
[2020-04-12] MEDS: XARELTO PO SCH (09:12)
[2020-04-12] MEDS: COZAAR PO SCH (09:22)
[2020-04-12] MEDS: BETAPACE PO SCH ×2 (10:34→20:27)
--- NOTE | 2020-04-12 10:51 | PCM.PROG ---
Attending Provider: ATTENDING PROVIDER: Dr. THOR STEIN This patient is seen with Renetta Lopez, Nurse Practitioner. DATE OF SERVICE: 04/12/20 SUBJECTIVE: This 75 year old /WHITE M was hospitalized 04/07/20. The patient is resting comfortably. He has been anxious and up and down through the night. He did not wake till about 2pm yesterday. We will continue Ativan PRN. Kidney function has significantly improved. REVIEW OF SYSTEMS: CONSTITUTIONAL: No night sweats. No fatigue, malaise, lethargy. No fever or chills. Weakness. HEENT: Eyes: No visual changes. No eye pain. No eye discharge. ENT: No runny nose. No epistaxis. No sinus pain. No odynophagia. No congestion. RESPIRATORY: No cough, no congestion. No hemoptysis. No shortness of breath. CARDIOVASCULAR: No angina symptoms. No CHF symptoms. No atypical chest pain for CAD. No palpitations. No orthopnea.. GASTROINTESTINAL: No abdominal pain. No nausea or vomiting. No diarrhea or constipation. No hematemesis. No hematochezia. GENITOURINARY: No urgency. No frequency. No dysuria. No hematuria. No obstructiv e symptoms. No discharge. No pain. No significant abnormal bleeding. MUSCULOSKELETAL: No musculoskeletal pain; no joint swelling. NEUROLOGICAL: Awake, alert, confusion. No headache. No neck pain. No syncope. No seizures. No dizziness. PSYCHIATRIC: Not anxious. No depression. No suicidal thoughts. No homicidal thoughts. SKIN: No rash. No lesions. No wounds. ENDOCRINE: No unexplained weight loss. No weight gain. HEMATOLOGIC/LYMPHATIC: No anemia. No purpura. No petechiae. No prolonged or excessive bleeding. No palpable lymph nodes. PHYSICAL EXAMINATION: GENERAL: The patient is awake, alert and not oriented, lying in bed in no distress. VITAL SIGNS: Temperature 97.9 F, Pulse 73, Respiratory Rate 20, BP 123/82, Pulse Ox 100% HEENT: Head normocephalic, atraumatic. Eyes: Extraocular muscles are intact. Pupils are equal, round and reactive to light and accommodation. Ears: No lesions. Nose appeared normal. Throat: No exudate or erythema. NECK: Supple. No JVD, no carotid bruit. No lymphadenopathy or thyromegaly. LUNGS: Diminished breath sounds. Clear to auscultation. Percussion note normal. Chest symmetrical. HEART: S1, S2, no S3. No murmurs. No cyanosis or clubbing. No ascites. Pulses: Dorsalis pedis and posterior tibial pulses +1 to +2 both sides. ABDOMEN: Soft. Non-tender. Bowel sounds active. No CVA tenderness. No mass felt. EXTREMITIES: No edema. Full range of motion of all extremities, equal. NEUROLOGIC: No focal deficit. Cranial nerves II through XII are grossly intact. No headache, no double vision or headache. SKIN: Not dry. Intact. Turgor-normal. LYMPHATIC: No palpable lymph nodes/no lymphedema. MUSCULOSKELETAL: Normal joints with no swelling. Muscle tone is normal. LAB REVIEW: 04/12/20 04:30 04/12/20 04:30 04/12/20 04:30: Sodium 142.9, Potassium 4.21, Chloride 117.6 H, Carbon Dioxide 21.9 L, Anion Gap 7.61, BUN 24.8 H, Creatinine 1.37 H, Estimated GFR (MDRD) 51.00, BUN/Creatinine Ratio 18.10, Glucose 78.6, Calcium 8.30 L, Total Bilirubin 0.63, AST 51.6, ALT 56.3 H, Alkaline Phosphatase 133.4 H, Total Protein 6.32, Albumin 3.05 L, Globulin 3.27, Albumin/Globulin Ratio 0.93 04/12/20 04:30: WBC 9.36, RBC 4.25 L, Hgb 13.7 L, Hct 42.2, MCV 99.3 H, MCH 32.2 H, MCHC 32.5, RDW Coeff of [place]ile[place] 14.6, Plt Count 184, Immature Gran % (Auto) 0.2, Neut % (Auto) 49.0, Lymph % (Auto) 36.4, [place] % (Auto) 9.0, Eos % (Auto) 5.1, Baso % (Auto) 0.3, Neut # (Auto) 4.6, Lymph # (Auto) 3.4, [place] # (Auto) 0.8, Eos # (Auto) 0.5, Baso # (Auto) 0.0, Immature Gran # (Auto) 0.0 ASSESSMENT: Please see below. 1. Acute dehydration, improved 2. Hyperkalemia, resolved 3. Dementia with behavioral disturbances 4. Atrial fibrillation 5. Hypertension. PLAN: 1. Discharge back to [facility] 2. Repeat CBC and CMP on Saturday 3. Lasix three days a weeks 4. Continue Potassium 20meq TID 5. Continue Losartan 6. Ativan PRN 7. Continue Trazodone 100mg Plan and coordination of the patient's care discussed in the presence of Vaudeville Actor and nurse. SCRIBED BY: Melania HENDRIX scribed while in presence of service performed by Dr. Stein/Renetta Lopez APRN on 04/12/20 ([id number])
[2020-04-12] MEDS: DESYREL PO SCH (20:26)
[2020-04-12] MEDS: ZYPREXA PO SCH (20:26)
[2020-04-12] MEDS: ATIVAN PO PRN (20:26)
[2020-04-13 05:13] LABS: BASOPHILS % (AUTO) 0.3 % (0.0-3.0); EOSINOPHILS # (AUTO) 0.5 K/ul (0.0-0.7); EOSINOPHILS % (AUTO) 6.3 % (0.0-7.0); HEMATOCRIT 40.4 % (42.0-52.0); HEMOGLOBIN 13.5 g/dl (14.0-18.0); IMMATURE GRANULOCYTE % (AUTO) 0.1 % (0.0-5.0); LYMPHOCYTES # (AUTO) 3.4 K/uL (0.60-3.4); LYMPHOCYTES % (AUTO) 43.4 (10.0-50.0); MEAN CORPUSCULAR HEMOGLOBIN 32.7 pg (27.0-31.0); MEAN CORPUSCULAR HGB CONC 33.4 (31.8-35.4); MEAN CORPUSCULAR VOLUME 97.8 fl (80.0-94.0); MONOCYTES # (AUTO) 0.8 K/uL (0.4-2.0); MONOCYTES % (AUTO) 9.9 (0-10); NEUTROPHILS # (AUTO) 3.1 K/ul (2.0-6.9); PLATELET COUNT 176 10^3/uL (140-440); RDW COEFFICIENT OF VARIATION 14.7 % (11.6-14.8); RED BLOOD COUNT 4.13 10^6/ul (4.70-6.10); WHITE BLOOD COUNT 7.77 K/ul (4.2-10.2)
[2020-04-13 05:29] LABS: ALANINE AMINOTRANSFERASE 52.9 U/L (0-50); ALBUMIN 2.76 g/dL (3.5-5.0); ALKALINE PHOSPHATASE 126.8 U/L (56-119); ASPARTATE AMINO TRANSFERASE 40.5 U/L (17-59); BILIRUBIN,TOTAL 0.47 mg/dL (0.2-1.3); BLOOD UREA NITROGEN 21.3 mg/dL (9-20); CALCIUM 8.05 mg/dL (8.4-10.2); CARBON DIOXIDE 20.8 mmol/L (22-30.0); CREATININE 1.15 mg/dL (0.60-1.10); POTASSIUM 3.3 mmol/L (3.5-5.1); SODIUM 141.7 mmol/L (134.5-145); TOTAL PROTEIN 5.96 g/dL (6.3-8.2)
[2020-04-13] MEDS: CARDIZEM PO SCH ×2 (08:54→21:19)
[2020-04-13] MEDS: K-DUR PO SCH ×3 (08:54→17:04)
[2020-04-13] MEDS: BETAPACE PO SCH ×2 (08:54→21:20)
[2020-04-13] MEDS: COZAAR PO SCH (08:54)
[2020-04-13] MEDS: NAMENDA PO SCH ×2 (08:54→21:19)
[2020-04-13] MEDS: CELEXA PO SCH (08:54)
[2020-04-13] MEDS: XARELTO PO SCH (08:55)
[2020-04-13] MEDS: ARICEPT PO SCH (08:55)
[2020-04-13] MEDS: ATIVAN PO PRN (17:05)
[2020-04-13] MEDS: DESYREL PO SCH (21:19)
[2020-04-13] MEDS: ZYPREXA PO SCH (21:19)
[2020-04-14] MEDS: ATIVAN PO PRN (00:31)
[2020-04-14 05:24] LABS: BASOPHILS % (AUTO) 0.3 % (0.0-3.0); EOSINOPHILS # (AUTO) 0.5 K/ul (0.0-0.7); EOSINOPHILS % (AUTO) 5.6 % (0.0-7.0); HEMATOCRIT 39.6 % (42.0-52.0); HEMOGLOBIN 12.7 g/dl (14.0-18.0); IMMATURE GRANULOCYTE % (AUTO) 0.2 % (0.0-5.0); LYMPHOCYTES # (AUTO) 3.8 K/uL (0.60-3.4); LYMPHOCYTES % (AUTO) 44.6 (10.0-50.0); MEAN CORPUSCULAR HEMOGLOBIN 31.8 pg (27.0-31.0); MEAN CORPUSCULAR HGB CONC 32.1 (31.8-35.4); MEAN CORPUSCULAR VOLUME 99.2 fl (80.0-94.0); MONOCYTES # (AUTO) 0.8 K/uL (0.4-2.0); MONOCYTES % (AUTO) 9.7 (0-10); NEUTROPHILS # (AUTO) 3.4 K/ul (2.0-6.9); NEUTROPHILS % (AUTO) 39.6 % (42.2-75.2); PLATELET COUNT 199 10^3/uL (140-440); RDW COEFFICIENT OF VARIATION 14.6 % (11.6-14.8); RED BLOOD COUNT 3.99 10^6/ul (4.70-6.10); WHITE BLOOD COUNT 8.59 K/ul (4.2-10.2)
[2020-04-14 05:39] LABS: ALANINE AMINOTRANSFERASE 52.2 U/L (0-50); ALKALINE PHOSPHATASE 134.5 U/L (56-119); ASPARTATE AMINO TRANSFERASE 40.4 U/L (17-59); BILIRUBIN,TOTAL 0.62 mg/dL (0.2-1.3); BLOOD UREA NITROGEN 22.2 mg/dL (9-20); CALCIUM 8.63 mg/dL (8.4-10.2); CREATININE 1.41 mg/dL (0.60-1.10); GLUCOSE 83.6 mg/dL (74-106); POTASSIUM 4.28 mmol/L (3.5-5.1); SODIUM 140.2 mmol/L (134.5-145); TOTAL PROTEIN 6.1 g/dL (6.3-8.2)
[2020-04-14 06:25] VITALS: TEMP 97.8
[2020-04-14] MEDS: NAMENDA PO SCH (08:50)
[2020-04-14] MEDS: BETAPACE PO SCH (08:50)
[2020-04-14] MEDS: CARDIZEM PO SCH (08:50)
[2020-04-14] MEDS: COZAAR PO SCH (08:50)
[2020-04-14] MEDS: K-DUR PO SCH ×2 (08:50→13:15)
[2020-04-14] MEDS: ARICEPT PO SCH (08:50)
[2020-04-14] MEDS: CELEXA PO SCH (08:50)
[2020-04-14] MEDS: XARELTO PO SCH (08:51)
--- NOTE | 2020-04-14 10:06 | PCM.PROG ---
Attending Provider: ATTENDING PROVIDER: Dr. THOR STEIN This patient is seen with Renetta Lopez, Nurse Practitioner. DATE OF SERVICE: 04/14/20 SUBJECTIVE: This 75 year old /WHITE M was hospitalized 04/07/20. The patient is resting comfortably. He is eating better even feeding himself. He is more alert. Kidney function is stable. Heart rate is controlled. He is ready for discharge. REVIEW OF SYSTEMS: CONSTITUTIONAL: No night sweats. No fatigue, malaise, lethargy. No fever or chills. HEENT: Eyes: No visual changes. No eye pain. No eye discharge. ENT: No runny nose. No epistaxis. No sinus pain. No odynophagia. No congestion. RESPIRATORY: No cough, no congestion. No hemoptysis. No shortness of breath. CARDIOVASCULAR: No angina symptoms. No CHF symptoms. No atypical chest pain for CAD. No palpitations. No orthopnea.. GASTROINTESTINAL: No abdominal pain. No nausea or vomiting. No diarrhea or constipation. No hematemesis. No hematochezia. GENITOURINARY: No urgency. No frequency. No dysuria. No hematuria. No obstructive symptoms. No discharge. No pain. No significant abnormal bleeding. MUSCULOSKELETAL: No musculoskeletal pain; no joint swelling. NEUROLOGICAL: Awake, alert, confusion as usual. Agitation at times. No headache. No neck pain. No syncope. No seizures. No dizziness. PSYCHIATRIC: Not anxious. No depression. No suicidal thoughts. No homicidal thoughts. SKIN: No rash. No lesions. No wounds. ENDOCRINE: No unexplained weight loss. No weight gain. HEMATOLOGIC/LYMPHATIC: No anemia. No purpura. No petechiae. No prolonged or excessive bleeding. No palpable lymph nodes. PHYSICAL EXAMINATION: GENERAL: The patient is awake, alert and not oriented, lying in bed in no distress. VITAL SIGNS: Temperature 97.8 F, Pulse 75, Respiratory Rate 16, BP 133/83, Pulse Ox 95% HEENT: Head normocephalic, atraumatic. Eyes: Extraocular muscles are intact. Pupils are equal, round and reactive to light and accommodation. Ears: No lesions. Nose appeared normal. Throat: No exudate or erythema. NECK: Supple. No JVD, no carotid bruit. No lymphadenopathy or thyromegaly. LUNGS: Diminished breath sounds. Clear to auscultation. Percussion note normal. Chest symmetrical. HEART: S1, S2, no S3. No murmurs. No cyanosis or clubbing. No ascites. Pulses: Dorsalis pedis and posterior tibial pulses +1 to +2 both sides. ABDOMEN: Soft. Non-tender. Bowel sounds active. No CVA tenderness. No mass felt. EXTREMITIES: No edema. Full range of motion of all extremities, equal. NEUROLOGIC: No focal deficit. Cranial nerves II through XII are grossly intact. No headache, no double vision or headache. SKIN: Not dry. Intact. Turgor-normal. LYMPHATIC: No palpable lymph nodes/no lymphedema. MUSCULOSKELETAL: Normal joints with no swelling. Muscle tone is normal. LAB REVIEW: 04/14/20 05:05 04/14/20 05:05 04/14/20 05:05: Sodium 140.2, Potassium 4.28, Chloride 113.0 H, Carbon Dioxide 24.0, Anion Gap 7.48, BUN 22.2 H, Creatinine 1.41 H, Estimated GFR (MDRD) 49.00, BUN/Creatinine Ratio 15.74, Glucose 83.6, Calcium 8.63, Total Bilirubin 0.62, AST 40.4, ALT 52.2 H, Alkaline Phosphatase 134.5 H, Total Protein 6.10 L, Albumin 3.00 L, Globulin 3.10, Albumin/Globulin Ratio 0.96 04/14/20 05:05: WBC 8.59, RBC 3.99 L, Hgb 12.7 L, Hct 39.6 L, MCV 99.2 H, MCH 31.8 H, MCHC 32.1, RDW Coeff of [place] 14.6, Plt Count 199, Immature Gran % (Auto) 0.2, Neut % (Auto) 39.6 L, Lymph % (Auto) 44.6, [place] % (Auto) 9.7, Eos % (Auto) 5.6, Baso % (Auto) 0.3, Neut # (Auto) 3.4, Lymph # (Auto) 3.8 H, [place] # (Auto) 0.8, Eos # (Auto) 0.5, Baso # (Auto) 0.0, Immature Gran # (Auto) 0.0 ASSESSMENT: Please see below. 1. 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 Dementia with behavior disturbances 4. Hyperkalemia, resolved 5. Hydration, resolved 6. Atrial fibrillation with RVR controlled. PLAN: 1. Decrease Ativan 0.5mg BID 2. Discharge to the halfway 3. Fall precautions 4. CBC and CMP on Saturday Plan and coordination of the patient's care discussed in the presence of [employer] Co[employer] Hand and nurse. SCRIBED BY: LISA LOCO Drop Machine Operator scribed while in presence of service performed by Dr. Stein/Renetta Lopez APRN on 04/14/20 ([id number])
--- NOTE | 2020-04-14 10:54 | CM.DICTOOL ---
ADMISSION: 04/07/20 23:04 DISCHARGE: APRIL 14, 2020 DATE OF SERVICE: 04/14/20 FINAL DIAGNOSIS ACUTE RENAL FAILURE DEHYDRATION HYPERKALEMIA ELECTROLYTE IMBALANCE ATRIAL FIBRILLATION, WITH RVR (ON XARELTO) CHRONIC RENAL FAILURE, STAGE 2 HYPERTENSION DEMENTIA WITH BEHAVIORS HISTORY OF DVT RIGHT POPLITEAL AND PERONEAL VEIN (ON XARELTO) ECHOCARDIOGRAM: 01/12/2020 BORDERLINE LEFT VENTRICULAR HYPERTROPHY BORDERLINE LEFT ATRIAL CAVITY LVEF 74% LAST VITALS Temp Pulse Resp BP Pulse Ox 97.8 F 75 16 133/83 95 04/14/20 06:00 04/14/20 06:00 04/14/20 06:00 04/14/20 06:00 04/14/20 06:00 TAKE THESE MEDICATIONS AT HOME Acetaminophen (Acetaminophen 325 Mg Tablet) 650 mg PO Q4HR PRN PRN Reason: Mild Pain Citalopram Hydrobromide (Citalopram Hydrobromide 20 Mg Tablet) 40 mg PO DAILY [facility] Last Admin: 04/14/20 08:50 Dose: 40 mg Documented by: Clonidine (Clonidine Hcl 0.1 Mg Tablet) 0.1 mg PO BID PRN PRN Reason: Hypertensive Emergency Diltiazem HCl (Diltiazem Hcl 60 Mg Tablet) 60 mg PO Q12HR [facility] ([facility]) Last Admin: 04/14/20 08:50 Dose: 60 mg Documented by: Donepezil HCl (Donepezil Hcl 10 Mg Tablet) 20 mg PO DAILY [facility] Last Admin: 04/14/20 08:50 Dose: 20 mg Documented by: Lorazepam (Lorazepam ) 0.5 mg PO BID Last Admin: 04/14/20 00:31 Dose: 1 mg Documented by: Losartan Potassium (Losartan Potassium 25 Mg Tablet) 50 mg PO DAILY [facility] Last Admin: 04/14/20 08:50 Dose: 50 mg Documented by: Memantine (Memantine Hcl 10 Mg Tablet) 10 mg PO BID [facility] Last Admin: 04/14/20 08:50 Dose: 10 mg Documented by: Olanzapine (Olanzapine 2.5 Mg Tablet) 2.5 mg PO BEDTIME [facility] Last Admin: 04/13/20 21:19 Dose: 2.5 mg Documented by: Potassium Chloride (Potassium Chloride 20 Meq Tab) 20 meq PO TIDWM [facility] Last Admin: 04/14/20 08:50 Dose: 20 meq Documented by: Rivaroxaban (Rivaroxaban 10 Mg Tablet) 20 mg PO DAILY [facility] Last Admin: 04/14/20 08:51 Dose: 20 mg Documented by: Sotalol HCl (Sotalol Hcl 80 Mg Tablet) 40 mg PO BID [facility] Last Admin: 04/14/20 08:50 Dose: 40 mg Documented by: Trazodone HCl (Trazodone Hcl 50 Mg Tablet) 100 mg PO BEDTIME [facility] Last Admin: 04/13/20 21:19 Dose: 100 mg Documented by: Furosemide 40 mg PO Three times a week (MOWEFR) Last Admin: Milk of Magnesia 30 ml PO DAILY PRN Last Admin: ALLERGIES codeine Adverse Reaction (Verified 02/15/20 11:24) meperidine [From Demerol] Adverse Reaction (Verified 02/15/20 11:24) nalbuphine [From Nubain] Adverse Reaction (Verified 02/15/20 11:24) DISCONTINUED MEDICATIONS Lorazepam 1 mg Q 8 hour Lasix 40 mg Daily Losartan 50 mg BID Potassium Chloride 40 meq TID NEW PRESCRIPTIONS: Lasix 40 mg 3 times weekly (MOWEFR) Losartan 50 mg Daily Ativan 0.5 mg BID (prescription enclosed) Potassium Chloride 20 meq TIDWM Cardizem 60 mg BID SMOKING: NOT APPLICABLE DISEASE SPECIFIC EDUCATION: PATIENT IS ORIENTED TO SELF ONLY LAB REVIEW: 04/14/20 05:05 04/14/20 05:05 04/14/20 05:05: Sodium 140.2, Potassium 4.28, Chloride 113.0 H, Carbon Dioxide 24.0, Anion Gap 7.48, BUN 22.2 H, Creatinine 1.41 H, Estimated GFR (MDRD) 49.00, BUN/Creatinine Ratio 15.74, Glucose 83.6, Calcium 8.63, Total Bilirubin 0.62, AST 40.4, ALT 52.2 H, Alkaline Phosphatase 134.5 H, Total Protein 6.10 L, Albumin 3.00 L, Globulin 3.10, Albumin/Globulin Ratio 0.96 04/14/20 05:05: WBC 8.59, RBC 3.99 L, Hgb 12.7 L, Hct 39.6 L, MCV 99.2 H, MCH 31.8 H, MCHC 32.1, RDW Coeff of Yamilet 14.6, Plt Count 199, Immature Gran % (Auto) 0.2, Neut % (Auto) 39.6 L, Lymph % (Auto) 44.6, [place] % (Auto) 9.7, Eos % (Auto) 5.6, Baso % (Auto) 0.3, Neut # (Auto) 3.4, Lymph # (Auto) 3.8 H, [place] # (Auto) 0.8, Eos # (Auto) 0.5, Baso # (Auto) 0.0, Immature Gran # (Auto) 0.0 PLAN: DISCHARGE: RETURN TO [facility] ([facility] TO TRANSPORT) DIET: PUREED WITH THIN LIQUIDS DIETITIAN TO FOLLOW FOR OPTIMAL MEAL INTAKES SPEECH THERAPY TO EVALUATE, TREAT AND FOLLLOW ACTIVITY: UP TO CHAIR TOLERATED AMBULATE TOLERATED PHYSICAL THERAPY EVALUATION VITAL SIGNS DAILY FOR 1 WEEK DUE TO MEDICATION CHANGES, THEN THREE TIMES A WEEK INCONTINENT CARE PRN DECUBITUS PRECAUTIONS FALL PRECAUTIONS CBC, CMP ON April ( AT [facility]) THEN CBC, CMP WEEKLY X 2, THEN MONTLY CODE STATUS: DO NOT RESUSCITATE PATIENT TO BE SEEN AT [facility] ON ROUNDS IN 7-[address] STEIN/SUZY DE JESUS APRN/AD SERRANO APRN MR. DUDLEY IS ALERT TO PERSON ONLY. HE IS DISORIENTED TO TIME, PLACE AND SITUATION. MR. DUDLEY REQUIRES TOTAL CARE BY NURSING, BUT HAS BEEN ABLE TO PARTIALLY FEED HIMSELF AT TIMES. MR. DUDLEY FREQUENTLY ATTEMPTS TO EXIT THE BED OR RECLINER CHAIR. TODAY, MR. DUDLEY IS WALKING WITH CGA IN THE ROOM. STEPS ARE SMALL, SHUFFLING AND SLIGHTLY UNSTEADY. OTHERWISE, MR. DUDLEY REQUIRES 1-2 STAFF MEMBERS FOR TRANSFERS AND PERSONAL CARE. HE IS UNCOOPERATIVE AND RESISTANT TO CARE AT TIMES, BUT AT OTHER TIMES IS COOPERATIVE. MR. DUDLEY HAS BEEN INCONTINENT OF BOWEL AND BLADDER, BUT HAS ALSO AMBULATED TO THE BATHROOM WITH STAFF ASSIST FOR TOILETING. DEPENDS UNDERGARMENTS ARE WORN BY THE PATIENT. LAST STOOLS NOTED ON THE X 2. HYDRATION STATUS HAS IMPROVED. SKIN IS INTACT AND FREE OF DECUBITUS ULCERS. PATIENT IS NOTED TO HAVE CYANOSIS OF THE FEET WHEN STANDING AND SITTING WITH LEGS DANGLING. THORMD SUZY ARELLANO, COLLECTION ANALYST
[2020-04-14 11:02] VITALS: BP 130/84
--- NOTE | 2020-04-15 11:24 | PN ---
DATE OF SERVICE: 04/12/20 SUBJECTIVE: The patient was seen and examined with the nurse practitioner. The patient's condition is improving. His blood pressure is close to 120 to 130. Heart rate was in the 110 and 120 range. He is going to be restarted on Betapace 40 mg twice a day along with Cardizem 60 mg twice a day. His dementia is more or less stable. He has advanced dementia most of the time is confused and sleepy. His Ativan has been decreased in frequency. TIME SPENT: More than 30 minutes. Plan and coordination of the patient's care discussed in the presence of nurse. VLADISLAV
--- NOTE | 2020-04-15 11:39 | PN ---
DATE OF SERVICE: 04/13/20 SUBJECTIVE: This 75-year-old white male hospitalized with electrolyte imbalance and kidney failure. The patient had hypernatremia, severe dehydration. The patient's condition has improved. He is more alert. The Ativan has been decreased and made him more alert. His appetite seems to have improved. REVIEW OF SYSTEMS: CONSTITUTIONAL: No night sweats. No fatigue, malaise, lethargy. No fever or chills. HEENT: Eyes: No visual changes. No eye pain. No eye discharge. ENT: No runny nose. No epistaxis. No sinus pain. No sore throat. No odynophagia. No congestion. RESPIRATORY: No cough, no congestion. No hemoptysis. No shortness of breath. CARDIOVASCULAR: No angina symptoms. No CHF symptoms. No atypical chest pain for CAD. No palpitations. No PND. No orthopnea. GASTROINTESTINAL: No abdominal pain. No nausea or vomiting. No diarrhea or constipation. No hematemesis. No hematochezia. GENITOURINARY: No urgency. No frequency. No dysuria. No hematuria. No obstructive symptoms. No discharge. No pain. No significant abnormal bleeding. MUSCULOSKELETAL: No musculoskeletal pain; no joint swelling. NEUROLOGICAL: No headache. No neck pain. No syncope. No seizures. No dizziness. PSYCHIATRIC: Not anxious. No depression. No suicidal thoughts. No homicidal thoughts. SKIN: No rash. No lesions. No wounds. ENDOCRINE: No unexplained weight loss. No weight gain. HEMATOLOGIC/LYMPHATIC: No anemia. No purpura. No petechiae. No prolonged or excessive bleeding. No palpable lymph nodes. PHYSICAL EXAMINATION: VITAL SIGNS: Temperature 97.5, pulse 96, respiratory rate 16, BP 140/90, pulse ox 97%. HEENT: Head normocephalic, atraumatic. Eyes: Extraocular muscles are intact. Pupils are equal, round and reactive to light and accommodation. Ears: No lesions. Nose appeared normal. Throat: No exudate or erythema. NECK: Supple. No JVD, no carotid bruit. No lymphadenopathy or thyromegaly. LUNGS: Decreased breath sounds but clear to auscultation. Percussion note normal. Chest symmetrical. HEART: S1, S2, no S3. No murmurs. No cyanosis or clubbing. No ascites. Pulses: Dorsalis pedis and posterior tibial pulses +1 to +2 bilaterally. ABDOMEN: Soft. Nontender. Bowel sounds active. No CVA tenderness. No mass felt. EXTREMITIES: No edema. Full range of motion of all extremities, equal. NEUROLOGIC: No focal deficit. Cranial nerves II through XII are grossly intact. No headache, no double vision or headache. SKIN: Not dry. Intact. Turgor - normal. LYMPHATIC: No palpable lymph nodes/no lymphedema. MUSCULOSKELETAL: Normal joints with no swelling. Muscle tone is normal. LABS: Hemoglobin 13.5, hematocrit 40, WBC 7,000, normal differential. Creatinine 1.1, BUN 21. ASSESSMENT: 1. ACUTE RENAL FAILURE, RESOLVED 2. HYPERNATREMIA, RESOLVED. 3. NUTRITIONAL STATUS IMPROVEMENT. 4. MENTAL STATUS HAS IMPROVED. TIME SPENT: More than 30 minutes. Plan and coordination of the patient's care discussed in the presence of nurse. VLADISLAV
--- NOTE | 2020-04-15 13:00 | PN ---
DATE OF SERVICE: 04/14/20 SUBJECTIVE: 75-year-old white male hospitalized with acute renal failure and hypernatremia, hyperchloremia, dehydration and worsening of dementia. The patient's condition has improved. He seems to be feeling a lot better, alert. Appetite has improved. Hypernatremia has resolved. Renal failure has resolved. Creatinine is 1.1 with BUN of 21 with estimated GFR normal 62 cc/min. He is going to be discharged home. His Ativan is going to be cut down. The patient is as DNR. Prognosis is poor. TIME SPENT: More than 30 minutes. Plan and coordination of the patient's care discussed in the presence of nurse. VLADISLAV
--- NOTE | 2020-04-15 13:08 | PN ---
BILLIN04/08/20 ADMITTING DAY LEVEL 5 04/09/20 EXTENSIVE 04/10/20 INTERMEDIATE 04/11/20 INTERMEDIATE 04/12/20 INTERMEDIATE 04/13/20 INTERMEDIATE 04/14/20 DISCHARGE MTDD
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
== END 2020-04-14 13:53 | DRG 684 ==
LOC: ED 19:36 → MEDSURG B 23:04
PROVIDERS: ADMIT Internal Medicine; ATTEND Internal Medicine
DX: I10 Essential (primary) hypertension; E87.5 Hyperkalemia; N18.9 Chronic kidney disease, unspecified; I48.91 Unspecified atrial fibrillation; N17.9 Acute kidney failure, unspecified; F03.90 Unspecified dementia, unspecified severity, without behavioral disturbance, psychotic disturbance, mood disturbance, and anxiety; E86.0 Dehydration; R41.0 Disorientation, unspecified

== ENCOUNTER 2020-10-14 14:42 | Inpatient (IN) ==
[2020-10-14] MEDS ORDERED: SODIUM CHLORIDE 1,000 ML IV STA (14:57)
--- NOTE | 2020-10-14 15:03 | ED.PDOC ---
General ED Provider: Dr. ANDRY HERNANDEZ Chief Complaint: Altered Mental Status Stated Complaint: 75 year old male presents for evaluation of decreased mental status. Patient lives in [place] and had mechanical fall on October 10, and has had progressive decline since then. Not eating or drinking much, no hx of fever, chills or sweats, n/v/d, chest pains or SOB. PMH + for afib on xaralto. Time Seen by Provider: 10/14/20 15:03 Mode of Arrival: Ambulance Information Source: Patient Exam Limitations: No limitations Primary Care Provider: THOR EASTON Referred to ED by: PCP Nursing and Triage Documentation Reviewed and Agree: Yes Does patient meet sepsis criteria?: No System Inflammatory Response Syndrome: Not Applicable Sepsis Protocol: For patient's 13 years and over: Temp is 96.8 and below OR 101 and greater Pulse >90 BPM Resp >20/minute Acutely Altered Mental Status Are patient's symptoms suggestive of a new infection, such as: -Pneumonia -Skin, Soft Tissue -Endocarditis -UTI -Bone, Joint Infection -Implantable Device -Acute Abdominal Infection -Wound Infection -Meningitis -Blood Stream Catheter Infection -Unknown Miscellaneous Complaint Exam Complex/Multi-System Complaint/Exam Onset/Duration: 4 days Symptoms Are: Still present Episodes Lasting: Days Initial Severity: Mild Current Severity: Moderate Associated Signs and Symptoms: Reports Decreased responsiveness, Decreased oral intake, Anticoagulation Therapy, Recent medication changes and Recent trauma Recent Echo/LV Function: Yes Respiratory Distress: None JVD Present: No Tachypnea Present: No Stridor Present: No Abdominal Findings: Present Normal findings Glascow Coma Scale (see protocol): 12 Meningeal Signs Positive: No Focal Weakness: Present None Focal Sensory Loss: Present None Gait: Unable Gag Reflex Present: Yes Babinski Sign: Negative Right and Negative Left Skin Findings: Present Normal findings Joint Swelling Present: No In-Dwelling Device Present: No Differential Diagnosis: Closed Cranial Trauma and Metabolic Abnormality Quality Indicators for CHF: Documented LV Function Quality Indicator For Non-Traumatic Chest Pain/Syncope: EKG Performed Review of Systems Review Of Systems Constitutional: Reports No symptoms Eyes: Reports No symptoms Ears, Nose, Mouth, Throat: Reports No symptoms Respiratory: Reports No symptoms Cardiac: Reports No symptoms GI: Reports No symptoms : Reports No symptoms Musculoskeletal: Reports No symptoms Skin: Reports No symptoms Neurological: Reports No symptoms Endocrine: Reports No symptoms Hematologic/Lymphatic: Reports No symptoms All Other Systems: Reviewed and Negative [facility] Medical History (Updated 10/14/20 @ 16:38 by ANDRY HERNANDEZ MD) Ataxia Bronchitis CKD (chronic kidney disease) Deep vein thrombosis of right upper extremity Dementia Depression Diverticulosis DJD (degenerative joint disease) Falls HTN (hypertension) Hypoglycemia Non-compliant behavior Paroxysmal A-fib Sleep apnea Ulcerative colitis Family History Other No known health problems Social History History of recent travel: No Surgical History H/O cervical spine surgery Physical Exam Physical Exam Appearance: Reports Ill-appearing, No pain distress and Thin Ill-appearing: Moderate Pain Distress: Moderate Eyes: Reports INES, EOMI and Conjunctiva clear ENT: Reports Ears normal, Nose normal and Oropharynx normal Neck: Supple Respiratory: Reports Airway patent, Breath sounds clear, Breath sounds equal and Respirations nonlabored Cardiovascular: Reports RRR, Pulses normal, No rub and No murmur GI/: Reports Soft, Nontender, No masses, Bowel sounds normal and No Organomegaly Musculoskeletal: Reports Normal strength, ROM intact, No edema and No calf tenderness Skin: Reports Warm, Dry and Normal color Neurological: Reports Reflexes intact, Cranial nerves intact, Alert, Oriented, Alert to pain and Unresponsive (decreased responsiveness) Psychiatric: Reports Affect appropriate and Mood appropriate Interpretation Radiology Interpretation Radiology Interpretation By: Radiologist Radiology Results: No acute changes Exam Interpreted: CXR Radiology Interpretation By: Radiologist Radiology Results: No acute changes Exam Interpreted: CT Scan Re-Evaluation Re-Evaluation Time of Re-Evaluation: 16:30 Status: Improved Vital Signs Stable: Yes Appearance: NAD Lungs: Clear Skin: Warm and Dry Neuro: Other (much more alert) CV: RRR Physician Notification Case Discussed Physician Notified: easton Time of Notification: 16:30 Admit/Transition Orders Entered by ED Provider: Yes Reviewed With: Easton Admit To: Inpatient Critical Care Note Critical Care Note Total Critical Care Time (mins): 0 Course Course Hematology/Chemistry: 10/14/20 15:09 10/14/20 15:09 Orders, Labs, Meds: Lab Review 10/14/20 10/14/20 10/14/20 15:09 15:09 15:45 WBC 10.32 H RBC 5.25 Hgb 16.4 Hct 50.4 MCV 96.0 H MCH 31.2 H MCHC 32.5 RDW Coeff of Yamilet 16.5 H Plt Count 215 Immature Gran % (Auto) 0.2 Neut % (Auto) 52.4 Lymph % (Auto) 33.1 [place] % (Auto) 8.1 Eos % (Auto) 5.7 Baso % (Auto) 0.5 Neut # (Auto) 5.4 Lymph # (Auto) 3.4 [place] # (Auto) 0.8 Eos # (Auto) 0.6 Baso # (Auto) 0.1 Immature Gran # (Auto) 0.0 Puncture Site Lr Base Excess -5.1 L O2 Saturation 96.7 ABG pH 7.43 ABG pCO2 29.0 L ABG pO2 85.0 ABG HCO3 19.2 L ABG Total CO2 20.1 Jimbo Test Y Hemoglobin 1.1 Oxyhemoglobin 95.3 Carboxyhemoglobin 1.5 Total Hemoglobin 16.2 FiO2 % 21.0 Sodium 159.8 H Potassium 3.93 Chloride 126.0 H Carbon Dioxide 21.7 L Anion Gap 16.03 BUN 100.6 H* Creatinine 5.93 H* Estimated GFR (MDRD) 9.00 BUN/Creatinine Ratio 16.96 Glucose 156.3 H Calcium 9.26 Total Bilirubin 0.64 AST 42.4 ALT 42.5 Alkaline Phosphatase 143.2 H Total Protein 7.08 Albumin 3.78 Globulin 3.30 Albumin/Globulin Ratio 1.14 Orders Category Date Time Status ADMIT PATIENT INPATIENT .TO [facility] (MONITORED BED) ADMISSION 10/14/20 16:41 Active ABG DRAW REQUEST Stat CARDIO 10/14/20 14:59 Completed EKG-(ED ONLY) Stat CARDIO 10/14/20 14:57 Completed EKG-(IP & OP ONLY) DAILY CARDIO 10/15/20 06:00 Ordered EKG-(IP & OP ONLY) DAILY CARDIO 10/16/20 06:00 Ordered OXYGEN Routine CARDIO 10/14/20 16:40 Ordered ACTIVITY .Complete BR CARE 10/14/20 16:39 Active GIVE HS SNACK 2100 CARE 10/14/20 16:40 Active INTAKE & OUTPUT Q8HR CARE 10/14/20 16:39 Active IP: INSERT SALINE LOCK ONCE CARE 10/14/20 16:39 Active TELEMETRY MONITORING TELE CARE 10/14/20 16:42 Active VITAL SIGNS Q8HR CARE 10/14/20 16:39 Active CLEAR LIQUID DIET DIETARY 10/14/20 Dinner Ordered HS SNACK DIETARY 10/14/20 Dinner Ordered ED APPLY O2 .ONCE EMERGENCY 10/14/20 14:57 Active ABG COOX Stat LAB 10/14/20 15:45 Completed CBC W/ AUTO DIFF Stat LAB 10/14/20 15:09 Completed COMPREHENSIVE METABOLIC PANEL Stat LAB 10/14/20 15:09 Completed CREATINE KINASE Q8H LAB 10/14/20 22:45 Ordered CREATINE KINASE Q8H LAB 10/15/20 06:45 Ordered RESPIRATORY PANEL 2.1 (PCR) Stat LAB 10/14/20 16:38 Received TROPONIN I Q8H LAB 10/14/20 22:45 Ordered TROPONIN I Q8H LAB 10/15/20 06:45 Ordered Ringers Lactated Solution [Lactated Ringers] 1,000 ml MEDS 10/14/20 16:16 A ctive IV BOLUS Sodium Chloride 0.9% [Sodium Chloride] 1,000 ml MEDS 10/14/20 14:57 Active IV 50 mls/hr RESUSCITATION STATUS Routine OTHERS 10/14/20 16:39 Ordered CHEST, 1V AP ONLY Stat RADS 10/14/20 15:[address] HEAD W/O CONTRAST Stat RADS 10/14/20 14:57 Completed HAND, LEFT 3 VIEWS Stat RADS 10/14/20 16:19 Ordered Medications Generic Name Dose Route Start Last Admin Trade Name Freq PRN Reason Stop Dose Admin Sodium Chloride 1,000 mls @ 50 mls/hr 10/14/20 14:57 10/14/20 15:27 Sodium Chloride IV 10/15/20 10:56 50 mls/hr .Q20H STA Administration Lactated Ringer's 1,000 mls @ 1,000 mls/hr 10/14/20 16:16 10/14/20 16:35 Lactated Ringers IV 10/14/20 17:15 100 mls/hr [place] [address] Diagnostic ImagingDiagnostic Imaging Report : [id number] Patient: LOVE DUDLEY EAcct:[id number] Record: [id number]: 1945Loc: EDRoom/Bed:Age/Sex: 75 / MADM Status: REG ERDate of Service: 10/14/20 Ordering Physician: ANDRY HERNANDEZ MD Procedure(s): CHEST, 1V AP ONLY Report Number(s): [id number] Accession Number(s): [id number] cc: ANDRY HERNANDEZ MD; THOR EASTON MD EXAM: Chest one view, frontal view only. HISTORY: Altered mental status. COMPARISON: 09/14/2020. FINDINGS: The heart size is normal. Atherosclerotic calcifications are present. There is no pulmonary vascular congestion. The lungs are clear. No pleural effusion or pneumothorax is seen. No acute osseous abnormality is i dentified. Is noted in the upper abdomen. Since the prior study, there has been no significant interval change. IMPRESSION: No acute cardiopulmonary process. Dictated By:RUPA DUBONigned By:SEAN DUBONictated Date/Time: 10/14/20 1542Transcribed Date/Time: 10/14/20 1542 Signed Date/Time: 10/14/20 1547 [place] [address] Diagnostic ImagingCT Report : [id number] Patient: LOVE DUDLEY EAcct:[id number] Record: [id number]: 1945Loc: EDRoom/Bed:Age/Sex: 75 / MADM Status: REG ERDate of Service: 10/14/20 Ordering Physician: ANDRY HERNANDEZ MD Procedure(s): CT HEAD W/O CONTRAST Report Number(s): [id number] Accession Number(s): [id number] cc: ANDRY HERNANDEZ MD; THOR EASTON MD EXAM: CT Head HISTORY: Altered LOC COMPARISON: 04/07/2020 TECHNIQUE: CT head performed without contrast. FINDINGS: There is no mass effect, midline shift, or intracranial hemmorhage. Schultz white differentiation is preserved. There is no extra-axial collection. Unchanged mild periventricular and subcortical white matter hypoattenuation representing chronic small vessel ischemic changes. Stable ventriculomegaly and moderate generalized atrophy. The basal cisterns are patent. There is no depressed calvarial fracture. The mastoid air cells are clear. The visualized paranasal sinuses are clear. IMPRESSION: 1. No acute intracranial abnormality. 2. Stable chronic findings. All CT scans are performed using dose optimization techniques as appropriate to the performed exam and include at least one of the following: Automated exposure control, adjustment of the mA and/or kV according to size, and the use of iterative reconstruction technique. Dictated By:Juan WEBER IIgned By:TAMAR WEBER IIDictated Date/Time: 10/14/20 1545Transcribed Date/Time: 10/14/20 1545 Signed Date/Time: 10/14/20 1553 Vital Signs: Temp Pulse Resp BP Pulse Ox 10/14/20 14:44 97.8 F 117 H 14 107/77 100 Discharge Plan Discharge Patient Disposition: ADMITTED INPATIENT Discharge Problem: Acute kidney failure with lesion of tubular necrosis ED Provider: ANDRY HERNANDEZ Condition: Fair Physician Progress Note: 75 year old male with c/o altered mental status after fall, now found to be dehydrated with an acute kidney injury. Discussed with Dr. Easton, will admit for gentle rehydration.
[2020-10-14 15:13] LABS: BASOPHILS # (AUTO) 0.1 K/uL (0-0.2); BASOPHILS % (AUTO) 0.5 % (0.0-3.0); EOSINOPHILS # (AUTO) 0.6 K/ul (0.0-0.7); EOSINOPHILS % (AUTO) 5.7 % (0.0-7.0); HEMATOCRIT 50.4 % (42.0-52.0); HEMOGLOBIN 16.4 g/dl (14.0-18.0); IMMATURE GRANULOCYTE % (AUTO) 0.2 % (0.0-5.0); LYMPHOCYTES # (AUTO) 3.4 K/uL (0.60-3.4); LYMPHOCYTES % (AUTO) 33.1 (10.0-50.0); MEAN CORPUSCULAR HEMOGLOBIN 31.2 pg (27.0-31.0); MEAN CORPUSCULAR HGB CONC 32.5 (31.8-35.4); MONOCYTES # (AUTO) 0.8 K/uL (0.4-2.0); MONOCYTES % (AUTO) 8.1 (0-10); NEUTROPHILS # (AUTO) 5.4 K/ul (2.0-6.9); NEUTROPHILS % (AUTO) 52.4 % (42.2-75.2); PLATELET COUNT 215 10^3/uL (140-440); RDW COEFFICIENT OF VARIATION 16.5 % (11.6-14.8); RED BLOOD COUNT 5.25 10^6/ul (4.70-6.10); WHITE BLOOD COUNT 10.32 K/ul (4.2-10.2)
[2020-10-14 15:25] LABS: ALANINE AMINOTRANSFERASE 42.5 U/L (0-50); ALBUMIN 3.78 g/dL (3.5-5.0); ALKALINE PHOSPHATASE 143.2 U/L (56-119); ASPARTATE AMINO TRANSFERASE 42.4 U/L (17-59); BILIRUBIN,TOTAL 0.64 mg/dL (0.2-1.3); CALCIUM 9.26 mg/dL (8.4-10.2); CARBON DIOXIDE 21.7 mmol/L (22-30.0); GLUCOSE 156.3 mg/dL (74-106); POTASSIUM 3.93 mmol/L (3.5-5.1); SODIUM 159.8 mmol/L (134.5-145); TOTAL PROTEIN 7.08 g/dL (6.3-8.2)
[2020-10-14 15:35] LABS: BLOOD UREA NITROGEN 100.6 mg/dL (9-20); CREATININE 5.93 mg/dL (0.60-1.10)
--- NOTE | 2020-10-14 15:47 | DI ---
EXAM: Chest one view, frontal view only. HISTORY: Altered mental status. COMPARISON: 09/14/2020. FINDINGS: The heart size is normal. Atherosclerotic calcifications are present. There is no pulmon wicho vascular congestion. The lungs are clear. No pleural effusion or pneumothorax is seen. No acut e osseous abnormality is identified. Is noted in the upper abdomen. Since the prior study, there villavicencio s been no significant interval change. IMPRESSION: No acute cardiopulmonary process.
[2020-10-14 15:53] LABS: ABG O2 HGB 95.3 % (95-100); ABG PH 7.43 (7.35-7.45); BEecf -5.1 (-2.0-3.0); COHb 1.5 (0.5-1.5); HCO3 19.2 (21-28); MetHb 1.1 (0-1.5); TCO2 20.1 (19-24); sO2 96.7 % (94-98); tHb 16.2 g/dl (11.7-17.4)
--- NOTE | 2020-10-14 15:53 | CT ---
EXAM: CT Head HISTORY: Altered LOC COMPARISON: 04/07/2020 TECHNIQUE: CT head performed without contrast. FINDINGS: There is no mass effect, midline shift, or intracranial hemmorhage. Schultz white differenti ation is preserved. There is no extra-axial collection. Unchanged mild periventricular and subcorti ray white matter hypoattenuation representing chronic small vessel ischemic changes. Stable ventricul omegaly and moderate generalized atrophy. The basal cisterns are patent. There is no depressed keira rial fracture. The mastoid air cells are clear. The visualized paranasal sinuses are clear. IMPRESSION: 1. No acute intracranial abnormality. 2. Stable chronic findings. All CT scans are performed using dose optimization techniques as appropriate to the performed exam an d include at least one of the following: Automated exposure control, adjustment of the mA and/or kV according t o size, and the use of iterative reconstruction technique.
[2020-10-14] MEDS ORDERED: LACTATED RINGERS 1,000 ML IV STA (16:16)
[2020-10-14 16:43] LABS: BORDETELLA PARAPERTUSSIS (PCR) NOT DETECTED (NOT DETECT); BORDETELLA PERTUSSIS (PCR) NOT DETECTED (NOT DETECT); CHLAMYDIA PNEUMONIAE (PCR) NOT DETECTED (NOT DETECT); CORONAVIRUS 229E (PCR) NOT DETECTED (NOT DETECT); CORONAVIRUS HKU1 (PCR) NOT DETECTED (NOT DETECT); CORONAVIRUS NL63 (PCR) NOT DETECTED (NOT DETECT); CORONAVIRUS OC43 (PCR) NOT DETECTED (NOT DETECT); HUMAN METAPNEUMOVIRUS (PCR) NOT DETECTED (NOT DETECT); HUMAN RHINOVIRUS/ENTEROV (PCR) NOT DETECTED (NOT DETECT); INFLUENZA B (PCR) NOT DETECTED (NOT DETECT); MYCOPLASMA PNEUMONIAE (PCR) NOT DETECTED (NOT DETECT); PARAINFLUENZA VIRUS 1 (PCR) NOT DETECTED (NOT DETECT); PARAINFLUENZA VIRUS 2 (PCR) NOT DETECTED (NOT DETECT); PARAINFLUENZA VIRUS 3 (PCR) NOT DETECTED (NOT DETECT); PARAINFLUENZA VIRUS 4 (PCR) NOT DETECTED (NOT DETECT); RESPIRATORY SYNCYTIAL V (PCR) NOT DETECTED (NOT DETECT); SARS_COV_2 (PCR) NOT DETECTED (NOT DETECT)
--- NOTE | 2020-10-14 16:48 | DI ---
EXAM: Radiographs, left hand HISTORY: Initial presentation for left hand trauma. COMPARISON: None. TECHNIQUE: Three views. FINDINGS: Bone mineralization decreased. There is an oblique, mildly displaced fracture through the shaft of the fifth proximal phalanx. No other fractures are seen. Probable old ununited ulnar styl oid fracture. Chondrocalcinosis noted at the wrist. 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 IMPRESSION: Mildly displaced fifth proximal phalangeal fracture.
[2020-10-14 17:31] LABS: ADENOVIRUS (PCR) NOT DETECTED (NOT DETECT)
[2020-10-14 18:47] VITALS: BMI 21.4
[2020-10-14] MEDS ORDERED: DECADRON IM ONE (19:55)
[2020-10-14] MEDS ORDERED: DEXTROSE 5%-WATER IV SOLN 1,000 ML IV STA (19:58)
[2020-10-14] MEDS: BETAPACE PO SCH (21:03)
[2020-10-14] MEDS: CARDIZEM PO SCH (21:06)
[2020-10-14] MEDS: COGENTIN PO SCH (21:10)
[2020-10-14] MEDS: DESYREL PO SCH (21:13)
[2020-10-14 22:58] LABS: CREATINE KINASE 368.9 U/L (55-170)
[2020-10-14 23:11] LABS: TROPONIN I 0.027 ng/ml (0.0000-0.120)
[2020-10-14 23:14] LABS: CREATINE KINASE MB 1.88 ng/ml (0.0-2.38)
[2020-10-15] MEDS: DEXTROSE 5%-WATER IV SOLN 1,000 ML IV SCH ×3 (01:28→12:13)
[2020-10-15 05:18] LABS: BASOPHILS % (AUTO) 0.1 % (0.0-3.0); EOSINOPHILS % (AUTO) 0.1 % (0.0-7.0); HEMATOCRIT 47.3 % (42.0-52.0); HEMOGLOBIN 15.4 g/dl (14.0-18.0); IMMATURE GRANULOCYTE % (AUTO) 0.3 % (0.0-5.0); LYMPHOCYTES # (AUTO) 1.8 K/uL (0.60-3.4); LYMPHOCYTES % (AUTO) 22.9 (10.0-50.0); MEAN CORPUSCULAR HEMOGLOBIN 31.2 pg (27.0-31.0); MEAN CORPUSCULAR HGB CONC 32.6 (31.8-35.4); MEAN CORPUSCULAR VOLUME 95.7 fl (80.0-94.0); MONOCYTES # (AUTO) 0.2 K/uL (0.4-2.0); MONOCYTES % (AUTO) 2.5 (0-10); NEUTROPHILS # (AUTO) 5.7 K/ul (2.0-6.9); NEUTROPHILS % (AUTO) 74.1 % (42.2-75.2); PLATELET COUNT 211 10^3/uL (140-440); RDW COEFFICIENT OF VARIATION 16.3 % (11.6-14.8); RED BLOOD COUNT 4.94 10^6/ul (4.70-6.10); WHITE BLOOD COUNT 7.68 K/ul (4.2-10.2)
[2020-10-15 05:23] LABS: ALANINE AMINOTRANSFERASE 47.7 U/L (0-50); ALBUMIN 3.3 g/dL (3.5-5.0); ALKALINE PHOSPHATASE 131.6 U/L (56-119); ASPARTATE AMINO TRANSFERASE 48.5 U/L (17-59); BILIRUBIN,TOTAL 0.92 mg/dL (0.2-1.3); CALCIUM 8.47 mg/dL (8.4-10.2); CARBON DIOXIDE 23.2 mmol/L (22-30.0); CHLORIDE 123.7 mmol/L (98-107); GLUCOSE 231.5 mg/dL (74-106); POTASSIUM 3.66 mmol/L (3.5-5.1); SODIUM 153.2 mmol/L (134.5-145); TOTAL PROTEIN 6.34 g/dL (6.3-8.2)
[2020-10-15 05:30] LABS: BLOOD UREA NITROGEN 85.9 mg/dL (9-20); CREATININE 3.77 mg/dL (0.60-1.10)
[2020-10-15 05:53] LABS: THYROID STIMULATING HORMONE 0.879 uIU/L (0.465-4.68)
[2020-10-15] MEDS: CARDIZEM PO SCH ×2 (08:17→20:24)
[2020-10-15] MEDS: ATIVAN PO SCH (08:17)
[2020-10-15] MEDS: BETAPACE PO SCH ×2 (08:18→20:24)
[2020-10-15] MEDS: COGENTIN PO SCH ×2 (08:18→20:23)
[2020-10-15] MEDS ORDERED: XARELTO PO SCH (09:00)
[2020-10-15 11:31] LABS: CREATINE KINASE 361.4 U/L (55-170)
[2020-10-15 11:35] LABS: TROPONIN I 0.015 ng/ml (0.0000-0.120)
[2020-10-15 11:50] LABS: CREATINE KINASE MB 1.35 ng/ml (0.0-2.38)
[2020-10-15] MEDS ORDERED: POTASSIUM CHLORIDE 20 MEQ VIAL- ADDITIVE ONLY IV ONE ×2 (12:58→18:08)
[2020-10-15] MEDS: [UNRECOGNIZED DRUG - MIXTURE] IV SCH ×2 (13:00→18:11)
[2020-10-15] MEDS ORDERED: HALDOL PO SCH (20:00)
[2020-10-15] MEDS ORDERED: HALDOL PO PRN (20:23)
[2020-10-15] MEDS: DESYREL PO SCH (20:24)
[2020-10-16] MEDS ORDERED: POTASSIUM CHLORIDE 20 MEQ VIAL- ADDITIVE ONLY IV ONE ×3 (03:40→23:40)
[2020-10-16] MEDS: [UNRECOGNIZED DRUG - MIXTURE] IV SCH ×3 (03:45→23:48)
[2020-10-16 05:00] LABS: BASOPHILS % (AUTO) 0.2 % (0.0-3.0); EOSINOPHILS # (AUTO) 0.1 K/ul (0.0-0.7); EOSINOPHILS % (AUTO) 1.1 % (0.0-7.0); HEMOGLOBIN 14.8 g/dl (14.0-18.0); IMMATURE GRANULOCYTE % (AUTO) 0.3 % (0.0-5.0); LYMPHOCYTES # (AUTO) 3.4 K/uL (0.60-3.4); LYMPHOCYTES % (AUTO) 28.6 (10.0-50.0); MEAN CORPUSCULAR HEMOGLOBIN 30.8 pg (27.0-31.0); MEAN CORPUSCULAR HGB CONC 32.2 (31.8-35.4); MEAN CORPUSCULAR VOLUME 95.8 fl (80.0-94.0); MONOCYTES # (AUTO) 1.1 K/uL (0.4-2.0); MONOCYTES % (AUTO) 8.8 (0-10); NEUTROPHILS # (AUTO) 7.3 K/ul (2.0-6.9); PLATELET COUNT 187 10^3/uL (140-440); RDW COEFFICIENT OF VARIATION 15.8 % (11.6-14.8); WHITE BLOOD COUNT 11.96 K/ul (4.2-10.2)
[2020-10-16 05:13] LABS: ALANINE AMINOTRANSFERASE 35.6 U/L (0-50); ALBUMIN 3.12 g/dL (3.5-5.0); ALKALINE PHOSPHATASE 112.5 U/L (56-119); ASPARTATE AMINO TRANSFERASE 26.8 U/L (17-59); BILIRUBIN,TOTAL 0.75 mg/dL (0.2-1.3); CALCIUM 8.39 mg/dL (8.4-10.2); CARBON DIOXIDE 23.6 mmol/L (22-30.0); CHLORIDE 117.7 mmol/L (98-107); CREATININE 2.55 mg/dL (0.60-1.10); GLUCOSE 129.5 mg/dL (74-106); POTASSIUM 4.5 mmol/L (3.5-5.1); SODIUM 147.3 mmol/L (134.5-145); TOTAL PROTEIN 6.07 g/dL (6.3-8.2)
[2020-10-16 05:20] LABS: BLOOD UREA NITROGEN 70.4 mg/dL (9-20)
[2020-10-16] MEDS: COGENTIN PO SCH ×2 (08:33→20:22)
[2020-10-16] MEDS: BETAPACE PO SCH (08:33)
[2020-10-16] MEDS: ATIVAN PO SCH (08:34)
[2020-10-16] MEDS: XARELTO PO SCH (08:34)
[2020-10-16] MEDS: CARDIZEM PO SCH (08:35)
[2020-10-16] MEDS: DESYREL PO SCH (20:30)
[2020-10-17 05:22] LABS: BASOPHILS % (AUTO) 0.3 % (0.0-3.0); EOSINOPHILS # (AUTO) 0.6 K/ul (0.0-0.7); EOSINOPHILS % (AUTO) 6.3 % (0.0-7.0); HEMATOCRIT 43.4 % (42.0-52.0); HEMOGLOBIN 14.2 g/dl (14.0-18.0); IMMATURE GRANULOCYTE % (AUTO) 0.3 % (0.0-5.0); LYMPHOCYTES # (AUTO) 3.8 K/uL (0.60-3.4); LYMPHOCYTES % (AUTO) 39.4 (10.0-50.0); MEAN CORPUSCULAR HEMOGLOBIN 31.4 pg (27.0-31.0); MEAN CORPUSCULAR HGB CONC 32.7 (31.8-35.4); MONOCYTES # (AUTO) 0.9 K/uL (0.4-2.0); MONOCYTES % (AUTO) 9.5 (0-10); NEUTROPHILS # (AUTO) 4.3 K/ul (2.0-6.9); NEUTROPHILS % (AUTO) 44.2 % (42.2-75.2); PLATELET COUNT 173 10^3/uL (140-440); RDW COEFFICIENT OF VARIATION 15.6 % (11.6-14.8); RED BLOOD COUNT 4.52 10^6/ul (4.70-6.10); WHITE BLOOD COUNT 9.75 K/ul (4.2-10.2)
[2020-10-17 05:36] LABS: ALANINE AMINOTRANSFERASE 29.8 U/L (0-50); ALBUMIN 2.97 g/dL (3.5-5.0); ALKALINE PHOSPHATASE 89.6 U/L (56-119); ASPARTATE AMINO TRANSFERASE 26.9 U/L (17-59); BILIRUBIN,TOTAL 0.75 mg/dL (0.2-1.3); BLOOD UREA NITROGEN 49.8 mg/dL (9-20); CALCIUM 8.08 mg/dL (8.4-10.2); CARBON DIOXIDE 23.7 mmol/L (22-30.0); CHLORIDE 116.1 mmol/L (98-107); CREATININE 1.75 mg/dL (0.60-1.10); GLUCOSE 90.8 mg/dL (74-106); POTASSIUM 4.41 mmol/L (3.5-5.1); SODIUM 143.9 mmol/L (134.5-145); TOTAL PROTEIN 5.83 g/dL (6.3-8.2)
[2020-10-17] MEDS: COGENTIN PO SCH ×2 (09:03→20:29)
[2020-10-17] MEDS: XARELTO PO SCH (09:04)
[2020-10-17] MEDS: ATIVAN PO SCH (09:04)
--- NOTE | 2020-10-17 09:13 | PCM.PROG ---
Attending Provider: ATTENDING PROVIDER: Dr. THOR STEIN This patient is seen with Renetta Lopez, Nurse Practitioner. DATE OF SERVICE: 10/17/20 SUBJECTIVE: This 75 year old /WHITE M was hospitalized 10/14/20. The patient is resting comfortably in bed. He seems to be more responsive this morning after holding Trazodone last night. He still has episodes with agitation and still doesn't want to eat or drink. REVIEW OF SYSTEMS: CONSTITUTIONAL: Lethargy, weakness. No night sweats. No malaise. No fever or chills. HEENT: Eyes: No visual changes. No eye pain. No eye discharge. ENT: No runny nose. No epistaxis. No sinus pain. No odynophagia. No congestion. RESPIRATORY: No cough, no congestion. No hemoptysis. No shortness of breath. CARDIOVASCULAR: No angina symptoms. No CHF symptoms. No atypical chest pain for CAD. No palpitations. No orthopnea.. GASTROINTESTINAL: No abdominal pain. No nausea or vomiting. No diarrhea or constipation. No hematemesis. No hematochezia. GENITOURINARY: No urgency. No frequency. No dysuria. No hematuria. No obstructive symptoms. No discharge. No pain. No significant abnormal bleeding. MUSCULOSKELETAL: No musculoskeletal pain; no joint swelling. NEUROLOGICAL: Confusion. No headache. No neck pain. No syncope. No seizures. No dizziness. PSYCHIATRIC: Agitation. No depression. No suicidal thoughts. No homicidal thoughts. SKIN: No rash. No lesions. No wounds. ENDOCRINE: No unexplained weight loss. No weight gain. HEMATOLOGIC/LYMPHATIC: No anemia. No purpura. No petechiae. No prolonged or excessive bleeding. No palpable lymph nodes. PHYSICAL EXAMINATION: GENERAL: The patient is confused. He is lying/sitting in bed in no distress. VITAL SIGNS: Temperature 97.9 F, Pulse 62, Respiratory Rate 18, BP 135/90, Pulse Ox 96% HEENT: Head normocephalic, atraumatic. Eyes: Extraocular muscles are intact. Pupils are equal, round and reactive to light and accommodation. Ears: No lesions. Nose appeared normal. Throat: No exudate or erythema. NECK: Supple. No JVD, no carotid bruit. No lymphadenopathy or thyromegaly. LUNGS: Diminished breath sounds. Clear to auscultation. Percussion note german l. Chest symmetrical. HEART: S1, S2, no S3. No murmurs. No cyanosis or clubbing. No ascites. P ulses: Dorsalis pedis and posterior tibial pulses +1 to +2 both sides. ABDOMEN: Soft. Non-tender. Bowel sounds active. No CVA tenderness. No mass felt. EXTREMITIES: No edema. Full range of motion of all extremities, equal. NEUROLOGIC: No focal deficit. Cranial nerves II through XII are grossly intact. No headache. No double vision. SKIN: Not dry. Intact. Turgor-normal. LYMPHATIC: No palpable lymph nodes/no lymphedema. MUSCULOSKELETAL: Normal joints with no swelling. Muscle tone is normal. LAB REVIEW: 10/17/20 05:15 10/17/20 05:15 10/17/20 05:15: Sodium 143.9, Potassium 4.41, Chloride 116.1 H, Carbon Dioxide 23.7, Anion Gap 8.51, BUN 49.8 H D, Creatinine 1.75 H D, Estimated GFR (MDRD) 38.00, BUN/Creatinine Ratio 28.45, Glucose 90.8, Calcium 8.08 L, Total Bilirubin 0.75, AST 26.9, ALT 29.8, Alkaline Phosphatase 89.6, Total Protein 5.83 L, Albumin 2.97 L, Globulin 2.86, Albumin/Globulin Ratio 1.03 10/17/20 05:15: WBC 9.75, RBC 4.52 L, Hgb 14.2, Hct 43.4, MCV 96.0 H, MCH 31.4 H , MCHC 32.7, RDW Coeff of Yamilet 15.6 H, Plt Count 173, Immature Gran % (Auto) 0.3, Neut % (Auto) 44.2, Lymph % (Auto) 39.4, [place] % (Auto) 9.5, Eos % (Auto) 6.3, Baso % (Auto) 0.3, Neut # (Auto) 4.3, Lymph # (Auto) 3.8 H, [place] # (Auto) 0.9, Eos # (Auto) 0.6, Baso # (Auto) 0.0, Immature Gran # (Auto) 0.0 ASSESSMENT: Please see below. 1. End-stage dementia with behavioral disturbances. 2. Acute renal failure. 3. Atrial fibrillation. PLAN: 1. Discussed the patient's poor prognosis. Given end-stage dementia, would recommend hospice referral as I do believe his appetite and responsiveness will likely not improve. Plan and coordination of the patient's care discussed in the presence of Validation Analyst and nurse. CONDITION: Stable SCRIBED BY: CLARITZA HUGGINS Offset Machine Operator scribed while in presence of service performed by Dr. Stein/Renetta Lopez APRN on 10/17/20 ([id number])
[2020-10-17] MEDS: [UNRECOGNIZED DRUG - MIXTURE] IV SCH ×2 (10:30→18:32)
--- NOTE | 2020-10-17 10:33 | PN ---
DATE OF SERVICE: 10/16/2020 SUBJECTIVE: 75 year old white male hospitalized with acute renal failure. The patient's condition hasn't changed but response to painful stimulus. Moving all of his extremities. When you call out his name he tries to open his eyes. REVIEW OF SYSTEMS: CONSTITUTIONAL: No night sweats. No fatigue, malaise, lethargy. No fever or chills. The patient is more or less obtunded. HEENT: Eyes: No visual changes. No eye pain. No eye discharge. ENT: No runny nose. No epistaxis. No sinus pain. No sore throat. No odynophagia. No congestion. RESPIRATORY: No cough, no congestion. No hemoptysis. No shortness of breath. CARDIOVASCULAR: No angina symptoms. No CHF symptoms. No atypical chest pain for CAD. No palpitations. No PND. No orthopnea. GASTROINTESTINAL: No abdominal pain. No nausea or vomiting. No diarrhea or constipation. No hematemesis. No hematochezia. GENITOURINARY: No urgency. No frequency. No dysuria. No hematuria. No obstructive symptoms. No discharge. No pain. No significant abnormal bleeding. MUSCULOSKELETAL: No musculoskeletal pain; no joint swelling. NEUROLOGICAL: No headache. No neck pain. No syncope. No seizures. No dizziness. PSYCHIATRIC: Not anxious. No depression. No suicidal thoughts. No homicidal thoughts. SKIN: No rash. No lesions. No wounds. ENDOCRINE: No unexplained weight loss. No weight gain. HEMATOLOGIC/LYMPHATIC: No anemia. No purpura. No petechiae. No prolonged or excessive bleeding. No palpable lymph nodes. PHYSICAL EXAMINATION: VITAL SIGNS: Temperature 97.6, pulse 94, respiratory rate 18, blood pressure 110/78 and pulse ox 97%. HEENT: Head normocephalic, atraumatic. Eyes: Extraocular muscles are intact. Pupils are equal, round and reactive to light and accommodation. Ears: No lesions. Nose appeared normal. Throat: No exudate or erythema. NECK: Supple. No JVD, no carotid bruit. No lymphadenopathy or thyromegaly. LUNGS: Decreased breath sounds but clear with diminished air entry. Percussion note normal. Chest symmetrical. HEART: S1, S2, no S3. No murmurs. No cyanosis or clubbing. No ascites. Pulses: Dorsalis pedis and posterior tibial pulses +1 to +2 bilaterally. ABDOMEN: Soft. Nontender. Bowel sounds active. No CVA tenderness. No mass felt. EXTREMITIES: No edema. Full range of motion of all extremities, equal. NEUROLOGIC: No focal deficit. Cranial nerves II through XII are grossly intact. No headache. No double vision. SKIN: Not dry. Intact. Turgor - normal. LYMPHATIC: No palpable lymph nodes/no lymphedema. MUSCULOSKELETAL: Normal joints with no swelling. Muscle tone is normal. LABS: hgb 14.8, hct 46, WBC 11,900 normal differentia, creatinine 2.5, BUN 70, potassium 4.5, glucose 129. ASSESSMENT: 1. Renal failure seems to be improving, Creatinine and BUN has improved remarkably. Sodium is also 147 which seems to be going down and so is chloride. 2. Later on I was informed that the patient had gone into bradycardia. The EKG showed sinus rhythm with possible inferior wall. The patient had no symptoms, no sweating, no chest pain and no distress at all. Rhythm had changed with hypotension. PROGNOSIS: Guarded to poor The patient is DNR. PLAN: 1. The patient is going to be taken off Cardizem and Betapace. 2. The legs will be elevated. 3. We will continue to give IV fluids. TIME SPENT: More than 30 minutes. Plan and coordination of the patient's care discussed in the presence of nurse. VLADISLAV
--- NOTE | 2020-10-17 10:36 | PN ---
DATE OF SERVICE: 10/14/20 SUBJECTIVE: The patient was hospitalized through the emergency room sent out from the [facility] because of change in the mental status. The patient's BUN was noted to be more than 100 with creatinine of more than 5. He was in acute renal failure from dehydration with hypernatremia. His condition overall has deteriorated in the last few days. Oral intake is very poor. PHYSICAL EXAMINATION: HEENT: Head normocephalic, atraumatic. Eyes: Extraocular muscles are intact. Pupils are equal, round and reactive to light and accommodation. Ears: No lesions. Nose appeared normal. Throat: No exudate or erythema. Mucous membranes dry. NECK: Supple. No JVD, no carotid bruit. No lymphadenopathy or thyromegaly. LUNGS: Clear to auscultation. Percussion note normal. Chest symmetrical. HEART: S1, S2, no S3. No murmurs. No cyanosis or clubbing. No ascites. Pulses: Dorsalis pedis and posterior tibial pulses +1 to +2 bilaterally. ABDOMEN: Soft. Nontender. Bowel sounds active. No CVA tenderness. No mass felt. EXTREMITIES: No edema. Full range of motion of all extremities, equal. NEUROLOGIC: No focal deficit. Cranial nerves II through XII are grossly intact. No headache. No double vision. SKIN: Dry. Intact. LYMPHATIC: No palpable lymph nodes/no lymphedema. MUSCULOSKELETAL: Normal joints with no swelling. Muscle tone is normal. IMAGING: The patient's chest x-ray is negative. ASSESSMENT: 1. Acute renal failure from dehydration. 2. Dementia with behavioral disorder. PLAN: 1. Start IV fluids. 2. Will start the patient on D5W 1000 cc/250 cc/hour for four hours and after that 125 cc/hour. Prior to that, the patient was given Ringers Lactate. 3. I will give 1 cc Decadron. 4. Discontinue most of the medications for now. 5. Haldol dose will be adjusted for possibility of restlessness and behavioral problems. 6. Cozaar will be discontinued. 7. Betapace will be continued. 8. Cardizem will be continued. The patient's systolic blood pressure was 120. 9. The patient is DNR. Prognosis is poor. TIME SPENT: More than 30 minutes. Plan and coordination of the patient's care discussed in the presence of nurse. VLADISLAV
--- NOTE | 2020-10-17 10:45 | PN ---
DATE OF SERVICE: 10/15/20 SUBJECTIVE: 75-year-old white male hospitalized with change in mental status. The patient has been drowsy. The patient is moving all of his extremity but hardly responds to verbal stimulus. The patient has acute kidney injury with renal failure. REVIEW OF SYSTEMS: Unable to obtain but the patient does not seem to be in distress or pain. CONSTITUTIONAL: No night sweats. No fatigue, malaise, lethargy. No fever or chills. HEENT: Eyes: No visual changes. No eye pain. No eye discharge. ENT: No runny nose. No epistaxis. No sinus pain. No sore throat. No odynophagia. No congestion. RESPIRATORY: No cough, no congestion. No hemoptysis. No shortness of breath. CARDIOVASCULAR: No angina symptoms. No CHF symptoms. No atypical chest pain for CAD. No palpitations. No PND. No orthopnea. GASTROINTESTINAL: No abdominal pain. No nausea or vomiting. No diarrhea or constipation. No hematemesis. No hematochezia. GENITOURINARY: No urgency. No frequency. No dysuria. No hematuria. No obstructive symptoms. No discharge. No pain. No significant abnormal bleeding. MUSCULOSKELETAL: No musculoskeletal pain; no joint swelling. NEUROLOGICAL: No headache. No neck pain. No syncope. No seizures. No dizziness. PSYCHIATRIC: Not anxious. No depression. No suicidal thoughts. No homicidal thoughts. SKIN: No rash. No lesions. No wounds. ENDOCRINE: No unexplained weight loss. No weight gain. HEMATOLOGIC/LYMPHATIC: No anemia. No purpura. No petechiae. No prolonged or excessive bleeding. No palpable lymph nodes. PHYSICAL EXAMINATION: VITAL SIGNS: Temperature 97.3, pulse 80, respiratory rate 22, blood pressure 118/90, pulse ox 97% on room air. HEENT: Head normocephalic, atraumatic. Eyes: Extraocular muscles are intact. Pupils are equal, round and reactive to light and accommodation. Ears: No lesions. Nose appeared normal. Throat: No exudate or erythema. NECK: Supple. No JVD, no carotid bruit. No lymphadenopathy or thyromegaly. LUNGS: Decreased breath sounds, good air entry. Percussion note normal. Chest symmetrical. HEART: S1, S2, no S3. No murmurs. No cyanosis or clubbing. No ascites. Pulses: Dorsalis pedis and posterior tibial pulses +1 to +2 bilaterally. ABDOMEN: Soft. Nontender. Bowel sounds active. No CVA tenderness. No mass felt. EXTREMITIES: Moving all his extremity with painful stimulus. No edema. NEUROLOGIC: No focal deficit. Cranial nerves II through XII are grossly intact. No headache. No double vision. SKIN: Dry. Intact. Turgor - improved. LYMPHATIC: No palpable lymph nodes/no lymphedema. MUSCULOSKELETAL: Normal joints with no swelling. Muscle tone is normal. LABS: Hemoglobin 15.4, hematocrit 47, WBC 7,600 with normal differential. Creatinine 3.7, BUN 85, sodium 153, potassium 3.6. ASSESSMENT: 1. Acute renal failure seems to be improving on admission. The patient's creatinine was 5.9 with BUN 105 which has improved now to 3.7 and 85 respectively. 2. The patient's blood sugar is running high, will monitor it. Sliding scale with coverage. 3. Hypernatremia seems to be somewhat better from 160 sodium down to 153. 4. The patient's skin turgor is somewhat improved, still is dry. PLAN: 1. Continue to wash the mouth. 2. Almanzar catheter to be placed because the patient has urinary incontinence. TIME SPENT: More than 30 minutes. Plan and coordination of the patient's care discussed in the presence of nurse. VLADISLAV
[2020-10-17] MEDS ORDERED: POTASSIUM CHLORIDE 20 MEQ VIAL- ADDITIVE ONLY IV ONE (18:29)
[2020-10-17] MEDS: ATIVAN PO PRN (20:29)
[2020-10-17] MEDS: DESYREL PO SCH (20:39)
[2020-10-18] MEDS ORDERED: POTASSIUM CHLORIDE 20 MEQ VIAL- ADDITIVE ONLY IV ONE ×2 (04:06→23:37)
[2020-10-18] MEDS: [UNRECOGNIZED DRUG - MIXTURE] IV SCH ×5 (04:10→23:43)
[2020-10-18 05:24] LABS: HEMATOCRIT 40.9 % (42.0-52.0); HEMOGLOBIN 13.8 g/dl (14.0-18.0); MEAN CORPUSCULAR HEMOGLOBIN 31.2 pg (27.0-31.0); MEAN CORPUSCULAR HGB CONC 33.7 (31.8-35.4); MEAN CORPUSCULAR VOLUME 92.3 fl (80.0-94.0); PLATELET COUNT 175 10^3/uL (140-440); RDW COEFFICIENT OF VARIATION 14.7 % (11.6-14.8); RED BLOOD COUNT 4.43 10^6/ul (4.70-6.10); WHITE BLOOD COUNT 9.78 K/ul (4.2-10.2)
[2020-10-18] MEDS: ATIVAN PO PRN (05:30)
[2020-10-18 05:32] LABS: ANISOCYTOSIS NOT PRESENT (NOT PRESENT)
[2020-10-18 05:40] LABS: ALANINE AMINOTRANSFERASE 37.1 U/L (0-50); ALBUMIN 2.85 g/dL (3.5-5.0); ALKALINE PHOSPHATASE 103.2 U/L (56-119); ASPARTATE AMINO TRANSFERASE 31.6 U/L (17-59); BILIRUBIN,TOTAL 0.67 mg/dL (0.2-1.3); BLOOD UREA NITROGEN 27.9 mg/dL (9-20); CALCIUM 7.94 mg/dL (8.4-10.2); CHLORIDE 116.9 mmol/L (98-107); CREATININE 1.2 mg/dL (0.60-1.10); GLUCOSE 92.2 mg/dL (74-106); POTASSIUM 3.7 mmol/L (3.5-5.1); SODIUM 142.1 mmol/L (134.5-145); TOTAL PROTEIN 5.69 g/dL (6.3-8.2)
--- NOTE | 2020-10-18 09:16 | PCM.PROG ---
Attending Provider: ATTENDING PROVIDER: Dr. THOR STEIN This patient is seen with Renetta Lopez, Nurse Practitioner. DATE OF SERVICE: 10/18/20 SUBJECTIVE: This 75 year old /WHITE M was hospitalized 10/14/20. The patient is resting comfortably in bed. Kidney function and labs are steadily improving with IV fluids; however, the patient remains unaware. He is unable to drink and eat. REVIEW OF SYSTEMS: CONSTITUTIONAL: No night sweats. No fatigue, malaise, lethargy. No fever or chills. HEENT: Eyes: No visual changes. No eye pain. No eye discharge. ENT: No runny no se. No epistaxis. No sinus pain. No odynophagia. No congestion. RESPIRATORY: No cough, no congestion. No hemoptysis. No shortness of breath. CARDIOVASCULAR: No angina symptoms. No CHF symptoms. No atypical chest pain for CAD. No palpitations. No orthopnea.. GASTROINTESTINAL: No abdominal pain. No nausea or vomiting. No diarrhea or constipation. No hematemesis. No hematochezia. GENITOURINARY: No urgency. No frequency. No dysuria. No hematuria. No obstructive symptoms. No discharge. No pain. No significant abnormal bleeding. MUSCULOSKELETAL: No musculoskeletal pain; no joint swelling. NEUROLOGICAL: Confusion. No headache. No neck pain. No syncope. No seizures. No dizziness. PSYCHIATRIC: Agitation. No depression. No suicidal thoughts. No homicidal thoughts. SKIN: No rash. No lesions. No wounds. ENDOCRINE: No unexplained weight loss. No weight gain. HEMATOLOGIC/LYMPHATIC: No anemia. No purpura. No petechiae. No prolonged or excessive bleeding. No palpable lymph nodes. PHYSICAL EXAMINATION: GENERAL: The patient is not alert or oriented. VITAL SIGNS: Temperature 97.5 F, Pulse 59, Respiratory Rate 18, BP 139/94, Pulse Ox 98% HEENT: Head normocephalic, atraumatic. Eyes: Extraocular muscles are intact. Pupils are equal, round and reactive to light and accommodation. Ears: No lesions. Nose appeared normal. Throat: No exudate or erythema. NECK: Supple. No JVD, no carotid bruit. No lymphadenopathy or thyromegaly. LUNGS: Diminished breath sounds. Clear to auscultation. Percussion note normal. Chest symmetrical. HEART: S1, S2, no S3. No murmurs. No cyanosis or clubbing. No ascites. Pulses: Dorsalis pedis and posterior tibial pulses +1 to +2 both sides. ABDOMEN: Soft. Non-tender. Bowel sounds active. No CVA tenderness. No mass felt. EXTREMITIES: No edema. Full range of motion of all extremities, equal. NEUROLOGIC: No focal deficit. Cranial nerves II through XII are grossly intact. No headache. No double vision. SKIN: Not dry. Intact. Turgor-normal. LYMPHATIC: No palpable lymph nodes/no lymphedema. MUSCULOSKELETAL: Normal joints with no swelling. Muscle tone is normal. LAB REVIEW: 10/18/20 05:19 10/18/20 05:19 10/18/20 05:19: Sodium 142.1, Potassium 3.70, Chloride 116.9 H, Carbon Dioxide 20.0 L, Anion Gap 8.90, BUN 27.9 H D, Creatinine 1.20 H D, Estimated GFR (MDRD) 59.00, BUN/Creatinine Ratio 23.25, Glucose 92.2, Calcium 7.94 L, Total Bilirubin 0.67, AST 31.6, ALT 37.1, Alkaline Phosphatase 103.2, Total Protein 5.69 L, Albumin 2.85 L, Globulin 2.84, Albumin/Globulin Ratio 1.00 10/18/20 05:19: WBC 9.78, RBC 4.43 L, Hgb 13.8 L, Hct 40.9 L, MCV 92.3, MCH 31.2 H, MCHC 33.7, RDW Coeff of Yamilet 14.7, Plt Count 175, Neutrophils % (Manual) 52.0, Lymphocytes % (Manual) 30.0, Monocytes % (Manual) 5.0, Eosinophils % (Manual) 3.0, Reactive Lymphocytes 10.0 H, Anisocytosis Not present ASSESSMENT: Please see below. 1. Acute renal failure improving. 2. Dementia with behavioral disturbance advanced. PLAN: 1. Will discuss with family hospice referral. I do believe he is at end stage of disease. Once IV fluids are stopped the patient will likely go into renal failure again due to the lack of ability to eat or drink. Plan and coordination of the patient's care discussed in the presence of Information Systems Security Manager and nurse. CONDITION: Stable SCRIBED BY: CLARITZA HUGGINS Construction Materials Tester scribed while in presence of service performed by Dr. Stein/Renetta Lopez, [place] MASSEUSE on 10/18/20 ([id number])
[2020-10-18] MEDS: XARELTO PO SCH (09:26)
[2020-10-18] MEDS: COGENTIN PO SCH ×2 (09:26→21:02)
[2020-10-18] MEDS: ATIVAN PO SCH (09:26)
--- NOTE | 2020-10-18 12:14 | HP ---
DATE OF SERVICE: 10/14/20 HISTORY OF PRESENT ILLNESS: The patient is brought to the emergency room by [facility] complaining of lethargy, decreased responsiveness, had a fall on 10/10. Staff states he has been declining since. PAST MEDICAL HISTORY: History of acute renal failure Underlying chronic kidney disease History of hyperkalemia Atrial fibrillation on Xarelto Hypertension Dementia with behavioral disturbances History of DVT, right lower extremity Borderline LVH Hypertension Anxiety PAST SURGICAL HISTORY: NKDA REVIEW OF SYSTEMS: CONSTITUTIONAL: Positive for fatigue, lethargy. No night sweats. No malaise. No fever or chills. HEENT: Eyes: No visual changes. No eye pain. No eye discharge. ENT: No runny nose. No epistaxis. No sinus pain. No sore throat. No odynophagia. No ear pain. No congestion. RESPIRATORY: No cough, no congestion. No hemoptysis. No shortness of breath. CARDIOVASCULAR: No angina symptoms. No CHF symptoms. No atypical chest pain for CAD. No palpitations. No PND. No orthopnea. GASTROINTESTINAL: No abdominal pain. No nausea or vomiting. No diarrhea or constipation. No hematemesis. No hematochezia. GENITOURINARY: No urgency. No frequency. No dysuria. No hematuria. No obstructive symptoms. No discharge. No pain. No significant abnormal bleeding. MUSCULOSKELETAL: No musculoskeletal pain. No joint swelling. No arthritis. NEUROLOGICAL: Confusion, decreased responsiveness. No headache. No neck pain. No syncope. No seizures. No dizziness. PSYCHIATRIC: Not anxious. No depression. No suicidal thoughts. No homicidal thoughts. SKIN: No rash. No lesions. No wounds. ENDOCRINE: No unexplained weight loss. No weight gain. HEMATOLOGIC/LYMPHATIC: No anemia. No purpura. No petechiae. No prolonged or excessive bleeding. No palpable lymph nodes. PERSONAL/FAMILY/SOCIAL HISTORY: [facility] His lives at home. No alcohol or ilicit drug use. Respiratory panel by PCR was negative. MEDICATIONS: Trazodone 100 mg p.o. bedtime Sotalol 40 mg p.o. b.i.d. Xarelto 20 mg p.o. daily Lasix 40 mg p.o. three times per week Cardizem 60 mg p.o. b.i.d. Potassium Chloride - K-Tab 20 mEq p.o. daily Haloperidol 7.5 mg p.o. q.8hr Benztropine 0.5 mg p.o. b.i.d. Lorazepam (Ativan) 0.5 mg p.o. daily Losartan 100 mg p.o. daily ALLERGIES: CODEINE, MEPERIDINE, NALBUPHINE PHYSICAL EXAMINATION: GENERAL: The patient is alert, not oriented. Pallor positive. VITAL SIGNS: HEENT: Head normocephalic, atraumatic. Eyes: Extraocular muscles are intact. Pupils are equal, round and reactive to light and accommodation. Ears: No lesions. Nose appeared normal. Throat: No exudate or erythema. NECK: Supple. No JVD, no carotid bruit. No lymphadenopathy or thyromegaly. LUNGS: Diminished breath sounds. Clear to auscultation. Percussion note normal. Chest symmetrical. HEART: S1, S2, no S3. No murmur. No cyanosis or clubbing. No ascites. Pulses: Dorsalis pedis and posterior tibial pulses +1 to +2 bilaterally. ABDOMEN: Soft. Nontender. Bowel sounds active. No CVA tenderness. No mass felt. EXTREMITIES: No leg edema. Full range of motion of all extremities, equal. NEUROLOGIC: No focal deficit. Cranial nerves II through XII are grossly intact. No headache, no double vision or headache. SKIN: Not dry. Intact. Turgor - normal. LYMPHATIC: No palpable lymph nodes/no lymphedema. MUSCULOSKELETAL: Normal joints with no swelling. Muscle tone is normal. X-ray of the left hand shows mildly displaced fifth proximal phalangeal fracture. CT of the head shows no acute abnormality. Chest x-ray shows no acute process. Sodium 159, chloride 126, c02 21.7, BUN 100.6, creatinine 5.93, potassium 3.93, alkaline phosphatase 143, white count 10.32, hemoglobin 16.4, hematocrit 50.4, platelets 215. ASSESSMENT: 1. Acute renal failure. 2. Metabolic acidosis. 3. Atrial fibrillation. 4. Hypertension. 5. Dementia with behavioral disturbances. 6. Dehydration. 7. The patient is hypotensive. PLAN: 1. We will admit. 2. Routine telemetry orders. 3. D5 1/2 at 125 cc/hr. 4. Hold blood pressure medications. 5. Hold Losartan. 6. Decrease Xarelto to 15. 7. UA. 8. Will follow closely. TIME SPENT: More than 70 minutes. MTDD
[2020-10-18] MEDS: DESYREL PO SCH (23:30)
[2020-10-19] MEDS: ATIVAN PO PRN ×2 (00:54→20:12)
[2020-10-19] MEDS: [UNRECOGNIZED DRUG - MIXTURE] IV SCH ×3 (04:30→20:13)
[2020-10-19 05:51] LABS: BASOPHILS % (AUTO) 0.1 % (0.0-3.0); EOSINOPHILS # (AUTO) 0.5 K/ul (0.0-0.7); EOSINOPHILS % (AUTO) 4.6 % (0.0-7.0); HEMATOCRIT 46.5 % (42.0-52.0); HEMOGLOBIN 15.7 g/dl (14.0-18.0); IMMATURE GRANULOCYTE # (AUTO) 0.1 (0.0-1.0); IMMATURE GRANULOCYTE % (AUTO) 0.5 % (0.0-5.0); LYMPHOCYTES # (AUTO) 3.7 K/uL (0.60-3.4); LYMPHOCYTES % (AUTO) 34.9 (10.0-50.0); MEAN CORPUSCULAR HGB CONC 33.8 (31.8-35.4); MEAN CORPUSCULAR VOLUME 91.9 fl (80.0-94.0); MONOCYTES # (AUTO) 0.9 K/uL (0.4-2.0); NEUTROPHILS # (AUTO) 5.6 K/ul (2.0-6.9); NEUTROPHILS % (AUTO) 51.9 % (42.2-75.2); PLATELET COUNT 189 10^3/uL (140-440); RDW COEFFICIENT OF VARIATION 14.6 % (11.6-14.8); RED BLOOD COUNT 5.06 10^6/ul (4.70-6.10); WHITE BLOOD COUNT 10.72 K/ul (4.2-10.2)
[2020-10-19 06:04] LABS: ALANINE AMINOTRANSFERASE 36.5 U/L (0-50); ALBUMIN 3.18 g/dL (3.5-5.0); ALKALINE PHOSPHATASE 132.7 U/L (56-119); ASPARTATE AMINO TRANSFERASE 26.1 U/L (17-59); BILIRUBIN,TOTAL 0.69 mg/dL (0.2-1.3); BLOOD UREA NITROGEN 18.1 mg/dL (9-20); CALCIUM 8.27 mg/dL (8.4-10.2); CHLORIDE 110.1 mmol/L (98-107); CREATININE 1.14 mg/dL (0.60-1.10); GLUCOSE 113.6 mg/dL (74-106); POTASSIUM 3.69 mmol/L (3.5-5.1); SODIUM 140.2 mmol/L (134.5-145); TOTAL PROTEIN 6.23 g/dL (6.3-8.2)
[2020-10-19] MEDS: XARELTO PO SCH (08:31)
[2020-10-19] MEDS: ATIVAN PO SCH (08:31)
[2020-10-19] MEDS: COGENTIN PO SCH ×2 (08:31→20:11)
[2020-10-19] MEDS ORDERED: POTASSIUM CHLORIDE 20 MEQ VIAL- ADDITIVE ONLY IV ONE (19:53)
[2020-10-19] MEDS: BETAPACE PO SCH (20:12)
[2020-10-19] MEDS: DESYREL PO SCH (20:13)
[2020-10-20] MEDS ORDERED: BETAPACE PO ONE (05:14)
[2020-10-20 05:23] LABS: BASOPHILS % (AUTO) 0.2 % (0.0-3.0); EOSINOPHILS # (AUTO) 0.6 K/ul (0.0-0.7); EOSINOPHILS % (AUTO) 5.1 % (0.0-7.0); HEMATOCRIT 50.9 % (42.0-52.0); HEMOGLOBIN 17.1 g/dl (14.0-18.0); IMMATURE GRANULOCYTE % (AUTO) 0.4 % (0.0-5.0); LYMPHOCYTES # (AUTO) 3.9 K/uL (0.60-3.4); LYMPHOCYTES % (AUTO) 35.6 (10.0-50.0); MEAN CORPUSCULAR HEMOGLOBIN 31.1 pg (27.0-31.0); MEAN CORPUSCULAR HGB CONC 33.6 (31.8-35.4); MEAN CORPUSCULAR VOLUME 92.5 fl (80.0-94.0); MONOCYTES # (AUTO) 1.1 K/uL (0.4-2.0); MONOCYTES % (AUTO) 9.7 (0-10); NEUTROPHILS # (AUTO) 5.4 K/ul (2.0-6.9); PLATELET COUNT 214 10^3/uL (140-440); RDW COEFFICIENT OF VARIATION 14.6 % (11.6-14.8); WHITE BLOOD COUNT 10.94 K/ul (4.2-10.2)
[2020-10-20 05:38] LABS: ALBUMIN 3.62 g/dL (3.5-5.0); ASPARTATE AMINO TRANSFERASE 25.4 U/L (17-59); BILIRUBIN,TOTAL 0.82 mg/dL (0.2-1.3); BLOOD UREA NITROGEN 17.3 mg/dL (9-20); CALCIUM 8.88 mg/dL (8.4-10.2); CARBON DIOXIDE 25.3 mmol/L (22-30.0); CHLORIDE 109.2 mmol/L (98-107); CREATININE 1.22 mg/dL (0.60-1.10); GLUCOSE 119.7 mg/dL (74-106); POTASSIUM 3.8 mmol/L (3.5-5.1); SODIUM 141.1 mmol/L (134.5-145); TOTAL PROTEIN 7.1 g/dL (6.3-8.2)
[2020-10-20] MEDS ORDERED: POTASSIUM CHLORIDE 20 MEQ VIAL- ADDITIVE ONLY IV ONE (05:47)
[2020-10-20] MEDS: [UNRECOGNIZED DRUG - MIXTURE] IV SCH (05:50)
--- NOTE | 2020-10-20 08:59 | PCM.PROG ---
Attending Provider: ATTENDING PROVIDER: Dr. THOR STEIN This patient is seen with Renetta Lopez, Nurse Practitioner. DATE OF SERVICE: 10/20/20 SUBJECTIVE: This 75 year old /WHITE M was hospitalized 10/14/20. The patient is resting comfortably in bed. He is still anxious and agitated. Oral intake is inconsistent. The family has agreed to discharge on hospice and I do feel this is the best. REVIEW OF SYSTEMS: CONSTITUTIONAL: Weakness. No night sweats. No fatigue, malaise, lethargy. No fever or chills. HEENT: Eyes: No visual changes. No eye pain. No eye discharge. ENT: No runny nose. No epistaxis. No sinus pain. No odynophagia. No congestion. RESPIRATORY: No cough, no congestion. No hemoptysis. No shortness of breath. CARDIOVASCULAR: No angina symptoms. No CHF symptoms. No atypical chest pain for CAD. No palpitations. No orthopnea.. GASTROINTESTINAL: No abdominal pain. No nausea or vomiting. No diarrhea or constipation. No hematemesis. No hematochezia. GENITOURINARY: No urgency. No frequency. No dysuria. No hematuria. No obstructive symptoms. No discharge. No pain. No significant abnormal bleeding. MUSCULOSKELETAL: No musculoskeletal pain; no joint swelling. NEUROLOGICAL: Confusion. No headache. No neck pain. No syncope. No seizures. No dizziness. PSYCHIATRIC: Agitation. No depression. No suicidal thoughts. No homicidal thoughts. SKIN: No rash. No lesions. No wounds. ENDOCRINE: No unexplained weight loss. No weight gain. HEMATOLOGIC/LYMPHATIC: No anemia. No purpura. No petechiae. No prolonged or excessive bleeding. No palpable lymph nodes. PHYSICAL EXAMINATION: GENERAL: The patient is not alert or oriented, lying/sitting in bed in no distress. VITAL SIGNS: Temperature 97.5 F, Pulse 125, Respiratory Rate 20, BP 130/72, Pulse Ox 96% HEENT: Head normocephalic, atraumatic. Eyes: Extraocular muscles are intact. Pupils are equal, round and reactive to light and accommodation. Ears: No lesions. Nose appeared normal. Throat: No exudate or erythema. NECK: Supple. No JVD, no carotid bruit. No lymphadenopathy or thyromegaly. LUNGS: Diminished breath sounds. Clear to auscultation. Percussion note normal . Chest symmetrical. HEART: S1, S2, no S3. No murmurs. No cyanosis or clubbing. No ascites. Pu lses: Dorsalis pedis and posterior tibial pulses +1 to +2 both sides. ABDOMEN: Soft. Non-tender. Bowel sounds active. No CVA tenderness. No mass felt. EXTREMITIES: No edema. Full range of motion of all extremities, equal. NEUROLOGIC: No focal deficit. Cranial nerves II through XII are grossly intact. No headache. No double vision. SKIN: Not dry. Intact. Turgor-normal. LYMPHATIC: No palpable lymph nodes/no lymphedema. MUSCULOSKELETAL: Normal joints with no swelling. Muscle tone is normal. LAB REVIEW: 10/20/20 05:17 10/20/20 05:17 10/20/20 05:17: Sodium 141.1, Potassium 3.80, Chloride 109.2 H, Carbon Dioxide 25.3, Anion Gap 10.40, BUN 17.3, Creatinine 1.22 H, Estimated GFR (MDRD) 58.00, BUN/Creatinine Ratio 14.18, Glucose 119.7 H, Calcium 8.88, Total Bilirubin 0.82, AST 25.4, ALT 31.0, Alkaline Phosphatase 125.0 H, Total Protein 7.10, Albumin 3.62, Globulin 3.48, Albumin/Globulin Ratio 1.04 10/20/20 05:17: WBC 10.94 H, RBC 5.50, Hgb 17.1, Hct 50.9, MCV 92.5, MCH 31.1 H, MCHC 33.6, RDW Coeff of Yamilet 14.6, Plt Count 214, Immature Gran % (Auto) 0.4, Neut % (Auto) 49.0, Lymph % (Auto) 35.6, Bladen % (Auto) 9.7, Eos % (Auto) 5.1, Baso % (Auto) 0.2, Neut # (Auto) 5.4, Lymph # (Auto) 3.9 H, Bladen # (Auto) 1.1, Eos # (Auto) 0.6, Baso # (Auto) 0.0, Immature Gran # (Auto) 0.0 ASSESSMENT: Please see below. 1. Acute renal failure - improved. 2. Underlying chronic kidney disease, Stage 3. 3. Atrial fibrillation. 4. Hypertension. 5. Advanced dementia with behavioral disturbance. 6. Failure to thrive. PLAN: 1. Discontinue Haldol. 2. The patient is already referred to [facility]. Will return to [facility] and remain on Hospice. Plan and coordination of the patient's care discussed in the presence of Internet Merchant and nurse. PROGNOSIS: Poor. SCRIBED BY: CLARITZA HUGGINS [employer] Set Up Worker scribed while in presence of service performed by Dr. Stein/Renetta Lopez APRN on 10/20/20 ([id number])
[2020-10-20] MEDS: BETAPACE PO SCH (10:24)
[2020-10-20] MEDS: XARELTO PO SCH (10:25)
[2020-10-20] MEDS: COGENTIN PO SCH (10:25)
[2020-10-20] MEDS: ATIVAN PO SCH (10:25)
--- NOTE | 2020-10-20 11:44 | CM.DICTOOL ---
ADMISSION: 10/14/20 17:48 DISCHARGE: OCTOBER 20, 2020 DATE OF SERVICE: 10/20/20 FINAL DIAGNOSIS ACUTE RENAL FAILURE, IMPROVED DEHYDRATION UNDERLYING CHRONIC KIDNEY DISEASE, STAGE 3 END STAGE DEMENTIA WITH BEHAVIOR DISTURBANCE FAILURE TO THRIVE ATRIAL FIBRILLATION ( ON XARELTO) HYPERTENSION HISTORY OF DVT RIGHT POPLITEAL AND PERONEAL VEIN (ON XARELTO) ECHOCARDIOGRAM (01/12/2020) BORDERLINE LVH BORDERLINE LEFT ATRIAL CAVITY LVEF 74% LAST VITALS Temp Pulse Resp BP Pulse Ox 97.5 F L 125 H 18 130/72 98 10/20/20 05:38 10/20/20 05:38 10/20/20 08:00 10/20/20 05:38 10/20/20 10:00 TAKE THESE MEDICATIONS AT HOME Benztropine Mesylate (Benztropine Mesylate 1 Mg Tablet) 0.5 mg PO BID [facility] Last Admin: 10/20/20 10:25 Dose: 0.5 mg Documented by: Lorazepam (Lorazepam 0.5 Mg Tablet) 0.5 mg PO DAILY [facility] Last Admin: 10/20/20 10:25 Dose: 0.5 mg Documented by: Lorazepam (Lorazepam 0.5 Mg Tablet) 0.5 mg PO BID PRN PRN Reason: Anxiety Last Admin: 10/19/20 20:12 Dose: 0.5 mg Documented by: Rivaroxaban (Rivaroxaban 10 Mg Tablet) 15 mg PO DAILY [facility] (NEW DOSE) Last Admin: 10/20/20 10:25 Dose: 15 mg Documented by: Sotalol HCl (Sotalol Hcl 80 Mg Tablet) 40 mg PO BID [facility] Last Admin: 10/20/20 10:24 Dose: 40 mg Documented by: Trazodone HCl (Trazodone Hcl 50 Mg Tablet) 50 mg PO BEDTIME [facility] (NEW DOSE) Last Admin: 10/19/20 20:13 Dose: 50 mg Documented by: ALLERGIES codeine Adverse Reaction (Verified 10/14/20 14:59) meperidine [From Demerol] Adverse Reaction (Verified 10/14/20 14:59) nalbuphine [From Nubain] Adverse Reaction (Verified 10/14/20 14:59) DISCONTINUED MEDICATIONS XARELTO 20 MG TRAZODONE 100 MG K-TAB 20 MEQ LASIX 40 MG LOSARTAN 100 MG HALDOL 7.5 MG NEW PRESCRIPTIONS: XARELTO 15 MG DAILY ATIVAN 0.5 MG BID PRN RESTLESSNESS, AGITATION TRAZODONE 50 MG AT BEDTIME SMOKING: NOT APPLICABLE DISEASE SPECIFIC EDUCATION: NOT APPLICABLE, PATIENT IS DISORIENTED X 4 (ALZHEIMER'S DEMENTIA) LAB REVIEW: 10/20/20 05:17 10/20/20 05:17 10/20/20 05:17: Sodium 141.1, Potassium 3.80, Chloride 109.2 H, Carbon Dioxide 25.3, Anion Gap 10.40, BUN 17.3, Creatinine 1.22 H, Estimated GFR (MDRD) 58.00, BUN/Creatinine Ratio 14.18, Glucose 119.7 H, Calcium 8.88, Total Bilirubin 0.82, AST 25.4, ALT 31.0, Alkaline Phosphatase 125.0 H, Total Protein 7.10, Albumin 3.62, Globulin 3.48, Albumin/Globulin Ratio 1.04 10/20/20 05:17: WBC 10.94 H, RBC 5.50, Hgb 17.1, Hct 50.9, MCV 92.5, MCH 31.1 H, MCHC 33.6, RDW Coeff of Yamilet 14.6, Plt Count 214, Immature Gran % (Auto) 0.4, Neut % (Auto) 49.0, Lymph % (Auto) 35.6, Karnes % (Auto) 9.7, Eos % (Auto) 5.1, Baso % (Auto) 0.2, Neut # (Auto) 5.4, Lymph # (Auto) 3.9 H, Karnes # (Auto) 1.1, Eos # (Auto) 0.6, Baso # (Auto) 0.0, Immature Gran # (Auto) 0.0 PLAN: DISCHARGE TO [facility] DIET: PUREED WITH LIQUIDS TOLERATED (PATIENT HAS BEEN UNABLE TO TAKE LIQUIDS FROM A STRAW) ACTIVITY: TURN AND REPOSITION EVERY 2 HOURS AND PRN INCONTINENT CARE PRN DECUBITUS PRECAUTIONS OXYGEN AT 2 LITERS PRN OXYGEN SATURATION BELOW 90% REFERRAL TO HOSPICE [facility] FOR HOSPICE ADMISSION ( ) MY CONTACT: FANI WOODS FAMILY ( AND SON) TO MEET WITH HOSPICE AT 10 AM ON OCTOBER 21, 2020 AT [facility]ICE WILL FOLLOW STARTING THE AND AFTER DR. STEIN/SUZY DE JESUS APRN TO FOLLOW ON [facility] ROUNDS LABS: NONE CODE STATUS: DO NOT RESUSCITATE MR. DUDLEY OPENS EYES BRIEFLY AT RANDOM. HE DOES NOT FOLLOW DIRECTIONS OR OFFER RESPONSES TO QUESTIONS. OCCASIONALLY, HE WILL MUTTER A FEW WORDS BUT NOT IN DIRECT RESPONSE TO QUESTIONS OR COMMENTS. HE IS RESTLESS AT TIMES; REMOVING COVERS, MOVING ABOUT IN THE BED, PULLING OXYGEN, TLM OFF. MR. DUDLEY IS TOTAL CARE. HE IS UNABLE TO FEED HIMSELF. DIET IS PUREED WITH INTAKES OF 25% NOTED. HE IS UNABLE TO DRINK FROM A STRAW, BUT SIPS OF LIQUIDS ARE GIVEN VIA CUP. MR. DUDLEY REQUIRES TURNING/REPOSITIONING BY THE NURSING STAFF. HE HAS BEEN BEDRIDDEN SINCE HIS ADMISSION. MR. DUDLEY IS INCONTINENT OF URINE AND BOWEL. A BROWN CATHETER WAS PLACED ON ADMISSION, BUT REMOVED ON THE . HE IS VOIDING. THE PENIS IS SWOLLEN. HYDRATION STATUS HAS IMPROVED WITH ADMINISTRATION OF IV FLUIDS. SKIN IS INTACT. HOSPICE WAS DISCUSSED WITH THE BY SUZY DE JESUS APRN AND LEANA CABAN RN. THE IS AGREEABLE TO HOSPICE AFTER DISCUSSION WITH OTHER FAMILY MEMBERS. HOSPICE [facility] HAS BEEN CONSULTED WITH REFERRAL SENT. THE FAMILY IS TO MEET WITH HOSPICE AT 10 AM ON October. MD SUZY VO APRN
[2020-10-20 14:05] VITALS: BP 116/62; TEMP 98.1
--- NOTE | 2020-10-21 09:55 | PN ---
DATE OF SERVICE: 10/19/2020 SUBJECTIVE: 75 year old white male hospitalized with acute kidney failure with electrolyte imbalance. The patient's electrolytes have practically normal and kidney functions are practically normal with GFR of 62cc per minute. The patient on admission had creatinine of 5 with BUN more than 100. The patient's creatinine now is 1.1, BUN 18. REVIEW OF SYSTEMS: CONSTITUTIONAL: No night sweats. No fatigue, malaise, lethargy. No fever or chills. The patient is still obtundent response to his name by trying to open his eyes. HEENT: Eyes: No visual changes. No eye pain. No eye discharge. ENT: No runny nose. No epistaxis. No sinus pain. No sore throat. No odynophagia. No congestion. RESPIRATORY: No cough, no congestion. No hemoptysis. No shortness of breath. CARDIOVASCULAR: No angina symptoms. No CHF symptoms. No atypical chest pain for CAD. No palpitations. No PND. No orthopnea. GASTROINTESTINAL: No abdominal pain. No nausea or vomiting. No diarrhea or constipation. No hematemesis. No hematochezia. GENITOURINARY: No urgency. No frequency. No dysuria. No hematuria. No obstructive symptoms. No discharge. No pain. No significant abnormal bleeding. MUSCULOSKELETAL: No musculoskeletal pain; no joint swelling. NEUROLOGICAL: No headache. No neck pain. No syncope. No seizures. No dizziness. PSYCHIATRIC: Not anxious. No depression. No suicidal thoughts. No homicidal thoughts. SKIN: No rash. No lesions. No wounds. ENDOCRINE: No unexplained weight loss. No weight gain. HEMATOLOGIC/LYMPHATIC: No anemia. No purpura. No petechiae. No prolonged or excessive bleeding. No palpable lymph nodes. PHYSICAL EXAMINATION: VITAL SIGNS: Temperature 99.1, pulse 88, respiratory rate 20,blood pressure 100/68 and pulse ox 97%. HEENT: Head normocephalic, atraumatic. Eyes: Extraocular muscles are intact. Pupils are equal, round and reactive to light and accommodation. Ears: No lesions. Nose appeared normal. Throat: No exudate or erythema. NECK: Supple. No JVD, no carotid bruit. No lymphadenopathy or thyromegaly. LUNGS:Decreased breath sounds but clear to auscultation. Percussion note normal. Chest symmetrical. HEART: S1, S2, no S3. No murmurs. No cyanosis or clubbing. No ascites. Pulses: Dorsalis pedis and posterior tibial pulses +1 to +2 bilaterally. ABDOMEN: Soft. Nontender. Bowel sounds active. No CVA tenderness. No mass felt. EXTREMITIES: No edema. Full range of motion of all extremities, equal. NEUROLOGIC: No focal deficit. Cranial nerves II through XII are grossly intact. No headache. No double vision. SKIN: Not dry. Intact. Turgor - normal. LYMPHATIC: No palpable lymph nodes/no lymphedema. MUSCULOSKELETAL: Normal joints with no swelling. Muscle tone is normal. ASSESSMENT: 1. Atrial fibrillation with rate of 100 per minutes. Arrhythmias has resolved. PLAN: 1. Restart the Betapace 2. Start Cozaar 3. Continue Xarelto 4. Hold Cardizem for now 5. Repeat CT of the head. The patient would not cooperate for MRI. 6. Hospice to be discussed with the family and his . TIME SPENT: More than 30 minutes. Plan and coordination of the patient's care discussed in the presence of nurse. VLADISLAV
--- NOTE | 2020-10-21 10:42 | PN ---
DATE OF SERVICE: 10/18/2020 SUBJECTIVE: The patient was seen and examined with the Nurse Practitioner. The patient's condition is improving. The patient's kidney functions have improved. The patient's is going to be contacted for possibility of putting him on Hospice. The patient still is drowsy and response somewhat to his name trying to open the eyes and moving all his extremities. TIME SPENT: More than 30 minutes. Plan and coordination of the patient's care discussed in the presence of nurse. VLADISLAV
--- NOTE | 2020-10-21 11:40 | DS ---
DATE OF SERVICE: 10/20/20 FINAL DIAGNOSIS: 1. ACUTE RENAL FAILURE, IMPROVED 2. DEHYDRATION 3. UNDERLYING CHRONIC KIDNEY DISEASE, STAGE 3 4. END-STAGE DEMENTIA WITH BEHAVIOR DISTURBANCE 5. FAILURE TO THRIVE 6. ATRIAL FIBRILLATION (ON XARELTO) 7. HYPERTENSION 8. HISTORY OF DVT RIGHT POPLITEAL AND PERONEAL VEIN (ON XARELTO) 9. ECHOCARDIOGRAM (01/12/2020) BORDERLINE LVH, BORDERLINE LEFT ATRIAL CAVITY LVEF 74%. LAST VITALS Temp Pulse Resp BP Pulse Ox 97.5 F L 125 H 18 130/72 98 10/20/20 05:38 10/20/20 05:38 10/20/20 08:00 10/20/20 05:38 10/20/20 10:00 DISCHARGE INSTRUCTIONS: 1. DISCHARGE TO [facility] 2. INCONTINENT CARE PRN 3. DECUBITUS PRECAUTIONS 4. OXYGEN AT 2 LITERS PRN OXYGEN SATURATION BELOW 90% 5. REFERRAL TO [facility] FOR HOSPICE ADMISSION ( ) MY CONTACT: FANI WOODS. FAMILY ( AND SON) TO MEET WITH HOSPICE AT 10 AM ON OCTOBER 21, 2020 AT [facility]. HOSPICE WILL FOLLOW STARTING THE AND AFTER. 6. DR. STEIN/SUZY DE JESUS APRN TO FOLLOW ON LONGTERM ROUNDS. 7. LABS: NONE MEDICATIONS AT DISCHARGE: Benztropine Mesylate (Benztropine Mesylate 1 Mg Tablet) 0.5 mg PO BID [facility] Last Admin: 10/20/20 10:25 Dose: 0.5 mg Documented by: Lorazepam (Lorazepam 0.5 Mg Tablet) 0.5 mg PO DAILY [facility] Last Admin: 10/20/20 10:25 Dose: 0.5 mg Documented by: Lorazepam (Lorazepam 0.5 Mg Tablet) 0.5 mg PO BID PRN PRN Reason: Anxiety Last Admin: 10/19/20 20:12 Dose: 0.5 mg Documented by: Rivaroxaban (Rivaroxaban 10 Mg Tablet) 15 mg PO DAILY [facility] (NEW DOSE) Last Admin: 10/20/20 10:25 Dose: 15 mg Documented by: Sotalol HCl (Sotalol Hcl 80 Mg Tablet) 40 mg PO BID [facility] Last Admin: 10/20/20 10:24 Dose: 40 mg Documented by: Trazodone HCl (Trazodone Hcl 50 Mg Tablet) 50 mg PO BEDTIME [facility] (NEW DOSE) Last Admin: 10/19/20 20:13 Dose: 50 mg Documented by: NEW PRESCRIPTIONS: XARELTO 15 MG DAILY ATIVAN 0.5 MG BID PRN RESTLESSNESS, AGITATION TRAZODONE 50 MG AT BEDTIME DISCONTINUED MEDICATIONS: XARELTO 20 MG TRAZODONE 100 MG K-TAB 20 MEQ LASIX 40 MG LOSARTAN 100 MG HALDOL 7.5 MG DIET INSTRUCTIONS: PUREED WITH LIQUIDS TOLERATED (PATIENT HAS BEEN UNABLE TO TAKE LIQUIDS FROM A STRAW) ACTIVITY: TURN AND REPOSITION EVERY 2 HOURS AND PRN SMOKING: NOT APPLICABLE DISEASE SPECIFIC EDUCATION: NOT APPLICABLE, PATIENT IS DISORIENTED X 4 (ALZHEIMER'S DEMENTIA) HOSPITAL COURSE: This is a white male who presented to the emergency room with lethargy, shortness of breath, decreased responsiveness. He is a resident of [facility]. BUN was found to be 128 with a creatinine of 4.8. penitentiary states he had had decreased urine output, had not been eating, was more lethargic. He was admitted, placed on D5W. He had severe hypernatremia at 100cc/hr. Over the course of the next several days, kidney function steadily improved with IV fluids however his alertness and confusion remained the same. He became more agitated. He is still not wanting to eat, not having much urine output. His blood pressure medicines were held on admission due to hypotension. He was continued on his Xarelto, Betapace, Cardizem and Losartan were all discontinued. Yesterday he did have some tachycardia. He has a history of atrial fibrillation. He had a heart rate up to 120. He was restarted on Betapace 40 b.i.d. Even though his kidney function has nearly became normal, again he is not eating or drinking on his own. He will take a few bites if fed to him but not enough to sustain himself. We have discussed with the family his prognosis given his advanced dementia. He is unresponsive. He is not speaking. He will respond to some pain, stimuli on occasion. After a long discussion they have agreed to go with hospice referral once he has [facility] back to the prison due to his decline. He has been steadily declining over the past several months. This is his second hospitalization within the past few months for dehydration. He had most recently went to a psychiatric facility for his combativeness and agitation. He was placed on some new medications which were discontinued as we thought they were sedating him too much to want to eat or drink. However, even discontinuing these medications, his mental status has remained the same. He is still combative at times but not alert, not talking, unable to feed himself or drink and he is resistant to anyone else feeding him or trying to make him drink so he will be discharged with [facility]. They are supposed to meet with the family tomorrow. The prison is made aware. We will not plan for any arrangements for repeat labs as he will be going on hospice. He will remain on his Xarelto and his Betapace. He has been getting Ativan 0.5 mg in the morning and he has b.i.d. p.r.n. for agitation. Kidney function is back to normal today with creatinine down to 1.2, BUN 22. We will discharge him with a poor prognosis and again hospice referral. TIME SPENT: More than 60 minutes VLADISLAV
--- NOTE | 2020-10-24 14:28 | PN ---
DATE OF SERVICE: 10/17/2020 SUBJECTIVE: 75 year old white male hospitalized with acute kidney injury, renal failure. The patient is responding some now. The patient has been obtunded for last 2-3 days. Kidney functions are a lot better with creatinine of 1.5 and BUN 15. Continue medication management with IV fluids. I am going to call the with putting this patient on Hospice. Dementia has worsened. He is not wanting to drink or eat even. Prognosis is poor. Overall condition seems to have improved with improvement in kidney function and urine output. TIME SPENT: More than 30 minutes. Plan and coordination of the patient's care discussed in the presence of nurse. VLADISLAV
--- NOTE | 2020-10-25 13:02 | PN ---
DATE OF SERVICE: 10/20/20 SUBJECTIVE: The patient was seen and examined with the nurse practitioner. The patient's creatinine and BUN absolutely normal with normal GFR. The patient's main problem was dehydration. Mental status has deteriorated. The patient's prognosis is poor. The patient is going [facility] be [facility] [place] [facility]. TIME SPENT: More than 30 minutes. Plan and coordination of the patient's care discussed in the presence of nurse. VLADISLAV
--- NOTE | 2020-10-25 13:04 | PN ---
BILLING 10/14/20 ADMISSION DAY LEVEL 5 10/15/20 INTERMEDIATE 10/16/20 INTERMEDIATE 10/17/20 INTERMEDIATE 10/18/20 INTERMEDIATE 10/19/20 INTERMEDIATE 10/20/20 FINAL DAY, D IN DISCHARGE MTDD
== END 2020-10-20 15:16 | DRG 683 ==
LOC: ED 14:42 → MEDSURG A 17:48
PROVIDERS: ADMIT Internal Medicine; ATTEND Internal Medicine
DX: I95.9 Hypotension, unspecified; E87.0 Hyperosmolality and hypernatremia; F03.91 Unspecified dementia, unspecified severity, with behavioral disturbance; E86.0 Dehydration; R41.82 Altered mental status, unspecified; N18.30 Chronic kidney disease, stage 3 unspecified; I48.91 Unspecified atrial fibrillation; Z86.718 Personal history of other venous thrombosis and embolism; Z20.822 Contact with and (suspected) exposure to COVID-19; I10 Essential (primary) hypertension; Z79.01 Long term (current) use of anticoagulants; E87.2 Acidosis; R62.7 Adult failure to thrive